=== PATIENT | female | born 1990 | race Caucasian/White ===

== ENCOUNTER 2024-10-11 16:34 | Emergency (ER) | payer SELFPAY ==
[2024-10-11] VITALS (22 sets, daily range): BP systolic 119–165; BP diastolic 77–105; PULSE 91–131; TEMP 37.1; O2SAT 92–97; BMI 25.5
--- NOTE | 2024-10-11 18:17 | ECG_ITS ---
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
--- NOTE | 2024-10-11 18:18 | ED.GENADUL1 ---
HPI HPI - General Adult General Chief complaint: Back Pain/Injury Stated complaint: BACK PAIN Time Seen by Provider: 10/11/24 17:44 Source: patient Related Data Home Medications ?Medication ?Instructions ?Recorded ?Confirmed clonazepam 0.5 mg tablet 1 mg PO DAILY 10/11/24 10/11/24 dextroamphetamine-amphetamine ER 30 mg PO DAILY 10/11/24 10/11/24 30 mg 24hr capsule,extend release (Adderall XR) fluoxetine 40 mg capsule (Prozac) 60 mg PO DAILY 10/11/24 10/11/24 lamotrigine 100 mg tablet 100 mg PO DAILY 10/11/24 10/11/24 (Lamictal) mirtazapine 45 mg tablet 45 mg PO BEDTIME 10/11/24 10/11/24 Previous Rx's ?Medication ?Instructions ?Recorded ketorolac 10 mg tablet 10 mg PO TID PRN pain #10 tabs 10/11/24 methocarbamol 750 mg tablet 750 mg PO TID PRN pain #20 tabs 10/11/24 methylprednisolone 4 mg tablets in See Rx Instructions .Route 10/11/24 a dose pack (Medrol (Jhon)) .COMPLEX #21 ea Allergies Allergy/AdvReac Type Severity Reaction Status Date / Time No Known Drug Allergies Allergy Verified 10/11/24 16:41 Opioid HPI Opioid Management Most Recent Opioid Data: Last Pain Scale 8 10/11/24 18:51 10/11/24 Last ED Pain Assessment 10/11/24 18:32 Last MAR Pain Assessment 10/11/24 18:51 PFS PFS Medical History (Updated 10/11/24 @ 21:05 by CASEY Hennessy) Sciatic pain ?M54.30 - Sciatica, unspecified side (ICD-10) Surgical History (Updated 10/11/24 @ 16:50 by Fanny Goss RN) History of bunionectomy ?Z98.890 - Other specified postprocedural states (ICD-10) Hx of breast reduction, elective ?Z98.890 - Other specified postprocedural states (ICD-10) Social History Little interest or pleasure in doing things: not at all Feeling down, depressed, or hopeless: not at all Exam Constitutional Vital Signs, click to edit/add: Last Vital Signs Temp 98.8 F 10/11/24 16:41 Pulse 95 H 10/11/24 21:00 Resp 18 10/11/24 21:00 BP 119/77 10/11/24 20:30 Pulse Ox 95 10/11/24 21:00 O2 Del Method Room Air 10/11/24 19:44 Course Vital Signs Vital signs: Vital Signs Temperature 98.8 F 10/11/24 16:41 Pulse Rate 131 H 10/11/24 16:41 Respiratory Rate 16 10/11/24 16:41 Blood Pressure 165/105 H 10/11/24 16:41 Pulse Oximetry 95 10/11/24 16:41 Oxygen Delivery Method Room Air 10/11/24 16:41 Temperature 98.8 F 10/11/24 16:41 Pulse Rate 95 H 10/11/24 21:00 Respiratory Rate 18 10/11/24 21:00 Blood Pressure 119/77 10/11/24 20:30 Pulse Oximetry 95 10/11/24 21:00 Oxygen Delivery Method Room Air 10/11/24 19:44 Medical Decision Making MDM Narrative Medical decision making narrative: IV placed with labs drawn, EKG and D-dimer are unremarkable, patient with sinus tachycardia in the emergency room. Vital signs have normalized and after pain medication administration she is hemodynamically stable with tachycardia resolved and pain controlled. CTs of the C-spine and T-spine with no evidence of acute process, patient with no focal neurodeficits in the emergency department. She is discharged home with short course of NSAIDs, steroid taper and muscle relaxants. Follow-up with PCP and return to the ER if symptoms change or worsen SHARED APC VISIT, PHYSICIAN ATTESTATION: [id number] I performed a substantive part of the MDM during the patient?s E/M visit. I personally evaluated and examined the patient. I personally made or approved the documented management plan and acknowledge its risk of complications. Medical Records Medical records reviewed: Yes I reviewed the patient's medical records Lab Data Lab results reviewed: Yes I reviewed the patient's lab results Labs: Lab Results 10/11/24 Range/Units 18:20 WBC 14.9 H (4.0-11.0) 10^3/uL RBC 3.66 L (4.20-5.40) 10^6/uL Hgb 13.2 (12.0-16.0) g/dL Hct 38.9 (36.0-48.0) % MCV 106.3 H (81.0-99.0) fL MCH 36.1 H (26.7-34.0) pg MCHC 33.9 (29.9-35.2) g/dL RDW 12.0 (11.0-15.0) % Plt Count 292 (150-450) 10^3/uL MPV 9.4 L (9.5-13.5) fL Neut % (Auto) 75.5 H (43.0-75.0) % Lymph % (Auto) 12.9 L (20.5-60.0) % Kerr % (Auto) 8.5 (1.7-12.0) % Eos % (Auto) 2.4 (0.9-7.0) % Baso % (Auto) 0.3 (0.2-2.0) % Neut # (Auto) 11.2 H (1.4-6.5) 10^3/uL Lymph # (Auto) 1.9 (1.2-3.8) 10^3/uL [place] # (Auto) 1.3 H (0.3-0.8) 10^3/uL Eos # (Auto) 0.4 (0.0-0.7) 10^3/uL Baso # (Auto) 0.1 (0.0-0.1) 10^3/uL Abs Immat Gran (auto) 0.06 H (0.00-0.03) 10^3/uL Imm/Tot Granulo (auto) 0.4 (0.0-0.5) % ESR 42 H (<=20) mm/hr D-Dimer 0.34 (<=0.59) mg/L FEU Sodium 141 (136-145) mmol/L Potassium 4.2 (3.5-5.1) mmol/L Chloride 103 (98-107) mmol/L Carbon Dioxide 30.4 (21.0-32.0) mmol/L Anion Gap 11.8 BUN 11.0 (7.0-18.0) mg/dL Creatinine 0.81 (0.55-1.02) mg/dL Est GFR ( Amer) >60 (>=60 mL/min/1.73m^2) Est GFR (Non-Af Amer) >60 (>=60 mL/min/1.73m^2) BUN/Creatinine Ratio 13.6 Glucose 91 (74-106) mg/dL Calcium 9.5 (8.5-10.1) mg/dL Total Bilirubin 0.6 (0.2-1.0) mg/dL AST 31 (15-37) U/L ALT 58 (14-59) U/L Alkaline Phosphatase 156 H (46-116) U/L Troponin I High Sens <4.0 L (4.0-51.3) pg/mL C-Reactive Protein 3.87 H (<=0.50) mg/dL Total Protein 7.7 (6.4-8.2) g/dL Albumin 3.6 (3.4-5.0) g/dL Globulin 4.1 g/dL Albumin/Globulin Ratio 0.[address] cervical spine: Attestation: I have reviewed the pertinent imaging results. Radiologist's impression: ITS Impressions Cervical Spine CT 10/11/24 19:06 IMPRESSION: No acute cervical or thoracic spine abnormalities. Electronically authenticated by: JUSTINE MEMBRENO Date: 10/11/2024 20:[address] 10/11/24 19:06 IMPRESSION: No acute cervical or thoracic spine abnormalities. Electronically authenticated by: JUSTINE MEMBRENO Date: 10/11/2024 20:55 Discharge Plan Discharge Chief Complaint: Back Pain/Injury Clinical Impression: Thoracic back pain Patient Disposition: Home, Self-Care Time of Disposition Decision: 21:05 Condition: Good Prescriptions / Home Meds: New ketorolac 10 mg tablet 10 mg PO TID PRN (Reason: pain) Qty: 10 0RF methocarbamol 750 mg tablet 750 mg PO TID PRN (Reason: pain) Qty: 20 0RF methylprednisolone [Medrol (Jhon)] 4 mg tablets,dose pack See Rx Instructions .ROUTE .COMPLEX Qty: 21 0RF Rx Instructions: Taper as directed No Action fluoxetine [Prozac] 40 mg capsule 60 mg PO DAILY lamotrigine [Lamictal] 100 mg tablet 100 mg PO DAILY dextroamphetamine-amphetamine [Adderall XR] 30 mg capsule,extended release 24hr 30 mg PO DAILY clonazepam 0.5 mg tablet 1 mg PO DAILY mirtazapine 45 mg tablet 45 mg PO BEDTIME Print Language: Mongolian Instructions: Thoracic Pain (ED) Referrals: Physician,Non-Staff, MD [Primary Care Provider] - 1 week
[2024-10-11 18:40] LABS: Basophils Absolute Auto 0.1 10^3/uL (0.0-0.1); Basophils Percent Auto 0.3 % (0.2-2.0); Eosinophils Absolute Auto 0.4 10^3/uL (0.0-0.7); Eosinophils Percent Auto 2.4 % (0.9-7.0); Hematocrit 38.9 % (36.0-48.0); Hemoglobin 13.2 g/dL (12.0-16.0); Immature Granulocytes Abs Auto 0.06 10^3/uL (0.00-0.03); Immature Granulocytes Pct Auto 0.4 % (0.0-0.5); Lymphocytes Absolute Auto 1.9 10^3/uL (1.2-3.8); Lymphocytes Percent Auto 12.9 % (20.5-60.0); Mean Corpuscular HGB Conc 33.9 g/dL (29.9-35.2); Mean Corpuscular Hemoglobin 36.1 pg (26.7-34.0); Mean Corpuscular Volume 106.3 fL (81.0-99.0); Mean Platelet Volume 9.4 fL (9.5-13.5); Monocytes Absolute Auto 1.3 10^3/uL (0.3-0.8); Monocytes Percent Auto 8.5 % (1.7-12.0); Neutrophils Absolute Auto 11.2 10^3/uL (1.4-6.5); Neutrophils Percent Auto 75.5 % (43.0-75.0); Platelet Count 292 10^3/uL (150-450); Red Blood Count 3.66 10^6/uL (4.20-5.40); White Blood Count 14.9 10^3/uL (4.0-11.0)
[2024-10-11] MEDS: ONDANSETRON PF 4 MG/2 ML VIAL IV (18:43)
[2024-10-11] MEDS: HYDROMORPHONE HCL 0.5 MG/0.5 ML SYRINGE IV (18:43)
[2024-10-11] MEDS: ORPHENADRINE 60 MG/ 2 ML VIAL IV (18:43)
[2024-10-11] MEDS: 0.9 % SODIUM CHLORIDE 1,000 ML 999 ML IV (18:43)
[2024-10-11 18:46] LABS: Erythrocyte Sedimentation Rate 42 mm/hr (<=20)
[2024-10-11] MEDS: KETOROLAC TROMETHAMINE 30 MG/ML VIAL IVP (18:51)
[2024-10-11 18:54] LABS: D Dimer 0.34 mg/L FEU (<=0.59)
[2024-10-11 18:59] LABS: Alanine Aminotransferase 58 U/L (14-59); Albumin Globulin Ratio 0.9; Albumin Level 3.6 g/dL (3.4-5.0); Alkaline Phosphatase 156 U/L (46-116); Anion Gap 11.8; Aspartate Amino Transferase 31 U/L (15-37); BUN Creatinine Ratio 13.6; Bilirubin Total 0.6 mg/dL (0.2-1.0); C Reactive Protein 3.87 mg/dL (<=0.50); Calcium 9.5 mg/dL (8.5-10.1); Carbon Dioxide 30.4 mmol/L (21.0-32.0); Chloride 103 mmol/L (98-107); Estimated GFR (African America >60 (>=60 mL/min/1.73m^2); Estimated GFR (Non-African Ame >60 (>=60 mL/min/1.73m^2); Globulin 4.1 g/dL; Glucose 91 mg/dL (74-106); Potassium 4.2 mmol/L (3.5-5.1); Sodium 141 mmol/L (136-145); Total Protein 7.7 g/dL (6.4-8.2); Troponin I High Sensitivity <4.0 pg/mL (4.0-51.3)
--- NOTE | 2024-10-11 19:06 | CT_ITS ---
[address] [address] Patient Name: FREDDIE NAGY MRN: [id number] date: 1990 Sex: F Assigned Patient Location: ER Current Patient Location: ER Accession/Order Number: [id number] Exam Date: 10/11/2024 19:30 Report Date: 10/11/2024 20:55 At the request of: JARVIS PATTON Procedure: CT thoracic spine wo con EXAM: CT scan of the thoracic and lumbar spine without IV contrast. Dose reduction technique used: Automated exposure control and/or adjustment of the mA and/or kV according to patient size and/or use of iterative reconstruction technique. REASON FOR EXAM: Thoracic back pain COMPARISON: None FINDINGS: C-SPINE: No fractures, dislocations or acute malalignment of the cervical spine. No substantial spinal canal or neuroforaminal stenoses. Preserved intervertebral disc heights. THORACIC SPINE: No fractures, dislocations or acute malalignment of the thoracic spine. No substantial spinal canal or neuroforaminal stenoses. Preserved intervertebral disc heights. Remainder unremarkable. CT/CT thoracic spine wo con IMPRESSION: No acute cervical or thoracic spine abnormalities. Electronically authenticated by: JUSTINE MEMBRENO Date: 10/11/2024 20:55
--- NOTE | 2024-10-11 19:06 | CT_ITS ---
[address] [address] Patient Name: FREDDIE NAGY MRN: [id number] date: 1990 Sex: F Assigned Patient Location: ER Current Patient Location: ER Accession/Order Number: [id number] Exam Date: 10/11/2024 19:30 Report Date: 10/11/2024 20:55 At the request of: JARVIS PATTON Procedure: CT cervical spine wo con EXAM: CT scan of the thoracic and lumbar spine without IV contrast. Dose reduction technique used: Automated exposure control and/or adjustment of the mA and/or kV according to patient size and/or use of iterative reconstruction technique. REASON FOR EXAM: Thoracic back pain COMPARISON: None FINDINGS: C-SPINE: No fractures, dislocations or acute malalignment of the cervical spine. No substantial spinal canal or neuroforaminal stenoses. Preserved intervertebral disc heights. THORACIC SPINE: No fractures, dislocations or acute malalignment of the thoracic spine. No substantial spinal canal or neuroforaminal stenoses. Preserved intervertebral disc heights. Remainder unremarkable. CT/CT cervical spine wo con IMPRESSION: No acute cervical or thoracic spine abnormalities. Electronically authenticated by: JUSTINE MEMBRENO Date: 10/11/2024 20:55
== END 2024-10-11 21:15 | disposition home or self-care (01) ==
PROVIDERS: Physician Assistant; Emergency Provider Emergency Medicine
DX: M54.6 Pain in thoracic spine (principal)
CPT/HCPCS: 36415; 72125; 72128; 80053; 84484; 85025; 85378; 85652; 86140; 93005; 96374; 96375; 99285; J1171; J1885; J2360; J2405

== ENCOUNTER 2024-10-14 20:44 | Inpatient (IN) | payer MEDICAID, SELFPAY ==
[2024-10-14 20:48] VITALS: BP 176/106; PULSE 135; TEMP 37.3; O2SAT 97; BMI 26.1
--- NOTE | 2024-10-14 20:55 | CT_ITS ---
The [address] [address] Patient Name: FREDDIE NAGY MRN: [id number] date: 1990 Sex: F Assigned Patient Location: ER Current Patient Location: ER Accession/Order Number: [id number] Exam Date: 10/14/2024 21:18 Report Date: 10/14/2024 21:53 At the request of: KARO ESTRADA Procedure: CT pelvis w con EXAM: CT scan of the abdomen using 100 mL of IV iodinated contrast. Dose reduction technique used: Automated exposure control and/or adjustment of the mA and/or kV according to patient size and/or use of iterative reconstruction technique. REASON FOR EXAM: Rule out abscess, left ischial tuberosity area COMPARISON: None FINDINGS: Peripherally enhancing fluid collection containing gas along the left side of the perineum abutting the pelvic floor musculature this region measures 1.5 x 1.1 x 2.4 cm. Additional extension of a collection of gas and fluid more inferiorly to this although in close proximity, this measures 2.3 x 2.2 x 2.1 cm and is less well-defined and has surrounding fat stranding. No definite communication of the collections with the anus. Overlying left gluteal skin thickening. Mildly enlarged left inguinal lymph nodes are likely reactive. No free fluid in the pelvis. No intrapelvic fluid collection or abscess. No pelvic hematoma. No dilated or thickened loops of small bowel or colon where visible. No fractures, subluxations or dislocations. Remainder unremarkable. CT/CT pelvis w con IMPRESSION: Abscess along the left perineum/medial gluteal subcutaneous fat abutting the left pelvic floor musculature. Electronically authenticated by: JUSTINE MEMBRENO Date: 10/14/2024 21:53
--- NOTE | 2024-10-14 20:57 | ED.GENADUL1 ---
HPI HPI - General Adult General Chief complaint: Extremity Injury, Lower Stated complaint: LEFT SIT BONE PAIN Time Seen by Provider: 10/14/24 20:46 Source: patient Mode of arrival: walk-in History of Present Illness HPI narrative: 33-year-old female presents for pain to her left buttock area. She had fallen about a week ago and the next day it started hurting. Since its become swollen but there is been no drainage and she has not had a fever. Related Data Home Medications ?Medication ?Instructions ?Recorded ?Confirmed clonazepam 0.5 mg tablet 1 mg PO DAILY 10/11/24 10/11/24 dextroamphetamine-amphetamine ER 30 mg PO DAILY 10/11/24 10/11/24 30 mg 24hr capsule,extend release (Adderall XR) fluoxetine 40 mg capsule (Prozac) 60 mg PO DAILY 10/11/24 10/11/24 lamotrigine 100 mg tablet 100 mg PO DAILY 10/11/24 10/11/24 (Lamictal) mirtazapine 45 mg tablet 45 mg PO BEDTIME 10/11/24 10/11/24 Previous Rx's ?Medication ?Instructions ?Recorded ketorolac 10 mg tablet 10 mg PO TID PRN pain #10 tabs 10/11/24 methocarbamol 750 mg tablet 750 mg PO TID PRN pain #20 tabs 10/11/24 methylprednisolone 4 mg tablets in See Rx Instructions .Route 10/11/24 a dose pack (Medrol (Jhon)) .COMPLEX #21 ea Allergies Allergy/AdvReac Type Severity Reaction Status Date / Time No Known Drug Allergies Allergy Verified 10/11/24 16:41 Opioid HPI Opioid Management Most Recent Opioid Data: Last Pain Scale 8 10/14/24 23:07 10/14/24 Last ED Pain Assessment 10/14/24 23:07 Review of Systems ROS Narrative A ten point review of systems is negative except as noted above. PFSH PFSH Medical History (Updated 10/15/24 @ 00:03 by Sanchez Mir MD) Sciatic pain ?M54.30 - Sciatica, unspecified side (ICD-10) Surgical History (Updated 10/11/24 @ 16:50 by Fanny Goss RN) History of bunionectomy ?Z98.890 - Other specified postprocedural states (ICD-10) Hx of breast reduction, elective ?Z98.890 - Other specified postprocedural states (ICD-10) Social History Little interest or pleasure in doing things: not at all Feeling down, depressed, or hopeless: not at all Exam Narrative Exam Narrative: Nurses note and vital signs reviewed and patient is not hypoxic. General: The patient appears well and in no apparent distress. Patient is resting comfortably on cart. Skin: Warm, dry, no pallor noted. There is no rash noted. Head: Normocephalic, atraumatic Eye: Normal conjunctiva, no drainage Ears, Nose, Mouth, and Throat: oral mucosa is moist. Nares patent. Cardiovascular: Regular Rate and Rhythm Respiratory: Patient is in no distress, no accessory muscle use, lungs are clear to auscultation, no wheezing, rales or rhonchi Back: non-tender GI: Soft and nontender Musculoskeletal: In the left ischial tuberosity area there is erythema and swelling and tenderness. No fluctuance or open area. Neurological: A&O, normal speech Psychiatric: Cooperative Constitutional Vital Signs, click to edit/add: Last Vital Signs Temp 98.9 F 10/14/24 23:10 Pulse 105 H 10/14/24 23:10 Resp 16 10/14/24 23:10 BP 144/92 H 10/14/24 23:10 Pulse Ox 98 10/14/24 23:10 O2 Del Method Room Air 10/14/24 23:10 Course Vital Signs Vital signs: Vital Signs Temperature 99.1 F 10/14/24 20:48 Pulse Rate 135 H 10/14/24 20:48 Respiratory Rate 20 10/14/24 20:48 Blood Pressure 176/106 H 10/14/24 20:48 Pulse Oximetry 97 10/14/24 20:48 Oxygen Delivery Method Room Air 10/14/24 20:48 Temperature 98.9 F 10/14/24 23:10 Pulse Rate 105 H 10/14/24 23:10 Respiratory Rate 16 10/14/24 23:10 Blood Pressure 144/92 H 10/14/24 23:10 Pulse Oximetry 98 10/14/24 23:10 Oxygen Delivery Method Room Air 10/14/24 23:10 Medical Decision Making MDM Narrative Medical decision making narrative: 2 adjacent abscesses are identified, 1 of which is abutting the pelvic floor. The other has gas and fluid in it. White count 17,000. Blood sugar is elevated and it was not a few days ago. She has no personal history of diabetes but has a family history of diabetes. Cultures were obtained and she was given IV vancomycin. I have spoken to general surgeon at [facility] and he feels that she would benefit from interventional radiology. Patient is requesting transfer to [facility] [place] and I have spoken to admitting service there and she is excepted. She is agreeable and stable for transfer. Differential Diagnosis Differential Diagnosis: Abscess, cellulitis Lab Data Lab results reviewed: Yes I reviewed the patient's lab results Labs: Lab Results 10/14/24 Range/Units 21:00 WBC 17.3 H (4.0-11.0) 10^3/uL RBC 3.25 L (4.20-5.40) 10^6/uL Hgb 11.7 L (12.0-16.0) g/dL Hct 34.2 L (36.0-48.0) % MCV 105.2 H (81.0-99.0) fL MCH 36.0 H (26.7-34.0) pg MCHC 34.2 (29.9-35.2) g/dL RDW 11.5 (11.0-15.0) % Plt Count 281 (150-450) 10^3/uL MPV 9.3 L (9.5-13.5) fL Neut % (Auto) 83.7 H (43.0-75.0) % Lymph % (Auto) 7.3 L (20.5-60.0) % [place] % (Auto) 5.8 (1.7-12.0) % Eos % (Auto) 1.9 (0.9-7.0) % Baso % (Auto) 0.3 (0.2-2.0) % Neut # (Auto) 14.5 H (1.4-6.5) 10^3/uL Lymph # (Auto) 1.3 (1.2-3.8) 10^3/uL [place] # (Auto) 1.0 H (0.3-0.8) 10^3/uL Eos # (Auto) 0.3 (0.0-0.7) 10^3/uL Baso # (Auto) 0.1 (0.0-0.1) 10^3/uL Abs Immat Gran (auto) 0.18 H (0.00-0.03) 10^3/uL Imm/Tot Granulo (auto) 1.0 H (0.0-0.5) % Sodium 137 (136-145) mmol/L Potassium 3.7 (3.5-5.1) mmol/L Chloride 101 (98-107) mmol/L Carbon Dioxide 25.4 (21.0-32.0) mmol/L Anion Gap 14.3 BUN 11.0 (7.0-18.0) mg/dL Creatinine 0.97 (0.55-1.02) mg/dL Est GFR ( Amer) >60 (>=60 mL/min/1.73m^2) Est GFR (Non-Af Amer) >60 (>=60 mL/min/1.73m^2) BUN/Creatinine Ratio 11.3 Glucose 241 H (74-106) mg/dL Lactate 2.6 H* (0.4-2.0) mmol/L Calcium 8.6 (8.5-10.1) mg/dL Imaging Data CT pelvis: Radiologist's impression: ITS Impressions Pelvis CT 10/14/24 20:55 IMPRESSION: Abscess along the left perineum/medial gluteal subcutaneous fat abutting the left pelvic floor musculature. Electronically authenticated by: JUSTINE MEMBRENO Date: 10/14/2024 21:53 Discharge Plan Discharge Chief Complaint: Extremity Injury, Lower Clinical Impression: Abscess Patient Disposition: General Acute Hospital Time of Disposition Decision: 00:03 Discharge Location: [facility] Condition: Fair Mode of Transportation: EMS
[2024-10-14 21:16] LABS: Basophils Absolute Auto 0.1 10^3/uL (0.0-0.1); Basophils Percent Auto 0.3 % (0.2-2.0); Eosinophils Absolute Auto 0.3 10^3/uL (0.0-0.7); Eosinophils Percent Auto 1.9 % (0.9-7.0); Hematocrit 34.2 % (36.0-48.0); Hemoglobin 11.7 g/dL (12.0-16.0); Immature Granulocytes Abs Auto 0.18 10^3/uL (0.00-0.03); Lymphocytes Absolute Auto 1.3 10^3/uL (1.2-3.8); Lymphocytes Percent Auto 7.3 % (20.5-60.0); Mean Corpuscular HGB Conc 34.2 g/dL (29.9-35.2); Mean Corpuscular Volume 105.2 fL (81.0-99.0); Mean Platelet Volume 9.3 fL (9.5-13.5); Monocytes Percent Auto 5.8 % (1.7-12.0); Neutrophils Absolute Auto 14.5 10^3/uL (1.4-6.5); Neutrophils Percent Auto 83.7 % (43.0-75.0); Platelet Count 281 10^3/uL (150-450); Red Blood Count 3.25 10^6/uL (4.20-5.40); Red Cell Distribution Width 11.5 % (11.0-15.0); White Blood Count 17.3 10^3/uL (4.0-11.0)
[2024-10-14 21:30] VITALS: BP 155/105
[2024-10-14 21:31] LABS: Anion Gap 14.3; BUN Creatinine Ratio 11.3; Calcium 8.6 mg/dL (8.5-10.1); Carbon Dioxide 25.4 mmol/L (21.0-32.0); Chloride 101 mmol/L (98-107); Estimated GFR (African America >60 (>=60 mL/min/1.73m^2); Estimated GFR (Non-African Ame >60 (>=60 mL/min/1.73m^2); Glucose 241 mg/dL (74-106); Potassium 3.7 mmol/L (3.5-5.1); Sodium 137 mmol/L (136-145)
[2024-10-14 21:37] VITALS: PULSE 110
[2024-10-14 22:38] LABS: Lactate/Lactic Acid 2.6 mmol/L (0.4-2.0)
[2024-10-14] MEDS: KETOROLAC TROMETHAMINE 30 MG/ML VIAL IVP (22:41)
[2024-10-14] MEDS: VANCOMYCIN HCL 1,500 MG in 0.9 % SODIUM CHLORIDE 500 ML 250 MG IV (22:42)
[2024-10-14 23:10] VITALS: BP 144/92; PULSE 105; TEMP 37.2; O2SAT 98
[2024-10-14] MEDS: MORPHINE SULFATE 4 MG/ML VIAL IV (23:43)
[2024-10-15] VITALS (75 sets, daily range): BP systolic 102–158; BP diastolic 59–99; PULSE 92; O2SAT 91–100
[2024-10-15] MEDS: MORPHINE SULFATE 4 MG/ML VIAL IV (01:45)
[2024-10-15] MEDS: HYDROMORPHONE HCL 1 MG/ML CARTRIDGE IV ×6 (02:29→22:10)
[2024-10-15] MEDS: HYDROMORPHONE HCL 0.5 MG/0.5 ML SYRINGE 1 MG IV ×3 (03:41→08:26)
[2024-10-15] MEDS: KETOROLAC TROMETHAMINE 30 MG/ML VIAL 15 MG IVP (07:41)
[2024-10-15] MEDS: CLINDAMYCIN PHOSPHATE/D5W 900 MG/50 ML PREMIX 100 MG IV ×3 (07:41→23:33)
[2024-10-15] MEDS: VANCOMYCIN HCL 1,000 MG in 0.9 % SODIUM CHLORIDE 250 ML 250 MG IV ×2 (10:52→22:11)
--- NOTE | 2024-10-15 16:00 | PC.NURSE ---
pt called for this RN, pt is having serosang drainage from left buttock, pt to restroom to cleans uli area, new gown and mesh underwear given for comfort, Dr Pena notified
[2024-10-16] VITALS (45 sets, daily range): BP systolic 99–128; BP diastolic 59–84; PULSE 75–96; TEMP 36.4–36.7; O2SAT 87–100; BMI 28.7
[2024-10-16] MEDS: KETOROLAC TROMETHAMINE 30 MG/ML VIAL IVP (00:32)
[2024-10-16] MEDS: ONDANSETRON PF 4 MG/2 ML VIAL IV (00:32)
[2024-10-16] MEDS: LORAZEPAM 2 MG/ML VIAL 0.5 MG IV (02:27)
[2024-10-16] MEDS: LORAZEPAM 2 MG/ML VIAL 1 MG IV (04:21)
[2024-10-16] MEDS: ZOLPIDEM TARTRATE 10 MG TABLET PO (06:09)
[2024-10-16] MEDS: HYDROMORPHONE HCL 1 MG/ML CARTRIDGE IV ×2 (08:22→10:20)
[2024-10-16] MEDS: CLINDAMYCIN PHOSPHATE/D5W 900 MG/50 ML PREMIX 100 MG IV (09:06)
[2024-10-16 09:18] LABS: Basophils Percent Auto 0.3 % (0.2-2.0); Eosinophils Absolute Auto 0.6 10^3/uL (0.0-0.7); Eosinophils Percent Auto 4.7 % (0.9-7.0); Immature Granulocytes Abs Auto 0.06 10^3/uL (0.00-0.03); Immature Granulocytes Pct Auto 0.5 % (0.0-0.5); Lymphocytes Absolute Auto 1.9 10^3/uL (1.2-3.8); Lymphocytes Percent Auto 15.6 % (20.5-60.0); Mean Corpuscular HGB Conc 34.4 g/dL (29.9-35.2); Mean Corpuscular Hemoglobin 35.7 pg (26.7-34.0); Mean Corpuscular Volume 103.9 fL (81.0-99.0); Mean Platelet Volume 8.7 fL (9.5-13.5); Monocytes Absolute Auto 0.8 10^3/uL (0.3-0.8); Monocytes Percent Auto 6.5 % (1.7-12.0); Neutrophils Percent Auto 72.4 % (43.0-75.0); Platelet Count 283 10^3/uL (150-450); Red Blood Count 3.08 10^6/uL (4.20-5.40); Red Cell Distribution Width 11.3 % (11.0-15.0); White Blood Count 12.4 10^3/uL (4.0-11.0)
[2024-10-16 09:26] LABS: Anion Gap 10.1; BUN Creatinine Ratio 15.1; Calcium 8.3 mg/dL (8.5-10.1); Carbon Dioxide 30.5 mmol/L (21.0-32.0); Chloride 102 mmol/L (98-107); Estimated GFR (African America >60 (>=60 mL/min/1.73m^2); Estimated GFR (Non-African Ame >60 (>=60 mL/min/1.73m^2); Glucose 99 mg/dL (74-106); Potassium 3.6 mmol/L (3.5-5.1); Sodium 139 mmol/L (136-145)
[2024-10-16 09:35] LABS: Lactate/Lactic Acid 0.7 mmol/L (0.4-2.0)
[2024-10-16] MEDS: VANCOMYCIN HCL 1,000 MG in 0.9 % SODIUM CHLORIDE 250 ML 250 MG IV ×2 (09:54→21:45)
--- NOTE | 2024-10-16 12:41 | PM.HP ---
HPI H&P: HPI History of Present Illness Chief complaint: LEFT SIT BONE PAIN ABSCESS Narrative: 33-year-old female presented to ER with left buttocks pain/swelling. She fell about a week ago and since then she had noticed increasing pain/swelling. She also reports feeling generalized weakness and subjective fevers and chills. Upon evaluation in ER, patient met criteria for sepsis secondary to gluteal abscess. Upon arrival, her HR was consistently in 100s and she had a leukocyte count of 17K. CT pelvis revealed Peripherally enhancing fluid collection containing gas along the left side of the perineum abutting the pelvic floor musculature measuring 1.5 x 1.1 x 2.4 cm. She had additional extension of a collection of gas and fluid more inferiorly measuring 2.3 x 2.2 x 2.1 cm. She was started on IV fluids and IV antibiotics in ED. Her CT scan findings were discussed with on-call general surgery who recommended transfer to a tertiary care center. Patient was accepted for transfer to [facility] but has been waiting for a bed for over 24 hours. This team was consulted to admit patient for medical management of her gluteal abscess/sepsis until bed becomes available so that she can be transferred for surgical incision and drainage at [facility]. At the time of my evaluation, she felt that her pain was slightly better and she she felt better overall but she still had considerable pain/swelling over her gluteal region. Opioid HPI Opioid Management Most Recent Pain and Opioid Data: Last Pain Scale 7 10/16/24 12:21 10/16/24 Last Pain Assessment 10/16/24 12:21 Last ED Pain Assessment 10/15/24 02:43 Last ORT Total Score 14 10/16/24 12:21 10/16/24 Last ORT Risk Category High Risk 10/16/24 12:21 10/16/24 Review of Systems ROS Status of ROS 10 or more systems reviewed and unremarkable except as noted in history and below [facility] Medical History (Updated 10/16/24 @ 12:47 by Shaikh Ramesh MD) Sciatic pain ?M54.30 - Sciatica, unspecified side (ICD-10) Surgical History (Updated 10/11/24 @ 16:50 by Fanny Goss RN) History of bunionectomy ?Z98.890 - Other specified postprocedural states (ICD-10) Hx of breast reduction, elective ?Z98.890 - Other specified postprocedural states (ICD-10) Social History (Updated 10/16/24 @ 12:46 by Shaikh Ramesh MD) Within the past year, how often did you have a drink containing alcohol: monthly or less Within the past year, how many standard drinks containing alcohol did you have on a typical day: 1 or 2 Within the past year, how often did you have six or more drinks on one occasion: never Total score: 0 Score interpretation: A score less than 3 is consistent with normal alcohol consumption. Smoking status: Former smoker Non-prescribed substance use: denies use Highest level of school completed/degree received: 10th grade Little interest or pleasure in doing things: not at all Feeling down, depressed, or hopeless: not at all Do you think of yourself as: lesbian/cintron/homosexual Gender Identity: female Meds Home Medications and Allergies Home Medications ?Medication ?Instructions ?Recorded ?Confirmed ?Type clonazepam 0.5 mg tablet 1 mg PO DAILY 10/11/24 10/11/24 History dextroamphetamine-amphetamine ER 30 mg PO DAILY 10/11/24 10/11/24 History 30 mg 24hr capsule,extend release (Adderall XR) fluoxetine 40 mg capsule (Prozac) 60 mg PO DAILY 10/11/24 10/11/24 History ketorolac 10 mg tablet 10 mg PO TID PRN pain #10 tabs 10/11/24 Rx lamotrigine 100 mg tablet 100 mg PO DAILY 10/11/24 10/11/24 History (Lamictal) methocarbamol 750 mg tablet 750 mg PO TID PRN pain #20 tabs 10/11/24 Rx methylprednisolone 4 mg tablets in See Rx Instructions .Route 10/11/24 Rx a dose pack (Medrol (Jhon)) .COMPLEX #21 ea mirtazapine 45 mg tablet 45 mg PO BEDTIME 10/11/24 10/11/24 History Allergies Allergy/AdvReac Type Severity Reaction Status Date / Time No Known Drug Allergies Allergy Verified 10/11/24 16:41 Exam Constitutional Vital Signs, click to edit/add: Last Vital Signs Temp 97.6 F 10/16/24 02:26 Pulse 88 10/16/24 10:20 Resp 18 10/16/24 10:20 BP 120/84 10/16/24 10:20 Pulse Ox 97 10/16/24 10:20 O2 Del Method Room Air 10/14/24 23:10 Documenting provider has reviewed patient's vital signs: yes Common normals: no apparent distress and oriented x3 General appearance: cooperative HENMT Common normals: normocephalic and head/scalp atraumatic Head and scalp: normocephalic and atraumatic Eye Common normals: conjunctivae normal and no scleral icterus Conjunctiva: conjunctiva(e) normal Respiratory Common normals: normal respiratory effort and clear to auscultation bilaterally Effort & inspection: able to speak in complete sentences Auscultation: clear to auscultation bilaterally Cardio Common normals: regular rate, S1 normal heart sound and S2 normal heart sound Rate: regular rate Heart sounds: S1 normal and S2 normal GI Common normals: Normal to inspection, nondistended, normoactive bowel sounds present, soft to palpation, non-tender and no hepatosplenomegaly Palpation: soft and no hepatosplenomegaly Back & Pelvis Pelvis: buttock abnormal Buttock abnormal laterality: left (Discrete area of fluctuance concerning for abscess. Almost all of her left buttocks is involved) Left buttock abnormal details: tenderness, erythema and swelling Extremity Common normals: no clubbing, cyanosis or edema Neuro Common normals: oriented x3, moves all extremities and no focal motor deficits Psych Common normals: mental status grossly normal, denies hallucinations, denies homicidal ideation and denies suicidal ideation Results Labs Labs: Short CBC 10/16/24 Range/Units 09:13 WBC 12.4 H (4.0-11.0) 10^3/uL Hgb 11.0 L (12.0-16.0) g/dL Hct 32.0 L (36.0-48.0) % Plt Count 283 (150-450) 10^3/uL BMP 10/16/24 09:13 Sodium 139 Potassium 3.6 Chloride 102 Carbon Dioxide 30.5 BUN 11.0 Creatinine 0.73 Glucose 99 Calcium 8.3 L Assessment and Plan Assessment and Plan (1) Sepsis: Qualifiers: Sepsis type: sepsis due to unspecified organism Sepsis acute organ dysfunction status: without acute organ dysfunction Qualified Code(s): A41.9 - Sepsis, unspecified organism (2) Abscess, gluteal, left: (3) Lactic acidosis: Plan Patient meets sepsis criteria (WBC 17K, HR> 100) Sepsis secondary to gluteal abscess. Lactic acidosis secondary to dehydration and sepsis. Currently on IV vancomycin and Zosyn. Continue with IV hydration. Follow-up blood cultures. She is hemodynamically stable currently. Will need surgical incision and drainage. Awaiting bed availability at [facility]. Continue with pain control.
[2024-10-16 13:06] LABS: Estimated Average Glucose 103 mg/dL; Glycohemoglobin A1C 5.2 % (4.5-6.2)
[2024-10-16] MEDS: OXYCODONE HCL 5 MG TABLET PO ×2 (14:14→22:44)
[2024-10-16] MEDS: ENOXAPARIN SODIUM 40 MG/0.4 ML SYRINGE SUBQ (14:14)
[2024-10-16] MEDS: PIPERACILLIN SODIUM/TAZOBACTAM 3.375 GM in 0.9 % SODIUM CHLORIDE 50 ML IV ×2 (14:15→22:47)
[2024-10-16] MEDS: ACETAMINOPHEN 325 MG TABLET 650 MG PO (14:15)
[2024-10-16] MEDS: LACTATED RINGER'S SOLUTION 1,000 ML 125 ML IV (14:15)
[2024-10-17] MEDS: LACTATED RINGER'S SOLUTION 1,000 ML 125 ML IV (01:34)
--- NOTE | 2024-10-17 13:30 | P.DS_ITS ---
DS: Providers Provider Date of admission: 10/16/24 11:16 Primary care physician: Non-Staff PhysicianMD Admitting clinician: Shaikh Ramesh Attending physician on admission: Shaikh Ramesh Attending physician on discharge: Shaikh Ramesh Discharging clinician: Shaikh Ramesh DS: Diagnosis Discharge Diagnosis (1) Sepsis: Qualifiers: Sepsis type: sepsis due to unspecified organism Sepsis acute organ dys function status: without acute organ dysfunction Qualified Code(s): A41.9 - Sepsis, unspecified organism (2) Abscess, gluteal, left: (3) Lactic acidosis: DS: Summary Hospital Course Hospital Course: 33-year-old female presented to ER with left buttocks pain/swelling. She fell about a week ago and since then she had noticed increasing pain/swelling. Upon evaluation in ER, patient met criteria for sepsis secondary to gluteal abscess. Upon arrival, her HR was consistently in 100s and she had a leukocyte count of 17K. CT pelvis revealed Peripherally enhancing fluid collection containing gas along the left side of the perineum abutting the pelvic floor musculature measuring 1.5 x 1.1 x 2.4 cm. She had additional extension of a collection of gas and fluid more inferiorly measuring 2.3 x 2.2 x 2.1 cm. She was started on IV fluids and IV antibiotics in ED. Her CT scan findings were discussed with on-call general surgery who recommended transfer to a tertiary care center. Patient was accepted for transfer to [facility] but had been waiting for a bed for over 24 hours. Patient was admitted to [facility] surg floor to continue her treatment of gluteal abscess. She was treated with IV vancomycin and zosyn. Later in the evening, she was transferred to [facility] for surgical I&D once bed became available for her. Time Spent with Patient Time attestation: Total time spent providing and/or coordinating discharge services: Exam Constitutional Vital Signs, click to edit/add: Last Vital Signs Temp 97.7 F 10/16/24 19:33 Pulse 78 10/16/24 19:33 Resp 18 10/16/24 19:33 BP 117/77 10/16/24 19:33 Pulse Ox 95 10/16/24 19:33 O2 Del Method Room Air 10/16/24 19:33 O2 Flow Rate 2 10/16/24 12:21 DS: Data Data Completed and Pending Labs on day of discharge: Labs from last 24 hours 10/16/24 09:13 Estimat Average Glucose 103 Hemoglobin A1c 5.2 Preliminary micro results at discharge 10/14/24 22:20 Blood Culture Result 2 - Preliminary Blood NO GROWTH AT 36-48 HOURS. FINAL TO FOLLOW. 10/14/24 22:19 Blood Culture Result 1 - Preliminary Blood NO GROWTH AT 36-48 HOURS. FINAL TO FOLLOW. Discharge Plan Discharge Disposition: [facility] Condition: Fair Assessment: report called to Kirill CASTILLO at . , pt transport with belongings Discharge Date/Time: 10/17/24 02:12 Discharge Location: [facility] Discharge location: [facility]
== END 2024-10-17 02:12 | disposition short-term general hospital (02) | DRG 720 ==
LOC: ER 10-15 00:03 → MS 10-16 11:19
PROVIDERS: Student in an Organized Health Care Education/Training Program; Admitting Provider Internal Medicine; Emergency Provider Emergency Medicine; Visit Provider Internal Medicine
DX: A41.9 Sepsis, unspecified organism (principal); L02.31 Cutaneous abscess of buttock; E87.20 Acidosis, unspecified; R73.9 Hyperglycemia, unspecified; R29.6 Repeated falls; W19.XXXA Unspecified fall, initial encounter; Z79.899 Other long term (current) drug therapy; Z83.3 Family history of diabetes mellitus
CPT/HCPCS: 36415; 72193; 80048; 80053; 80202; 83036; 83605; 85025; 87040; 94761; 96365; 96366; 96367; 96372; 96375; 96376; 99285; 99406; J0736; J1171; J1650; J1885; J2060; J2270; J2405; J2543; J3370; Q9967

== ENCOUNTER 2024-11-09 23:35 | Emergency (ER) | payer SELFPAY ==
[2024-11-09 23:43] VITALS: BP 168/105; PULSE 97; TEMP 36.9; O2SAT 99; BMI 26.5
--- NOTE | 2024-11-09 23:46 | PC.NURSE ---
complains of left buttock abscess onset 10/14/2024, this patient transferred to [facility] for 3 or 4 days per this patient. for this abscess and this patient has no PCP and was never told to follow up after her discharge from [facility]
--- OUTSIDE RECORDS SUMMARY | 2024-11-09 23:50 | XMS_ITS | CCD ---
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 11.9 - 15.1 g/dL [facility] Immature granulocytes (Bld) [#/Vol] 0.08 10*3/uL [facility] Immature granulocytes/100 WBC (Bld) 1 % High 0 [facility] Interpretation and review of laboratory results Abnormal [facility] Lymphocytes/100 WBC (Bld) 28 % 24 - 43 % [facility] Lymphocytes/100 WBC (Bld) 2.19 % [facility] MCH (RBC) [Entitic mass] 35.0 pg High 25.2 - 33.5 pg [facility] MCHC (RBC) [Mass/Vol] 32.8 g/dL 28.4 - 34.8 g/dL [facility] MCV (RBC) [Entitic vol] 106.5 fL High 82.6 - 102.9 fL [facility] Monocytes/100 WBC (Bld) 8 % 3 - 12 % [facility] Monocytes/100 WBC (Bld) 0.67 % [facility] Neutrophils/100 WBC (Bld) 56 % 36 - 65 % [facility] Nucleated RBC/100 WBC (Bld) [Ratio] 0.0 % 0.0 per 100 WBC [facility] Platelet mean volume (Bld) [Entitic vol] 9.9 fL 8.1 - 13.5 fL [facility] Platelets (Bld) [#/Vol] 366 10*3/uL [facility] RBC (Bld) [#/Vol] 3.23 10*6/uL Low 3.95 - 5.1 1 m/uL [facility] [employer] RBC (Bld) [#/Vol] MACROCYTOSIS PRESENT [facility] Segmented neutrophils/100 WBC (Bld) 4.48 % [facility] WBC other (Bld) [#/Vol] 8.0 [facility] CBC with Diffon 10-19-2024 Abs. Basophil 0.06 k/uL Normal 0.00-0.[address] [facility] Comment on above: Performed By: #### NAOMI LOWERYX #### [employer] [address] [place], [place] [id number] [employer] Operator: Larry Ashton MD Abs.Imm.Granulocyte 0.08 k/uL Normal 0.00-0.[address] [facility] Comment on above: Performed By: #### NAOMI LOWERYX #### [employer] [facility] [place] [address] [employer] Operator: Larry Ashton MD Abs.Neutrophil (Seg) 4.48 k/uL Normal 1.50-8.[address] [facility] Comment on above: Performed By: #### U MICAO, UAX #### [employer] [address] [place] [address] [employer] Operator: Larry Ashton MD Basophils/100 WBC (Bld) 1 % Normal 0-[address] [facility] Comment on above: Performed By: #### U MICAO, UAX #### [facility] [employer] [address] [place] [address] [employer] Operator: Larry Ashton MD Eosinophils (Bld) [#/Vol] 0.47 10*3/uL High 0.00-0.[address] [facility] Comment on above: Performed By: #### U MICAO, UAX #### [facility] [employer] [address] [place] [address] [employer] Operator: Larry Ashton MD Eosinophils/100 WBC (Bld) 6 % High 1-[address] [facility] Comment on above: Performed By: #### U MICAO, UAX #### [address] [address] [employer] Operator: Larry Ashton MD Erythrocyte distribution width (RBC) [Ratio] 11.4 % Low 11.8-14.[address] [facility] Comment on above: Performed By: #### U MICAO, UAX #### [facility] [employer] [address] [place] [address] [employer] Operator: Larry Ashton MD Hematocrit (Bld) [Volume fraction] 34.4 % Low 36.3-47.[address] [facility] Comment on above: Performed By: #### U MICAO, UAX #### [facility] [employer] [address] [place] [address] [employer] Operator: Larry Ashton MD Hemoglobin (Bld) [Mass/Vol] 11.3 g/dL Low 11.9-15.[address] [facility] Comment on above: Performed By: #### U MICAO, UAX #### [facility] [employer] [address] [place] [address] [employer] Operator: Larry Ashton MD Immature granulocytes/100 WBC (Bld) 1 % High [address] [facility] Comment on above: Performed By: #### U INDIA, UAX #### [address] [address] [employer] Operator: Larry Ashton MD Lymphocytes (Bld) [#/Vol] 2.19 10*3/uL Normal 1.10-3.[address] [facility] Comment on above: Performed By: #### U INDIA, UAX #### [address] [address] [employer] Operator: Larry Ashton MD Lymphocytes/100 WBC (Bld) 28 % Normal 24-[address] [facility] Comment on above: Performed By: #### U INDIA UAX #### [address] [address] [employer] Operator: Larry Ashton MD MCH (RBC) [Entitic mass] 35.0 pg High 25.2-33.[address] [facility] Comment on above: Performed By: #### U INDIA, UAX #### [address] [address] [employer] Operator: Larry Ashton MD MCHC (RBC) [Mass/Vol] 32.8 g/dL Normal 28.4-34.[address] [facility] Comment on above: Performed By: #### U INDIA, UAX #### [facility] [employer] [address] [place] [address] [employer] Operator: Larry Ashton MD MCV (RBC) [Entitic vol] 106.5 fL High 82.6-102.[address] [facility] Comment on above: Performed By: #### U INDIA, UAX #### [address] [address] [employer] Operator: Larry Ashton MD Monocytes (Bld) [#/Vol] 0.67 10*3/uL Normal 0.10-1.[address] [facility] Comment on above: Performed By: #### U INDIA UAX #### [address] [address] [employer] Operator: Larry Ashton MD Monocytes/100 WBC (Bld) 8 % Normal 3-[address] [facility] Comment on above: Performed By: #### U INDIA UAX #### [address] [address] [employer] Operator: Larry Ashton MD Neutrophil (Seg) 56 % Normal 36-65 [facility] Comment on above: Performed By: #### Srini OSBORNE UAX #### [address] [address] [employer] Operator: Larry Ashton MD NRBC Automated 0.0 per 100 WBC Normal 0.[address] [facility] Comment on above: Performed By: #### U INDIA UAX #### [address] [address] [employer] Operator: Larry Ashton MD Platelet mean volume (Bld) [Entitic vol] 9.9 fL Normal 8.1-13.[address] [facility] Comment on above: Performed By: #### U INDIA UAX #### [address] [address] [employer] Operator: Larry Ashton MD Platelets (Bld) [#/Vol] 366 10*3/uL Normal 138-[address] [facility] Comment on above: Performed By: #### U INDIA, UAX #### [address] [address] [employer] Operator: Larry Ashton MD RBC (Bld) [#/Vol] 3.23 10*6/uL Low 3.95-5.[address] [facility] Comment on above: Performed By: #### U INDIA UAX #### [address] [address] [employer] Operator: Larry Ashton MD RBC morphology finding Nom (Bld) MACROCYTOSIS PRESENT Normal [facility] Comment on above: Performed By: #### Srini OSBORNE UAX #### [address] [address] [employer] Operator: Larry Ashton MD WBC (Bld) [#/Vol] 8.0 10*3/uL Normal 3.5-11.[address] [facility] Comment on above: Performed By: #### Srini OSBORNE UAX #### [address] [address] [employer] Operator: Larry Ashton MD Cult,Urineon 10-19-2024 Cult,Urine Specimen Description .URINE Culture NO GROWTH Report Status FINAL 10/19/[address] [facility] Comment on above: Performed By: #### Radha JIANG BMPX #### [address] [address] [employer] Operator: Larry Ashton MD Culture, Urineon 10-19-2024 Microorganism identified Cx Nom (Unsp spec) NO GROWTH [facility] Specimen Description .URINE [facility] Basic Metab w/rfx MGon 10-18 Anion gap [Moles/Vol] 12 mmol/L Normal 9-[address] [facility] Comment on above: Performed By: #### C DEIDRE BMPX #### [address] [address] [employer] Operator: Larry Ashton MD Calcium [Mass/Vol] 8.8 mg/dL Normal 8.6-10.[address] [facility] Comment on above: Performed By: #### C DEIDRE, BMPX #### [address] [place] [address] [employer] Operator: Larry Ashton MD Chloride [Moles/Vol] 104 mmol/L Normal 98-[address] [facility] Comment on above: Performed By: #### C BC, BMPX #### [address] [address] [employer] Operator: Larry Ashton MD CO2 [Moles/Vol] 22 mmol/L Normal 20-[address] [facility] Comment on above: Performed By: #### C BC, BMPX #### [address] [address] [employer] Operator: Larry Ashton MD Creatinine [Mass/Vol] 0.6 mg/dL Normal 0.6-0.[address] [facility] Comment on above: Performed By: #### C BC, BMPX #### [address] [address] [employer] Operator: Larry Ashton MD GFR/1.73 sq M.predicted among non-blacks MDRD (S/P/Bld) [Vol rate/Area] mL/min/{1.73_m2} Normal >[address] [facility] Comment on above: Result Comment: These results are not intended for use in patients <18 years of age. eGFR results are calculated without a race factor using the 2020 CKD-EPI equation. Careful clinical correlation is recommended, particularly when comparing to results calculated using previous equations. The CKD-EPI equation is less accurate in patients with extremes of muscle mass, extra-renal metabolism of creatine, excessive creatine ingestion, or following therapy that affects renal tubular secretion. Performed By: #### C BC, BMPX #### [address] [address] [employer] Operator: Larry Ashton MD Glucose [Mass/Vol] 98 mg/dL Normal 74-[address] [facility] Comment on above: Performed By: #### C BC, BMPX #### [facility] [employer] [address] [place] [phone] [employer] Operator: Larry Ashton MD Potassium [Moles/Vol] 4.3 mmol/L Normal 3.7-5.[address] [facility] Comment on above: Result Comment: Spec imen hemolysis has exceeded the interference as defined by Michael. Value may be falsely increased. Suggest recollection if clinically indicated. Performed By: #### C BC, BMPX #### [facility] [address] [place], [place] [id number] [employer] Operator: Larry Ashton MD Sodium [Moles/Vol] 138 mmol/L Normal 136-[address] [facility] Comment on above: Performed By: #### C BC, BMPX #### [facility] [address] [place] [address] [employer] Operator: Larry Ashton MD Urea nitrogen [Mass/Vol] 7 mg/dL Normal 6-[address] [facility] Comment on above: Performed By: #### C BC, BMPX #### [facility] [address] [place] [address] [employer] Operator: Larry Ashton MD Basic Metabolic Panel w/ Ref michael to MGon 10-18-2024 Anion gap [Moles/Vol] 12 mmol/L 9 - 16 mmol/L [facility] Calcium [Mass/Vol] 8.8 mg/dL 8.6 - 10. 4 mg/dL [facility] Chloride [Moles/Vol] 104 mmol/L 98 - 107 mmol/L [facility] CO2 [Moles/Vol] 22 mmol/L 20 - 31 mmol/L [facility] Creatinine [Mass/Vol] 0.6 mg/dL 0.6 - 0.9 mg/dL [facility] Est, Gloteresa Ruiz Rate - PINF [facility] Comment on above: These results are not intended for use in patients <18 years of age. eGFR results are calculated without a race factor using the 2020 CKD-EPI equation. Careful clinical correlation is recommended, particularly when comparing to results calculated using previous equations. The CKD-EPI equation is less accurate in patients with extremes of muscle mass, extra-renal metabolism of creatine, excessive creatine ingestion, or following therapy that affects renal tubular secretion. Glucose [Mass/Vol] 98 mg/dL 74 - 99 mg/dL [facility] Potassium [Moles/Vol] 4.3 mmol/L 3.7 - 5.3 mmol/L [facility] Comment on above: Specimen hemolysis h as exceeded the interference as defined by Michael. Value may be falsely increased. Suggest recollection if clinically indicated. Sodium [Moles/Vol] 138 mmol/L 136 - 145 mmol/L [facility] Urea nitrogen [Mass/Vol] 7 mg/dL 6 - 20 mg/dL [facility] CBC with Auto Differentialon 10-18-2024 Basophils (Bld) [#/Vol] 0.05 10*3/uL [facility] Basophils/100 WBC (Bld) 1 % 0 - 2 % [facility] Eosinophils (Bld) [#/Vol] 0.39 10*3/uL [facility] Eosinophils/100 WBC (Bld) 5 % High 1 - 4 % [facility] Erythrocyte distribution width (RBC) [Ratio] 11.4 % Low 11.8 - 14.4 % [facility] Hematocrit (Bld) [Volume fraction] 33.6 % Low 36.3 - 47.1 % [facility] Hemoglobin (Bld) [Mass/Vol] 11.7 g/dL Low 11.9 - 15.1 g/dL [facility] Immature granulocytes (Bld) [#/Vol] 0.08 10*3/uL [facility] Immature granulocytes/100 WBC (Bld) 1 % High 0 [facility] Interpretation and review of laboratory results Abnormal [facility] Lymphocytes/100 WBC (Bld) 20 % Low 24 - 43 % [facility] Lymphocytes/100 WBC (Bld) 1.64 % [facility] MCH (RBC) [Entitic mass] 34.9 pg High 25.2 - 33.5 pg [facility] MCHC (RBC) [Mass/Vol] 34.8 g/dL 28.4 - 34.8 g/dL [facility] MCV (RBC) [Entitic vol] 100.3 fL 82.6 - 102.9 fL [facility] Monocytes/100 WBC (Bld) 6 % 3 - 12 % [facility] Monocytes/100 WBC (Bld) 0.48 % [facility] Neutrophils/100 WBC (Bld) 68 % High 36 - 65 % [facility] Nucleated RBC/100 WBC (Bld) [Ratio] 0.0 % 0.0 per 100 WBC [facility] [employer] Platelet, Fluorescence Platelet clumps present, count appears adequate. [facility] Platelets (Bld) [#/Vol] See Reflexed IPF Result [facility] RBC (Bld) [#/Vol] 3.35 10*6/uL Low 3.95 - 5.1 1 m/uL [facility] Segmented neutrophils/100 WBC (Bld) 5.46 % [facility] WBC other (Bld) [#/Vol] 8.1 [facility] CBC with Diffon 10-18-2024 Platelet, Fluoresc. Platelet clumps present, count appears adequate. Normal 138-[address] [facility] Comment on above: Performed By: #### C DEIDRE BMPX #### [facility] [employer] [address] [place] [address] [employer] Operator: Larry Ashton MD Abs. Basophil 0.05 k/uL Normal 0.00-0.[address] [facility] Comment on above: Performed By: #### C DEIDRE BMPX #### [facility] [address] [place] [address] [employer] Operator: Larry Ashton MD Abs.Imm.Granulocyte 0.08 k/uL Normal 0.00-0.[address] [facility] Comment on above: Performed By: #### C DEIDRE BMPX #### [facility] [employer] [facility] [place] [address] [employer] Operator: Larry Ashton MD Abs.Neutrophil (Seg) 5.46 k/uL Normal 1.50-8.[address] [facility] Comment on above: Performed By: #### C BC, BMPX #### [address] [address] [employer] Operator: Larry Ashton MD Basophils/100 WBC (Bld) 1 % Normal 0-[address] [facility] Comment on above: Performed By: #### C BC, BMPX #### [facility] [employer] [address] [place] [address] [employer] Operator: Larry Ashton MD Eosinophils (Bld) [#/Vol] 0.39 10*3/uL Normal 0.00-0.[address] [facility] Comment on above: Performed By: #### C BC, BMPX #### [facility] [employer] [address] [place] [address] [employer] Operator: Larry Ashton MD Eosinophils/100 WBC (Bld) 5 % High 1-[address] [facility] Comment on above: Performed By: #### C BC, BMPX #### [facility] [employer] [address] [place] [address] [employer] Operator: Larry Ashton MD Erythrocyte distribution width (RBC) [Ratio] 11.4 % Low 11.8-14.[address] [facility] Comment on above: Performed By: #### C BC, BMPX #### [facility] [employer] [address] [place] [address] [employer] Operator: Larry Ashton MD Hematocrit (Bld) [Volume fraction] 33.6 % Low 36.3-47.[address] [facility] Comment on above: Performed By: #### C BC, BMPX #### [facility] [employer] [address] [place] [address] [employer] Operator: Larry Ashton MD Hemoglobin (Bld) [Mass/Vol] 11.7 g/dL Low 11.9-15.[address] [facility] Comment on above: Performed By: #### C BC, BMPX #### [place] [id number] [place] [address] [employer] Operator: Larry Ashton MD Immature granulocytes/100 WBC (Bld) 1 % High [address] [facility] Comment on above: Performed By: #### C BC, BMPX #### [address] [address] [employer] Operator: Larry Ashton MD Lymphocytes (Bld) [#/Vol] 1.64 10*3/uL Normal 1.10-3.[address] [facility] Comment on above: Performed By: #### C BC, BMPX #### [address] [address] [employer] Operator: Larry Ashton MD Lymphocytes/100 WBC (Bld) 20 % Low 24-[address] [facility] Comment on above: Performed By: #### C BC, BMPX #### [address] [address] [employer] Operator: Larry Ashton MD MCH (RBC) [Entitic mass] 34.9 pg High 25.2-33.[address] [facility] Comment on above: Performed By: #### C BC, BMPX #### [address] [address] [employer] Operator: Larry Ashton MD MCHC (RBC) [Mass/Vol] 34.8 g/dL Normal 28.4-34.[address] [facility] Comment on above: Performed By: #### C BC, BMPX #### [address] [address] [employer] Operator: Larry Ashton MD MCV (RBC) [Entitic vol] 100.3 fL Normal 82.6-102.[address] [facility] Comment on above: Performed By: #### C BC, BMPX #### [facility] [employer] [address] [place] [address] [employer] Operator: Larry Ashton MD Monocytes (Bld) [#/Vol] 0.48 10*3/uL Normal 0.10-1.[address] [facility] Comment on above: Performed By: #### C BC, BMPX #### [address] [address] [employer] Operator: Larry Ashton MD Monocytes/100 WBC (Bld) 6 % Normal 3-[address] [facility] Comment on above: Performed By: #### C BC, BMPX #### [address] [address] [employer] Operator: Larry Ashton MD Neutrophil (Seg) 68 % High 36-65 [facility] Comment on above: Performed By: #### C BC, BMPX #### [address] [address] [employer] Operator: Larry Ashton MD NRBC Automated 0.0 per 100 WBC Normal 0.[address] [facility] Comment on above: Performed By: #### C BC, BMPX #### [address] [address] [employer] Operator: Larry Ashton MD Platelet Count See Reflexed IPF Result Normal 138-[address] [facility] Comment on above: Performed By: #### C BC, BMPX #### [address] [address] [employer] Operator: Larry Ashton MD RBC (Bld) [#/Vol] 3.35 10*6/uL Low 3.95-5.[address] [facility] Comment on above: Performed By: #### C BC, BMPX #### [address] [address] [employer] Operator: Larry Ashton MD WBC (Bld) [#/Vol] 8.1 10*3/uL Normal 3.5-11.[address] [facility] Comment on above: Performed By: #### C , BMPX #### [facility] [employer] [facility] [place] [address] [employer] Operator: Larry Ashton MD CT ABDOMEN PELVIS WO CONTRAS Ton 10-18-2024 CT ABDOMEN PELVIS WO CONTRAST EXAMINATION: CT OF THE ABDOMEN AND PELVIS WITHOUT CONTRAST 2024 11:45 am TECHNIQUE: CT of the abdomen and pelvis was performed without the administration of intravenous contrast. Multiplanar reformatted images are provided for review. Automated exposure control, iterative reconstruction, and/or weight based adjustment of the mA/kV was utilized to reduce the radiation dose to as low as reasonably achievable. COMPARISON: None HISTORY: ORDERING SYSTEM PROVIDED HISTORY: Pelvic abscess TECHNOLOGIST PROVIDED HISTORY: Pelvic abscess FINDINGS: Lower Chest: Lung bases are clear. Organs: The unenhanced liver, spleen, pancreas, gallbladder and adrenal glands are without acute focal abnormality. Punctate nonobstructing left renal calculus. No hydronephrosis or perinephric stranding. GI/Bowel: No dilated loops of bowel or bowel wall thickening. No extraluminal contrast or free air. Moderate amount of stool in the colon. The appendix is normal. Pelvis: No bladder wall thickening. The unenhanced uterus and ovaries are unremarkable. Trace free fluid in the pelvis likely physiologic. Mildly enlarged left inguinal lymph nodes, the largest measuring up to 1.3 cm in short axis. Peritoneum/Retroperit oneum: The aorta is normal in caliber. No pathologically enlarged adenopathy. No ascites or drainable fluid collection. Bones/Soft Tissues: There is subcutaneous edema with mild skin thickening noted in the left gluteal region and extending inferiorly along the perineum and left gluteal cleft. No drainable fluid collection or soft tissue gas. No acute osseous abnormality. IMPRESSION: 1. Subcutaneous edema with mild skin thickening in the left gluteal region and extending inferiorly along the perineum and left gluteal cleft. No drainable fluid collection or soft tissue gas. Findings are suggestive of cellulitis in the appropriate clinical setting. 2. Mildly enlarged left inguinal lymph nodes likely reactive. 3. Punctate nonobstructing left renal calculus. Interpreted by: Riya Aguero MD Signed by: Riya Aguero MD 10/18/24 Final result Normal [facility] CT Abdomen and Pelvis WO karin trayloron 10-18-2024 1. Subcutaneous fer a with mild skin thickening in the left gluteal region and extending inferiorly along the perineum and left gluteal cleft. No drainable fluid collection or soft tissue gas. Findings are suggestive of cellulitis in the appropriate clinical setting. 2. Mildly enlarged left inguinal lymph nodes likely reactive. 3. Punctate nonobstructing left renal calculus. [facility] EXAMINATION: CT OF THE ABDOMEN AND PELVIS WITHOUT CONTRAST 2024 11:45 am TECHNIQUE: CT of the abdomen and pelvis was performed without the administration of intravenous contrast. Multiplanar reformatted images are provided for review. Automated exposure control, iterative reconstruction, and/or weight based adjustment of the mA/kV was utilized to reduce the radiation dose to as low as reasonably achievable. COMPARISON: None HISTORY: ORDERING SYSTEM PROVIDED HISTORY: Pelvic abscess TECHNOLOGIST PROVIDED HISTORY: Pelvic abscess FINDINGS: Lower Chest: Lung bases are clear. Organs: The unenhanced liver, spleen, pancreas, gallbladder and adrenal glands are without acute focal abnormality. Punctate nonobstructing left renal calculus. No hydronephrosis or perinephric stranding. GI/Bowel: No dilated loops of bowel or bowel wall thickening. No extraluminal contrast or free air. Moderate amount of stool in the colon. The appendix is normal. Pelvis: No bladder wall thickening. The unenhanced uterus and ovaries are unremarkable. Trace free fluid in the pelvis likely physiologic. Mildly enlarged left inguinal lymph nodes, the largest measuring up to 1.3 cm in short axis. Peritoneum/Retroperit oneum: The aorta is normal in caliber. No pathologically enlarged adenopathy. No ascites or drainable fluid collection. Bones/Soft Tissues: There is subcutaneous edema with mild skin thickening noted in the left gluteal region and extending inferiorly along the perineum and left gluteal cleft. No drainable fluid collection or soft tissue gas. No acute osseous abnormality. [facility] Riya Aguero MD - 10/18/2024 EXAMINATION: CT OF THE ABDOMEN AND PELVIS WITHOUT CONTRAST 2024 11:45 am TECHNIQUE: CT of the abdomen and pelvis was performed without the administration of intravenous contrast. Multiplanar reformatted images are provided for review. Automated exposure control, iterative reconstruction, and/or weight based adjustment of the mA/kV was utilized to reduce the radiation dose to as low as reasonably achievable. COMPARISON: None HISTORY: ORDERING SYSTEM PROVIDED HISTORY: Pelvic abscess TECHNOLOGIST PROVIDED HISTORY: Pelvic abscess FINDINGS: Lower Chest: Lung bases are clear. Organs: The unenhanced liver, spleen, pancreas, gallbladder and adrenal glands are without acute focal abnormality. Punctate nonobstructing left renal calculus. No hydronephrosis or perinephric stranding. GI/Bowel: No dilated loops of bowel or bowel wall thickening. No extraluminal contrast or free air. Moderate amount of stool in the colon. The appendix is normal. Pelvis: No bladder wall thickening. The unenhanced uterus and ovaries are unremarkable. Trace free fluid in the pelvis likely physiologic. Mildly enlarged left inguinal lymph nodes, the largest measuring up to 1.3 cm in short axis. Peritoneum/Retroperit oneum: The aorta is normal in caliber. No pathologically enlarged adenopathy. No ascites or drainable fluid collection. Bones/Soft Tissues: There is subcutaneous edema with mild skin thickening noted in the left gluteal region and extending inferiorly along the perineum and left gluteal cleft. No drainable fluid collection or soft tissue gas. No acute osseous abnormality. IMPRESSION: 1. Subcutaneous edema with mild skin thickening in the left gluteal region and extending inferiorly along the perineum and left gluteal cleft. No drainable fluid collection or soft tissue gas. Findings are suggestive of cellulitis in the appropriate clinical setting. 2. Mildly enlarged left inguinal lymph nodes likely reactive. 3. Punctate nonobstructing left renal calculus. [facility] CT Abdomen and Pelvis WO con trastOrdered By: Riya Aguero on 10-18-2024 [facility] Work Phone: MRSA DNA Probe, Nasalon 10-08 MRSA, DNA, Nasal Negative NEGATIVE [facility] Comment on above: NEGATIVE: MRSA DNA n ot detected by nucleic acid amplification. Results should be used as an adjunct to nosocomial control efforts to identify patients needing enhanced precautions. The test is not intended to identify patients with staphylococcal infections. Results should not be used to guide or monitor treatment for MRSA infections. Specimen Description .NASAL SWAB [facility] MRSA, DNA, Nasalon MRSA, DNA, Nasal Negative Normal NEG [facility] Comment on above: Result Comment: NEGA TIVE: MRSA DNA not detected by nucleic acid amplification. Results should be used as an adjunct to nosocomial control efforts to identify patients needing enhanced precautions. The test is not intended to identify patients with staphylococcal infections. Results should not be used to guide or monitor treatment for MRSA infections. Performed By: #### Radha JIANG BMPX #### [employer] [address] [place] [address] [phone] [employer] Operator: Larry Ashton MD Magnesiumon 10-18-2024 Magnesium [Mass/Vol] 2.3 mg/dL 1.6 - 2.6 mg/dL [facility] Magnesium [Mass/Vol] 2.3 mg/dL Normal 1.6-2.[address] [facility] Comment on above: Performed By: #### Radha JIANG BMPX #### [facility] [address] [place] [address] [phone] [employer] Operator: Larry Ashton MD Microscopic Urinalysison Bacteria LM Ql (Urine sed) FEW Abnormal None [facility] Epithelial cells LM.HPF (Urine sed) [#/Area] 10 TO 20 [facility] Interpretation and review of laboratory results Abnormal [facility] RBC LM.HPF (Urine sed) [#/Area] 5 TO 10 [facility] WBC LM.HPF (Urine sed) [#/Area] 10 TO 20 [facility] [employer] No Panel Informationon 10-18 [facility] [employer] UA w/Reflex Cultureon 2024 Bilirubin, SemiQt,Ur Negative Normal NEG [facility] Comment on above: Performed By: #### Srini OSBORNE UAX #### [employer] [address] [place] [address] [phone] [employer] Operator: Larry Ashton MD Blood, Urine Negative Normal NEG [facility] Comment on above: Performed By: #### Srini OSBORNE UAX #### [employer] [address] [place] [phone] [employer] Operator: Larry Ashton MD Clarity (U) 2+ Abnormal CLEAR [facility] Comment on above: Performed By: #### U MICAO, UAX #### [facility] [address] [place] [phone] [employer] Operator: Larry Ashton MD Color (U) Yellow Normal YEL [facility] Comment on above: Performed By: #### U MICAO, UAX #### [facility] [address] [place] [phone] [employer] Operator: Larry Ashton MD Glucose Ql (U) Negative Normal NEG [facility] Comment on above: Performed By: #### U MICAO, UAX #### [address] [address] [employer] Operator: Larry Ashton MD Ketones Ql (U) Negative Normal NEG [facility] Comment on above: Performed By: #### U MICAO, UAX #### [address] [address] [employer] Operator: Larry Ashton MD Leukocyte esterase Test strip Ql (U) TRACE Abnormal NEG [facility] Comment on above: Performed By: #### U MICAO, UAX #### [address] [phone] [employer] Operator: Larry Ashton MD Nitrite,Ur Negative Normal NEG [facility] Comment on above: Performed By: #### U MICAO, UAX #### [facility] [employer] [address] [place] [phone] [employer] Operator: Larry Ashton MD PH,Ur 7.5 Normal 5.0-8.[address] [facility] Comment on above: Performed By: #### U MICAO, UAX #### [facility] [employer] [address] [place] [address] [phone] [employer] Operator: Larry Ashton MD Protein Ql (U) Negative Normal NEG [facility] Comment on above: Performed By: #### U MICAO, UAX #### [facility] [address] [place] [address] [employer] Operator: Larry Ashton MD Spec. [place],Ur 1.015 Normal 1.005-1.030 [facility] Comment on above: Performed By: #### U MICAO, UAX #### [facility] [address] [place] [address] [employer] Operator: Larry Ashton MD Urobilinogen,Ur Normal Normal 0.0-1.[address] [facility] Comment on above: Performed By: #### U MICAO, UAX #### [facility] [address] [place], [place] [phone] [employer] Operator: Larry Ashton MD Urinalysis with Reflex to Cu ltureon 10-18-2024 Bilirubin Ql (U) Negative NEGATIVE [facility] Clarity (U) 2+ Abnormal Clear [facility] [employer] Color (U) Yellow Yellow [facility] Glucose Test strip (U) [Mass/Vol] Negative NEGATIVE mg/dL [facility] Hemoglobin Auto test strip Ql (U) Negative NEGATIVE [facility] Interpretation and review of laboratory results Abnormal [facility] Ketones (U) [Mass/Vol] Negative NEGATIVE mg/dL [facility] Leukocyte esterase Test strip Ql (U) TRACE Abnormal NEGATIVE [facility] Nitrite Ql (U) Negative NEGATIVE [facility] pH (U) 7.5 [pH] 5.0 - 8.0 [facility] Protein (U) [Mass/Vol] Negative NEGATIVE mg/dL [facility] Specific gravity (U) [Rel density] 1.015 1.005 - 1.030 [facility] Urobilinogen Qn (U) Normal 0.0 - 1. 0 EU/dL [facility] Urinalysis,Microon 5 Bacteria FEW Abnormal NONE [facility] Comment on above: Performed By: #### U MICAO, UAX #### [facility] [employer] [address] [place] [phone] [employer] Operator: Larry Ashton MD Epithelial cells LM Ql (Urine sed) 10 TO 20 Normal 0-[address] [facility] Comment on above: Performed By: #### U MICAO, UAX #### [facility] [address] [place] [phone] [employer] Operator: Larry Ashton MD Urine RBC's 5 TO 10 Normal 0-[address] [facility] Comment on above: Performed By: #### U MICAO, UAX #### [facility] [employer] [address] [place] [phone] [employer] Operator: Larry Ashton MD Urine WBC's 10 TO 20 Normal 0-[address] [facility] Comment on above: Performed By: #### U [place], UAX #### [facility] [employer] [address] [place] [phone] [employer] Operator: Larry Ashton MD Basic Metab w/rfx MGon 10-171 Anion gap [Moles/Vol] 8 mmol/L Low 9-[address] [facility] Comment on above: Performed By: #### P T, CK, CDP, TSHX, TROPI, LIVP, BNP, LACTIC, GEORGINA, BMPX #### [facility] [employer] [address] [place] [phone] [employer] Operator: Larry Ashton MD Calcium [Mass/Vol] 8.4 mg/dL Low 8.6-10.[address] [facility] Comment on above: Performed By: #### P T, CK, CDP, TSHX, TROPI, LIVP, BNP, LACTIC, GEORGINA, BMPX #### [facility] [employer] [address] [place] [phone] [employer] Operator: Larry Ashton MD Chloride [Moles/Vol] 108 mmol/L High 98-[address] [facility] Comment on above: Performed By: #### P T, CK, CDP, TSHX, TROPI, LIVP, BNP, LACTIC, GEORGINA, BMPX #### [address] [phone] [employer] Operator: Larry Ashton MD CO2 [Moles/Vol] 26 mmol/L Normal 20-[address] [facility] Comment on above: Performed By: #### P T, CK, CDP, TSHX, TROPI, LIVP, BNP, LACTIC, GEORGINA, BMPX #### [address] [phone] [employer] Operator: Larry Ashton MD Creatinine [Mass/Vol] 0.6 mg/dL Normal 0.6-0.[address] [facility] Comment on above: Performed By: #### P T, CK, CDP, TSHX, TROPI, LIVP, BNP, LACTIC, GEORGINA, BMPX #### [address] [phone] [employer] Operator: Larry Ashton MD GFR/1.73 sq M.predicted among non-blacks MDRD (S/P/Bld) [Vol rate/Area] mL/min/{1.73_m2} Normal >[address] [facility] Comment on above: Result Comment: These results are not intended for use in patients <18 years of age. eGFR results are calculated without a race factor using the 2020 CKD-EPI equation. Careful clinical correlation is recommended, particularly when comparing to results calculated using previous equations. The CKD-EPI equation is less accurate in patients with extremes of muscle mass, extra-renal metabolism of creatine, excessive creatine ingestion, or following therapy that affects renal tubular secretion. Performed By: #### P T, CK, CDP, TSHX, TROPI, LIVP, BNP, LACTIC, GEORGINA, BMPX #### [address] [phone] [employer] Operator: Larry Ashton MD Glucose [Mass/Vol] 95 mg/dL Normal 74-[address] [facility] Comment on above: Performed By: #### P T, CK, CDP, TSHX, TROPI, LIVP, BNP, LACTIC, GEORGINA, BMPX #### [address] [phone] [employer] Operator: Larry Ashton MD Potassium [Moles/Vol] 3.9 mmol/L Normal 3.7-5.[address] [facility] Comment on above: Performed By: #### P T, CK, CDP, TSHX, TROPI, LIVP, BNP, LACTIC, GEORGINA, BMPX #### [address] [address] [employer] Operator: Larry Ashton MD Sodium [Moles/Vol] 142 mmol/L Normal 136-[address] [facility] Comment on above: Performed By: #### P T, CK, CDP, TSHX, TROPI, LIVP, BNP, LACTIC, GEORGINA, BMPX #### [address] [address] [employer] Operator: Larry Ashton MD Urea nitrogen [Mass/Vol] 8 mg/dL Normal 6-[address] [facility] Comment on above: Performed By: #### P T, CK, CDP, TSHX, TROPI, LIVP, BNP, LACTIC, GEORGINA, BMPX #### [address] [address] [employer] Operator: Larry Ashton MD Anion gap [Moles/Vol] 7 mmol/L Low 9-[address] [facility] Comment on above: Performed By: #### C BC, BMPX #### [address] [address] [employer] Operator: Larry Ashton MD Calcium [Mass/Vol] 8.6 mg/dL Normal 8.6-10.[address] [facility] Comment on above: Performed By: #### C BC, BMPX #### [facility] [address] [place] [address] [employer] Operator: Larry Ashton MD Chloride [Moles/Vol] 106 mmol/L Normal 98-[address] [facility] Comment on above: Performed By: #### C BC, BMPX #### [facility] [address] [place] [phone] [employer] Operator: Larry Ashton MD CO2 [Moles/Vol] 27 mmol/L Normal 20-[address] [facility] Comment on above: Performed By: #### C BC, BMPX #### [facility] [address] [place] [phone] [employer] Operator: Larry Ashton MD Creatinine [Mass/Vol] 0.6 mg/dL Normal 0.6-0.[address] [facility] Comment on above: Performed By: #### C BC, BMPX #### [facility] [address] [place] [phone] [employer] Operator: Larry Ashton MD GFR/1.73 sq M.predicted among non-blacks MDRD (S/P/Bld) [Vol rate/Area] mL/min/{1.73_m2} Normal >[address] [facility] Comment on above: Result Comment: These results are not intended for use in patients <18 years of age. eGFR results are calculated without a race factor using the 2020 CKD-EPI equation. Careful clinical correlation is recommended, particularly when comparing to results calculated using previous equations. The CKD-EPI equation is less accurate in patients with extremes of muscle mass, extra-renal metabolism of creatine, excessive creatine ingestion, or following therapy that affects renal tubular secretion. Performed By: #### C BC, BMPX #### [facility] [address] [place] [address] [employer] Operator: Larry Ashton MD Glucose [Mass/Vol] 103 mg/dL High 74-[address] [facility] Comment on above: Performed By: #### C BC, BMPX #### [facility] [address] [place] [address] [employer] Operator: Lrary Ashton MD Potassium [Moles/Vol] 3.9 mmol/L Normal 3.7-5.[address] [facility] Comment on above: Performed By: #### C BC, BMPX #### [facility] [address] [place], [place] [phone] [employer] Operator: Larry Ashton MD Sodium [Moles/Vol] 140 mmol/L Normal 136-[address] [facility] Comment on above: Performed By: #### C BC, BMPX #### [facility] [address] [place] [address] [employer] Operator: Larry Ashton MD Urea nitrogen [Mass/Vol] 8 mg/dL Normal 6-[address] [facility] Comment on above: Performed By: #### C BC, BMPX #### [facility] [address] [place] [address] [employer] Operator: Larry Ashton MD Basic Metabolic Panel w/ Ref michael to MGon 2024 Anion gap [Moles/Vol] 8 mmol/L Low 9 - 16 mmol/L [facility] Calcium [Mass/Vol] 8.4 mg/dL Low 8.6 - 10. 4 mg/dL [facility] Chloride [Moles/Vol] 108 mmol/L High 98 - 107 mmol/L [facility] CO2 [Moles/Vol] 26 mmol/L 20 - 31 mmol/L [facility] Creatinine [Mass/Vol] 0.6 mg/dL 0.6 - 0.9 mg/dL [facility] Est, Glom Filt Rate - PINF [facility] Comment on above: These results are not intended for use in patients <18 years of age. eGFR results are calculated without a race factor using the 2020 CKD-EPI equation. Careful clinical correlation is recommended, particularly when comparing to results calculated using previous equations. The CKD-EPI equation is less accurate in patients with extremes of muscle mass, extra-renal metabolism of creatine, excessive creatine ingestion, or following therapy that affects renal tubular secretion. Glucose [Mass/Vol] 95 mg/dL 74 - 99 mg/dL [facility] Potassium [Moles/Vol] 3.9 mmol/L 3.7 - 5.3 mmol/L [facility] Sodium [Moles/Vol] 142 mmol/L 136 - 145 mmol/L [facility] Urea nitrogen [Mass/Vol] 8 mg/dL 6 - 20 mg/dL [facility] Anion gap [Moles/Vol] 7 mmol/L Low 9 - 16 mmol/L [facility] Calcium [Mass/Vol] 8.6 mg/dL 8.6 - 10. 4 mg/dL [facility] Chloride [Moles/Vol] 106 mmol/L 98 - 107 mmol/L [facility] CO2 [Moles/Vol] 27 mmol/L 20 - 31 mmol/L [facility] Creatinine [Mass/Vol] 0.6 mg/dL 0.6 - 0.9 mg/dL [facility] Est, Glom Filt Rate - PINF [facility] Comment on above: These results are not intended for use in patients <18 years of age. eGFR results are calculated without a race factor using the 2020 CKD-EPI equation. Careful clinical correlation is recommended, particularly when comparing to results calculated using previous equations. The CKD-EPI equation is less accurate in patients with extremes of muscle mass, extra-renal metabolism of creatine, excessive creatine ingestion, or following therapy that affects renal tubular secretion. Glucose [Mass/Vol] 103 mg/dL High 74 - 99 mg/dL [facility] Interpretation and review of laboratory results Abnormal [facility] Potassium [Moles/Vol] 3.9 mmol/L 3.7 - 5.3 mmol/L [facility] Sodium [Moles/Vol] 140 mmol/L 136 - 145 mmol/L [facility] Urea nitrogen [Mass/Vol] 8 mg/dL 6 - 20 mg/dL [facility] Brain Natri. Peptideon 10-17 Natriuretic peptide B (Bld) [Mass/Vol] 471 pg/mL High 0-[address] [facility] Comment on above: Performed By: #### P T, CK, CDP, TSHX, TROPI, LIVP, BNP, LACTIC, GEORGINA, BMPX #### [facility] [address] [place] [address] [employer] Operator: Larry Ashton MD Brain Natriuretic Peptideon 2024 Natriuretic peptide B (Bld) [Mass/Vol] 471 pg/mL High 0 - 125 pg/mL [facility] CBCon 2024 Erythrocyte distribution width (RBC) [Ratio] 11.3 % Low 11.8 - 14.4 % [facility] Hematocrit (Bld) [Volume fraction] 31.9 % Low 36.3 - 47.1 % [facility] Hemoglobin (Bld) [Mass/Vol] 10.8 g/dL Low 11.9 - 15.1 g/dL [facility] Interpretation and review of laboratory results Abnormal [facility] MCH (RBC) [Entitic mass] 34.6 pg High 25.2 - 33.5 pg [facility] MCHC (RBC) [Mass/Vol] 33.9 g/dL 28.4 - 34.8 g/dL [facility] MCV (RBC) [Entitic vol] 102.2 fL 82.6 - 102.9 fL [facility] Nucleated RBC/100 WBC (Bld) [Ratio] 0.0 % 0.0 per 100 WBC [facility] Platelet mean volume (Bld) [Entitic vol] 8.9 fL 8.1 - 13.5 fL [facility] Platelets (Bld) [#/Vol] 365 10*3/uL [facility] RBC (Bld) [#/Vol] 3.12 10*6/uL Low 3.95 - 5.1 1 m/uL [facility] WBC other (Bld) [#/Vol] 8.3 [facility] Erythrocyte distribution width (RBC) [Ratio] 11.3 % Low 11.8-14.[address] [facility] Comment on above: Performed By: #### C BC, BMPX #### [facility] [address] [place] [phone] [employer] Operator: Larry Ashton MD Hematocrit (Bld) [Volume fraction] 31.9 % Low 36.3-47.[address] [facility] Comment on above: Performed By: #### C BC, BMPX #### [facility] [employer] [address] [place] [address] [employer] Operator: Larry Ashton MD Hemoglobin (Bld) [Mass/Vol] 10.8 g/dL Low 11.9-15.[address] [facility] Comment on above: Performed By: #### C BC, BMPX #### [facility] [employer] [address] [place] [phone] [employer] Operator: Larry Ashton MD MCH (RBC) [Entitic mass] 34.6 pg High 25.2-33.[address] [facility] Comment on above: Performed By: #### C BC, BMPX #### [facility] [employer] [address] [place] [phone] [employer] Operator: Larry Ashton MD MCHC (RBC) [Mass/Vol] 33.9 g/dL Normal 28.4-34.[address] [facility] Comment on above: Performed By: #### C BC, BMPX #### [facility] [employer] [address] [place] [address] [employer] Operator: Larry Ashton MD MCV (RBC) [Entitic vol] 102.2 fL Normal 82.6-102.[address] [facility] Comment on above: Performed By: #### C BC, BMPX #### [address] [address] [employer] Operator: Larry Ashton MD NRBC Automated 0.0 per 100 WBC Normal 0.[address] [facility] Comment on above: Performed By: #### C BC, BMPX #### [facility] [employer] [address] [place] [address] [employer] Operator: Larry Ashton MD Platelet mean volume (Bld) [Entitic vol] 8.9 fL Normal 8.1-13.[address] [facility] Comment on above: Performed By: #### C BC, BMPX #### [facility] [address] [place] [address] [employer] Operator: Larry Ashton MD Platelets (Bld) [#/Vol] 365 10*3/uL Normal 138-[address] [facility] Comment on above: Performed By: #### C BC, BMPX #### [facility] [employer] [facility] [place] [address] [employer] Operator: Larry Ashton MD RBC (Bld) [#/Vol] 3.12 10*6/uL Low 3.95-5.[address] [facility] Comment on above: Performed By: #### C DEIDRE, BMPX #### [facility] [employer] [address] [place] [address] [employer] Operator: Larry Ashton MD WBC (Bld) [#/Vol] 8.3 10*3/uL Normal 3.5-11.[address] [facility] Comment on above: Performed By: #### C BC, BMPX #### [facility] [place] [address] [employer] Operator: Larry Ashton MD CBC with Auto Differentialon 2024 Basophils (Bld) [#/Vol] 0.05 10*3/uL [facility] Basophils/100 WBC (Bld) 1 % 0 - 2 % [facility] Eosinophils (Bld) [#/Vol] 0.43 10*3/uL [facility] Eosinophils/100 WBC (Bld) 5 % High 1 - 4 % [facility] Erythrocyte distribution width (RBC) [Ratio] 11.3 % Low 11.8 - 14.4 % [facility] Hematocrit (Bld) [Volume fraction] 31.6 % Low 36.3 - 47.1 % [facility] Hemoglobin (Bld) [Mass/Vol] 10.7 g/dL Low 11.9 - 15.1 g/dL [facility] Immature granulocytes (Bld) [#/Vol] 0.06 10*3/uL [facility] Immature granulocytes/100 WBC (Bld) 1 % High 0 [facility] Interpretation and review of laboratory results Abnormal [facility] Lymphocytes/100 WBC (Bld) 25 % 24 - 43 % [facility] Lymphocytes/100 WBC (Bld) 2.04 % [facility] MCH (RBC) [Entitic mass] 34.7 pg High 25.2 - 33.5 pg [facility] MCHC (RBC) [Mass/Vol] 33.9 g/dL 28.4 - 34.8 g/dL [facility] MCV (RBC) [Entitic vol] 102.6 fL 82.6 - 102.9 fL [facility] Monocytes/100 WBC (Bld) 8 % 3 - 12 % [facility] Monocytes/100 WBC (Bld) 0.69 % [facility] Neutrophils/100 WBC (Bld) 60 % 36 - 65 % [facility] Nucleated RBC/100 WBC (Bld) [Ratio] 0.0 % 0.0 per 100 WBC [facility] Platelet mean volume (Bld) [Entitic vol] 9.0 fL 8.1 - 13.5 fL [facility] Platelets (Bld) [#/Vol] 378 10*3/uL [facility] RBC (Bld) [#/Vol] 3.08 10*6/uL Low 3.95 - 5.1 1 m/uL [facility] Segmented neutrophils/100 WBC (Bld) 5.04 % [facility] WBC other (Bld) [#/Vol] 8.3 [facility] CBC with Diffon 2024 Abs. Basophil 0.05 k/uL Normal 0.00-0.[address] [facility] Comment on above: Performed By: #### P T, CK, CDP, TSHX, TROPI, LIVP, BNP, LACTIC, GEORGINA, BMPX #### [address] [address] [employer] Operator: Larry Ashton MD Abs.Imm.Granulocyte 0.06 k/uL Normal 0.00-0.[address] [facility] Comment on above: Performed By: #### P T, CK, CDP, TSHX, TROPI, LIVP, BNP, LACTIC, GEORGINA, BMPX #### [place] [address] [employer] Operator: Larry Ashton MD Abs.Neutrophil (Seg) 5.04 k/uL Normal 1.50-8.[address] [facility] Comment on above: Performed By: #### P T, CK, CDP, TSHX, TROPI, LIVP, BNP, LACTIC, GEORGINA, BMPX #### [place] [address] [employer] Operator: Larry Ashton MD Basophils/100 WBC (Bld) 1 % Normal 0-[address] [facility] Comment on above: Performed By: #### P T, CK, CDP, TSHX, TROPI, LIVP, BNP, LACTIC, GEORGINA, BMPX #### [place] [address] [employer] Operator: Larry Ashton MD Eosinophils (Bld) [#/Vol] 0.43 10*3/uL Normal 0.00-0.[address] [facility] Comment on above: Performed By: #### P T, CK, CDP, TSHX, TROPI, LIVP, BNP, LACTIC, GEORGINA, BMPX #### [place] [address] [employer] Operator: Larry Ashton MD Eosinophils/100 WBC (Bld) 5 % High 1-[address] [facility] Comment on above: Performed By: #### P T, CK, CDP, TSHX, TROPI, LIVP, BNP, LACTIC, GEORGINA, BMPX #### [place] [id number] [employer] Operator: Larry Ashton MD Erythrocyte distribution width (RBC) [Ratio] 11.3 % Low 11.8-14.[address] [facility] Comment on above: Performed By: #### P T, CK, CDP, TSHX, TROPI, LIVP, BNP, LACTIC, GEORGINA, BMPX #### [place] [id number] [employer] Operator: Larry Ashton MD Hematocrit (Bld) [Volume fraction] 31.6 % Low 36.3-47.[address] [facility] Comment on above: Performed By: #### P T, CK, CDP, TSHX, TROPI, LIVP, BNP, LACTIC, GEORGINA, BMPX #### [place] [id number] [employer] Operator: Larry Ashton MD Hemoglobin (Bld) [Mass/Vol] 10.7 g/dL Low 11.9-15.[address] [facility] Comment on above: Performed By: #### P T, CK, CDP, TSHX, TROPI, LIVP, BNP, LACTIC, GEORGINA, BMPX #### [place] [id number] [employer] Operator: Larry Ashton MD Immature granulocytes/100 WBC (Bld) 1 % High [address] [facility] Comment on above: Performed By: #### P T, CK, CDP, TSHX, TROPI, LIVP, BNP, LACTIC, GEORGINA, BMPX #### [place] [id number] [employer] Operator: Larry Ashton MD Lymphocytes (Bld) [#/Vol] 2.04 10*3/uL Normal 1.10-3.[address] [facility] Comment on above: Performed By: #### P T, CK, CDP, TSHX, TROPI, LIVP, BNP, LACTIC, GEORGINA, BMPX #### [address] [id number] [employer] Operator: Larry Ashton MD Lymphocytes/100 WBC (Bld) 25 % Normal 24-[address] [facility] Comment on above: Performed By: #### P T, CK, CDP, TSHX, TROPI, LIVP, BNP, LACTIC, GEORGINA, BMPX #### [place] [address] [employer] Operator: Larry Ashton MD MCH (RBC) [Entitic mass] 34.7 pg High 25.2-33.[address] [facility] Comment on above: Performed By: #### P T, CK, CDP, TSHX, TROPI, LIVP, BNP, LACTIC, GEORGINA, BMPX #### [place] [address] [employer] Operator: Larry Ashton MD MCHC (RBC) [Mass/Vol] 33.9 g/dL Normal 28.4-34.[address] [facility] Comment on above: Performed By: #### P T, CK, CDP, TSHX, TROPI, LIVP, BNP, LACTIC, GEORGINA, BMPX #### [place] [address] [employer] Operator: Larry Ashton MD MCV (RBC) [Entitic vol] 102.6 fL Normal 82.6-102.[address] [facility] Comment on above: Performed By: #### P T, CK, CDP, TSHX, TROPI, LIVP, BNP, LACTIC, GEORGINA, BMPX #### [address] [phone] [employer] Operator: Larry Ashton MD Monocytes (Bld) [#/Vol] 0.69 10*3/uL Normal 0.10-1.[address] [facility] Comment on above: Performed By: #### P T, CK, CDP, TSHX, TROPI, LIVP, BNP, LACTIC, GEORGINA, BMPX #### [address] [address] [employer] Operator: Larry Ashton MD Monocytes/100 WBC (Bld) 8 % Normal 3-[address] [facility] Comment on above: Performed By: #### P T, CK, CDP, TSHX, TROPI, LIVP, BNP, LACTIC, GEORGINA, BMPX #### [address] [address] [employer] Operator: Larry Ashton MD Neutrophil (Seg) 60 % Normal 36-65 [facility] Comment on above: Performed By: #### P T, CK, CDP, TSHX, TROPI, LIVP, BNP, LACTIC, GEORGINA, BMPX #### [address] [address] [employer] Operator: Larry Ashton MD NRBC Automated 0.0 per 100 WBC Normal 0.[address] [facility] Comment on above: Performed By: #### P T, CK, CDP, TSHX, TROPI, LIVP, BNP, LACTIC, GEORGINA, BMPX #### [address] [address] [employer] Operator: Larry Ashton MD Platelet mean volume (Bld) [Entitic vol] 9.0 fL Normal 8.1-13.[address] [facility] Comment on above: Performed By: #### P T, CK, CDP, TSHX, TROPI, LIVP, BNP, LACTIC, GEORGINA, BMPX #### [address] [address] [employer] Operator: Larry Ashton MD Platelets (Bld) [#/Vol] 378 10*3/uL Normal 138-[address] [facility] Comment on above: Performed By: #### P T, CK, CDP, TSHX, TROPI, LIVP, BNP, LACTIC, GEORGINA, BMPX #### [address] [address] [employer] Operator: Larry Ashton MD RBC (Bld) [#/Vol] 3.08 10*6/uL Low 3.95-5.[address] [facility] Comment on above: Performed By: #### P T, CK, CDP, TSHX, TROPI, LIVP, BNP, LACTIC, GEORGINA, BMPX #### [facility] [address] [place] [address] [phone] [employer] Operator: Larry Ashton MD WBC (Bld) [#/Vol] 8.3 10*3/uL Normal 3.5-11.[address] [facility] Comment on above: Performed By: #### P T, CK, CDP, TSHX, TROPI, LIVP, BNP, LACTIC, GEORGINA, BMPX #### [facility] [place], [place] [phone] [employer] Operator: Larry Ashton MD CKon 2024 CK [Catalytic activity/Vol] 134 U/L 26 - 192 U/L [facility] Abdomen and Pelvis WO con traston 2024 Radiology Study observation (narrative) [facility] [employer] Creatine Kinaseon 2024 CK [Catalytic activity/Vol] 134 U/L Normal 26-[address] [facility] Comment on above: Performed By: #### P T, CK, CDP, TSHX, TROPI, LIVP, BNP, LACTIC, GEORGINA, BMPX #### [employer] [facility] [place] [address] [employer] Operator: Larry Ashton MD EKG 12 LeadOrdered By: Provi jessica Unknown on 2024 Atrial Rate 79 BPM [employer] Phone: P [place] 19 degrees Member Desk Phone: P-R Interval 132 ms [employer] Desk Phone: Q-T Interval 392 ms [employer] Desk Phone: QRS Duration 66 ms [employer] Desk Phone: QTc Calculation (Bazett) 449 ms [facility] [employer] Work Phone: R [place] 26 degrees Da [facility] [employer] Work Phone: T [place] 18 degrees [facility] [employer] Work Phone: Ventricular Rate 79 BPM Da [facility] [employer] Work Phone: [facility] Work Phone: EKG 12 Leadon 2024 Normal sinus rhythm Septal infarct , age undetermined Abnormal ECG No previous ECGs available PN STV MUSE Unknown, Provider, ANP - 2024 Normal sinus rhythm Septal infarct , age undetermined Abnormal ECG No previous ECGs available [facility] Hepatic Function Panelon Albumin [Mass/Vol] 3.5 g/dL 3.5 - 5.2 g/dL [facility] Albumin/Globulin [Mass ratio] 1.3 {ratio} 1.0 - 2.5 [facility] ALP [Catalytic activity/Vol] 108 U/L High 35 - 104 U/L [facility] ALT [Catalytic activity/Vol] 29 U/L 10 - 35 U/L [facility] AST [Catalytic activity/Vol] 28 U/L 10 - 35 U/L [facility] Bilirubin [Mass/Vol] 0.2 mg/dL 0.0 - 1.2 mg/dL [facility] [employer] Bilirubin[employer]direct [Mass/Vol] mg/dL 0.0 - 0.2 mg/dL [facility] Bilirubin.indirect [Mass/Vol] Can not be calculated 0.0 - 1.0 mg/dL [facility] Globulin (S) [Mass/Vol] 2.8 g/dL [facility] Protein [Mass/Vol] 6.3 g/dL Low 6.6 - 8.7 g/dL [facility] Lactic Acidon 2024 Lactic Acid, Whole Blood 1.0 mmol/L 0.7 - 2.1 mmol/L [facility] Lactic Acid,Whole Bl 1.0 mmol/L Normal 0.7-2.[address] [facility] Comment on above: Performed By: #### P T, CK, CDP, TSHX, TROPI, LIVP, BNP, LACTIC, GEORGINA, BMPX #### [facility] [address] [place] [address] [employer] Operator: Larry Ashton MD Liver Profileon 2024 Albumin [Mass/Vol] 3.5 g/dL Normal 3.5-5.[address] [facility] Comment on above: Performed By: #### C BC, BMPX #### [facility] [employer] [address] [place] [address] [employer] Operator: Larry Ashton MD Albumin/Glob Ratio 1.3 Normal 1.0-2.[address] [facility] Comment on above: Performed By: #### C BC, BMPX #### [facility] [employer] [address] [place] [address] [employer] Operator: Larry Ashton MD Alkaline Phos 108 U/L High 35-[address] [facility] Comment on above: Performed By: #### C BC, BMPX #### [facility] [address] [place] [address] [employer] Operator: Larry Ashton MD ALT [Catalytic activity/Vol] 29 U/L Normal 10-[address] [facility] Comment on above: Performed By: #### C BC, BMPX #### [facility] [address]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 CALCIPOTRIENE 0.005 % SCALP S* Apply 1 application to affect* Problem List As Of Date 12/05/2019 Noted Resolved Macromastia [N62] 08/25/2019 Prescriptions ordered this encounter Disp Refills Start End SERTRALINE 50 MG TABLET 30 t* 3 12/08/2019 Route: ORAL Sig: Take 1 tablet by mouth once daily. Medications Discontinued During This Encounter sertraline (ZOLOFT) 50 mg tablet 30 t* 3 10/28/2019 12/08/2019 Route: ORAL Sig: Take 1 tablet by mouth once daily. Disc: Reason for discontinue is not on file. Encounter Status:Closed by ARMINDA MANN PA-C on 12/08/19 [facility] CNOVon 12-04-2019 CNOV Office Visit (PLASMN ) AMIRA NAGY ([id number]) 1990 F Date Time Provider Department 12/04/19 9:45 AM CANDELARIO RIVERA During your visit today, we recorded the following information about you: Pulse Blood pressure 66/minute 116/73 Candelario Rivera MD 12/04/2019 11:23 AM Signed Plastic Surgery S: Post op No diagnosis found. HPI: Amira Chi here for follow up of:Bilateral Breast Reduction On 11/27/2019 ROS: Denies fever, chills, SOB Denies pain O: There were no vitals taken for this visit. PE: Bilateral breast soft, non-tender, with no evidence of drainage Incisions well approximated, c/d/i No seroma, no hematoma No s/s of infection NAC viable Steri strips in tact Mild post operative swelling Mild post operative ecchymosis No symptoms or signs of infection Assessment/Plan: Patient returns to clinic 7 days after breast reduction procedure. This is her. First postoperative visit. She denies any major issues regarding the operation. Infectious very happy with the outcome. The breasts are relatively symmetric no evidence of infection. Ponce her with wound care instructions how to remove the Steri-Strips and we also discussed use of topical scar gel to help reduce the amount of scarring. Patient also was given instructions regarding workout as well as avoiding a bra with underwire for 3 months. Note the breast pathology came benign which was communicated to the patient. FINAL DIAGNOSIS 1. Right breast tissue, breast reduction (A) - Breast tissue with fibrous stroma and focal usual ductal hyperplasia. - Unremarkable skin. 2. Left breast tissue, breast reduction (B) - Breast tissue with stromal fibrosis. - Unremarkable skin. Candelario Rivera MD December 04, 2019 11:22 AM Referring Provider: SELF [200] Allergies As of Date: 12/04/2019 Noted Allergy Reaction BEE STING 08/27/2019 7 - Swelling 10 - Anaphylaxis Date Reviewed: 12/04/2019 Reviewed by: Anjel Faith MA - Fully Assessed Reason for Visit: Post Op [174] Primary Visit Diagnosis:Postoperati ve state [Z98.890] Prescriptions as of 12/04/2019 Sig: ACETAMINOPHEN 500 MG TABLET Take 2 tablets by mouth every* OXYCODONE 5 MG TABLET Take 1 tablet by mouth every * DOCUSATE SODIUM 100 MG CAPSULE Take 1 capsule by mouth twice* ONDANSETRON 8 MG DISINTEGRATI* Take 1 tablet by mouth every * SERTRALINE 50 MG TABLET Take 1 tablet by mouth once d* ALBUTEROL SULFATE HFA 90 MCG/* Take as directed: 2 puffs bef* EPINEPHRINE 0.3 MG/0.3 ML INJ* Inject 0.3 mL intramuscularly* CALCIPOTRIENE 0.005 % SCALP S* Apply 1 application to affect* NICOTINE 14 MG/24 HR DAILY TR* Apply 1 Patch as directed delfina* NICOTINE 7 MG/24 HR DAILY TRA* Apply 1 Patch as directed delfina* Problem List As Of Date 12/04/2019 Noted Resolved Macromastia [N62] 08/25/2019 Encounter Status:Closed by CANDELARIO RIVERA MD on 12/04/19 Normal [facility] PROGRESSon 12-04-2019 PROGRESS HNO ID: [id number] Author: Candelario Rivera Service: ? Author Type: Physician Type: Progress Notes Filed: 12/04/2019 11:23 AM Note Text: Plastic Surgery S: Post op No diagnosis found. HPI: Amira Chi here for follow up of:Bilateral Breast Reduction On 11/27/2019 ROS: Denies fever, chills, SOB Denies pain O: There were no vitals taken for this visit. PE: Bilateral breast soft, non-tender, with no evidence of drainage Incisions well approximated, c/d/i No seroma, no hematoma No s/s of infection NAC viable Steri strips in tact Mild post operative swelling Mild post operative ecchymosis No symptoms or signs of infection Assessment/Plan: Patient returns to clinic 7 days after breast reduction procedure. This is her. First postoperative visit. She denies any major issues regarding the operation. Infectious very happy with the outcome. The breasts are relatively symmetric no evidence of infection. Ponce her with wound care instructions how to remove the Steri-Strips and we also discussed use of topical scar gel to help reduce the amount of scarring. Patient also was given instructions regarding workout as well as avoiding a bra with underwire for 3 months. Note the breast pathology came benign which was communicated to the patient. FINAL DIAGNOSIS 1. Right breast tissue, breast reduction (A) - Breast tissue with fibrous stroma and focal usual ductal hyperplasia. - Unremarkable skin. 2. Left breast tissue, breast reduction (B) - Breast tissue with stromal fibrosis. - Unremarkable skin. Candelario Rivera MD December 04, 2019 11:22 AM Normal [facility] ANES Camelia 11-27-2019 ANES POST HNO ID: [id number] Author: Sreedhar Paniagua Service: Critical Care Author Type: Anesthesiologist Type: Anesthesia PostOp Filed: 11/28/2019 11:55 AM Note Text: POST ANESTHESIA EVALUATION NOTE SERVICE DATE: 11/28/2019 SERVICE TIME: 11:55 AM : 1990 Vitals: 11/27/19 1135 11/27/19 1225 11/27/19 1245 11/27/19 1330 Temp: 37.3 ?C (99.1 ?F) 36.8 ?C (98.2 ?F) 36.8 ?C (98.2 ?F) 37.2 ?C (99 ?F) 11/27/19 1230 11/27/19 1245 11/27/19 1300 11/27/19 1330 BP: 125/78 124/62 111/59 112/68 11/27/19 1230 11/27/19 1245 11/27/19 1300 11/27/19 1330 Pulse: 93 95 85 104 11/27/19 1230 11/27/19 1245 11/27/19 1300 11/27/19 1330 Resp: 13 20 15 16 11/27/19 1230 11/27/19 1245 11/27/19 1300 11/27/19 1330 SpO2: 99% 95% 98% 95% Validated Vital Signs: Yes POST ANES STATUS: No apparent anesthetic complications. The patient is appropriately hydrated with stable respiratory and cardiovascular status. Patient has safe and adequate airway control. The patient has appropriate pain relief and no significant post operative nausea or vomiting. The patient has achieved baseline mental status. Intra-Operative Events: No Significant Anesthesia Events Further assessment by Anesthesia Service: None Other Remarks: SIGNATURE: Sreedhar Paniagua MD PATIENT NAME: Amira Nagy DATE: November 28, 2019 TIME: 11:55 AM PAGER/CONTACT #: [phone] [facility] BRIEF OP NOTon 11-27-2019 BRIEF OP NOT HNO ID: [id number] Author: Manpreet Rodriguez Service: Plastic Surgery Author Type: Resident Type: Brief Op Note Filed: 11/27/2019 11:07 AM Note Text: PLASTIC SURGERY BRIEF OP NOTE Log ID: [id number] Surgery/Procedure Date: 11/27/2019 Incision/Procedure Start Time: 8:23 AM Incision Close/Procedure End Time: 11:07 AM Surgeon(s) and Cash Management Associate(s): Surgeon(s) and Role: * Candelario Rivera - Primary * Manpreet Rodriguez - Resident - Assisting * Hugo Painting - Resident - Assisting Nurse Practitioner: Pebbles Moseley (Fabiana) Donnie Procedures and Anesthesia: Procedure(s) and Anesthesia Type: * REDUCTION BREAST BILATERAL - General Findings: Bilateral Superiomedial breast reduction Left 307g Right 269g Estimated Blood Loss: 50 ml IV Fluids: 1000 cc crystaloid Urine Output: not applicable Drains: None Specimens: breast tissue Complications: None Pre Op Diagnosis Code(s): Pre-Op Diagnosis Codes: * Macromastia [N62] Post Op Diagnosis: Same Participation in Procedure: I/primary surgeon/proceduralist performed the procedure with assistance. Plans: Discharge home SIGNATURE: Manpreet Rodriguez MD PATIENT NAME: Amira Nagy DATE: November 27, 2019 TIME: 10:44 AM PAGER/CONTACT #: [phone] [facility] NURSING PROGon 11-27-2019 NURSING PROG HNO ID: [id number] Author: Faviola TurnerRn) ANNA Escobar Service: Nursing Author Type: Registered Nurse Type: Nursing Progress Note Filed: 11/27/2019 1:53 PM Note Text: PATIENT EDUCATION TOPIC: PROCEDURE / SURGERY: Post-op Teaching: Med Administration, Symptom Management and Wound Care PATIENT NAME: Amira Nagy PATIENT LOCATION: [place] [address]21 READINESS TO LEARN COGNITIVE ABILITY: Alert and oriented MOTIVATION TO LEARN: Eager Interested FAMILY SUPPORT: High - Very involved in pt care INSTRUCTION PROVIDED TO: Patient and Family member PATIENT LEARNS BEST BY: Individual Instruction Written Instruction - Hand-outs Verbal Instruction FACTORS AFFECTING LEARNING: None PHYSICAL LIMITATIONS AFFECTING LEARNING: None LEARNING RESPONSE DIAGNOSIS: ADULT: Well Adult PATIENT/FAMILY RESPONSE: Verbalizes understanding of: POST-OPERATIVE INSTRUCTIONS-Correct actions to take to reduce postoperative complications METHOD OF INSTRUCTION: Written instruction - handouts Verbal instruction FOLLOW-UP PLAN: Patient instructed to call with any further issues INSTRUCTIONAL AIDS USED: NA SUPPLEMENTAL MATERIAL PROVIDED TO PATIENT: Post op discharge instructions REFERRAL (RECOMMENDATION): None Electronically Signed By: Faviola Escobar RN [facility] NURSING PROG HNO ID: [id number] Author: Ute TurnerRn) ANNA Spence Service: Nursing Author Type: Registered Nurse Type: Nursing Progress Note Filed: 11/27/2019 1:38 PM Note Text: 1340: Reported off to ANNA Salmeron [facility] NURSING PROG HNO ID: [id number] Author: Natalie Valdovinos (Telecom Billing Analyst) Service: Nursing Author Type: ? Type: Nursing Progress Note Filed: 11/27/2019 11:49 AM Note Text: CONSULTING INTERN BEDSIDE DELIVERY SURVEY 1. Patient to use [facility] Bedside Delivery - YES 2. If fax, patient would like us to fax prescriptions to Pharmacy of choice a. Pharmacy: b. Location: c. Phone: 3. Insurance card on file - NO 4. Credit card for payment - NO [facility] NURSING PROG HNO ID: [id number] Author: Tash TurnerRn) ANNA Schmitt Service: Nursing Author Type: Registered Nurse Type: Nursing Progress Note Filed: 11/27/2019 7:06 AM Note Text: PRE OP LEARNING ASSESSMENT PROCEDURE/SURGERY: SURGERY: pre op safety READINESS TO LEARN COGNITIVE ABILITY: Alert and oriented MOTIVATION TO LEARN: Eager FAMILY SUPPORT: High - Very involved in pt care PATIENT LEARNS BEST BY: Multiple Methods FACTORS AFFECTING LEARNING: None PHYSICAL LIMITATIONS AFFECTING LEARNING: None Electronically Signed By: Tash Schmitt RN In Department: HOSP MAIN M021 Normal [facility] OPERATIVE NOon 11-27-2019 OPERATIVE NO HNO ID: [id number] Author: Candelario Rivera Service: Plastic Surgery Author Type: Physician Type: Operative Report Filed: 11/27/2019 12:43 PM Note Text: [facility] - Operative Report [address] [address] [place] NAGY AMIRA : 1990 AGE: 29. SEX: F PATIENT TYPE: A HOSP SVC: [facility] LOCATION: [place] [address] ATTENDING PHYSICIAN: Candelario Rivera M.D., Ph.D. CSN NUMBER: [id number] DATE OF SURGERY/PROCEDURE: 11/27/2019 INCISION/PROCEDURE START TIME: 08:23 a.m. Amount of reduction on the left 307, on the right 269 g. INCISION CLOSE/PROCEDURE END TIME: 11.12 am PREOPERATIVE DIAGNOSIS: Bilateral macromastia. POSTOPERATIVE DIAGNOSIS: Bilateral macromastia. SURGEON: Candelario Rivera M.D., Ph.D. BLURB WRITER: 1. Dr. Manpreet Rodriguez. 2. Hugo Painting M.D. 3. Pebbles Fields, FABIANA. SURGERY/PROCEDURE: Bilateral breast reduction. ANESTHESIA: General OPERATIVE FINDINGS: Dense breast bilaterally. OPERATIVE INDICATIONS: This is a 29-year-old female patient, who was seen in the [facility] for symptomatic macromastia subsequently scheduled for breast reduction surgery. Body mass index is 25.11 kg/m?. Body surface area is 1.61 meters squared. ? ? Breast Exam: Asymmetry: R>L, left larger than the right breast Scars: no Striae:yes Nipple inversion:no ? Note: measurements are in centimeters SN to NIPPLE: R: 25 L: 26 IMF to NIPPLE: R: 11 L: 11 ? PTOSIS: R: Grade II L: Grade II ? ESTIMATED GRAMS OF TISSUE TO BE REMOVED: Left: 310 gms Right: 310 gms DESCRIPTION OF PROCEDURE: The patient was marked in an upright position in the preoperative area and then was brought to the operating room #19 at [facility]. Time- out was performed with respect to the patient's identification, procedure site, and procedure types with all parties in attendance and agreement. Next, the patient received general anesthesia and subsequently, her arms were abducted and placed on arm boards and secured. Both breasts were prepped and draped in the usual sterile manner. First on the right and then on the left side, nipple-areolar complexes were marked using a 38 mm cookie cutter. Subsequently, the medial pedicles were de- epithelialized except for the nipple-areolar complexes. Submammary skin incision was performed on the right as well as on the left side through which dissection was continued medially, superiorly, and laterally. After adequate dissections were performed on both sides, excess dermoglandular tissues were removed by performing medial, superior, and lateral incisions. Subsequently, full-thickness parenchymal tissues were removed from the superolateral aspect of the pedicles as well. After meticulous hemostasis and irrigation, medial and lateral flaps were approximated to the submammary fold approximately 11 cm from the midline using 3-0 Vicryl. Vertical and horizontal incisions then were closed in layers using 3-0 and 4-0 Monocryl. Nipple-areolar complexes were transposed to their new positions approximately 5.5 cm from the submammary fold. The areola to skin was stitched in layers using 4-0 Monocryl and 5-0 chromic in a running manner. Steri-Strips were applied along with Mandeep bandage at the end of the procedure. COMPLICATIONS: None. ESTIMATED BLOOD LOSS: About 25 mL. DRAINS: None. SPECIMENS: Right and left breast reduction. SPECIMENS: Specimens to Pathology. DISPOSITION: At the end of the procedure after awakening from general anesthesia, the patient was transferred to recovery in a stable and good condition. I was present during the entire procedure and performed the procedure with assistance. Candelario Rivera M.D., Ph.D. RG:[id number] /[id number] cc: Normal [facility] PLAN OF CAREon 11-27-2019 PLAN OF CARE HNO ID: [id number] Author: Natalie Valdovinos (Telecom Billing Analyst) Service: Pharmacy Author Type: ? Type: Plan of Care Filed: 11/27/2019 3:00 PM Note Text: PHARMACY BEDSIDE DELIVERY SERVICE Patient Name: Amira Nagy The marked outpatient medications were Filled at: [facility] and delivered to the patient's bedside to friend Medication List START taking these medications acetaminophen 500 mg tablet Commonly known as: TYLENOL Take 2 tablets by mouth every 6 hours for 5 days, THEN 1-2 tablets every 6 hours as needed for Pain. Start taking on: November 27, 2019 celecoxib 200 mg capsule Commonly known as: CeleBREX x Take 1 capsule by mouth twice daily for 5 days. After 7 days, can take on an as needed basis for pain. docusate sodium 100 mg capsule Commonly known as: COLACE x Take 1 capsule by mouth twice daily as needed for Constipation. ondansetron orally disintegrating 8 mg disintegrating tablet Commonly known as: ZOFRAN ODT x Take 1 tablet by mouth every 8 hours as needed for Nausea/Vomiting. oxyCODONE IR 5 mg immediate release tablet Commonly known as: ROXICODONE x Take 1 tablet by mouth every 6 hours as needed for Pain for up to 7 days. CONTINUE taking these medications albuterol HFA 90 mcg/actuation inhaler Commonly known as: PROAIR HFA Take as directed: 2 puffs before exercise Calcipotriene 0.005 % Soln EPINEPHrine 0.3 mg/0.3 mL auto-injector Commonly known as: EPIPEN Inject 0.3 mL intramuscularly as needed. * nicotine 14 mg/24 hr Commonly known as: NICODERM Apply 1 Patch as directed every 24 hours. * nicotine 7 mg/24 hr Commonly known as: NICODERM Apply 1 Patch as directed every 24 hours for 14 days. sertraline 50 mg tablet Commonly known as: ZOLOFT Take 1 tablet by mouth once daily. * This list has 2 medication(s) that are the same as other medications prescribed for you. Read the directions carefully, and ask your doctor or other care provider to review them with you. You might also be taking other medications not listed above. If you have questions about any of your other medications, talk to the person who prescribed them or your Primary Care Provider. Natalie Valdovinos (Mevio) PAGER: [phone] November 27, 2019 2:59 PM [facility] PLAN OF CARE HNO ID: [id number] Author: Natalie Valdovinos (Mevio) Service: Pharmacy Author Type: ? Type: Plan of Care Filed: 11/27/2019 11:50 AM Note Text: Pharmacy Discharge Medication Service: This patient has elected to receive their discharge prescriptions through the [facility] Bedside Prescription Delivery program. The prescriptions are currently being processed. A follow-up note will be entered once the prescriptions have been filled and delivered to the patient. Please contact me with any questions or updates to the patient's discharge medications. Natalie Valdoivnos (Mevio) DCT Contact Info: [phone] Normal [facility] SURGICAL PATHOLOGYon 020 SURGICAL PATHOLOGY Specimen originated from [facility] Specimen #: [id number] Submitting Physician: CANDELARIO RIVERA MD FINAL DIAGNOSIS 1. Right breast tissue, breast reduction (A) - Breast tissue with fibrous stroma and focal usual ductal hyperplasia. - Unremarkable skin. 2. Left breast tissue, breast reduction (B) - Breast tissue with stromal fibrosis. - Unremarkable skin. GZ/MN/rw 12/01/2019 Angela Elizabeth M.D. (Electronic Signature) ____ SPECIMEN SUBMITTED A: RIGHT BREAST TISSUE B: LEFT BREAST TISSUE CLINICAL DATA MACROMASTIA GROSS DESCRIPTION A. Received fresh labeled right breast tissue are multiple irregular fragments of skin and fibrofatty breast tissue weighing 264.3 grams and ranging in size from 3 to 13.5 cm. The skin surface appears grossly unremarkable. Upon sectioning, the breast tissue appears fibrofatty with no nodules or masses identified. Shaping Machine Operator section of skin and breast tissue are submitted in cassettes A1-A2. Time removed from patient is not noted and time placed in formalin is 12:27 p.m. on 11/27/2019. B. Received fresh labeled left breast tissue are multiple irregular fragments of skin and breast tissue weighing 302 grams and ranging in size from 3 to 14 cm. The skin surface appears grossly unremarkable. Sectioning reveals fibrofatty breast tissue with no masses or nodules identified. Shaping Machine Operator section of skin and breast tissue are submitted in cassettes B1-B2. Time removed from patient is not noted and time placed in formalin is 12:30 p.m. on 11/27/2019. OLS/dss 11/27/2019 [place] [address] Date of Report: 12/03/2019 Date of Procedure: 11/27/2019 Date of Receipt: 11/27/2019 Submitted by: CANDELARIO RIVERA MD Location: 2 Diagnostic interpretation performed at [facility], [address] [place] [address]. CLIA Number: [id number] Normal [facility] Basic Metabolic Panlon 11-14 Anion gap [Moles/Vol] 11 mmol/L Normal 9-18 [facility] Comment on above: Performed By: #### C BCDIF, BMP ####[address] [place], [place] [phone] Calcium [Mass/Vol] 9.8 mg/dL Normal 8.5-10.2 [facility] Comment on above: Performed By: #### C BCDIF, BMP ####[address] [place], [place] [phone] Chloride [Moles/Vol] 103 mmol/L Normal 97-105 [facility] Comment on above: Performed By: #### C BCDIF, BMP ####[address] [phone] CO2 [Moles/Vol] 26 mmol/L Normal 22-30 [facility] Comment on above: Performed By: #### C HALLE SMALL ####[address] [place], [place] [phone] Creatinine [Mass/Vol] 0.69 mg/dL Normal 0.58-0.96 [facility] Comment on above: Performed By: #### C GEOVANNY, BMP ####[address] [address] [place], [place] [phone] eGFR- Amer. >60 Normal [facility] Comment on above: Performed By: #### C GEOVANNY, HALLE ####[address] [phone] GFR/1.73 sq M predicted among non-blacks MDRD (S/P/Bld) [Vol rate/Area] mL/min/{1.73_m2} Normal [facility] Comment on above: Result Comment: eGFR (Estimated GFR) Units of measure: mL/min/1.73 meters squared eGFR is derived from the reexpressed MDRD Study equation using the following parameters: serum creatinine, age, gender and race. The creatinine assay has been calibrated to be traceable to IDMS. An eGFR <60 mL/min/1.73m2 for >3 months is consistent with chronic kidney disease. Refer to KDOQI guidelines for clinical interpretation. In patients with unstable renal function, e.g. those with acute kidney injury, the eGFR may not accurately reflect actual GFR. Performed By: #### C GEOVANNY, BMP ####[facility] [place], [place] [phone] Glucose [Mass/Vol] 70 mg/dL Low 74-99 [facility] Comment on above: Result Comment: The [place] Diabetes Association (ADA) provides guidance for cutoff values for fasting glucose and random glucose. The ADA defines fasting as no caloric intake for at least 8 hours. Fasting plasma glucose results between 100 to 125 mg/dL indicate increased risk for diabetes (prediabetes). Fasting plasma glucose results greater than or equal to 126 mg/dL meet the criteria for diagnosis of diabetes. In the absence of unequivocal hyperglycemia, results should be confirmed by repeat testing. In a patient with classic symptoms of hyperglycemia or hyperglycemic crisis, random plasma glucose results greater than or equal to 200 mg/dL meet the criteria for diagnosis of diabetes. Reference: Standards of Medical Care in Diabetes 2016, [place] [employer] Association. Diabetes Care. 2016.39(Suppl 1). Performed By: #### HALLE VILLAFUERTE ####[address] [place], [place] [phone] Potassium [Moles/Vol] 4.4 mmol/L Normal 3.7-5.1 [facility] Comment on above: Performed By: #### Radha SMALL BMP ####[address], [place] [phone] Sodium [Moles/Vol] 140 mmol/L Normal 136-144 [facility] Comment on above: Performed By: #### Radha SMALL BMP ####[address] [address] [place], [place] [phone] Urea nitrogen [Mass/Vol] 14 mg/dL Normal 7-21 [facility] Comment on above: Performed By: #### Radha SMALL BMP ####[address] [address] [place], [place] [phone] CBC and Differentialon 11-14 Abs Baso 0.04 k/uL Normal <0.11 [facility] Comment on above: Performed By: #### C GEOVANNY BMP ####[address], [place] [phone] Abs Finney 0.53 k/uL Normal <0.87 [facility] Comment on above: Performed By: #### Radha SMALL, BMP ####[address] [address], [place] [phone] Abs Neut 3.66 k/uL Normal 1.45-7.50 [facility] Comment on above: Performed By: #### C BCDIF, BMP ####[facility] [phone] Absolute nRBC <0.01 Normal <0.01 [facility] Comment on above: Performed By: #### C BCDIF, BMP ####[facility] [phone] Basophils/100 WBC (Bld) 0.6 % Normal [facility] Comment on above: Performed By: #### C BCDIF, BMP ####[address] [phone] DTYPE Auto Diff Normal [facility] Comment on above: Performed By: #### C BCDIF, BMP ####[address] [phone] Eosinophils (Bld) [#/Vol] 0.33 10*3/uL Normal <0.46 [facility] Comment on above: Performed By: #### C BCDIF, BMP ####[address] [phone] Eosinophils/100 WBC (Bld) 5.1 % Normal [facility] Comment on above: Performed By: #### C BCDIF, BMP ####[address] [phone] Erythrocyte distribution width (RBC) [Ratio] 11.4 % Low 11.5-15.0 [facility] Comment on above: Performed By: #### C BCDIF, BMP ####[address] [address] [phone] Hematocrit (Bld) [Volume fraction] 42.9 % Normal 36.0-46.0 [facility] Comment on above: Performed By: #### C BCDIF, BMP ####[address] [place] [address] [phone] Hemoglobin (Bld) [Mass/Vol] 14.2 g/dL Normal 11.5-15.5 [facility] Comment on above: Performed By: #### C BCDIF, BMP ####[address], [place] [phone] Lymphocytes (Bld) [#/Vol] 1.87 10*3/uL Normal 1.00-4.00 [facility] Comment on above: Performed By: #### C BCDIF, BMP ####[address], [place] [phone] Lymphocytes/100 WBC (Bld) 29.0 % Normal [facility] Comment on above: Performed By: #### C BCDIF, BMP ####[address], [place] [phone] MCH (RBC) [Entitic mass] 35.5 pG High 26.0-34.0 [facility] Comment on above: Performed By: #### C BCDIF, BMP ####[address], [place] [phone] MCHC (RBC) [Mass/Vol] 33.1 g/dL Normal 30.5-36.0 [facility] Comment on above: Performed By: #### C BCDIF, BMP ####[address], [place] [phone] MCV (RBC) [Entitic vol] 107.3 fL High 80.0-100.0 [facility] Comment on above: Performed By: #### C BCDIF, BMP ####[address], [place] [phone] Monocytes/100 WBC (Bld) 8.2 % Normal [facility] Comment on above: Performed By: #### C BCDIF, BMP ####[address], [place] [phone] Neutrophils/100 WBC (Bld) 57.1 % Normal [facility] Comment on above: Performed By: #### Radha SMALL BMP ####[address], [place] [phone] NRBCs 0.0 /100 WBC Normal 0 [facility] Comment on above: Performed By: #### Radha SMALL, BMP ####[address], [place] [phone] Platelet mean volume (Bld) [Entitic vol] 9.8 fL Normal 9.0-12.7 [facility] Comment on above: Performed By: #### Radha SMALL, BMP ####[address], [place] [phone] Platelets (Bld) [#/Vol] 271 10*3/uL Normal 150-400 [facility] Comment on above: Performed By: #### Radha SMALL, BMP ####[address], [place] [phone] RBC (Bld) [#/Vol] 4.00 10*6/uL Normal 3.90-5.20 [facility] Comment on above: Performed By: #### Radha SMALL, BMP ####[address], [place] [phone] WBC (Bld) [#/Vol] 6.44 10*3/uL Normal 3.70-11.00 [facility] Comment on above: Performed By: #### Radha SMALL, BMP ####[address], [place] [phone] Jennifer 11-14-2019 CNOV Office Visit (IMPAMN ) AMIRA NAGY ([id number]) 1990 F Date Time Provider Department 11/14/19 3:15 PM LEE DOSS) ANA During your visit today, we recorded the following information about you: Temperature Pulse Blood pressure Weight 98.5 degrees 65/minute 111/68 57.3 kg Height Last Period 1.549 m 10/21/19 Reza Parks LPN 11/14/2019 3:16 PM Signed Amira Nagy is a 29 year old female here today for visit in [facility] Referring Surgeon: Dr. RIVERA Date of Surgery: 11/27/2019 Planned Surgery/Procedure: REDUCTION BREAST BILATERAL Allergies have been reviewed and verified. They include the following: Bee Sting Social History Tobacco Use - Smoking status: Current Every Day Smoker Packs/day: 0.25 Years: 11.00 Pack years: 2.75 - Smokeless tobacco: Never Used Substance Use Topics - Alcohol use: Yes Frequency: 2-4 times a month Drinks per session: 1 or 2 Binge frequency: Never Comment: Socially - Drug use: Never Medications reviewed and updated: Yes Reza Doss MD 11/17/2019 11:55 AM Addendum HISTORY AND PHYSICAL EXAMINATION (IMPACT) SERVICE DATE: 11/14/2019 SERVICE TIME: 3:07 PM PRIMARY CARE PHYSICIAN: Cookie Burton MD CHIEF COMPLAINT/HISTORY OF PRESENT ILLNESS: Ms. Nagy is a 29 year old female referred to me for preoperative evaluation. My final recommendations will be communicated back to the requesting physician/surgeon by the way of the shared medical record. Referring Surgeon: Dr. RIVERA Date of Surgery: 11/27/2019 Planned Surgery/Procedure: REDUCTION BREAST BILATERAL ? Indication for Planned Surgery / Procedure: Refer to Assessment section for details of any comorbidities. Patient is Able to Perform the Following Physical Activity: Climb a flight of stairs or walk up a hill (5.50 METs) Significant Anesthesia Considerations: None. PAST MEDICAL/SURGICAL/FAMI LY/SOCIAL HISTORY PAST MEDICAL HISTORY Diagnosis Date - Anxiety - Depression - PTSD (post-traumatic stress disorder) PAST SURGICAL HISTORY Procedure Laterality Date - NONE FAMILY HISTORY Problem Relation Age of Onset - Diabetes Maternal Grandmother - Diabetes Maternal Uncle - other (melanoma) Maternal Uncle SOCIAL HISTORY Social History Tobacco Use - Smoking status: Former Smoker Packs/day: 0.25 Years: 11.00 Pack years: 2.75 Last attempt to quit: 10/12/2019 Years since quittin.0 - Smokeless tobacco: Never Used Substance Use Topics - Alcohol use: Yes Frequency: 2-4 times a month Drinks per session: 1 or 2 Binge frequency: Never Comment: Socially - Drug use: Never MEDICATIONS/ALLERGIES Current Outpatient Medications Medication Sig Dispense Refill - nicotine (NICODERM) 7 mg/24 hr Apply 1 Patch as directed every 24 hours for 14 days. 14 Patch 0 - sertraline (ZOLOFT) 50 mg tablet Take 1 tablet by mouth once daily. 30 tablet 3 - albuterol HFA (PROAIR HFA) 90 mcg/actuation inhaler Take as directed: 2 puffs before exercise 1 Inhaler 2 - EPINEPHrine (EPIPEN) 0.3 mg/0.3 mL auto-injector Inject 0.3 mL intramuscularly as needed. 2 Each 1 - Calcipotriene 0.005 % soln Apply 1 application to affected area once daily. 3 - nicotine (NICODERM) 14 mg/24 hr Apply 1 Patch as directed every 24 hours. 42 Patch 0 No current facility-administered medications for this visit. ALLERGIES Allergen Reactions - Bee Sting Swelling, Anaphylaxis REVIEW OF SYSTEMS General: No weight loss, malaise or fevers. 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 No neurological symptoms or problems. Respiratory: No history of current cough or dyspnea, or pneumonia in the past 6 weeks. No history of respiratory/pulmonary symptoms or problems. Cardiovascular: No history of HTN requiring medication, no history of angina, CHF, RI, cardiac surgery or stents. Denies rest pain, gangrene or revascularization/amp utation for PVD. No history of cardiovascular symptoms or problems. GI: No history of GI symptoms or problems. No history of esophageal varices, recent ascites, or ETOH greater than 2 drinks per day. : No history of UTI in past 6 weeks. No history of renal failure. Not currently on or requiring dialysis. No history of symptoms or problems. WEB WORKER: Negative for abnormal vaginal bleeding, abnormal vaginal discharge. Endocrine: No history of diabetes. Has not taken steroids within the past 30 days. No history of endocrinological symptoms or problems. Hematology: No history of bleeding or clotting disorder. No history of hematological symptoms or problems. Oncology: No history of CA metastasis, chemo within 30 days, or radiotherapy within 90 days. No history of oncological symptoms or problems. Psych: Anxiety, Depression Skin: Negative for lesions, rash, and itching. PHYSICAL EXAM VITALS: BP 111/68 Pulse 65 Temp (Src) 98.5 (Oral) Ht 5' 1 (1.55m) Wt 126 lb 4.8 oz (57.3kg) SpO2 96% LMP 10/21/2019 BMI 23.88 kg/(m2). General: Alert and oriented Skin: Normal color, no rash, no lesions. HEENT: EOM, pupils equal, round and reactive. Cardiovascular: Normal S1 AND S2, no rubs, murmurs or gallops. No JVD. Pulse regular. Lungs: Normal breath sounds, no wheezes or crackles. Abdomen: Soft, non-tender, no rigidity. Extremities: No deformity, no edema or tenderness, no joint swelling or clubbing. Neurological: Normal cognition and motor skills. Pulses: Carotid and radial pulses normal +2. ASSESSMENT Ms. Nagy is a 29 year old female referred to me for preoperative evaluation. Patient has the following medical comorbidities which might affect the perioperative course: Anxiety Depression PTSD Exercise induced asthma No h/o CAD/CHF/DM/CKD/TIA/St roke/PE/DVT Patient's RCRI (Revised Cardiac Risk Index: CAD/CHF/Stroke or TIA/SCr>2/DM on Insulin/High Risk Surgery) score is 0 and is at low risk for major adverse cardiac events in the perioperative period. Diagnostic tests reviewed for today's visit: PENDING PLAN/RECOMMENDATIONS CARDIAC: Patient is at optimal cardiac condition for scheduled surgery / procedure. PULMONARY: Patient is at optimal Pulmonary status for scheduled surgery / procedure. Patient is optimally prepared for surgery. Has macrocytosis( was also present in 2019) and this should be worked up after surgery Patient Instructions: As per patient instructions section. I have discussed the above recommendations with the patient in detail, in tameka and lay terms, and provided a written summary of instructions as needed. We have discussed that no surgery is without risk, but that the goal of preoperative assessment is to optimize that risk, and that was clearly understood by the patient. I have given ample opportunity for the patient to ask questions, and answered all questions to their stated satisfaction. SIGNATURE: Lee Doss MD PATIENT NAME: Amira Nagy DATE: November 14, 2019 TIME: 3:07 PM Lee Doss MD 11/14/2019 3:15 PM Addendum [facility] Patient Instructions for Surgery FOOD INSTRUCTIONS: NO solid food or non-clear liquids for 8 hours prior to the arrival time for your surgery. Unless you are instructed otherwise, you are allowed to drink up to 12 ounces of clear liquids (e.g. water, black tea/coffee, fruit juice without pulp, Cherry Elisa, etc.) up until 2 hours prior to the arrival time for surgery. MEDICATION INSTRUCTIONS: Prior to Surgery: Do not take the following medications for 7 days prior to surgery: - any NSAID's (e.g. Motrin, Aleve, Arthrotec, Naproxen,etc) - any herbal preparations - Aspirin or aspirin containing products - Plavix Do not take any Vitamin E / multivitamins for 7 days before surgery You are allowed to take Tylenol if needed until the day of surgery. MEDICATION INSTRUCTIONS: Day/Morning of Surgery: The following medications should be taken with sips of water: None If you have any questions or concerns regarding today's visit please do not hesitate to contact the [facility] at [phone] or [phone], ext [phone]. Signature: Lee Doss MD Date: November 14, 2019 Referring Provider: CANDELARIO RIVERA [[id number]] Allergies As of Date: 11/14/2019 Noted Allergy Reaction BEE STING 08/27/2019 7 - Swelling 10 - Anaphylaxis Date Reviewed: 11/14/2019 Reviewed by: Reza Parks LPN - Fully Assessed Primary Visit Diagnosis:Anxiety [F41.9] Other Visit Diagnosis:Pre-operati ve examination [Z01.818] Order(s):CBC + DIFF [SQCBCDIF] Order #: [id number] FUTURE BASIC METABOLIC PNL [SQBMP] Order #: [id number] FUTURE Prescriptions as of 11/14/2019 Sig: NICOTINE 7 MG/24 HR DAILY TRA* Apply 1 Patch as directed delfina* SERTRALINE 50 MG TABLET Take 1 tablet by mouth once d* ALBUTEROL SULFATE HFA 90 MCG/* Take as directed: 2 puffs bef* EPINEPHRINE 0.3 MG/0.3 ML INJ* Inject 0.3 mL intramuscularly* CALCIPOTRIENE 0.005 % SCALP S* Apply 1 application to affect* NICOTINE 14 MG/24 HR DAILY TR* Apply 1 Patch as directed delfina* Problem List As Of Date 11/14/2019 Noted Resolved Macromastia [N62] 08/25/2019 Other instructions from your clinician: [facility] Patient Instructions for Surgery FOOD INSTRUCTIONS: NO solid food or non-clear liquids for 8 hours prior to the arrival time for your surgery. Unless you are instructed otherwise, you are allowed to drink up to 12 ounces of clear liquids (e.g. water, black tea/coffee, fruit juice without pulp, Cherry Elisa, etc.) up until 2 hours prior to the arrival time for surgery. MEDICATION INSTRUCTIONS: Prior to Surgery: Do not take the following medications for 7 days prior to surgery: - any NSAID's (e.g. Motrin, Aleve, Arthrotec, Naproxen,etc) - any herbal preparations - Aspirin or aspirin containing products - Plavix Do not take any Vitamin E / multivitamins for 7 days before surgery You are allowed to take Tylenol if needed until the day of surgery. MEDICATION INSTRUCTIONS: Day/Morning of Surgery: The following medications should be taken with sips of water: None If you have any questions or concerns regarding today's visit please do not hesitate to contact the [facility] at [phone] or [phone], ext [phone]. Signature: Lee Doss MD Date: November 14, 2019 Medications Discontinued During This Encounter ketoconazole (NIZORAL) 2 % shampoo 3 04/23/2019 11/14/2019 Class: Historical Med Route: TOPICAL Sig: Apply 1 application to affected area as directed. Disc: Discontinued by Patient triamcinolone acetonide (KENALOG) 0.* 2 03/12/2019 11/14/2019 Class: Historical Med Route: TOPICAL Sig: Apply 1 application to affected area once daily. Disc: Discontinued by Patient prednisoLONE acetate (PRED FORTE, EC* 0 04/23/2019 11/14/2019 Class: Historical Med Route: BOTH EYES Sig: Use 1 Drop in both eyes as needed. Disc: Discontinued by Patient Encounter Status:Closed by LEE DOSS MD on 11/14/19 [facility] 0 HISTORY PHYSICAL HNO ID: [id number] Author: Lee Castañeda) Michael Service: ? Author Type: Physician Type: HANDP Filed: 11/17/2019 11:55 AM Note Text: HISTORY AND PHYSICAL EXAMINATION (IMPACT) SERVICE DATE: 11/14/2019 SERVICE TIME: 3:07 PM PRIMARY CARE PHYSICIAN: Cookie Burton MD CHIEF COMPLAINT/HISTORY OF PRESENT ILLNESS: Ms. Nagy is a 29 year old female referred to me for preoperative evaluation. My final recommendations will be communicated back to the requesting physician/surgeon by the way of the shared medical record. Referring Surgeon: Dr. RIVERA Date of Surgery: 11/27/2019 Planned Surgery/Procedure: REDUCTION BREAST BILATERAL ? Indication for Planned Surgery / Procedure: Refer to Assessment section for details of any comorbidities. Patient is Able to Perform the Following Physical Activity: Climb a flight of stairs or walk up a hill (5.50 METs) Significant Anesthesia Considerations: None. PAST MEDICAL/SURGICAL/FAMI LY/SOCIAL HISTORY PAST MEDICAL HISTORY Diagnosis Date - Anxiety - Depression - PTSD (post-traumatic stress disorder) PAST SURGICAL HISTORY Procedure Laterality Date - NONE FAMILY HISTORY Problem Relation Age of Onset - Diabetes Maternal Grandmother - Diabetes Maternal Uncle - other (melanoma) Maternal Uncle SOCIAL HISTORY Social History Tobacco Use - Smoking status: Former Smoker Packs/day: 0.25 Years: 11.00 Pack years: 2.75 Last attempt to quit: 10/12/2019 Years since quittin.0 - Smokeless tobacco: Never Used Substance Use Topics - Alcohol use: Yes Frequency: 2-4 times a month Drinks per session: 1 or 2 Binge frequency: Never Comment: Socially - Drug use: Never MEDICATIONS/ALLERGIES Current Outpatient Medications Medication Sig Dispense Refill - nicotine (NICODERM) 7 mg/24 hr Apply 1 Patch as directed every 24 hours for 14 days. 14 Patch 0 - sertraline (ZOLOFT) 50 mg tablet Take 1 tablet by mouth once daily. 30 tablet 3 - albuterol HFA (PROAIR HFA) 90 mcg/actuation inhaler Take as directed: 2 puffs before exercise 1 Inhaler 2 - EPINEPHrine (EPIPEN) 0.3 mg/0.3 mL auto-injector Inject 0.3 mL intramuscularly as needed. 2 Each 1 - Calcipotriene 0.005 % soln Apply 1 application to affected area once daily. 3 - nicotine (NICODERM) 14 mg/24 hr Apply 1 Patch as directed every 24 hours. 42 Patch 0 No current facility-administered medications for this visit. ALLERGIES Allergen Reactions - Bee Sting Swelling, Anaphylaxis REVIEW OF SYSTEMS General: No weight loss, malaise or fevers. 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 No neurological symptoms or problems. Respiratory: No history of current cough or dyspnea, or pneumonia in the past 6 weeks. No history of respiratory/pulmonary symptoms or problems. Cardiovascular: No history of HTN requiring medication, no history of angina, CHF, RI, cardiac surgery or stents. Denies rest pain, gangrene or revascularization/amp utation for PVD. No history of cardiovascular symptoms or problems. GI: No history of GI symptoms or problems. No history of esophageal varices, recent ascites, or ETOH greater than 2 drinks per day. : No history of UTI in past 6 weeks. No history of renal failure. Not currently on or requiring dialysis. No history of symptoms or problems. WEB WORKER: Negative for abnormal vaginal bleeding, abnormal vaginal discharge. Endocrine: No history of diabetes. Has not taken steroids within the past 30 days. No history of endocrinological symptoms or problems. Hematology: No history of bleeding or clotting disorder. No history of hematological symptoms or problems. Oncology: No history of CA metastasis, chemo within 30 days, or radiotherapy within 90 days. No history of oncological symptoms or problems. Psych: Anxiety, Depression Skin: Negative for lesions, rash, and itching. PHYSICAL EXAM VITALS: BP 111/68 Pulse 65 Temp (Src) 98.5 (Oral) Ht 5' 1 (1.55m) Wt 126 lb 4.8 oz (57.3kg) SpO2 96% LMP 10/21/2019 BMI 23.88 kg/(m2). General: Alert and oriented Skin: Normal color, no rash, no lesions. HEENT: EOM, pupils equal, round and reactive. Cardiovascular: Normal S1 AND S2, no rubs, murmurs or gallops. No JVD. Pulse regular. Lungs: Normal breath sounds, no wheezes or crackles. Abdomen: Soft, non-tender, no rigidity. Extremities: No deformity, no edema or tenderness, no joint swelling or clubbing. Neurological: Normal cognition and motor skills. Pulses: Carotid and radial pulses normal +2. ASSESSMENT Ms. Nagy is a 29 year old female referred to me for preoperative evaluation. Patient has the following medical comorbidities which might affect the perioperative course: Anxiety Depression PTSD Exercise induced asthma No h/o CAD/CHF/DM/CKD/TIA/St roke/PE/DVT Patient's RCRI (Revised Cardiac Risk Index: CAD/CHF/Stroke or TIA/SCr>2/DM on Insulin/High Risk Surgery) score is 0 and is at low risk for major adverse cardiac events in the perioperative period. Diagnostic tests reviewed for today's visit: PENDING PLAN/RECOMMENDATIONS CARDIAC: Patient is at optimal cardiac condition for scheduled surgery / procedure. PULMONARY: Patient is at optimal Pulmonary status for scheduled surgery / procedure. Patient is optimally prepared for surgery. Has macrocytosis( was also present in 2019) and this should be worked up after surgery Patient Instructions: As per patient instructions section. I have discussed the above recommendations with the patient in detail, in tameka and lay terms, and provided a written summary of instructions as needed. We have discussed that no surgery is without risk, but that the goal of preoperative assessment is to optimize that risk, and that was clearly understood by the patient. I have given ample opportunity for the patient to ask questions, and answered all questions to their stated satisfaction. SIGNATURE: Lee Doss MD PATIENT NAME: Amira Nagy DATE: November 14, 2019 TIME: 3:07 PM [facility] PRO[facility]ESSon 11-14-2019 PROGRESS HNO ID: [id number] Author: Reza Parks LPN Service: ? Author Type: ? Type: Progress Notes Filed: 11/14/2019 3:16 PM Note Text: Amira Nagy is a 29 year old female here today for visit in [facility] Referring Surgeon: Dr. RIVERA Date of Surgery: 11/27/2019 Planned Surgery/Procedure: REDUCTION BREAST BILATERAL Allergies have been reviewed and verified. They include the following: Bee Sting Social History Tobacco Use - Smoking status: Current Every Day Smoker Packs/day: 0.25 Years: 11.00 Pack years: 2.75 - Smokeless tobacco: Never Used Substance Use Topics - Alcohol use: Yes Frequency: 2-4 times a month Drinks per session: 1 or 2 Binge frequency: Never Comment: Socially - Drug use: Never Medications reviewed and updated: Yes Reza Parks LPN [facility] 11-07-2019 [facility] Patient:Diego Nagy MRN: Height:5' 1 (1.549 m) Weight:126 lb 4.8 oz (57.289 kg) Outpatient Medications as of 11/27/19: nicotine (NICODERM) 14 mg/24 hr nicotine (NICODERM) 7 mg/24 hr sertraline (ZOLOFT) 50 mg tablet albuterol HFA (PROAIR HFA) 90 mcg/actuation inhaler EPINEPHrine (EPIPEN) 0.3 mg/0.3 mL auto-injector Calcipotriene 0.005 % soln Admission/Clinic Administered Medications as of 11/27/19: lactated ringers infusion ceFAZolin iv piggyback 2 g in D5W (iso-osmotic) 100 mL (ANCEF) Problem List: Macromastia [N62] Allergies: Bee Sting Date Verified: 11/27/19 Lab Values Lab Value Units Date High Low POTA* 4.4 mmol/L 11/14/2019 5.1 3.7 KARLI* 42.9 % 11/14/2019 46.0 36.0 Progress Notes ([facility]): Reza Parks LPN 11/14/2019 3:16 PM Signed Amira Nagy is a 29 year old female here today for visit in [facility] Referring Surgeon: Dr. RIVERA Date of Surgery: 11/27/2019 Planned Surgery/Procedure: REDUCTION BREAST BILATERAL Allergies have been reviewed and verified. They include the following: Bee Sting Social History Tobacco Use - Smoking status: Current Every Day Smoker Packs/day: 0.25 Years: 11.00 Pack years: 2.75 - Smokeless tobacco: Never Used Substance Use Topics - Alcohol use: Yes Frequency: 2-4 times a month Drinks per session: 1 or 2 Binge frequency: Never Comment: Socially - Drug use: Never Medications reviewed and updated: Yes Reza Doss MD 11/17/2019 11:55 AM Addendum HISTORY AND PHYSICAL EXAMINATION (IMPACT) SERVICE DATE: 11/14/2019 SERVICE TIME: 3:07 PM PRIMARY CARE PHYSICIAN: Cookie Burton MD CHIEF COMPLAINT/HISTORY OF PRESENT ILLNESS: Ms. Nagy is a 29 year old female referred to me for preoperative evaluation. My final recommendations will be communicated back to the requesting physician/surgeon by the way of the shared medical record. Referring Surgeon: Dr. RIVERA Date of Surgery: 11/27/2019 Planned Surgery/Procedure: REDUCTION BREAST BILATERAL ? Indication for Planned Surgery / Procedure: Refer to Assessment section for details of any comorbidities. Patient is Able to Perform the Following Physical Activity: Climb a flight of stairs or walk up a hill (5.50 METs) Significant Anesthesia Considerations: None. PAST MEDICAL/SURGICAL/FAMI LY/SOCIAL HISTORY PAST MEDICAL HISTORY Diagnosis Date - Anxiety - Depression - PTSD (post-traumatic stress disorder) PAST SURGICAL HISTORY Procedure Laterality Date - NONE FAMILY HISTORY Problem Relation Age of Onset - Diabetes Maternal Grandmother - Diabetes Maternal Uncle - other (melanoma) Maternal Uncle SOCIAL HISTORY Social History Tobacco Use - Smoking status: Former Smoker Packs/day: 0.25 Years: 11.00 Pack years: 2.75 Last attempt to quit: 10/12/2019 Years since quittin.0 - Smokeless tobacco: Never Used Substance Use Topics - Alcohol use: Yes Frequency: 2-4 times a month Drinks per session: 1 or 2 Binge frequency: Never Comment: Socially - Drug use: Never MEDICATIONS/ALLERGIES Current Outpatient Medications Medication Sig Dispense Refill - nicotine (NICODERM) 7 mg/24 hr Apply 1 Patch as directed every 24 hours for 14 days. 14 Patch 0 - sertraline (ZOLOFT) 50 mg tablet Take 1 tablet by mouth once daily. 30 tablet 3 - albuterol HFA (PROAIR HFA) 90 mcg/actuation inhaler Take as directed: 2 puffs before exercise 1 Inhaler 2 - EPINEPHrine (EPIPEN) 0.3 mg/0.3 mL auto-injector Inject 0.3 mL intramuscularly as needed. 2 Each 1 - Calcipotriene 0.005 % soln Apply 1 application to affected area once daily. 3 - nicotine (NICODERM) 14 mg/24 hr Apply 1 Patch as directed every 24 hours. 42 Patch 0 No current facility-administered medications for this visit. ALLERGIES Allergen Reactions - Bee Sting Swelling, Anaphylaxis REVIEW OF SYSTEMS General: No weight loss, malaise or fevers. 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 No neurological symptoms or problems. Respiratory: No history of current cough or dyspnea, or pneumonia in the past 6 weeks. No history of respiratory/pulmonary symptoms or problems. Cardiovascular: No history of HTN requiring medication, no history of angina, CHF, RI, cardiac surgery or stents. Denies rest pain, gangrene or revascularization/amp utation for PVD. No history of cardiovascular symptoms or problems. GI: No history of GI symptoms or problems. No history of esophageal varices, recent ascites, or ETOH greater than 2 drinks per day. : No history of UTI in past 6 weeks. No history of renal failure. Not currently on or requiring dialysis. No history of symptoms or problems. WEB WORKER: Negative for abnormal vaginal bleeding, abnormal vaginal discharge. Endocrine: No history of diabetes. Has not taken steroids within the past 30 days. No history of endocrinological symptoms or problems. Hematology: No history of bleeding or clotting disorder. No history of hematological symptoms or problems. Oncology: No history of CA metastasis, chemo within 30 days, or radiotherapy within 90 days. No history of oncological symptoms or problems. Psych: Anxiety, Depression Skin: Negative for lesions, rash, and itching. PHYSICAL EXAM VITALS: BP 111/68 Pulse 65 Temp (Src) 98.5 (Oral) Ht 5' 1 (1.55m) Wt 126 lb 4.8 oz (57.3kg) SpO2 96% LMP 10/21/2019 BMI 23.88 kg/(m2). General: Alert and oriented Skin: Normal color, no rash, no lesions. HEENT: EOM, pupils equal, round and reactive. Cardiovascular: Normal S1 AND S2, no rubs, murmurs or gallops. No JVD. Pulse regular. Lungs: Normal breath sounds, no wheezes or crackles. Abdomen: Soft, non-tender, no rigidity. Extremities: No deformity, no edema or tenderness, no joint swelling or clubbing. Neurological: Normal cognition and motor skills. Pulses: Carotid and radial pulses normal +2. ASSESSMENT Ms. Nagy is a 29 year old female referred to me for preoperative evaluation. Patient has the following medical comorbidities which might affect the perioperative course: Anxiety Depression PTSD Exercise induced asthma No h/o CAD/CHF/DM/CKD/TIA/St roke/PE/DVT Patient's RCRI (Revised Cardiac Risk Index: CAD/CHF/Stroke or TIA/SCr>2/DM on Insulin/High Risk Surgery) score is 0 and is at low risk for major adverse cardiac events in the perioperative period. Diagnostic tests reviewed for today's visit: PENDING PLAN/RECOMMENDATIONS CARDIAC: Patient is at optimal cardiac condition for scheduled surgery / procedure. PULMONARY: Patient is at optimal Pulmonary status for scheduled surgery / procedure. Patient is optimally prepared for surgery. Has macrocytosis( was also present in 2019) and this should be worked up after surgery Patient Instructions: As per patient instructions section. I have discussed the above recommendations with the patient in detail, in tameka and lay terms, and provided a written summary of instructions as needed. We have discussed that no surgery is without risk, but that the goal of preoperative assessment is to optimize that risk, and that was clearly understood by the patient. I have given ample opportunity for the patient to ask questions, and answered all questions to their stated satisfaction. SIGNATURE: Lee Doss MD PATIENT NAME: Amira Nagy DATE: November 14, 2019 TIME: 3:07 PM Previous Version Lee Doss MD 11/14/2019 3:15 PM Addendum [facility] Patient Instructions for Surgery FOOD INSTRUCTIONS: NO solid food or non-clear liquids for 8 hours prior to the arrival time for your surgery. Unless you are instructed otherwise, you are allowed to drink up to 12 ounces of clear liquids (e.g. water, black tea/coffee, fruit juice without pulp, Cherry Elisa, etc.) up until 2 hours prior to the arrival time for surgery. MEDICATION INSTRUCTIONS: Prior to Surgery: Do not take the following medications for 7 days prior to surgery: - any NSAID's (e.g. Motrin, Aleve, Arthrotec, Naproxen,etc) - any herbal preparations - Aspirin or aspirin containing products - Plavix Do not take any Vitamin E / multivitamins for 7 days before surgery You are allowed to take Tylenol if needed until the day of surgery. MEDICATION INSTRUCTIONS: Day/Morning of Surgery: The following medications should be taken with sips of water: None If you have any questions or concerns regarding today's visit please do not hesitate to contact the [facility] at [phone] or [phone], [phone]. Signature: Lee Doss MD Date: November 14, 2019 Previous Version Progress Notes ([facility]): Cookie Burton MD 11/05/2019 9:15 AM Signed Patient's request for medication is as follows: Signed Prescriptions Disp Refills nicotine (NICODERM) 14 mg/24 hr 42 Patch 0 Sig: Apply 1 Patch as directed every 24 hours. nicotine (NICODERM) 7 mg/24 hr 14 Patch 0 Sig: Apply 1 Patch as directed every 24 hours for 14 days. Prescription(s) as above. Please process accordingly. Cookie Burton MD [facility] OBSOLETEon 09-14-2019 OBSOLETE Refill ([facility]) AMIRA NAGY ([id number]) 1990 F Date Time Provider Department 09/14/19 COOKIE BURTON [facility] During your visit today, we recorded the following information about you: Hui Marin Alarm Investigator I 09/15/2019 9:04 AM Signed Patient sent a message via [employer] requesting the following refill: Pending Prescriptions Disp Refills SERTRALINE 25 MG TABLET 30 tablet 3 Sig: Take 1 tablet by mouth once daily. HELDER: No Script(s) will be E-script to pharmacy Future visits: Visit date not found Date of last office visit was: 08/27/2019 The patients preferred pharmacy has been captured for this encounter? yes Hui Marin Alarm Investigator I Allergies As of Date: 09/14/2019 Noted Allergy Reaction BEE STING 08/27/2019 7 - Swelling 10 - Anaphylaxis Date Reviewed: 08/27/2019 Reviewed by: Elías Santos) KRISTINA Bauer - Fully Assessed Reason for Visit: Refill Request [94] Visit Diagnosis:Depression, unspecified depression type [F32.9] Order(s):sertraline (ZOLOFT) 25 mg tabletTake 1 tablet by mouth once daily.Disp: 30 tabletRfl: 3 Prescriptions as of 09/14/2019 Sig: SERTRALINE 25 MG TABLET Take 1 tablet by mouth once d* ALBUTEROL SULFATE HFA 90 MCG/* Take as directed: 2 puffs bef* EPINEPHRINE 0.3 MG/0.3 ML INJ* Inject 0.3 mL intramuscularly* PREDNISOLONE ACETATE 1 % EYE * Use 1 Drop in both eyes as ne* TRIAMCINOLONE ACETONIDE 0.1 %* Apply 1 application to affect* KETOCONAZOLE 2 % SHAMPOO Apply 1 application to affect* CALCIPOTRIENE 0.005 % SCALP S* Apply 1 application to affect* Problem List As Of Date 09/14/2019 Noted Resolved Macromastia [N62] 08/25/2019 Prescriptions ordered this encounter Disp Refills Start End SERTRALINE 25 MG TABLET 30 t* 3 09/15/2019 Route: ORAL Sig: Take 1 tablet by mouth once daily. Medications Discontinued During This Encounter sertraline (ZOLOFT) 25 mg tablet 30 t* 3 07/29/2019 09/15/2019 Route: ORAL Sig: Take 1 tablet by mouth once daily. Disc: Reason for discontinue is not on file. Encounter Status:Closed by ARMINDA MANN PA-C on 09/15/19 [facility] PROGRESSon 08-28-2019 PROGRESS HNO ID: [id number] Author: Cookie Burton Service: ? Author Type: Physician Type: Progress Notes Filed: 08/28/2019 9:30 AM Note Text: SUBJECTIVE Amira Nagy is a 28 year old female Patient presents with: Medication Follow-up Medication Request Amira Nagy is here for follow-up on medications. Patient was started on Zoloft at the last visit and she thinks she feels much better. She feels more calm, she reports good sleep but she went back to the gym. She is asking for EpiPen refill for bee allergy. Patient said that when she was younger her mother remembered that she was started on Vyvanse for attention deficit and she is asking for refill on it as she will go back to school and she has trouble concentrating. I advised the patient that she would have to see psychiatrist for this. Also mom remembered that she has exercise-induced asthma and she is asking for albuterol inhaler. CURRENT MEDICATIONS: Current Outpatient Medications Medication Sig - sertraline (ZOLOFT) 25 mg tablet Take 1 tablet by mouth once daily. - prednisoLONE acetate (PRED FORTE, ECONOPRED PLUS) 1 % ophthalmic suspension Use 1 Drop in both eyes as needed. - triamcinolone acetonide (KENALOG) 0.1 % cream Apply 1 application to affected area once daily. - ketoconazole (NIZORAL) 2 % shampoo Apply 1 application to affected area as directed. - Calcipotriene 0.005 % soln Apply 1 application to affected area once daily. - albuterol HFA (PROAIR HFA) 90 mcg/actuation inhaler Take as directed: 2 puffs before exercise - EPINEPHrine (EPIPEN) 0.3 mg/0.3 mL auto-injector Inject 0.3 mL intramuscularly as needed. No current facility-administered medications for this visit. Past medical history was reviewed and updated. Past surgical history was reviewed and updated. Family History: was reviewed and updated. Past social history was reviewed and updated. Patient's Family History and Social History have been reviewed with the patient, and updated as appropriate. Please see relevant section in the [employer] EHR for details. Health Maintenance was reviewed with the patient and updated as appropriate. Please see relevant section in the [employer] EHR for details. REVIEW OF SYSTEMS: GENERAL: No weight loss, malaise or fevers HEENT: Negative for frequent or significant headaches, No changes in hearing or vision, no nose bleeds or other nasal problems RESPIRATORY: Negative for cough, hemoptysis, wheezing, COPD, dyspnea or shortness of breath CARDIOVASCULAR: Negative for chest pain, leg swelling, hypertension, CHF or palpitations GI: No nausea, vomiting, or diarrhea : No history of dysuria, frequency or incontinence PSYCH: negative for symptoms of depression and anxiety. HEMATOLOGY/LYMPHOLOGY Negative for prolonged bleeding, bruising easily or swollen nodes ENDOCRINE: Negative for cold or heat intolerance, polyuria, polydipsia and goiter PHYSICAL EXAMINATION: BP 118/78 (BP Site: Right Arm, BP Position: Sitting, BP Cuff Size: Regular Adult) Pulse 74 Temp 37 ?C (98.6 ?F) (Tympanic) Ht 154.9 cm (5' 1 ) Wt 62 kg (136 lb 9.6 oz) LMP 08/27/2019 (Exact Date) SpO2 99% BMI 25.81 kg/m? General Appearance: well appearing, in no acute distress, alert, no palor, no jaundice, no lymphedenopathy Lungs: lungs clear to auscultation. No wheezing, rhonchi, rales Heart: RRR without murmur, gallop, or rubs. No ectopy Abdomen: Normal abdominal exam, Abdomen soft, non-tender. Bowel sounds normal. No masses, organomegaly Extremities: Normal exam of the extremities. No clubbing, cyanosis, or edema. Peripheral Pulses: Normal ASSESSMENT/PLAN: 1. Depression, unspecified depression type - ICD9: 311, ICD10: F32.9 (primary diagnosis) - CONSULT TO PSYCHIATRY 2. Attention deficit hyperactivity disorder (ADHD), unspecified ADHD type - ICD9: 314.01, ICD10: F90.9 - CONSULT TO PSYCHIATRY 3. Anxiety - ICD9: 300.00, ICD10: F41.9 - CONSULT TO PSYCHIATRY 4. Exercise-induced asthma - ICD9: 493.81, ICD10: J45.990 Mild intermittent Asthma stable - Continue current meds - Avoidance of triggers recommended - ALBUTEROL SULFATE HFA 90 MCG/ACTUATION AEROSOL INHALER 5. Allergy to bee sting - ICD9: V15.06, ICD10: Z91.030 - EPINEPHRINE 0.3 MG/0.3 ML INJECTION, AUTO-INJECTOR Cookie Burton MD [facility] CNOVon 08-27-2019 CNOV Office Visit ([facility] ) AMIRA NAGY ([id number]) 1990 F Date Time Provider Department 08/27/19 3:20 PM COOKIE BURTON [facility] During your visit today, we recorded the following information about you: Temperature Pulse Blood pressure Weight 98.6 degrees 74/minute 118/78 62 kg Height Last Period 1.549 m 08/27/19 Cookie Burton MD 08/28/2019 9:30 AM Signed SUBJECTIVE Amira Nagy is a 28 year old female Patient presents with: Medication Follow-up Medication Request Amira Nagy is here for follow-up on medications. Patient was started on Zoloft at the last visit and she thinks she feels much better. She feels more calm, she reports good sleep but she went back to the gym. She is asking for EpiPen refill for bee allergy. Patient said that when she was younger her mother remembered that she was started on Vyvanse for attention deficit and she is asking for refill on it as she will go back to school and she has trouble concentrating. I advised the patient that she would have to see psychiatrist for this. Also mom remembered that she has exercise-induced asthma and she is asking for albuterol inhaler. CURRENT MEDICATIONS: Current Outpatient Medications Medication Sig - sertraline (ZOLOFT) 25 mg tablet Take 1 tablet by mouth once daily. - prednisoLONE acetate (PRED FORTE, ECONOPRED PLUS) 1 % ophthalmic suspension Use 1 Drop in both eyes as needed. - triamcinolone acetonide (KENALOG) 0.1 % cream Apply 1 application to affected area once daily. - ketoconazole (NIZORAL) 2 % shampoo Apply 1 application to affected area as directed. - Calcipotriene 0.005 % soln Apply 1 application to affected area once daily. - albuterol HFA (PROAIR HFA) 90 mcg/actuation inhaler Take as directed: 2 puffs before exercise - EPINEPHrine (EPIPEN) 0.3 mg/0.3 mL auto-injector Inject 0.3 mL intramuscularly as needed. No current facility-administered medications for this visit. Past medical history was reviewed and updated. Past surgical history was reviewed and updated. Family History: was reviewed and updated. Past social history was reviewed and updated. Patient's Family History and Social History have been reviewed with the patient, and updated as appropriate. Please see relevant section in the [employer] EHR for details. Health Maintenance was reviewed with the patient and updated as appropriate. Please see relevant section in the [employer] EHR for details. REVIEW OF SYSTEMS: GENERAL: No weight loss, malaise or fevers HEENT: Negative for frequent or significant headaches, No changes in hearing or vision, no nose bleeds or other nasal problems RESPIRATORY: Negative for cough, hemoptysis, wheezing, COPD, dyspnea or shortness of breath CARDIOVASCULAR: Negative for chest pain, leg swelling, hypertension, CHF or palpitations GI: No nausea, vomiting, or diarrhea : No history of dysuria, frequency or incontinence PSYCH: negative for symptoms of depression and anxiety. HEMATOLOGY/LYMPHOLOGY Negative for prolonged bleeding, bruising easily or swollen nodes ENDOCRINE: Negative for cold or heat intolerance, polyuria, polydipsia and goiter PHYSICAL EXAMINATION: BP 118/78 (BP Site: Right Arm, BP Position: Sitting, BP Cuff Size: Regular Adult) Pulse 74 Temp 37 ?C (98.6 ?F) (Tympanic) Ht 154.9 cm (5' 1 ) Wt 62 kg (136 lb 9.6 oz) LMP 08/27/2019 (Exact Date) SpO2 99% BMI 25.81 kg/m? General Appearance: well appearing, in no acute distress, alert, no palor, no jaundice, no lymphedenopathy Lungs: lungs clear to auscultation. No wheezing, rhonchi, rales Heart: RRR without murmur, gallop, or rubs. No ectopy Abdomen: Normal abdominal exam, Abdomen soft, non-tender. Bowel sounds normal. No masses, organomegaly Extremities: Normal exam of the extremities. No clubbing, cyanosis, or edema. Peripheral Pulses: Normal ASSESSMENT/PLAN: 1. Depression, unspecified depression type - ICD9: 311, ICD10: F32.9 (primary diagnosis) - CONSULT TO PSYCHIATRY 2. Attention deficit hyperactivity disorder (ADHD), unspecified ADHD type - ICD9: 314.01, ICD10: F90.9 - CONSULT TO PSYCHIATRY 3. Anxiety - ICD9: 300.00, ICD10: F41.9 - CONSULT TO PSYCHIATRY 4. Exercise-induced asthma - ICD9: 493.81, ICD10: J45.990 Mild intermittent Asthma stable - Continue current meds - Avoidance of triggers recommended - ALBUTEROL SULFATE HFA 90 MCG/ACTUATION AEROSOL INHALER 5. Allergy to bee sting - ICD9: V15.06, ICD10: Z91.030 - EPINEPHRINE 0.3 MG/0.3 ML INJECTION, AUTO-INJECTOR Cookie Burton MD Referring Provider: SELF [[id number]] Allergies As of Date: 08/27/2019 Noted Allergy Reaction BEE STING 08/27/2019 7 - Swelling 10 - Anaphylaxis Date Reviewed: 08/27/2019 Reviewed by: Elías Miller (Kristina) KRISTINA Bauer - Fully Assessed Reason for Visit: Medication Follow-up [270] Medication Request [138] Reason For Visit History Recorded Primary Visit Diagnosis:Depression, unspecified depression type [F32.9] Other Visit Diagnoses:Attention deficit hyperactivity disorder (ADHD), unspecified ADHD type [F90.9] Anxiety [F41.9] Exercise-induced asthma [J45.990] Allergy to bee sting [Z91.030] Order(s):CONSULT TO PSYCHIATRY [9035] Order #: [id number]: 1 FUTURE albuterol HFA (PROAIR HFA) 90 mcg/actuation inhalerTake as directed: 2 puffs before exerciseDisp: 1 InhalerRfl: 2 EPINEPHrine (EPIPEN) 0.3 mg/0.3 mL auto-injectorInject 0.3 mL intramuscularly as needed.Disp: 2 EachRfl: 1 Prescriptions as of 08/27/2019 Sig: SERTRALINE 25 MG TABLET Take 1 tablet by mouth once d* PREDNISOLONE ACETATE 1 % EYE * Use 1 Drop in both eyes as ne* TRIAMCINOLONE ACETONIDE 0.1 %* Apply 1 application to affect* KETOCONAZOLE 2 % SHAMPOO Apply 1 application to affect* CALCIPOTRIENE 0.005 % SCALP S* Apply 1 application to affect* ALBUTEROL SULFATE HFA 90 MCG/* Take as directed: 2 puffs bef* EPINEPHRINE 0.3 MG/0.3 ML INJ* Inject 0.3 mL intramuscularly* Problem List As Of Date 08/27/2019 Noted Resolved Macromastia [N62] 08/25/2019 Prescriptions ordered this encounter Disp Refills Start End ALBUTEROL SULFATE HFA 90 MCG/ACTUATI* 1 In* 2 08/27/2019 Cmt: Generic or brand: dispense inhaler preferred by patient/insurance unless HELDER flag is selected. Sig: Take as directed: 2 puffs before exercise EPINEPHRINE 0.3 MG/0.3 ML INJECTION,* 2 Ea* 1 08/27/2019 Route: INTRAMUSCULA Sig: Inject 0.3 mL intramuscularly as needed. Encounter Status:Closed by COOKIE BURTON MD on 08/28/19 [facility] CNOVon 08-25-2019 CNOV Office Visit ([facility] ) AMIRA NAGY ([id number]) 1990 F Date Time Provider Department 08/25/19 1:30 PM CANDELARIO RIVERA During your visit today, we recorded the following information about you: Temperature Pulse Respiration Blood pressure 97.9 degrees 83/minute 16/minute 130/81 Weight 60.3 kg Candelario Rivera MD 08/25/2019 1:50 PM Signed BREAST REDUCTION EVALUATION CC: Amira Nagy is a 28 year old that presents today for breast reduction evaluation. HPI: Pt c/o Macromastia Shoulder Pain Neck Pain Upper back pain Lower back pain - Physical therapy for back pain: number of months: Yes 10 years ago - Chiropractic treatment: months or visits: Yes - Home exercise: months tried: Yes jogging/yoga - NSAID use: Type: Yes; Months tried: 10 years - Skin ulceration: No - Topical or oral antifungal agents: Type: NO ; Months tried: No - Participation in medically supervised weight loss program: No Prior breast surgeries: No PAIN: No: 0 on a scale of 0 to 10 BRA SIZE: DD DESIRED SIZE: B PRIOR TREATMENT/OTHER PROVIDER: No WEIGHT REDUCTION ATTEMPTED: Yes, 10 lbs lost with no change in breast symptoms EXERCISE: Yes, patient does jogger/yoga, reports no changes in breast symptoms RECENT CHANGES REPORTED: Patient reports no recent changes in breast symptoms OB HISTORY: PARA:0 : Patient did not breastfeed PLAN FOR FUTURE PREGNANCIES: No HISTORY OF BREAST DISEASE: No patient history of previous breast disease PRIOR MAMMOGRAM: No FAMILY HISTORY OF BREAST CANCER: No family history of breast cancer REVIEW OF SYSTEMS GENERAL: No weight loss, malaise or fevers RESPIRATORY: Negative for cough, hemoptysis, wheezing, COPD, dyspnea or shortness of breath CARDIOVASCULAR: Negative for chest pain, leg swelling, hypertension, CHF or palpitations GI: No nausea, vomiting, or diarrhea SKIN: Negative for lesions, rash, and itching NEURO: No history of headaches, syncope, paralysis, seizures or tremors PMH: PAST MEDICAL HISTORY Diagnosis Date - Anxiety - Depression - PTSD (post-traumatic stress disorder) PSH: PAST SURGICAL HISTORY Procedure Laterality Date - NONE Meds: Current Outpatient Medications on File Prior to Visit Medication Sig - sertraline (ZOLOFT) 25 mg tablet Take 1 tablet by mouth once daily. - prednisoLONE acetate (PRED FORTE, ECONOPRED PLUS) 1 % ophthalmic suspension Use 1 Drop in both eyes as needed. - triamcinolone acetonide (KENALOG) 0.1 % cream Apply 1 application to affected area once daily. - ketoconazole (NIZORAL) 2 % shampoo Apply 1 application to affected area as directed. - Calcipotriene 0.005 % soln Apply 1 application to affected area once daily. No current facility-administered medications on file prior to visit. SMOKING HISTORY: Smoker. Less than 1 pk per day ETOH USE: Occasional DIABETES:No IMMUNOSUPPRESSANTS: No USE OF VITAMIN E, HERBS, ASA, NSAIDS: Yes MARITAL STATUS: Single EMPLOYMENT: No EXAM: Height: 5'1 Wt: 132lbs BP 130/81 Pulse 83 Temp 36.6 ?C (97.9 ?F) (Oral) Resp 16 Wt 60.3 kg (132 lb 14.4 oz) SpO2 99% BMI 25.11 kg/m? Body mass index is 25.11 kg/m?. Body surface area is 1.61 meters squared. Breast Exam: Asymmetry: R>L Masses: no Axillary Lymphadenopathy: no Scars: no Striae:yes Nipple inversion:no Nipple discharge: Note: measurements are in centimeters SN to NIPPLE: R: 25 L: 26 IMF to NIPPLE: R: 11 L: 11 PTOSIS: R: Grade II L: Grade II MEDIALLY DISPLACED NIPPLE: Mild ESTIMATED GRAMS OF TISSUE TO BE REMOVED: Left: 310 gms Right: 310 gms Assessment/Plan: Macromastia and back pain Discussed surgical procedure, risks, and benefits in detail Will submit to insurance Photos obtained IC obtained Maintain good nutrition and exercise Obtain goal weight Good protein intake Follow up with any questions Follow up at the time of surgery Follow up at the time of surgery The patient is a good candidate for breast reduction. Planned procedure: bilateral breast reduction; I have discussed the procedure in detail with the patient and she agrees to the procedure understanding the roles and tasks of the personnel to be involved; the alternatives to the procedure to include liposuction or observation. She understands the risks to include but not be limited to infection, bleeding, pain, scar, need for re-operation, recurrence, asymmetry, loss of flap, loss of nipple, loss of nipple height, nipple sensation change, inability to breast feed, poor aesthetic results, skin depigmentation, skin necrosis and anesthetic/perioperat catherine complications (DVT, PE, RI, and ). The patient agrees and signed consent to the procedure attesting to her understanding. The patient was seen with Pebbles Fields APRN, CNP The History and Physical as taken by me are documented above and/or dictated below. ?I have personally performed a face to face diagnostic evaluation on this patient. My findings are as follows: ?Patient presents with symptomatic macromastia. Interference with daily activites: + Heavy dense ptotic breasts bilaterally: + axillary LAP: none Given the size of her breasts and associated symptoms, breast reduction is medically necessary. I explained the procedure, risks, and benefits. Patient consented for the procedure. ? I spent 30 minutes total visit spent face to face with patient. Greater than 50% of the time was spent counseling and coordination of care, discussing treatment options and recommendations.? Candelario Rivera MD August 25, 2019 1:48 PM Referring Provider: NADIA RAUSCH [[id number]] Allergies As of Date: 08/25/2019 (No Known Allergies) Date Reviewed: 08/25/2019 Reviewed by: Lizeth (Pcna) KIRK Ritchie - Fully Assessed Primary Visit Diagnosis:Macromastia [N62] Order(s):SURGICAL REQUEST - ELECTIVE [[id number]] Order #: [id number]: 1 Prescriptions as of 08/25/2019 Sig: SERTRALINE 25 MG TABLET Take 1 tablet by mouth once d* PREDNISOLONE ACETATE 1 % EYE * Use 1 Drop in both eyes as ne* TRIAMCINOLONE ACETONIDE 0.1 %* Apply 1 application to affect* KETOCONAZOLE 2 % SHAMPOO Apply 1 application to affect* CALCIPOTRIENE 0.005 % SCALP S* Apply 1 application to affect* Problem List As Of Date 08/25/2019 Noted Resolved Macromastia [N62] 08/25/2019 Encounter Status:Closed by CANDELARIO RIVERA MD on 08/25/19 [facility] PROGRESSon 08-25-2019 PROGRESS HNO ID: [id number] Author: Candelario Rivera Service: ? Author Type: Physician Type: Progress Notes Filed: 08/25/2019 1:50 PM Note Text: BREAST REDUCTION EVALUATION CC: Amira Nagy is a 28 year old that presents today for breast reduction evaluation. HPI: Pt c/o Macromastia Shoulder Pain Neck Pain Upper back pain Lower back pain - Physical therapy for back pain: number of months: Yes 10 years ago - Chiropractic treatment: months or visits: Yes - Home exercise: months tried: Yes jogging/yoga - NSAID use: Type: Yes; Months tried: 10 years - Skin ulceration: No - Topical or oral antifungal agents: Type: NO ; Months tried: No - Participation in medically supervised weight loss program: No Prior breast surgeries: No PAIN: No: 0 on a scale of 0 to 10 BRA SIZE: DD DESIRED SIZE: B PRIOR TREATMENT/OTHER PROVIDER: No WEIGHT REDUCTION ATTEMPTED: Yes, 10 lbs lost with no change in breast symptoms EXERCISE: Yes, patient does jogger/yoga, reports no changes in breast symptoms RECENT CHANGES REPORTED: Patient reports no recent changes in breast symptoms OB HISTORY: PARA:0 : Patient did not breastfeed PLAN FOR FUTURE PREGNANCIES: No HISTORY OF BREAST DISEASE: No patient history of previous breast disease PRIOR MAMMOGRAM: No FAMILY HISTORY OF BREAST CANCER: No family history of breast cancer REVIEW OF SYSTEMS GENERAL: No weight loss, malaise or fevers RESPIRATORY: Negative for cough, hemoptysis, wheezing, COPD, dyspnea or shortness of breath CARDIOVASCULAR: Negative for chest pain, leg swelling, hypertension, CHF or palpitations GI: No nausea, vomiting, or diarrhea SKIN: Negative for lesions, rash, and itching NEURO: No history of headaches, syncope, paralysis, seizures or tremors PMH: PAST MEDICAL HISTORY Diagnosis Date - Anxiety - Depression - PTSD (post-traumatic stress disorder) PSH: PAST SURGICAL HISTORY Procedure Laterality Date - NONE Meds: Current Outpatient Medications on File Prior to Visit Medication Sig - sertraline (ZOLOFT) 25 mg tablet Take 1 tablet by mouth once daily. - prednisoLONE acetate (PRED FORTE, ECONOPRED PLUS) 1 % ophthalmic suspension Use 1 Drop in both eyes as needed. - triamcinolone acetonide (KENALOG) 0.1 % cream Apply 1 application to affected area once daily. - ketoconazole (NIZORAL) 2 % shampoo Apply 1 application to affected area as directed. - Calcipotriene 0.005 % soln Apply 1 application to affected area once daily. No current facility-administered medications on file prior to visit. SMOKING HISTORY: Smoker. Less than 1 pk per day ETOH USE: Occasional DIABETES:No IMMUNOSUPPRESSANTS: No USE OF VITAMIN E, HERBS, ASA, NSAIDS: Yes MARITAL STATUS: Single EMPLOYMENT: No EXAM: Height: 5'1 Wt: 132lbs BP 130/81 Pulse 83 Temp 36.6 ?C (97.9 ?F) (Oral) Resp 16 Wt 60.3 kg (132 lb 14.4 oz) SpO2 99% BMI 25.11 kg/m? Body mass index is 25.11 kg/m?. Body surface area is 1.61 meters squared. Breast Exam: Asymmetry: R>L Masses: no Axillary Lymphadenopathy: no Scars: no Striae:yes Nipple inversion:no Nipple discharge: Note: measurements are in centimeters SN to NIPPLE: R: 25 L: 26 IMF to NIPPLE: R: 11 L: 11 PTOSIS: R: Grade II L: Grade II MEDIALLY DISPLACED NIPPLE: Mild ESTIMATED GRAMS OF TISSUE TO BE REMOVED: Left: 310 gms Right: 310 gms Assessment/Plan: Macromastia and back pain Discussed surgical procedure, risks, and benefits in detail Will submit to insurance Photos obtained IC obtained Maintain good nutrition and exercise Obtain goal weight Good protein intake Follow up with any questions Follow up at the time of surgery Follow up at the time of surgery The patient is a good candidate for breast reduction. Planned procedure: bilateral breast reduction; I have discussed the procedure in detail with the patient and she agrees to the procedure understanding the roles and tasks of the personnel to be involved; the alternatives to the procedure to include liposuction or observation. She understands the risks to include but not be limited to infection, bleeding, pain, scar, need for re-operation, recurrence, asymmetry, loss of flap, loss of nipple, loss of nipple height, nipple sensation change, inability to breast feed, poor aesthetic results, skin depigmentation, skin necrosis and anesthetic/perioperat catherine complications (DVT, PE, RI, and ). The patient agrees and signed consent to the procedure attesting to her understanding. The patient was seen with Pebbles Fields APRN, CNP The History and Physical as taken by me are documented above and/or dictated below. ?I have personally performed a face to face diagnostic evaluation on this patient. My findings are as follows: ?Patient presents with symptomatic macromastia. Interference with daily activites: + Heavy dense ptotic breasts bilaterally: + axillary LAP: none Given the size of her breasts and associated symptoms, breast reduction is medically necessary. I explained the procedure, risks, and benefits. Patient consented for the procedure. ? I spent 30 minutes total visit spent face to face with patient. Greater than 50% of the time was spent counseling and coordination of care, discussing treatment options and recommendations.? Candelario Rivera MD August 25, 2019 1:48 PM [facility] OBSOLETEon 07-29-2019 OBSOLETE Refill ([facility]) AMIRA NAGY ([id number]) 1990 F Date Time Provider Department 07/29/19 COOKIE BURTON [facility] During your visit today, we recorded the following information about you: Hui Marin Alarm Investigator I 07/29/2019 1:24 PM Signed Patient sent a message via [employer] requesting the following refill: Pending Prescriptions Disp Refills SERTRALINE 25 MG TABLET 30 tablet 3 Sig: Take 1 tablet by mouth once daily. HELDER: No Script(s) will be E-script to pharmacy Future visits: 08/27/2019 Date of last office visit was: 06/19/2019 The patients preferred pharmacy has been captured for this encounter? yes Hui Marin Alarm Investigator I Cookie Burton MD 07/29/2019 3:36 PM Signed Patient's request for medication is as follows: Pending Prescriptions Disp Refills SERTRALINE 25 MG TABLET 30 tablet 3 Sig: Take 1 tablet by mouth once daily. HELDER: No Prescription(s) as above. Please process accordingly. Cookie Burton MD Allergies As of Date: 07/29/2019 (No Known Allergies) Date Reviewed: 07/02/2019 Reviewed by: Maribel Zuniga Ma - Fully Assessed Reason for Visit: Refill Request [94] Visit Diagnosis:Depression, unspecified depression type [F32.9] Order(s):sertraline (ZOLOFT) 25 mg tabletTake 1 tablet by mouth once daily.Disp: 30 tabletRfl: 3 Prescriptions as of 07/29/2019 Sig: SERTRALINE 25 MG TABLET Take 1 tablet by mouth once d* PREDNISOLONE ACETATE 1 % EYE * Use 1 Drop in both eyes as ne* TRIAMCINOLONE ACETONIDE 0.1 %* Apply 1 application to affect* KETOCONAZOLE 2 % SHAMPOO Apply 1 application to affect* CALCIPOTRIENE 0.005 % SCALP S* Apply 1 application to affect* Problem List As Of Date: 07/29/2019 (None) Prescriptions ordered this encounter Disp Refills Start End SERTRALINE 25 MG TABLET 30 t* 3 07/29/2019 Route: ORAL Sig: Take 1 tablet by mouth once daily. Medications Discontinued During This Encounter sertraline (ZOLOFT) 25 mg tablet 30 t* 3 06/19/2019 07/29/2019 Route: ORAL Sig: Take 1 tablet by mouth once daily. Disc: Reason for discontinue is not on file. Encounter Status:Closed by DEMARCUS PRATT on 07/29/19 [facility] CNCOon 07-22-2019 CNCO Letter Text Normal [facility] CNOVon 07-02-2019 CNOV Office Visit ([facility] ) AMIRA NAGY ([id number]) 1990 F Date Time Provider Department 07/02/19 9:30 AM NADIA RAUSCH [facility] During your visit today, we recorded the following information about you: Weight Height Last Period 59.9 kg 1.549 m 06/26/19 Nadia Rausch APRN.RYANM MSN 07/09/2019 3:14 PM Signed Amira Nagy is a 28 year old No obstetric history on file. who presents for her annual gynecologic exam . c/o of severe back and neck pain over many years, gradually worsening. Interested in breast reduction. Menses: LMP 06/26/19, 2 MPs in May, one normal MP in April. notes irregular heavy bleeding. Also notes PMS (sergio and hungry) Contraception: na HPV vaccine: Yes Last Pap: normal HPV: N/A History of abnormal pap: No Last mammogram: never Sexually active: Yes No hx endometriosis or fibroids or ovarian cyst Exercise: walks daily Diet: pointed towards real food OB History No data available PAST MEDICAL HISTORY Diagnosis Date - Anxiety - Depression - PTSD (post-traumatic stress disorder) PAST SURGICAL HISTORY Procedure Laterality Date - NONE wisdom teeth FAMILY HISTORY Problem Relation Age of Onset - Diabetes Maternal Grandmother - Diabetes Maternal Uncle - other (melanoma) Maternal Uncle SOCIAL HISTORY Social History Tobacco Use - Smoking status: Current Every Day Smoker Packs/day: 0.25 Years: 11.00 Pack years: 2.75 - Smokeless tobacco: Never Used Substance Use Topics - Alcohol use: Yes Comment: Socially - Drug use: Never REVIEW OF SYSTEMS Abdomen: No abdominal pain, nausea, vomiting, diarrhea, or constipation. No bloating, early satiety, indigestion, or increased flatulence. Bladder: No dysuria, gross hematuria, urinary frequency, urinary urgency, or incontinence. Breast: No breast lumps, nipple d/c, overlying skin changes, redness or skin retraction. Allergies and current medication updated:Yes EXAM: Ht 5' 1 (1.55m) Wt 132 lb (59.9kg) LMP 06/26/2019 BMI 24.95 kg/(m2). GENERAL: pleasant, female in no apparent distress HEENT: Normocephalic, atraumatic, mucus membranes moist and no lesions NECK: Supple, full range of motion, no adenopathy and thyroid normal DERMATOLOGY: Normal, without lesions, non-icteric and non-hirsute BREAST: soft, non-tender, symmetric, no dominant mass, normal nipple-areolar complex, no lymphadenopathy and no nipple discharge CHEST: Clear to auscultation Normal inspiratory effort Regular rate and rhythm ABDOMEN: soft, non-tender and no masses PELVIC: external genitalia normal, normal Bartholin's glands, urethra, [place]'s glands, no vulvar lesions, no cervical lesions, good vaginal support, physiologic discharge present, normal appearing perineal body and perianal region BIMANUAL: uterus normal size, shape and consistency, no adnexal masses and non-tender RECTOVAGINAL: deferred. NEURO: alert and oriented x3,exam grossly non-focal EXTREMITIES: normal ASSESSMENT/PLAN: Well Woman Irregular Periods Pap and HPV No need for contraception PCOS panel Reviewed flu shot, will consider. reviewed SBE, Kegels, nutrition, calcium, Vit D3. RV one year or PRN. 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 Primary Visit Diagnosis:Irregular periods [N92.6] Other Visit Diagnosis:Well woman exam with routine gynecological exam [Z01.419] Order(s):TSH BLD [SQTSH] Order #: [id number] PROLACTIN BLD [SQPROL] Order #: [id number] TESTOSTERONE, FREE AND TOTAL [SQFTESTO] Order #: [id number] DHEA-S BLD [SQDHEAS] Order #: [id number] HYDROXYPROGESTERO-17 [SQHPROG] Order #: [id number] FSH BLD [SQFSH] Order #: [id number] LUTEINIZING HORMONE [SQLH] Order #: [id number] HGB A1C [VUFJN3T] Order #: [id number] GLUCOSE FASTING BLD [SQGLF] Order #: [id number] PAP FLUID CERVICAL SCREENING [[id number]] Order #: [id number]. #:[id number] Prescriptions as of 07/02/2019 Sig: PREDNISOLONE ACETATE 1 % EYE * Use 1 Drop in both eyes as ne* TRIAMCINOLONE ACETONIDE 0.1 %* Apply 1 application to affect* KETOCONAZOLE 2 % SHAMPOO Apply 1 application to affect* CALCIPOTRIENE 0.005 % SCALP S* Apply 1 application to affect* SERTRALINE 25 MG TABLET Take 1 tablet by mouth once d* Problem List As Of Date: 07/02/2019 (None) Encounter Status:Closed by NADIA RAUSCH CNM on 07/09/19 Normal [facility] CYTOLOGYon 07-02-2019 CYTOLOGY Specimen originated from [facility] Specimen #: [id number] Submitting Physician: NADIA RAUSCH CNM SPECIMEN SUBMITTED A: CERVICAL, SCREENING, FLUID ____ FINAL DIAGNOSIS A. CERVICAL, SCREENING, FLUID Satisfactory for interpretation. Limited cellularity. Negative for intraepithelial lesion or malignancy. This specimen has been analyzed by the ThinPrep Imaging System, an automated imaging and review system, which assists the laboratory in evaluating cells on ThinPrep Pap tests. Following automated imaging, selected whiteside from every slide are reviewed by a glass mould cleaner. NANY Nichols(ASCP) (Electronic Signature) ____ CLINICAL DATA ROUTINE EXAM, HPV Testing: Yes, Reflex HPV for ASCUS Date of Last Menstrual Period: 06/26/2019 Additional Testing: Reflex HPV testing for ASCUS STAINS A: CERVICAL, SCREENING, FLUID THIN PREP WEB WORKER Patricio Coates M.D., Wire Twisting Machine Operator Date of Report: 07/06/2019 Date of Procedure: 07/02/2019 Date of Receipt: 07/03/2019 Submitted by: NADIA RAUSCH CNM Location: [facility] Diagnostic interpretation performed at [facility], [address], [facility] [address]. CLIA Number: [id number] The Pap Smear is a screening test for cervical cancer. False negative results occur with all screening tests, emphasizing the need for rescreening at recommended intervals, and clinical correlation. Normal [facility] PROGRESSon 07-02-2019 PROGRESS HNO ID: [id number] Author: Nadia Rausch Service: ? Author Type: Superintendent Power Type: Progress Notes Filed: 07/09/2019 3:14 PM Note Text: Amira Nagy is a 28 year old No obstetric history on file. who presents for her annual gynecologic exam . c/o of severe back and neck pain over many years, gradually worsening. Interested in breast reduction. Menses: LMP 06/26/19, 2 MPs in May, one normal MP in April. notes irregular heavy bleeding. Also notes PMS (sergio and hungry) Contraception: na HPV vaccine: Yes Last Pap: normal HPV: N/A History of abnormal pap: No Last mammogram: never Sexually active: Yes No hx endometriosis or fibroids or ovarian cyst Exercise: walks daily Diet: pointed towards real food OB History No data available PAST MEDICAL HISTORY Diagnosis Date - Anxiety - Depression - PTSD (post-traumatic stress disorder) PAST SURGICAL HISTORY Procedure Laterality Date - NONE wisdom teeth FAMILY HISTORY Problem Relation Age of Onset - Diabetes Maternal Grandmother - Diabetes Maternal Uncle - other (melanoma) Maternal Uncle SOCIAL HISTORY Social History Tobacco Use - Smoking status: Current Every Day Smoker Packs/day: 0.25 Years: 11.00 Pack years: 2.75 - Smokeless tobacco: Never Used Substance Use Topics - Alcohol use: Yes Comment: Socially - Drug use: Never REVIEW OF SYSTEMS Abdomen: No abdominal pain, nausea, vomiting, diarrhea, or constipation. No bloating, early satiety, indigestion, or increased flatulence. Bladder: No dysuria, gross hematuria, urinary frequency, urinary urgency, or incontinence. Breast: No breast lumps, nipple d/c, overlying skin changes, redness or skin retraction. Allergies and current medication updated:Yes EXAM: Ht 5' 1 (1.55m) Wt 132 lb (59.9kg) LMP 06/26/2019 BMI 24.95 kg/(m2). GENERAL: pleasant, female in no apparent distress HEENT: Normocephalic, atraumatic, mucus membranes moist and no lesions NECK: Supple, full range of motion, no adenopathy and thyroid normal DERMATOLOGY: Normal, without lesions, non-icteric and non-hirsute BREAST: soft, non-tender, symmetric, no dominant mass, normal nipple-areolar complex, no lymphadenopathy and no nipple discharge CHEST: Clear to auscultation Normal inspiratory effort Regular rate and rhythm ABDOMEN: soft, non-tender and no masses PELVIC: external genitalia normal, normal [place]'s glands, urethra, [place]'s glands, no vulvar lesions, no cervical lesions, good vaginal support, physiologic discharge present, normal appearing perineal body and perianal region BIMANUAL: uterus normal size, shape and consistency, no adnexal masses and non-tender RECTOVAGINAL: deferred. NEURO: alert and oriented x3,exam grossly non-focal EXTREMITIES: normal ASSESSMENT/PLAN: Well Woman Irregular Periods Pap and HPV No need for contraception PCOS panel Reviewed flu shot, will consider. reviewed SBE, Kegels, nutrition, calcium, Vit D3. RV one year or PRN. Nadia Rausch, DISC JOCKEY.CNM MSN Normal [facility] CBC and Differentialon 06-19 Abs Baso 0.04 k/uL Normal <0.11 [facility] Comment on above: Performed By: #### C BCDIF, CMP, FT4, TSH #### [facility] [employer] [address], [place] [address] Abs Finney 0.56 k/uL Normal <0.87 [facility] Comment on above: Performed By: #### C BCDIF, CMP, FT4, TSH #### [facility] [employer] [address], [place] [id number] Abs Neut 3.13 k/uL Normal 1.45-7.50 [facility] Comment on above: Performed By: #### C BCDIF, CMP, FT4, TSH #### [facility] [employer] [address], [place] [address] Absolute nRBC <0.01 Normal <0.01 [facility] Comment on above: Performed By: #### C BCDIF, CMP, FT4, TSH #### [facility] [address] [place] [phone] Basophils/100 WBC (Bld) 0.6 % Normal [facility] Comment on above: Performed By: #### C BCDIF, CMP, FT4, TSH #### [place] [address] [place] [phone] DTYPE Auto Diff Normal [facility] Comment on above: Performed By: #### C BCDIF, CMP, FT4, TSH #### [place] [address] [place] [phone] Eosinophils (Bld) [#/Vol] 0.46 10*3/uL High <0.46 [facility] Comment on above: Performed By: #### C BCDIF, CMP, FT4, TSH #### [place] [address] [place] [phone] Eosinophils/100 WBC (Bld) 7.1 % Normal [facility] Comment on above: Performed By: #### C BCDIF, CMP, FT4, TSH #### [place] [address] [place] [phone] Erythrocyte distribution width (RBC) [Ratio] 11.7 % Normal 11.5-15.0 [facility] Comment on above: Performed By: #### C BCDIF, CMP, FT4, TSH #### [facility] [address] [phone] Hematocrit (Bld) [Volume fraction] 43.7 % Normal 36.0-46.0 [facility] Comment on above: Performed By: #### C BCDIF, CMP, FT4, TSH #### [facility] [address] [place] [address] Hemoglobin (Bld) [Mass/Vol] 14.3 g/dL Normal 11.5-15.5 [facility] Comment on above: Performed By: #### C BCDIF, CMP, FT4, TSH #### [place] [address] [place] [address] Lymphocytes (Bld) [#/Vol] 2.28 10*3/uL Normal 1.00-4.00 [facility] Comment on above: Performed By: #### C BCDIF, CMP, FT4, TSH #### [place] [address] Lymphocytes/100 WBC (Bld) 35.2 % Normal [facility] Comment on above: Performed By: #### C BCDIF, CMP, FT4, TSH #### [place] [address] MCH (RBC) [Entitic mass] 35.5 pG High 26.0-34.0 [facility] Comment on above: Performed By: #### C BCDIF, CMP, FT4, TSH #### [place] [address] MCHC (RBC) [Mass/Vol] 32.7 g/dL Normal 30.5-36.0 [facility] Comment on above: Performed By: #### C BCDIF, CMP, FT4, TSH #### [place] [address] MCV (RBC) [Entitic vol] 108.4 fL High 80.0-100.0 [facility] Comment on above: Performed By: #### C BCDIF, CMP, FT4, TSH #### [place] [address] [place] [address] Monocytes/100 WBC (Bld) 8.6 % Normal [facility] Comment on above: Performed By: #### C BCDIF, CMP, FT4, TSH #### [place] [address] [place] [address] Neutrophils/100 WBC (Bld) 48.5 % Normal [facility] Comment on above: Performed By: #### C BCDIF, CMP, FT4, TSH #### [place] [address] [place] [address] NRBCs 0.0 /100 WBC Normal 0 [facility] Comment on above: Performed By: #### C BCDIF, CMP, FT4, TSH #### [place] [address] Platelet mean volume (Bld) [Entitic vol] 9.8 fL Normal 9.0-12.7 [facility] Comment on above: Performed By: #### C BCDIF, CMP, FT4, TSH #### [place] [address] Platelets (Bld) [#/Vol] 296 10*3/uL Normal 150-400 [facility] Comment on above: Performed By: #### C BCDIF, CMP, FT4, TSH #### [place] [address] [place] [address] RBC (Bld) [#/Vol] 4.03 10*6/uL Normal 3.90-5.20 [facility] Comment on above: Performed By: #### C BCDIF, CMP, FT4, TSH #### [place] [address] WBC (Bld) [#/Vol] 6.48 10*3/uL Normal 3.70-11.00 [facility] Comment on above: Performed By: #### C BCDIF, CMP, FT4, TSH #### [place] [id number] CNOVon 06-19-2019 CNOV Office Visit ([facility] ) AMIRA NAGY ([id number]) 1990 F Date Time Provider Department 06/19/19 10:40 AM COOKIE BURTON [facility] During your visit today, we recorded the following information about you: Pulse Blood pressure Weight Height 93/minute 128/80 60.2 kg 1.549 m Last Period 05/31/19 Cookie Burton MD 06/19/2019 1:32 PM Signed SUBJECTIVE: Amira Nagy is a 28 year old female Patient presents with: Establish Care New patient to establish care: she moved from [place]. She did not have a PCP In [place]. She will see manager strategic development soon for irregular periods, enlarged breasts that caused back pain. CURRENT MEDICATIONS: Current Outpatient Medications: sertraline (ZOLOFT) 25 mg tablet Take 1 tablet by mouth once daily. No current facility-administered medications for this visit. PROBLEM LIST: There is no problem list on file for this patient. ALLERGIES: Patient has no known allergies. 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 Social Needs Financial resource strain: Not on file Food insecurity: Worry: Not on file Inability: Not on file Transportation needs: Medical: Not on file Non-medical: Not on file Tobacco Use Smoking status: Current Every Day Smoker Packs/day: 0.25 Years: 11.00 Pack years: 2.75 Smokeless tobacco: Never Used Substance and Sexual Activity Alcohol use: Not Currently Comment: Socially Drug use: Never Sexual activity: Not on file Lifestyle Physical activity: Days per week: Not on file Minutes per session: Not on file Stress: Not on file Relationships Social connections: Talks on phone: Not on file Gets together: Not on file Attends quaker service: Not on file Active member of club or organization: Not on file Attends meetings of clubs or organizations: Not on file Relationship status: Not on file Intimate partner violence: Fear of current or ex partner: Not on file Emotionally abused: Not on file Physically abused: Not on file Forced sexual activity: Not on file Other Topics Concerns: Not on file Social History Narrative Not on file PAST MEDICAL HISTORY Diagnosis Date - Anxiety - Depression - PTSD (post-traumatic stress disorder) PAST SURGICAL HISTORY Procedure Laterality Date - NONE FAMILY HISTORY Problem Relation Age of Onset - Diabetes Maternal Grandmother - Diabetes Maternal Uncle - other (melanoma) Maternal Uncle REVIEW OF SYSTEMS:PAIN ASSESSMENT: Negative for pain, history of chronic pain, or current treatment for a chronic pain condition. GENERAL: No weight loss, malaise or fevers HEENT: Negative for frequent or significant headaches, No changes in hearing or vision, no nose bleeds or other nasal problems NECK: Negative for lumps, goiter, pain and significant neck swelling RESPIRATORY: Negative for cough, hemoptysis, wheezing, COPD, dyspnea or shortness of breath CARDIOVASCULAR: Negative for chest pain, leg swelling, hypertension, CHF or palpitations GI: No nausea, vomiting, or diarrhea : No history of dysuria, frequency or incontinence WEB WORKER: Negative for abnormal vaginal bleeding, abnormal vaginal discharge MUSCULOSKELETAL: Negative for joint pain or swelling, back pain or muscle pain SKIN: Negative for lesions, rash, and itching PSYCH: Negative for sleep disturbance, mood disorder and recent psychosocial stressors HEMATOLOGY/LYMPHOLOGY : Negative for prolonged bleeding, bruising easily or swollen nodes ENDOCRINE: Negative for cold or heat intolerance, polyuria, polydipsia and goiter NEURO: No history of headaches, syncope, paralysis, seizures or tremors PHYSICAL EXAMINATION: BP 128/80 (BP Site: Left Arm, BP Position: Sitting, BP Cuff Size: Regular Adult) Pulse 93 Ht 154.9 cm (5' 1 ) Wt 60.2 kg (132 lb 12.8 oz) LMP 05/31/2019 SpO2 100% BMI 25.09 kg/m? General Appearance: Well appearing, alert, in no acute distress, well-hydrated, well nourished.. Ears: External ears normal, canals clear. Nose/Sinuses: Nares normal, septum midline, mucosa normal, no drainage or sinus tenderness. Oropharynx: Lips, mucosa, and tongue normal, teeth and gums normal, oropharynx normal. Neck: Supple, no adenopathy; thyroid symmetric, normal size, no bruits. Back:no pain to palpation of vertebrae, good flexion and extension, good range of motion, no muscle tenderness, reflexes are 2+ and symmetric, motor and sensory appear to be normal, negative SLR test, no evidence of scoliosis Lungs: lungs clear to auscultation. No wheezing, rhonchi, rales. Heart: RRR without murmur, gallop, or rubs. No ectopy. Abdomen: Normal abdominal exam, Abdomen soft, non-tender. Bowel sounds normal. No masses, organomegaly. Extremities: No deformities, edema, skin discoloration, clubbing or cyanosis. Good capillary refill. . Musculoskeletal: No joint swelling, deformity, or tenderness. Peripheral Pulses: Normal. Neurologic: Gait normal. Reflexes normal and symmetric. Sensation grossly intact.. ASSESSMENT/PLAN: 1. Encounter to establish care with new doctor - ICD9: V65.8, ICD10: Z76.89 (primary diagnosis) - CBC + DIFF - COMP METABOLIC PANEL - LIPID PANEL BASIC - TSH BLD - T4 FREE/FREE THYROX 2. Screening, lipid - ICD9: V77.91, ICD10: Z13.220 - CBC + DIFF - COMP METABOLIC PANEL - LIPID PANEL BASIC - TSH BLD - T4 FREE/FREE THYROX 3. Depression, unspecified depression type - ICD9: 311, ICD10: F32.9 - CBC + DIFF - COMP METABOLIC PANEL - LIPID PANEL BASIC - TSH BLD - T4 FREE/FREE THYROX - CONSULT TO PSYCHIATRY - CONSULT TO PSYCHOLOGY - SERTRALINE 25 MG TABLET Cookie Burton MD Referring Provider: SELF [200] Allergies As of Date: 06/19/2019 (No Known Allergies) Date Reviewed: 06/19/2019 Reviewed by: Elías Miller (Kristina) KRISTINA Bauer - Fully Assessed Reason for Visit: Establish Care [42] Primary Visit Diagnosis:Encounter to establish care with new doctor [Z76.89] Other Visit Diagnoses:Screening, lipid [Z13.220] Depression, unspecified depression type [F32.9] Order(s):CBC + DIFF [SQCBCDIF] Order #: [id number] FUTURE COMP METABOLIC PANEL [SQCMP] Order #: [id number] FUTURE LIPID PANEL BASIC [SQLIPB] Order #: [id number]. #:[id number] TSH BLD [SQTSH] Order #: [id number] FUTURE T4 FREE/FREE THYROX [SQFT4] Order #: [id number] FUTURE CONSULT TO PSYCHIATRY [9035] Order #: [id number]: 1 CONSULT TO PSYCHOLOGY [9036] Order #: [id number]: 1 sertraline (ZOLOFT) 25 mg tabletTake 1 tablet by mouth once daily.Disp: 30 tabletRfl: 3 Prescriptions as of 06/19/2019 Sig: SERTRALINE 25 MG TABLET Take 1 tablet by mouth once d* Problem List As Of Date: 06/19/2019 (None) Prescriptions ordered this encounter Disp Refills Start End SERTRALINE 25 MG TABLET 30 t* 3 06/19/2019 Route: ORAL Sig: Take 1 tablet by mouth once daily. Medications Discontinued During This Encounter benzocaine-menthol (CEPACOL) 15-3.6 * 18 L* 0 06/03/2019 06/19/2019 Class: Print RX Route: MUCOUS MEMBRANE (TOPICAL MOUTH AND THROAT) Sig: Use 1 Lozenge as instructed every 2 hours as needed. Disc: Course of therapy completed hydrocodone/acetamino phen (NORCO ORA* 06/19/2019 Class: Historical Med Route: ORAL Sig: Take by mouth. Disc: Course of therapy completed Disposition: Return in about 1 month (around 07/19/2019) for depression. LOS history recorded Follow-up and Disposition History Recorded Encounter Status:Closed by COOKIE BURTON MD on 06/19/19 Normal [facility] Comp Metabolic Panelon 06-19 Albumin [Mass/Vol] 4.5 g/dL Normal 3.9-4.9 [facility] Comment on above: Performed By: #### C BCDIF, CMP, FT4, TSH #### [facility] [employer] [address], [place] [address] ALP [Catalytic activity/Vol] 83 U/L Normal 34-123 [facility] Comment on above: Performed By: #### C BCDIF, CMP, FT4, TSH #### [facility] [employer] [address], [place] [address] ALT [Catalytic activity/Vol] 14 U/L Normal 7-38 [facility] Comment on above: Performed By: #### C BCDIF, CMP, FT4, TSH #### [facility] [address] [place] [address] Anion gap [Moles/Vol] 14 mmol/L Normal 9-18 [facility] Comment on above: Performed By: #### C BCDIF, CMP, FT4, TSH #### [place] [address] [place] [address] AST [Catalytic activity/Vol] 17 U/L Normal 13-35 [facility] Comment on above: Performed By: #### C BCDIF, CMP, FT4, TSH #### [place] [address] [place] [address] Bilirubin [Mass/Vol] 0.2 mg/dL Normal 0.2-1.3 [facility] Comment on above: Performed By: #### C BCDIF, CMP, FT4, TSH #### [place] [address] Calcium [Mass/Vol] 9.5 mg/dL Normal 8.5-10.2 [facility] Comment on above: Performed By: #### C BCDIF, CMP, FT4, TSH #### [place] [address] [place] [address] Chloride [Moles/Vol] 100 mmol/L Normal 97-105 [facility] Comment on above: Performed By: #### C BCDIF, CMP, FT4, TSH #### [place] [address] [place] [address] CO2 [Moles/Vol] 27 mmol/L Normal 22-30 [facility] Comment on above: Performed By: #### C BCDIF, CMP, FT4, TSH #### [place] [address] [place] [phone] Creatinine [Mass/Vol] 0.76 mg/dL Normal 0.58-0.96 [facility] Comment on above: Performed By: #### C BCDIF, CMP, FT4, TSH #### [facility] [employer] [address] [place] [phone] eGFR- Amer. >60 Normal [facility] Comment on above: Performed By: #### C BCDIF, CMP, FT4, TSH #### [facility] [employer] [address] [place] [phone] GFR/1.73 sq M predicted among non-blacks MDRD (S/P/Bld) [Vol rate/Area] mL/min/{1.73_m2} Normal [facility] Comment on above: Result Comment: eGFR (Estimated GFR) Units of measure: mL/min/1.73 meters squared eGFR is derived from the reexpressed MDRD Study equation using the following parameters: serum creatinine, age, gender and race. The creatinine assay has been calibrated to be traceable to IDMS. An eGFR <60 mL/min/1.73m2 for >3 months is consistent with chronic kidney disease. Refer to KDOQI guidelines for clinical interpretation. In patients with unstable renal function, e.g. those with acute kidney injury, the eGFR may not accurately reflect actual GFR. Performed By: #### C BCDIF, CMP, FT4, TSH #### [facility] [address] [place] [phone] Glucose [Mass/Vol] 100 mg/dL High 74-99 [facility] Comment on above: Result Comment: The [place] Diabetes [employer] (ADA) provides guidance for cutoff values for fasting glucose and random glucose. The ADA defines fasting as no caloric intake for at least 8 hours. Fasting plasma glucose results between 100 to 125 mg/dL indicate increased risk for diabetes (prediabetes). Fasting plasma glucose results greater than or equal to 126 mg/dL meet the criteria for diagnosis of diabetes. In the absence of unequivocal hyperglycemia, results should be confirmed by repeat testing. In a patient with classic symptoms of hyperglycemia or hyperglycemic crisis, random plasma glucose results greater than or equal to 200 mg/dL meet the criteria for diagnosis of diabetes. Reference: Standards of Medical Care in Diabetes 2016, [place] [employer]. Diabetes Care. 2016.39(Suppl 1). Performed By: #### C BCDIF, CMP, FT4, TSH #### [place] [address] [place] [address] Potassium [Moles/Vol] 4.3 mmol/L Normal 3.7-5.1 [facility] Comment on above: Performed By: #### C BCDIF, CMP, FT4, TSH #### [place] [address] Protein [Mass/Vol] 7.5 g/dL Normal 6.3-8.0 [facility] Comment on above: Performed By: #### C BCDIF, CMP, FT4, TSH #### [place] [address] Sodium [Moles/Vol] 141 mmol/L Normal 136-144 [facility] Comment on above: Performed By: #### C BCDIF, CMP, FT4, TSH #### [place] [address] Urea nitrogen [Mass/Vol] 10 mg/dL Normal 7-21 [facility] Comment on above: Performed By: #### C BCDIF, CMP, FT4, TSH #### [place] [id number] Free T4on 06-19-2019 Free T4 [Mass/Vol] 1.6 ng/dL Normal 0.9-1.7 [facility] Comment on above: Performed By: #### C BCDIF, CMP, FT4, TSH #### [place] [id number] [place], [place] [address] Lipid Panel, [place] 019 Cholesterol [Mass/Vol] 162 mg/dL Normal <200 [facility] Comment on above: Result Comment: <200 mg/dL, Desirable 200-239 mg/dL, Borderline high >239 mg/dL, High Performed By: #### L IPB #### [place] [id number] Cholesterol in HDL [Mass/Vol] 34 mg/dL Low >39 [facility] Comment on above: Result Comment: 40-5 9 mg/dL, Acceptable >59 mg/dL, High: Negative risk factor for coronary heart disease <40 mg/dL, Low: Positive risk factor for coronary heart disease Performed By: #### L IPB #### [facility] [employer] [address] [place] [address] Cholesterol in LDL [Mass/Vol] 111 mg/dL High <100 [facility] Comment on above: Result Comment: <100 mg/dL, Optimal 100-129 mg/dL, Near optimal/above optimal 130-159 mg/dL, Borderline high 160-189 mg/dL, High >189 mg/dL, Very high Secondary prevention optimal LDL Cholesterol levels are recommended to be < 70 mg/dL Performed By: #### L IPB #### [facility] [employer] [address] [place] [address] Fasting Time 12 hrs Normal [facility] Comment on above: Performed By: #### L IPB #### [facility] [employer] [address] [place] [address] LDL:HDL Ratio 3.26 High <2.54 [facility] Comment on above: Result Comment: Refe rence: 1. National Cholesterol Education Program ATP III Guideline At-A-Glance Quick Desk Reference: National Heart, Lung, and Blood [place]. National Institutes of Health. 2001: NIH Publication No. 01-3305. 2. An International Atherosclerosis Society position paper: global recommendations for the management of dyslipidemia: executive summary, Atherosclerosis. 2014: 232(2):410-413. Performed By: #### L IPB #### [facility] [employer] [address] [place] [address] Non HDL Cholesterol 128 mg/dL Normal <130 [facility] Comment on above: Result Comment: <130 mg/dL, Optimal 130-159 mg/dL, Near optimal/above optimal 160-189 mg/dL, Borderline high 190-219 mg/dL, High >219 mg/dL, Very high Secondary prevention optimal non HDL Cholesterol levels are recommended to be < 100 mg/dL Performed By: #### L IPB #### [facility] [employer] [address] [place] [address] TC:HDL Ratio 4.76 Normal <5.10 [facility] Comment on above: Performed By: #### L IPB #### [facility] [address] [place] [address] Triglyceride [Mass/Vol] 86 mg/dL Normal <150 [facility] Comment on above: Result Comment: <150 mg/dL, Normal 150-199 mg/dL, Borderline high 200-499 mg/dL, High >499 mg/dL, Very high Performed By: #### L IPB #### [facility] [address], [place] [address] VLDL Cholesterol 17 mg/dL Normal <30 [facility] Comment on above: Performed By: #### L IPB #### [facility] [address] [place] [address] PROGRESSon 06-19-2019 PROGRESS HNO ID: [id number] Author: Cookie Burton Service: ? Author Type: Physician Type: Progress Notes Filed: 06/19/2019 1:32 PM Note Text: SUBJECTIVE: Amira Nagy is a 28 year old female Patient presents with: Establish Care New patient to establish care: she moved from [place]. She did not have a PCP In [place]. She will see manager strategic development soon for irregular periods, enlarged breasts that caused back pain. CURRENT MEDICATIONS: Current Outpatient Medications: sertraline (ZOLOFT) 25 mg tablet Take 1 tablet by mouth once daily. No current facility-administered medications for this visit. PROBLEM LIST: There is no problem list on file for this patient. ALLERGIES: Patient has no known allergies. 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 Social Needs Financial resource strain: Not on file Food insecurity: Worry: Not on file Inability: Not on file Transportation needs: Medical: Not on file Non-medical: Not on file Tobacco Use Smoking status: Current Every Day Smoker Packs/day: 0.25 Years: 11.00 Pack years: 2.75 Smokeless tobacco: Never Used Substance and Sexual Activity Alcohol use: Not Currently Comment: Socially Drug use: Never Sexual activity: Not on file Lifestyle Physical activity: Days per week: Not on file Minutes per session: Not on file Stress: Not on file Relationships Social connections: Talks on phone: Not on file Gets together: Not on file Attends quaker service: Not on file Active member of club or organization: Not on file Attends meetings of clubs or organizations: Not on file Relationship status: Not on file Intimate partner violence: Fear of current or ex partner: Not on file Emotionally abused: Not on file Physically abused: Not on file Forced sexual activity: Not on file Other Topics Concerns: Not on file Social History Narrative Not on file PAST MEDICAL HISTORY Diagnosis Date - Anxiety - Depression - PTSD (post-traumatic stress disorder) PAST SURGICAL HISTORY Procedure Laterality Date - NONE FAMILY HISTORY Problem Relation Age of Onset - Diabetes Maternal Grandmother - Diabetes Maternal Uncle - other (melanoma) Maternal Uncle REVIEW OF SYSTEMS:PAIN ASSESSMENT: Negative for pain, history of chronic pain, or current treatment for a chronic pain condition. GENERAL: No weight loss, malaise or fevers HEENT: Negative for frequent or significant headaches, No changes in hearing or vision, no nose bleeds or other nasal problems NECK: Negative for lumps, goiter, pain and significant neck swelling RESPIRATORY: Negative for cough, hemoptysis, wheezing, COPD, dyspnea or shortness of breath CARDIOVASCULAR: Negative for chest pain, leg swelling, hypertension, CHF or palpitations GI: No nausea, vomiting, or diarrhea : No history of dysuria, frequency or incontinence WEB WORKER: Negative for abnormal vaginal bleeding, abnormal vaginal discharge MUSCULOSKELETAL: Negative for joint pain or swelling, back pain or muscle pain SKIN: Negative for lesions, rash, and itching PSYCH: Negative for sleep disturbance, mood disorder and recent psychosocial stressors HEMATOLOGY/LYMPHOLOGY : Negative for prolonged bleeding, bruising easily or swollen nodes ENDOCRINE: Negative for cold or heat intolerance, polyuria, polydipsia and goiter NEURO: No history of headaches, syncope, paralysis, seizures or tremors PHYSICAL EXAMINATION: BP 128/80 (BP Site: Left Arm, BP Position: Sitting, BP Cuff Size: Regular Adult) Pulse 93 Ht 154.9 cm (5' 1 ) Wt 60.2 kg (132 lb 12.8 oz) LMP 05/31/2019 SpO2 100% BMI 25.09 kg/m? General Appearance: Well appearing, alert, in no acute distress, well-hydrated, well nourished.. Ears: External ears normal, canals clear. Nose/Sinuses: Nares normal, septum midline, mucosa normal, no drainage or sinus tenderness. Oropharynx: Lips, mucosa, and tongue normal, teeth and gums normal, oropharynx normal. Neck: Supple, no adenopathy; thyroid symmetric, normal size, no bruits. Back:no pain to palpation of vertebrae, good flexion and extension, good range of motion, no muscle tenderness, reflexes are 2+ and symmetric, motor and sensory appear to be normal, negative SLR test, no evidence of scoliosis Lungs: lungs clear to auscultation. No wheezing, rhonchi, rales. Heart: RRR without murmur, gallop, or rubs. No ectopy. Abdomen: Normal abdominal exam, Abdomen soft, non-tender. Bowel sounds normal. No masses, organomegaly. Extremities: No deformities, edema, skin discoloration, clubbing or cyanosis. Good capillary refill. . Musculoskeletal: No joint swelling, deformity, or tenderness. Peripheral Pulses: Normal. Neurologic: Gait normal. Reflexes normal and symmetric. Sensation grossly intact.. ASSESSMENT/PLAN: 1. Encounter to establish care with new doctor - ICD9: V65.8, ICD10: Z76.89 (primary diagnosis) - CBC + DIFF - COMP METABOLIC PANEL - LIPID PANEL BASIC - TSH BLD - T4 FREE/FREE THYROX 2. Screening, lipid - ICD9: V77.91, ICD10: Z13.220 - CBC + DIFF - COMP METABOLIC PANEL - LIPID PANEL BASIC - TSH BLD - T4 FREE/FREE THYROX 3. Depression, unspecified depression type - ICD9: 311, ICD10: F32.9 - CBC + DIFF - COMP METABOLIC PANEL - LIPID PANEL BASIC - TSH BLD - T4 FREE/FREE THYROX - CONSULT TO PSYCHIATRY - CONSULT TO PSYCHOLOGY - SERTRALINE 25 MG TABLET Cookie Burton MD Normal [facility] TSHon 06-19-2019 TSH Qn 2.140 uU/mL Normal 0.400-5.500 [facility] Comment on above: Result Comment: If t he patient is , TSH reference range varies by gestational period: First Trimester 0.100-2.500 uU/mL Second Trimester 0.200-3.000 uU/mL Third Trimester 0.300-3.000 uU/mL References: 1. Motta L, Gualberto M, Sukumar EK, et al. Management of Thyroid Dysfunction during and : An Endocrine Society Clinical Practice Guideline. J Clin Endocrinol Metab, 2012:97:7546-9862. 2. Dandy JUDD. Overview of thyroid disease in . UpToDate. 2016. Accessed on March 24, 2016. Performed By: #### C BCDIF, CMP, FT4, TSH #### [facility] [address] [place], [place] [address] ED NOTEon 06-03-2019 ED NOTE HNO ID: [id number] Author: Tess (Rn) Candelaria Freeman RN Service: Nursing Author Type: Registered Nurse Type: ED Notes Filed: 06/03/2019 9:53 PM Note Text: Discharge instructions given with prescription. Instructed to follow up with PCP. Discharge ambulatory in stable condition. [facility] ED PROV NOTEon 06-03-2019 ED PROV NOTE HNO ID: [id number] Author: Kevon Bhatia) CASEY Centeno Service: Emergency Medicine Author Type: Physician Cash Management Associate Type: ED Provider Notes Filed: 06/03/2019 9:42 PM Note Text: ED Provider Note Patient Name: Amira Nagy SERVICE DATE: 06/03/19 History Patient presents with: Sore Throat: sore throat x1 day, fever/chills Pt is a 28 yo female who presents to the ED for sore throat and chills since yesterday. Patient reports increased pain with swallowing over the past couple of days denies any difficulty swallowing. She reports have the chills but has not taken her temperature at home. She did take a dose of Motrin this morning at 8 AM. Pt reports history of frequent strep infections. No sick contacts. No nausea or vomiting. No headache, dizziness, vision changes, congestion, chest pain, shortness breath, ear pain/discharge. No voice changes. No past medical history on file. No past surgical history on file. No family history on file. Social History Tobacco Use - Smoking status: Current Every Day Smoker Substance and Sexual Activity - Alcohol use: Yes Comment: Socially - Drug use: Never - Sexual activity: Not on file ALLERGIES No Known Allergies Review of Systems Constitutional: Positive for chills and fever. Negative for appetite change, diaphoresis, fatigue and unexpected weight change. HENT: Positive for sore throat. Negative for congestion, ear discharge, ear pain, facial swelling, postnasal drip, rhinorrhea, sinus pressure, sinus pain, sneezing, tinnitus, trouble swallowing and voice change. Eyes: Negative for visual disturbance. Respiratory: Negative for cough, shortness of breath and wheezing. Cardiovascular: Negative for chest pain. Gastrointestinal: Negative for abdominal pain, nausea and vomiting. Musculoskeletal: Negative for myalgias. Skin: Negative for rash. Allergic/Immunologic: Negative for immunocompromised state. Neurological: Negative for dizziness, syncope, weakness, light-headedness, numbness and headaches. Hematological: Does not bruise/bleed easily. Psychiatric/Behaviora l: Negative for confusion. Physical Exam BP 123/83 Pulse 106 Temp (Src) 98.8 (Oral) Resp 18 Ht 5' 1 (1.55m) Wt 127 lb (57.6kg) SpO2 100% BMI 24.01 kg/(m2). O2 Therapy: Room Air Physical Exam Vital signs reviewed. General Survey:? Alert and oriented x 3.? Sitting in bed in no acute distress. Skin: Warm and dry.? Cap refill less than 2 seconds. Nail beds pink.? Head: Normocephalic, atraumatic.? Eyes: PERRLA, EOMI, Conjunctivae normal. Sclera white.? Mouth: + Bilateral tonsillar erythema, swelling, exudate. Gums pink.? Buccal mucosa pink and moist.? No uvular deviation, stridor, drooling, trismus. No voice changes. Patient swallowing secretions without difficulty. Neck: Patient has bilateral anterior cervical lymphadenopathy. Supple with no meningismus. Trachea midline.?? No carotid bruits bilaterally.? No JVD. Respiratory: Lung sounds clear and equal to auscultation bilaterally.? No wheezes, rhonci or rales.? Chest expansion symmetrical.? No accessory muscle usage. Cardiovascular: Normal S1 and S2. Heart RRR, no gallops or rubs, no aorta enlargement or bruit noted. Peripheral Vascular: Extremities warm and without edema.? Carotid, radial pulses, and DP/PT pulses 2+ and equal bilaterally. No calf swelling/tenderness. Neurological: Alert, relaxed and cooperative.?Memory intact. CN II-XII are grossly intact. Thought processes are coherent. Speech is clear and fluent. Diagnostic Testing ED Labs Ordered and Reviewed - No data to display Procedures ED Course / Clinical Impression Clinical Impressions as of Jun 03 2140 Strep pharyngitis MDM / Disposition / Plan Triage notes,nursing notes, medical history, vitals signs, medication list reviewed. ? Pt is a 28 yo female who presents to the ED for sore throat and chills since yesterday. HPI as noted above. Exam as noted. Patient is in NAD, hemodynamically stable and non-toxic in appearance in the ED. Patient's tonsils are swollen, erythematous, with exudate bilaterally. Patient is managing secretions. No signs concerning for IMMIGRATION COORDINATOR, retropharyngeal abscess, ros's angina, or epiglottitis. Rapid strep was positive. Pt was given motrin, first dose of amoxicillin, and cepacol drop in the ED. Pt d/c home with amoxicillin and cepacol drops. Recommended motrin and tylenol for fever. Discussed supportive home care. Discussed alarm signs/symptoms indicating subsequent/emergent care. Patient stable at discharge. Agreeable with plan. Recommend close follow-up with PCP. The patient was DISCHARGED: Counseled patient regarding lab results AND suspected diagnosis AND need for follow-up. Discharged home with verbal and written instructions. They were instructed to return as needed for persistent or worsening symptoms or any new concerns. Condition at time of disposition: improved and stable SIGNATURE: JENNIFER Soto Pa-C, PA 06/03/192141 [facility] HEALTH 02-21-2019 ALLIED HEALTH HNO ID: [id number] Author: Vicenta Forte (Tech) Service: Radiology Author Type: Private Branch Exchange Service Advisor Type: Allied Health Filed: 02/21/2019 7:10 PM Note Text: Radiology Service Progress Note PATIENT NAME: Amira Nagy DATE OF SERVICE: February 21, 2019 TIME: 6:51 PM PATIENT IDENTITY VERIFICATION COMPLETED USING TWO (2) METHODS: Patient confirmed name verbally, ID Band and Date of . PATIENT GENDER DATA: Female. status: : No status: N/A PATIENT RELEVANT IMPLANT DATA REVIEWED: Not Applicable RADIOLOGY DEPARTMENT: MR; Exam(s) Completed: Lower MSK: Knee, right PERIPHERAL IV DATA: Not applicable SIGNED BY: iVcenta Forte J. Graber February 21, 2019 6:51 PM [facility] MRI KNEE WO IVCON RTon 02-21 MRI KNEE WO IVC RT * * *Final Report* * * DATE OF EXAM: Feb 21 2019 7:10PM [facility] 0213 - MRI KNEE WO IVCON RT / PROCEDURE REASON: multiple diagnoses * * * * Physician Interpretation * * * * EXAMINATION: MRI RIGHT KNEE WITHOUT CONTRAST CLINICAL HISTORY: Internal derangement TECHNIQUE: Routine non-contrast MRI of the knee MQ: [id number]_[id number] COMPARISON: Radiograph 01/30/2019 RESULT: MENISCI: Medial Meniscus: Intact. Lateral Meniscus: Intact. LIGAMENTS: ACL: Intact PCL: Intact MCL: Intact LCL Complex: Intact CARTILAGE: Medial Femoral Condyle: Normal Medial Tibial Plateau: Normal Lateral Femoral Condyle: Normal Lateral Tibial Plateau: Normal Patella: Large area of full-thickness cartilage delamination. Trochlea: Normal TENDONS: The distal quadriceps and patellar tendons are intact. The popliteus tendon is intact. BONES AND MARROW: No evidence of fracture or bone marrow replacing process. MUSCLES: Muscle bulk and signal intensity are normal. JOINT FLUID AND SYNOVIUM: Small joint effusion. No synovitis. No Araya's cyst. OTHER: No other significant abnormality identified. IMPRESSION: LARGE AREA OF FULL-THICKNESS CARTILAGE DELAMINATION IN THE PATELLA. Intervention Teacher: ALVERTO Transcribe Date/Time: Feb 21 2019 7:12P Dictated by : SHAKIRA FOUNTAIN MD This examination was interpreted and the report reviewed and electronically signed by: ROGERS GALVAN MD on Feb 21 2019 8:32PM EST [id number] [facility] ED NOTEon 01-31-2019 ED NOTE HNO ID: [id number] Author: Lino TurnerRn) ANNA Alansi Service: ? Author Type: Registered Nurse Type: ED Notes Filed: 01/30/2019 10:49 PM Note Text: Reviewed all discharge instructions with pt including medications and the need for follow up. Pt verbalized understanding. Gait steady, no distress noted. [facility] ED NOTE HNO ID: [id number] Author: Kaylee (Rn) ANNA Puente Service: ? Author Type: Registered Nurse Type: ED Notes Filed: 01/30/2019 10:04 PM Note Text: Pt resting in results waiting with no complaints at this time. Comfort measures offered. No acute distress noted, safety maintained. Normal [facility] ED PROV NOTEon 01-31-2019 Protein mass conc HNO ID: [id number] Author: Daniel Lackey MD Service: Emergency Medicine Author Type: Physician Type: ED Provider Notes Filed: 01/31/2019 12:19 AM Note Text: ED Provider Note Patient Name: Amira Nagy SERVICE DATE: 01/30/19 History Patient presents with: Knee Pain 28-year-old female comes ED with complaint of right knee pain and swelling for the past 3 days. Patient describes the pain as sharp/stabbing and 5 out of 10. Patient states she took nothing for the pain and tried to elevate and ice. Patient had she's not sure what led to this patient swelling and finally got fed up after several days and came to the ED. Patient states she is able amulet with a limp but the pain is aggravated by standing too long/sitting too long/squatting. Patient states she is a problem for the past with injuries to her knee and development of swelling but not for some time. Patient ED is alert, cooperative, and appears in no distress. Patient currently denies neck pain, chest pain, back pain, abdominal pain, fall/trauma, recent travel, numbness/tingling, ataxia, and weakness. History reviewed. No pertinent past medical history. History reviewed. No pertinent surgical history. No family history on file. Social History Tobacco Use - Smoking status: Current Every Day Smoker Substance and Sexual Activity - Alcohol use: Yes Comment: Socially - Drug use: Never - Sexual activity: Not on file ALLERGIES No Known Allergies Review of Systems Constitutional: Negative. HENT: Negative. Eyes: Negative. Respiratory: Negative. Cardiovascular: Negative. Gastrointestinal: Negative. Genitourinary: Negative. Musculoskeletal: Negative. Knee pain Skin: Negative. Neurological: Negative. Psychiatric/Behaviora l: Negative. All other systems reviewed and are negative. Physical Exam BP 128/80 Pulse 70 Temp (Src) 98 (Oral) Resp 16 Ht 5' 1 (1.55m) Wt 127 lb (57.6kg) SpO2 100% LMP 01/29/2019 BMI 24.01 kg/(m2). O2 Therapy: Room Air Physical Exam Constitutional: She is oriented to person, place, and time. She appears well-developed and well-nourished. HENT: Head: Normocephalic and atraumatic. Nose: Nose normal. Mouth/Throat: Oropharynx is clear and moist. Eyes: Pupils are equal, round, and reactive to light. EOM are normal. Neck: Normal range of motion. Neck supple. Cardiovascular: Normal rate, regular rhythm, normal heart sounds and intact distal pulses. Pulmonary/Chest: Effort normal and breath sounds normal. Abdominal: Soft.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 and syncopal episodes x 1 month, cough Illness/Other Acuity: Acute Cancer History: UNK Surgery, Radiation History: NO Type of Encounter: Initial Additional signs and symptoms: none given FINDINGS: The lungs are adequately inflated. There is no focal consolidation, pleural effusion or pneumothorax. The cardiac silhouette and mediastinal contours are within normal limits. No acute bony findings. IMPRESSION: No acute process. Workstation ID: [id number] Invalid Interpretation Code [employer] [facility] XR Chest AP/PA and LAT EXAMINATION: TWO VIEWS OF THE CHEST 02/12/2018 12:16 am COMPARISON: 12/21/2016 HISTORY: ORDERING SYSTEM PROVIDED HISTORY: cough, syncope; TECHNOLOGIST PROVIDED HISTORY: Reason for Exam: lightheaded and syncopal episodes x 1 month, cough Illness/Other Acuity: Acute Cancer History: UNK Surgery, Radiation History: NO Type of Encounter: Initial Additional signs and symptoms: none given FINDINGS: The lungs are adequately inflated. There is no focal consolidation, pleural effusion or pneumothorax. The cardiac silhouette and mediastinal contours are within normal limits. No acute bony findings. Invalid Interpretation Code [employer] [facility] XR Chest AP/PA and LAT No acute process. Workstation ID: [id number] Invalid Interpretation Code [employer] [facility] Vital Signs Date Time Vital Sign Value Performing Clinician Lisandra colmenares 10-20-2024 08:34-0500 Body temperature 98.1 [degF] Hayden Macdonald DO Work Phone: [facility] [employer] 10-20-2024 08:34-0500 Diastolic blood pressure 77 mm[Hg] Hayden Macdonald DO Work Phone: [facility] [employer] 10-20-2024 08:34-0500 Heart rate 79 /min Hayden Macdonald DO Work Phone: [facility] [employer] 10-20-2024 08:34-0500 Respiratory rate 16 /min Hayden Macdonald DO Work Phone: [facility] [employer] 10-20-2024 08:34-0500 SaO2% (BldA) [Mass fraction] 97 % Hayden Macdonald DO Work Phone: [facility] [employer] 10-20-2024 08:34-0500 Systolic blood pressure 108 mm[Hg] Hayden Macdonald DO Work Phone: [facility] [employer] 10-19-2024 06:00-0500 Body mass index (BMI) [Ratio] 27.37 kg/m2 Hayden Macdonald DO Work Phone: [facility] [employer] 10-19-2024 06:00-0500 Body weight 65.7 kg Hayden Macdonald DO Work Phone: [facility] [employer] 2024 03:45-0500 Body height 154.9 cm Hayden Macdonald DO Work Phone: [facility] [employer] [facility] 02-12-2018 03:03-0400 BP Diastolic 89 mm[Hg] Vishal Alva [facility] 02-12-2018 03:03-0400 BP Systolic 120 mm[Hg] Vishal Alva [facility] 02-12-2018 03:03-0400 Pulse (Heart Rate) 81 /min Vishal Alva [facility] 02-12-2018 03:03-0400 Pulse Oximetry 98 % Vishal Alva [facility] 02-12-2018 00:12-0400 Body Temperature 98.01 [degF] Vishal Alva [facility] 02-12-2018 00:12-0400 Respiratory Rate 16 /min Vishal Alva [facility] 02-12-2018 00:04-0400 BMI (Body Mass Index) 23.45 kg/m2 Vishal Alva [facility] 02-12-2018 00:04-0400 Weight 56.29 kg Vishal Alva [facility] 08-25-2017 16:09-0500 BMI (Body Mass Index) 24.56 kg/m2 [facility] Work Phone: 08-25-2017 16:09-0500 Body Temperature 98.1 [degF] [facility] Work Phone: 08-25-2017 16:09-0500 BP Diastolic 94 mm[Hg] [facility] Work Phone: 08-25-2017 16:09-0500 BP Systolic 146 mm[facility]Hg[facility] Work Phone: 08-25-2017 16:09-0500 Height 154.9 cm [facility] Work Phone: 08-25-2017 16:09-0500 Pulse (Heart Rate) 80 /min [facility] Work Phone: 08-25-2017 16:09-0500 Pulse Oximetry 97 % [facility] Work Phone: 08-25-2017 16:09-0500 Respiratory Rate 16 /min [facility] Work Phone: 08-25-2017 16:09-0500 Weight 58.97 kg [facility] Work Phone: Encounters Encounter Date Encounter Type Care Provider Facility Start: 2024 End: 2024 Subsequent hospital visit by physician Hayden Macdonald DO Work Phone: [facility] Start: 2024 End: 10-20-2024 Evaluation and management of inpatient Hayden Macdonald DO Work Phone: [facility]Med Surg Comment on above: Abscess, gluteal, le ft (Primary Dx) Start: 03-28-2019 End: 03-28-2019 [facility] Start: 01-30-2019 End: 01-31-2019 Emergency department patient visit [facility] Start: 12-12-2018 Emergency department visit moderate severity MARISOL RUST [facility] Start: 12-12-2018 End: 12-12-2018 Patient encounter procedure MARISOL RUST Facility:[id number] Start: 02-12-2018 End: 02-12-2018 Emergency department patient visit PHYSICIAN NO [facility] Start: 02-12-2018 End: 02-12-2018 Emergency department patient visit Vishal Alva Work Phone: [facility] Emergency Department Start: 08-25-2017 End: 08-25-2017 Emergency department patient visit PHYSICIAN NO [facility] Start: 08-25-2017 End: 08-25-2017 Emergency department patient visit Gustavo Camargo Work Phone: [facility] Emergency Department Start: 12-27-2016 End: 03-27-2017 Ambulatory ANDREY TURCIOS [facility] Procedures Date Procedure Procedure Detail Performing Clinician Start: 10-20-2024 BASIC METABOLIC PANE L W/ REFLEX TO MG FOR LOW K Tommy Mazariegos MD Work Phone: Start: 10-20-2024 Blood count complete auto&auto difrntl wbc Tommy Mazraiegos MD Work Phone: Start: 10-19-2024 BASIC METABOLIC PANE L W/ REFLEX TO MG FOR LOW K Tommy Mazariegos MD Work Phone: Start: 10-19-2024 Blood count complete auto&auto difrntl wbc Tommy Mazariegos MD Work Phone: Start: 10-18-2024 Assay of magnesium Hilaria Mazariegos MD Work Phone: Start: 10-18-2024 BASIC METABOLIC PANE L W/ REFLEX TO MG FOR LOW K Tommy Mazariegos MD Work Phone: Start: 2024 End: 2024 BASIC METABOLIC PANEL W/ REFLEX TO MG FOR LOW K Chloé Somers DISC JOCKEY - CORE STICKER Work Phone: Start: 2024 End: 2024 Creatine kinase total Tommy Kulkarni MD Work Phone: Start: 2024 Hepatic function panel Tommy Mazariegos MD Work Phone: Start: 2024 Urnls dip stick/tabl et rgnt auto w/o microscopy Tommy Mazariegos MD Work Phone: Start: 2024 Radiologic exam ches t 2 views Tommy Mazariegos MD Work Phone: Start: 2024 Ct abdomen & pelvis w/o contrast material Tommy Mazariegos MD Work Phone: Start: 2024 Ecg routine ecg w/le ast 12 lds trcg only w/o i&r Tommy Mazariegos MD Work Phone: Start: 2024 End: 2024 Culture bacterial quanttative colony count urine Tommy Mazariegos MD Work Phone: Plan of Treatment Date Care Activity Detail Author Start: 05-27-2025 Tetanus vaccination TETANUS EVERY 10 YR [facility] Work Phone: Start: 06-08-2024 COVID-19 Vaccine ( season) COVID-19 Vaccine ( season) [facility] Start: 05-08-2024 Influenza vaccination Flu vaccine (# 1) [facility] Start: 2022 Screening for malign ant neoplasm of cervix [facility] Start: 06-08-2019 Influenza vaccination INFLUENZ A VACCINE (Season Ended) [facility] Start: 06-08-2018 Influenza vaccination SEQUENTI AL INFLUENZA VACCINE (Season Ended) [facility] Start: 02-08-2018 GONORRHEA SCREEN GONORRHEA SCREEN [facility] Start: 02-08-2018 Screening for Chlamy anay trachomatis CHLAMYDIA SCREEN [facility] Start: 06-08-2017 Influenza vaccination SEQUENTI AL INFLUENZA VACCINE (#1) [facility] Work Phone: Start: 03-08-2017 Vaccination for edis n papillomavirus HPV VACCINE ADOL (2 - Female 3-dose series) [facility] Start: 2013 Screening for malign ant neoplasm of cervix [facility] Start: 2011 DTaP/Tdap/Td vaccine (1 - Tdap) DTaP/Tdap/Td vaccine (1 - Tdap) [facility] Start: 2011 Hepatitis B vaccine (1 of 3 - 19+ 3-dose series) Hepatitis B vaccine (1 of 3 - 19+ 3-dose series) [facility] Start: 2010 Hepatitis C screening Hepatitis C sc reen [facility] Start: 2010 Tetanus vaccination TETANUS [facility] Start: 2007 HIV screening HIV screen [facility] Start: 2005 Varicella vaccine (1 of 2 - 13+ 2-dose series) Varicella vaccine (1 of 2 - 13+ 2-dose series) [facility] Start: 2004 Depression Screen Depression Screen [facility] Start: 2003 Vaccination for edis n papillomavirus HPV VACCINES (1 of 3 - Female 3 Dose Series) [facility] Work Phone: Start: 1998 Pneumococcal 0-64 ye ars Vaccine (1 of 2 - PCV) Pneumococcal 0-64 years Vaccine (1 of 2 - PCV) [facility] Start: 1992 Screening for malign ant neoplasm of cervix PAP SMEAR [facility] Work Phone: End: 02-12-2018 Bacteria aerobode culture Urine Aerobic Culture Routine Once for 1 Occurrences starting 02/12/2018 until 02/12/2018 [facility] Bacteria aerobode culture Urine Aerobic Culture Routine 02/12/2018 3:03 AM EDT [facility] Culture, Blood 2 Culture, Blood 2 Microbiology STAT 2024 4:06 PM EST mobileo Intermittent pulse oximetry Pulse Oximetry Spot Check Respiratory Care Routine As Needed until discontinued starting 2024 mobile[employer] Comment on above: As Needed until disc ontinued starting 2024 End: 2024 MRSA DNA Probe, Nasal MRSA DNA Probe, Nasal Microbiology Routine One Time for 1 Occurrences starting 2024 until 2024 Member Desk Phone: Comment on above: One Time for 1 Occur rences starting 2024 until 2024 Oxygen therapy [[facility] Data Set] Initiate Oxygen Therapy Protocol Respiratory Care Routine As Needed until discontinued starting 2024 Member Desk Phone: Comment on above: As Needed until disc ontinued starting 2024 End: 2024 Urinalysis with Reflex to Culture Urinalysis with Reflex to Culture Lab Routine One Time for 1 Occurrences starting 2024 until 2024 mobileo Comment on above: One Time for 1 Occur rences starting 2024 until 2024 Immunizations Immunization Date Immunization Notes Care Provider Omaira bates 02-08-2017 HPV, unspecified formulation [facility] 05-27-2015 tetanus toxoid, reduced diphtheria toxoid, and acellular pertussis vaccine, adsorbed; Translations: [TDAP] Gustavo Camargo [facility] Work Phone: NEGATED: Highlighted row has not occurred!03-11-2017 tetanus toxoid, reduced diphtheria toxoid, and acellular pertussis vaccine, adsorbed [facility] Comment on above: Deferred: Patient Re fused Payers Date Payer Category Payer Medicaid [id number] 1990 Unknown [id number] Social History Date Type Detail Facility Start: 02-12-2018 End: 2024 Tobacco smoking status NHIS Current every day smoker [facility] Work Phone: History of tobacco use Cigarette Smoker [facility] [employer] Work Phone: Start: 02-12-2018 End: 2024 Cigarettes smoked current (pack per day) - Reported [facility] Start: 1990 Sex Assigned At Not on file [facility] [employer] Work Phone: Start: 02-08-2017 Tobacco Comment 3 cigarettes / day [facility] Start: 02-08-2017 Alcohol Comment 2-3 x per week [facility] Start: 2024 [facility] [employer] [facility] Has the [employer], or [employer] threatened to shut off services in your home in past 12Mo Patient declined [employer] [facility] History of Present illness Narrative 10-20-2024 Archana Cobb - 10/20/2024 12:28 PM Allyssa Headley, - 10/20/2024 9:42 AM oTmmy Ferrell MD - 10/19/2024 1:37 PM Marisol Walters, PT - 10/18/2024 2:30 PM EST Note Date & Type Note Facility 10-20-2024 History of Present illness Narrative CLINICAL PHARMACY NOTE: MEDS TO BEDS Total # of Prescriptions Filled: 3 The following medications were delivered to the patient: Termo 5.325mg Augmentin 875-125mg Fluconazole 150mg Additional Documentation: delivered to patient in room 329 10/20 at 11:36am. Co-pay $14.98 clover. Images from the original note were not included. [facility] Office: [phone] Reno Bee DO, Fernando Clay DO, Allyssa Gregory DO, Roland Ferrer DO, Candace Cisneros MD, Shannon Chandra MD, Aura Newton MD, Margaux Orellana MD, Earnest Hudson MD, Lea Pressley MD, Tuan Zayas MD, Stevo Wright DO, Ortiz Johnston MD, Mynor Cohen MD, Elías Bee DO, Leonor Feldman MD, Hayden Macdonald DO, Kavitha Rosa MD, Loli Lopez MD, Tamara Dent MD, Thalia Joyce MD, Tommy Mazariegos MD, Liliana Antunez MD, Reno Edwards MD, Marlene Kaba MD, Ciro Jeffries MD, Sonia Breaux MD, Alvino Gamez DO, Christiano Jaquez MD, Stevo Dao MD, Ezequiel Dao MD, Rhonda Valadez, FABIANA, Norma Moraes CNP, Alvino Chan, CORE STICKER, Arlene Jerome, CONTRERAS, Pili Casarez, CORE STICKER, Chapis Cameron, CORE STICKER, Chloé Somers CNP, Madina Rodriguez CORE STICKER, Lizeth Horan, PA-C, Earline Carlos PA-C, Faviola Granados, CORE STICKER, Himanshu Moreno, CORE STICKER, Ita Gerber, CORE STICKER, Monica Lackey, CORE STICKER, Karlene Lerner, CORE STICKER, Smita Cardona CNP, Dodie Wilder, CORE STICKER [facility]PATIENT SERVICE [facility] Progress Note 10/20/2024 12:49 PM Name: Amira Nagy Acct: [id number] Room: 0329/0329-02 Day: 3 Admit Date: 2024 3:28 AM PCP: No primary care provider on file. Code Status: Full Code Subjective: C/C: Left gluteal abscess Interval History Status: improved. Patient is resting in bed, anxious for discharge. Denies any complaints of chest pain, shortness of breath, nausea vomiting, fevers chills or acute complaints. Brief History: Per prior documentation Amira Nagy is a 34 y.o. Unavailable / unknown female who presents with No chief complaint on file. and is admitted to the hospital for the management of Pelvic abscess in female. Patient states she was doing well up until a few days ago when she noted a small bump on the left gluteal area near the gluteal cleft. It rapidly increased in size and became extremely tender to the touch. She went to [facility] where she was told that she has a large abscess. ED physician felt that she would benefit from incision and drainage. Case was discussed with our hospitalist and patient was transferred to our service. She states that while she was in the emergency department in [place] and during the transfer large amount of purulent material started draining spontaneously. Patient had significant pain in the surrounding area. She never had similar issues in the past before. She denies any history of recurrent infections, diabetes or drug abuse. She states she has a history of PTSD and depression. She denies smoking, alcohol or drug abuse. Patient was admitted to the hospital and underwent IV antibiotic therapy. Repeat imaging does not show a drainable abscess. ID was consulted. They are recommending general surgery to do an I&D. General surgery has been consulted. Plan is for incision and drainage and packing. Patient underwent incision and drainage and packing. General surgery has cleared the patient for discharge. Awaiting ID recommendations for antibiotics. Review of Systems: Constitutional: negative for chills, fevers, sweats Respiratory: negative for cough, dyspnea on exertion, shortness of breath, wheezing Cardiovascular: negative for chest pain, chest pressure/discomfort, lower extremity edema, palpitations Gastrointestinal: negative for abdominal pain, constipation, diarrhea, nausea, vomiting Neurological: negative for dizziness, headache Medications: Allergies: No Known Allergies Current Meds: Scheduled Meds: lidocaine PF 10 mL IntraDERmal Once sodium chloride flush 5-40 mL IntraVENous 2 times per day amphetamine-dextroamphetamine 30 mg Oral BID FLUoxetine 60 mg Oral Daily lamoTRIgine 100 mg Oral Daily Continuous Infusions: sodium chloride PRN Meds: sodium chloride flush, sodium chloride, potassium chloride OR potassium alternative oral replacement OR potassium chloride, magnesium sulfate, ondansetron OR ondansetron, polyethylene glycol, acetaminophen OR acetaminophen, HYDROcodone 5 mg - acetaminophen, clonazePAM Data: Past Medical History: has a past medical history of Major depression and PTSD (post-traumatic stress disorder). Social History: reports that she has been smoking cigarettes. She does not have any smokeless tobacco history on file. Family History: No family history on file. Vitals: BP 108/77 Pulse 79 Temp 98.1 F (36.7 C) (Oral) Resp 16 Ht 1.549 m (5' 1 ) Wt 65.7 kg (144 lb 13.5 oz) SpO2 97% BMI 27.37 kg/m Temp (24hrs), Av.8 F (36.6 C), Min:97.5 F (36.4 C), Max:98.1 F (36.7 C) No results for input(s): POCGLU in the last 72 hours. I/O (24Hr): Intake/Output Summary (Last 24 hours) at 10/20/2024 1249 Last data filed at 10/20/2024 0855 Gross per 24 hour Intake 600 ml Output -- Net 600 ml Labs: Hematology: Recent Labs 10/17/24 1606 10/17/24 1608 10/18/24 0515 10/19/24 0510/20/24 0821 WBC 8.3 8.3 8.1 8.0 8.8 RBC 3.08* 3.12* 3.35* 3.23* 3.49* HGB 10.7* 10.8* 11.7* 11.3* 12.2 HCT 31.6* 31.9* 33.6* 34.4* 36.2* MCV 102.6 102.2 100.3 106.5* 103.7* MCH 34.7* 34.6* 34.9* 35.0* 35.0* MCHC 33.9 33.9 34.8 32.8 33.7 RDW 11.3* 11.3* 11.4* 11.4* 11.5* PLT 378 365 See Reflexed IPF Result 366 433 MPV 9.0 8.9 -- 9.9 9.1 INR 1.1 -- -- -- -- Chemistry: Recent Labs 10/17/24 1606 10/17/24 1608 10/18/24 0515 10/19/24 0526 10/20/24 0821 NA 142 < > 138 139 139 K 3.9 < > 4.3 4.0 3.8 CL 108* < > 104 106 107 CO2 26 < > 22 21 23 GLUCOSE 95 < > 98 87 103* BUN 8 < > 7 8 8 CREATININE 0.6 < > 0.6 0.7 0.8 MG -- -- 2.3 -- -- ANIONGAP 8* < > 12 12 9 LABGLOM >90 < > >90 >90 >90 CALCIUM 8.4* < > 8.8 8.7 9.1 PHOS 3.4 -- -- -- -- PROBNP 471* -- -- -- -- TROPHS <6 -- -- -- -- CKTOTAL 134 -- -- -- -- LACTACIDWB 1.0 -- -- -- -- < > = values in this interval not displayed. Recent Labs 10/17/24 1606 TSH 3.89 AST 28 ALT 29 ALKPHOS 108* BILITOT 0.2 BILIDIR <0.1 ABG:No results found for: POCPH , PHART , PH , POCPCO2 , RIH3EUQ , PCO2 , POCPO2 , PO2ART , PO2 , POCHCO3 , AMS9VXH , HCO3 , NBEA , PBEA , BEART , BE , THGBART , THB , NYK7RLX , LKSY3IRI , [id number] , O2SAT , FIO2 Lab Results Component Value Date/Time SPECIAL L AC 5ML 2024 04:06 PM Lab Results Component Value Date/Time CULTURE NO GROWTH 2 DAYS 2024 04:06 PM Radiology: CT ABDOMEN PELVIS WO CONTRAST Additional Contrast? Radiologist Recommendation Result Date: 10/18/2024 1. Subcutaneous edema with mild skin thickening in the left gluteal region and extending inferiorly along the perineum and left gluteal cleft. No drainable fluid collection or soft tissue gas. Findings are suggestive of cellulitis in the appropriate clinical setting. 2. Mildly enlarged left inguinal lymph nodes likely reactive. 3. Punctate nonobstructing left renal calculus. XR CHEST (2 VW) Result Date: 2024 No acute process. Physical Examination: General appearance: alert, cooperative and no distress Mental Status: oriented to person, place and time and normal affect Lungs: clear to auscultation bilaterally, normal effort Heart: regular rate and rhythm, no murmur Abdomen: soft, nontender, nondistended, normal bowel sounds, no masses, hepatomegaly, splenomegaly Extremities: no edema, redness, tenderness in the calves Skin: no gross lesions, rashes, induration Assessment: Hospital Problems Last Modified POA * (Principal) Abscess, gluteal, left 10/20/2024 Yes Pelvic abscess in female 10/20/2024 Yes Hyperchloremia 2024 Yes Anemia 2024 Yes Elevated brain natriuretic peptide (BNP) level 2024 Yes Cellulitis of skin 10/18/2024 Yes Plan: Zosyn and vancomycin as ordered Continue home maintenance medications GI and DVT prophylaxis Messaged ID for ongoing antibiotics, Augmentin x 1 week. Home today with outpatient follow-up with surgery and ID as needed Allyssa Gregory DO 10/20/2024 12:49 PM Images from the original note were not included. [facility] Office: [phone] Reno Bee DO, Fernando Clay DO, Allyssa Gregory DO, Roland Ferrer DO, Candace Cisneros MD, Shannon Chandra MD, Aura Newton MD, Margaux Orellana MD, Earnest Hudson MD, Lea Pressley MD, Fer Hayes DO, Tuan Zayas MD, Stevo Wright DO, Ortiz Johnston MD, Mynor Cohen MD, Elías Bee DO, Leonor Feldman MD, Christiano Jaquez MD, Hayden Macdonald DO, Kavitha Rosa MD, Loli Lopez MD, Tamara Dent MD, Thalia Joyce MD, Gustavo Mckeon DO, Augustus Portillo MD, Rhonda Valadez CNP, Norma Moraes CNP, Karlene Lerner CNP, Alvino Chan CNP, Arlene Jerome DNP, Pili Casarez CNP, Chapis Cameron CNP, Mali Garcia, CORE STICKER, Chloé Somers, CORE STICKER, Madina Rodriguez, CORE STICKER, Edson Driver PA-C, Maribel Coker, KAYLA, Jeanine Muñoz, FABIANA, Smita Cardona, FABIANA [facility] IN-PATIENT SERVICE [facility] Progress Note 10/19/2024 1:37 PM Name: Amira Nagy Acct: [id number] Room: [address] [place], [place] [id number] Day: 2 Admit Date: 2024 3:28 AM PCP: No primary care provider on file. Code Status: Full Code Subjective: C/C: No chief complaint on file. Interval History Status: improved. Patient states that she is doing well. No new complaints. Brief History: Amira Nagy is a 34 y.o. Unavailable / unknown female who presents with No chief complaint on file. and is admitted to the hospital for the management of Pelvic abscess in female. Patient states she was doing well up until a few days ago when she noted a small bump on the left gluteal area near the gluteal cleft. It rapidly increased in size and became extremely tender to the touch. She went to [facility] where she was told that she has a large abscess. ED physician felt that she would benefit from incision and drainage. Case was discussed with our hospitalist and patient was transferred to our service. She states that while she was in the emergency department in [place] and during the transfer large amount of purulent material started draining spontaneously. Patient had significant pain in the surrounding area. She never had similar issues in the past before. She denies any history of recurrent infections, diabetes or drug abuse. She states she has a history of PTSD and depression. She denies smoking, alcohol or drug abuse. Patient was admitted to the hospital and underwent IV antibiotic therapy. Repeat imaging does not show a drainable abscess. ID was consulted. They are recommending general surgery to do an I&D. General surgery has been consulted. Plan is for incision and drainage and packing. Patient underwent incision and drainage and packing. General surgery has cleared the patient for discharge. Awaiting ID recommendations for antibiotics. Review of Systems: Review of Systems Constitutional: Negative. HENT: Negative. Eyes: Negative. Respiratory: Negative. Cardiovascular: Negative. Gastrointestinal: Negative. Endocrine: Negative. Genitourinary: Negative. Musculoskeletal: Negative. Skin: Positive for wound. Allergic/Immunologic: Negative. Neurological: Negative. Hematological: Negative. Psychiatric/Behavioral: Negative. All other systems reviewed and are negative. Medications: Allergies: No Known Allergies Current Meds: Scheduled Meds: lidocaine PF 10 mL IntraDERmal Once sodium chloride flush 5-40 mL IntraVENous 2 times per day vancomycin 1,000 mg IntraVENous Q12H amphetamine-dextroamphetamine 30 mg Oral BID FLUoxetine 60 mg Oral Daily lamoTRIgine 100 mg Oral Daily piperacillin-tazobactam 3,375 mg IntraVENous Q8H Continuous Infusions: sodium chloride PRN Meds: sodium chloride flush, sodium chloride, potassium chloride OR potassium alternative oral replacement OR potassium chloride, magnesium sulfate, ondansetron OR ondansetron, polyethylene glycol, acetaminophen OR acetaminophen, HYDROcodone 5 mg - acetaminophen, clonazePAM Data: Past Medical History: has a past medical history of Major depression and PTSD (post-traumatic stress disorder). Social History: reports that she has been smoking cigarettes. She does not have any smokeless tobacco history on file. Family History: No family history on file. Vitals: BP 123/77 Pulse 80 Temp 98.4 F (36.9 C) Resp 16 Ht 1.549 m (5' 1 ) Wt 65.7 kg (144 lb 13.5 oz) SpO2 97% BMI 27.37 kg/m Temp (24hrs), Av.9 F (36.6 C), Min:97.5 F (36.4 C), Max:98.4 F (36.9 C) No results for input(s): POCGLU in the last 72 hours. I/O (24Hr): No intake or output data in the 24 hours ending 10/19/24 1337 Labs: Hematology: Recent Labs 10/17/24 1606 10/17/24 1608 10/18/24 0515 10/19/24 0526 WBC 8.3 8.3 8.1 8.0 RBC 3.08* 3.12* 3.35* 3.23* HGB 10.7* 10.8* 11.7* 11.3* HCT 31.6* 31.9* 33.6* 34.4* MCV 102.6 102.2 100.3 106.5* MCH 34.7* 34.6* 34.9* 35.0* MCHC 33.9 33.9 34.8 32.8 RDW 11.3* 11.3* 11.4* 11.4* PLT 378 365 See Reflexed IPF Result 366 MPV 9.0 8.9 -- 9.9 INR 1.1 -- -- -- Chemistry: Recent Labs 10/17/24 1606 10/17/24 1608 10/18/24 0515 10/19/24 0526 NA 142 140 138 139 K 3.9 3.9 4.3 4.0 CL 108* 106 104 106 CO2 26 27 22 21 GLUCOSE 95 103* 98 87 BUN 8 8 7 8 CREATININE 0.6 0.6 0.6 0.7 MG -- -- 2.3 -- ANIONGAP 8* 7* 12 12 LABGLOM >90 >90 >90 >90 CALCIUM 8.4* 8.6 8.8 8.7 PHOS 3.4 -- -- -- PROBNP 471* -- -- -- TROPHS <6 -- -- -- CKTOTAL 134 -- -- -- LACTACIDWB 1.0 -- -- -- Recent Labs 10/17/24 1606 TSH 3.89 AST 28 ALT 29 ALKPHOS 108* BILITOT 0.2 BILIDIR <0.1 ABG:No results found for: POCPH , PHART , PH , POCPCO2 , FKN4FHU , PCO2 , POCPO2 , PO2ART , PO2 , POCHCO3 , EQN3NVI , HCO3 , NBEA , PBEA , BEART , BE , THGBART , THB , YKH5DGH , GBCD4DIW , B2HUBZIV , O2SAT , FIO2 Lab Results Component Value Date/Time SPECIAL L AC 5ML 2024 04:06 PM Lab Results Component Value Date/Time CULTURE NO GROWTH 1 DAY 2024 04:06 PM Radiology: CT ABDOMEN PELVIS WO CONTRAST Additional Contrast? Radiologist Recommendation Result Date: 10/18/2024 1. Subcutaneous edema with mild skin thickening in the left gluteal region and extending inferiorly along the perineum and left gluteal cleft. No drainable fluid collection or soft tissue gas. Findings are suggestive of cellulitis in the appropriate clinical setting. 2. Mildly enlarged left inguinal lymph nodes likely reactive. 3. Punctate nonobstructing left renal calculus. XR CHEST (2 VW) Result Date: 2024 No acute process. Physical Examination: Physical Exam Vitals reviewed. Constitutional: Appearance: Normal appearance. HENT: Head: Normocephalic and atraumatic. Mouth/Throat: Mouth: Mucous membranes are moist. Eyes: Extraocular Movements: Extraocular movements intact. Pupils: Pupils are equal, round, and reactive to light. Cardiovascular: Rate and Rhythm: Normal rate and regular rhythm. Pulses: Normal pulses. Heart sounds: Normal heart sounds. Pulmonary: Effort: Pulmonary effort is normal. Breath sounds: Normal breath sounds. Abdominal: Palpations: Abdomen is soft. Tenderness: There is no abdominal tenderness. Musculoskeletal: General: No swelling. Normal range of motion. Cervical back: Normal range of motion and neck supple. Skin: General: Skin is warm and dry. Neurological: General: No focal deficit present. Mental Status: She is alert and oriented to person, place, and time. Assessment: Hospital Problems Last Modified POA * (Principal) Pelvic abscess in female 2024 Yes Abscess, gluteal, left 2024 Yes Hyperchloremia 2024 Yes Anemia 2024 Yes Elevated brain natriuretic peptide (BNP) level 2024 Yes Cellulitis of skin 10/18/2024 Yes Plan: Large gluteal abscess - Spontaneously drained prior to transfer to our hospital - CT scan reviewed from outlying facility - Repeat CT scan shows no discernible abscess that can be drained - Started on Zosyn and Vancomycin and will continue - Await cultures - I spoke to ID and appreciate input - Pain control - Wound care - ID is recommending General surgery consult - General surgery input appreciated - Pt underwent I&D, packing - General surgery cleared patient for discharge - Awaiting final antibiotics recommendations per ID 2. Hyperchloremia - Mild - Monitor BMP daily - Resolved 3. Elevated BNP - Clinically not in CHF - Will recommend OP F/U with PCP 4. Anemia - Watch for bleeding - Monitor CBC daily 5. Depression, PTSD - All other conditions appear to be stable - Restart home meds 6. DVT and GI prophylaxis TOMMY MAZARIEGOS MD 10/19/2024 1:37 PM Images from the original note were not included. [facility] Office: [phone] [place] Bee DO, Fernando Clay DO, Allyssa Gregory DO, Roland Ferrer DO, Candace Cisneros MD, Shannon Chandra MD, Aura Newton MD, Margaux Orellana MD, Earnest Hudson MD, Lea Pressley MD, Fer Hayes DO, Tuan Zayas MD, Stevo Wright DO, Ortiz Johnston MD, Mynor Cohen MD, Elías Bee DO, Leonor Feldman MD, Christiano Jaquez MD, Hayden Macdonald DO, Kavitha Rosa MD, Loli Lopez MD, Tamara Dent MD, Thalia Joyce MD, Gustavo Mckeon DO, Augustus Portillo MD, Rhonda Valadez, FABIANA, Norma Moraes CNP, Karlene Lerner CNP, Alvino Chan, CORE STICKER, Arlene Jerome, CONTRERAS, Pili Casarez CNP, Chapis Cameron CNP, Mali Garcia CNP, Chloé Somers CORE STICKER, Madina Rodriguez, CORE STICKER, Edson Driver PA-C, Maribel Coker, KAYLA, Jeanine Muñoz CNP, Smita Cardona, CORE STICKER [facility] IN-PATIENT SERVICE [facility] Progress Note 10/18/2024 6:45 PM Name: Amira Nagy Acct: [id number] Room: [id number] Day: 1 Admit Date: 2024 3:28 AM PCP: No primary care provider on file. Code Status: Full Code Subjective: C/C: No chief complaint on file. Interval History Status: improved. Patient states that she is doing well. No new complaints. Brief History: Amira Nagy is a 34 y.o. Unavailable / unknown female who presents with No chief complaint on file. and is admitted to the hospital for the management of Pelvic abscess in female. Patient states she was doing well up until a few days ago when she noted a small bump on the left gluteal area near the gluteal cleft. It rapidly increased in size and became extremely tender to the touch. She went to [facility] where she was told that she has a large abscess. ED physician felt that she would benefit from incision and drainage. Case was discussed with our hospitalist and patient was transferred to our service. She states that while she was in the emergency department in [place] and during the transfer large amount of purulent material started draining spontaneously. Patient had significant pain in the surrounding area. She never had similar issues in the past before. She denies any history of recurrent infections, diabetes or drug abuse. She states she has a history of PTSD and depression. She denies smoking, alcohol or drug abuse. Patient was admitted to the hospital and underwent IV antibiotic therapy. Repeat imaging does not show a drainable abscess. ID was consulted. They are recommending general surgery to do an I&D. General surgery has been consulted. Plan is for incision and drainage and packing. Review of Systems: Review of Systems Constitutional: Negative. HENT: Negative. Eyes: Negative. Respiratory: Negative. Cardiovascular: Negative. Gastrointestinal: Negative. Endocrine: Negative. Genitourinary: Negative. Musculoskeletal: Negative. Skin: Positive for wound. Allergic/Immunologic: Negative. Neurological: Negative. Hematological: Negative. Psychiatric/Behavioral: Negative. All other systems reviewed and are negative. Medications: Allergies: No Known Allergies Current Meds: Scheduled Meds: lidocaine PF 10 mL IntraDERmal Once sodium chloride flush 5-40 mL IntraVENous 2 times per day vancomycin 1,000 mg IntraVENous Q12H amphetamine-dextroamphetamine 30 mg Oral BID FLUoxetine 60 mg Oral Daily lamoTRIgine 100 mg Oral Daily piperacillin-tazobactam 3,375 mg IntraVENous Q8H Continuous Infusions: sodium chloride PRN Meds: sodium chloride flush, sodium chloride, potassium chloride OR potassium alternative oral replacement OR potassium chloride, magnesium sulfate, ondansetron OR ondansetron, polyethylene glycol, acetaminophen OR acetaminophen, HYDROcodone 5 mg - acetaminophen, clonazePAM Data: Past Medical History: has a past medical history of Major depression and PTSD (post-traumatic stress disorder). Social History: reports that she has been smoking cigarettes. She does not have any smokeless tobacco history on file. Family History: No family history on file. Vitals: BP 103/64 Pulse 71 Temp 97.7 F (36.5 C) (Oral) Resp 17 Ht 1.549 m (5' 1 ) Wt 65.8 kg (145 lb) SpO2 96% BMI 27.40 kg/m Temp (24hrs), Av.6 F (36.4 C), Min:97.5 F (36.4 C), Max:97.7 F (36.5 C) No results for input(s): POCGLU in the last 72 hours. I/O (24Hr): No intake or output data in the 24 hours ending 10/18/24 9715 Labs: Hematology: Recent Labs 10/17/24 16010/17/24 16010/18/24 0515 WBC 8.3 8.3 8.1 RBC 3.08* 3.12* 3.35* HGB 10.7* 10.8* 11.7* HCT 31.6* 31.9* 33.6* MCV 102.6 102.2 100.3 MCH 34.7* 34.6* 34.9* MCHC 33.9 33.9 34.8 RDW 11.3* 11.3* 11.4* PLT 378 365 See Reflexed IPF Result MPV 9.0 8.9 -- INR 1.1 -- -- Chemistry: Recent Labs 10/17/24 1606 10/17/24 16010/18/24 0515 NA 142 140 138 K 3.9 3.9 4.3 CL 108* 106 104 CO2 26 27 22 GLUCOSE 95 103* 98 BUN 8 8 7 CREATININE 0.6 0.6 0.6 MG -- -- 2.3 ANIONGAP 8* 7* 12 LABGLOM >90 >90 >90 CALCIUM 8.4* 8.6 8.8 PHOS 3.4 -- -- PROBNP 471* -- -- TROPHS <6 -- -- CKTOTAL 134 -- -- LACTACIDWB 1.0 -- -- Recent Labs 10/17/24 160 TSH 3.89 AST 28 ALT 29 ALKPHOS 108* BILITOT 0.2 BILIDIR <0.1 ABG:No results found for: POCPH , PHART , PH , POCPCO2 , ZHD2YID , PCO2 , POCPO2 , PO2ART , PO2 , POCHCO3 , OEN3TRX , HCO3 , NBEA , PBEA , BEART , BE , THGBART , THB , XMQ8ALC , HELK9TDV , Z6HTIURU , O2SAT , FIO2 Lab Results Component Value Date/Time SPECIAL L AC 5ML 2024 04:06 PM Lab Results Component Value Date/Time CULTURE NO GROWTH 1 DAY 2024 04:06 PM Radiology: CT ABDOMEN PELVIS WO CONTRAST Additional Contrast? Radiologist Recommendation Result Date: 10/18/2024 1. Subcutaneous edema with mild skin thickening in the left gluteal region and extending inferiorly along the perineum and left gluteal cleft. No drainable fluid collection or soft tissue gas. Findings are suggestive of cellulitis in the appropriate clinical setting. 2. Mildly enlarged left inguinal lymph nodes likely reactive. 3. Punctate nonobstructing left renal calculus. XR CHEST (2 VW) Result Date: 2024 No acute process. Physical Examination: Physical Exam Vitals reviewed. Constitutional: Appearance: Normal appearance. HENT: Head: Normocephalic and atraumatic. Mouth/Throat: Mouth: Mucous membranes are moist. Eyes: Extraocular Movements: Extraocular movements intact. Pupils: Pupils are equal, round, and reactive to light. Cardiovascular: Rate and Rhythm: Normal rate and regular rhythm. Pulses: Normal pulses. Heart sounds: Normal heart sounds. Pulmonary: Effort: Pulmonary effort is normal. Breath sounds: Normal breath sounds. Abdominal: Palpations: Abdomen is soft. Tenderness: There is no abdominal tenderness. Musculoskeletal: General: No swelling. Normal range of motion. Cervical back: Normal range of motion and neck supple. Skin: General: Skin is warm and dry. Neurological: General: No focal deficit present. Mental Status: She is alert and oriented to person, place, and time. Assessment: Hospital Problems Last Modified POA * (Principal) Pelvic abscess in female 2024 Yes Abscess, gluteal, left 2024 Yes Hyperchloremia 2024 Yes Anemia 2024 Yes Elevated brain natriuretic peptide (BNP) level 2024 Yes Cellulitis of skin 10/18/2024 Yes Plan: Large gluteal abscess - Spontaneously drained prior to transfer to our hospital - CT scan reviewed from outlying facility - Repeat CT scan shows no discernible abscess that can be drained - Started on Zosyn and Vancomycin and will continue - Await cultures - I spoke to ID and appreciate input - Pain control - Wound care - ID is recommending General surgery consult - General surgery input appreciated - Plan for I&D and packing noted 2. Hyperchloremia - Mild - Monitor BMP daily - Resolved 3. Elevated BNP - Clinically not in CHF - Will recommend OP F/U with PCP 4. Anemia - Watch for bleeding - Monitor CBC daily 5. Depression, PTSD - All other conditions appear to be stable - Restart home meds 6. DVT and GI prophylaxis TOMMY MAZARIEGOS MD 10/18/2024 6:45 PM Images from the original note were not included. Physical Therapy Physical Therapy Cancel Note DATE: 10/18/2024 NAME: Amira Nagy : 1990 Patient not seen this date for Physical Therapy due to: Patient independent with functional mobility. Will defer PT evaluation at this time. Please reorder PT if future needs arise. Images from the original note were not included. [facility] Occupational Therapy Not Seen Note DATE: 10/18/2024 NAME: Amira Nagy : 1990 Patient not seen this date for Occupational Therapy due to: Patient independent with ADLs and functional tasks with no acute OT needs. Will defer OT evaluation at this time. Please reorder OT if future needs arise. Images from the original note were not included. [facility] Progress Note Amira Nagy Date: 10/18/2024 LOS: 1 Reason for F/U : Gluteal abscess Impression : Intergluteal abscess Possible community acquired MRSA infection Hypertension Family history of diabetes Depression on prozac Also on lamictal but patient does not recall why she was prescribed that ADHD on adderall PTSD takes clonazepam as needed. Recommendations: While the CT scan head does not show a drainable fluid collection the clinical picture is consistent with an abscess I do feel that the patient would benefit from an I&D procedure and therefore would recommend surgery to evaluate Continue Zosyn and vancomycin for Infection Control Recommendations: [place] precautions Discharge Planning: Estimated Length of IV antimicrobials: To be determined Patient will need Midline Catheter Insertion/ PICC line Insertion: No Patient will need: Home IV , Infusion Center, SNF, LTAC: Undetermined Patient willneed outpatient wound care: No Medical Decision making / Summary of Stay: Janes Collier is a 34 y.o.-year-old female who was initially admitted on 2024. Patient seen at the request of Dr. Mazariegos INITIAL HISTORY: 34 Year old female that presented to outside facility because of concerns of increasing pain and tenderness on left hip for the last 10 days. Patient initially thought it was from a fall that she sustained about 10 days before. Patient was evaluated and apparently had a CT abdomen and pelvis which revealed abscesses. She was then transferred to [facility] for further evaluation ID service asked to evaluate and advice on treatment. Current evaluation:10/18/2024 BP 103/64 Pulse 71 Temp 97.7 F (36.5 C) (Oral) Resp 17 Ht 1.549 m (5' 1 ) Wt 65.8 kg (145 lb) SpO2 96% BMI 27.40 kg/m Temperature Range: Temp: 97.7 F (36.5 C) Temp Av.6 F (36.4 C) Min: 97.5 F (36.4 C) Max: 97.7 F (36.5 C) The patient is seen and evaluated at bedside and is awake and alert in no acute distress. No subjective fever or chills. No cough or shortness of breath. Does have some gluteal pain/discomfort Review of Systems Constitutional: Negative. Respiratory: Negative. Cardiovascular: Negative. Gastrointestinal: Negative. Genitourinary: Negative. Musculoskeletal: Negative. Skin: Positive for wound. Neurological: Negative. Psychiatric/Behavioral: Negative. Physical Examination : Physical Exam Constitutional: Appearance: She is well-developed. HENT: Head: Normocephalic and atraumatic. Cardiovascular: Rate and Rhythm: Regular rhythm. Heart sounds: Normal heart sounds. Pulmonary: Effort: Pulmonary effort is normal. Breath sounds: Normal breath sounds. Abdominal: General: Bowel sounds are normal. Palpations: Abdomen is soft. Musculoskeletal: Cervical back: Normal range of motion and neck supple. Skin: General: Skin is warm and dry. Comments: The left gluteal cheek does have an area with some fungating soft tissue and drainage and there is some induration noted Neurological: Mental Status: She is alert and oriented to person, place, and time. Laboratory data: I have independently reviewed the followinglabs: CBC with Differential: Recent Labs 10/17/24 1606 10/17/24 1608 10/18/24 0515 WBC 8.3 8.3 8.1 HGB 10.7* 10.8* 11.7* HCT 31.6* 31.9* 33.6* PLT 378 365 See Reflexed IPF Result LYMPHOPCT 25 -- 20* MONOPCT 8 -- 6 EOSPCT 5* -- 5* BMP: Recent Labs 10/17/24 1608 10/18/24 0515 NA 140 138 K 3.9 4.3 CL 106 104 CO2 27 22 BUN 8 7 CREATININE 0.6 0.6 MG -- 2.3 Hepatic Function Panel: Recent Labs 10/17/24 1606 BILIDIR <0.1 IBILI Can not be calculated BILITOT 0.2 ALKPHOS 108* ALT 29 AST 28 No results found for: PROCAL No results found for: CRP No results found for: SEDRATE No results found for: DDIMER No results found for: FERRITIN No results found for: LDH No results found for: FIBRINOGEN No results found for requested labs within last 30 days. No results found for: COVID19 No results for input(s): [facility] in the last 72 hours. Imaging Studies: CT OF THE ABDOMEN AND PELVIS WITHOUT CONTRAST 2024 11:45 am IMPRESSION: 1. Subcutaneous edema with mild skin thickening in the left gluteal region and extending inferiorly along the perineum and left gluteal cleft. No drainable fluid collection or soft tissue gas. Findings are suggestive of cellulitis in the appropriate clinical setting. 2. Mildly enlarged left inguinal lymph nodes likely reactive. 3. Punctate nonobstructing left renal calculus. Exam Ended: 10/17/24 11:50 EST Last Resulted: 10/18/24 09:35 EST TWO XRAY VIEWS OF THE CHEST 2024 11:56 am IMPRESSION: No acute process. Exam Ended: 10/17/24 12:04 EST Last Resulted: 10/17/24 12:28 EST Cultures: Culture and Sensitivities: Recent Labs 10/17/241605 SPECDESC .BLOOD SPECIAL L AC 5ML CULTURE NO GROWTH 12 HOURS Procedure Component Value Units Date/Time Culture, Blood 2 [[id number]] Collected: 10/17/24 1606 Order Status: Completed Specimen: Blood Updated: 10/18/24 05 Specimen Description .BLOOD Special Requests L AC 5ML Culture NO GROWTH 12 HOURS Culture, Blood 1 [[id number]] Collected: 10/17/24 1515 Order Status: Canceled Specimen: Blood MRSA DNA Probe, Nasal [[id number]] Order Status: Sent Specimen: Left Nare from Nares MRSA DNA Probe, Nasal [[id number]] Collected: 10/17/24 1141 Order Status: Completed Specimen: Nasal Updated: 10/17/241514 Specimen Description .NASAL SWAB MRSA, DNA, Nasal PENDING Medications: sodium chloride flush 5-40 mL IntraVENous 2 times per day vancomycin 1,000 mg IntraVENous Q12H amphetamine-dextroamphetamine 30 mg Oral BID FLUoxetine 60 mg Oral Daily lamoTRIgine 100 mg Oral Daily piperacillin-tazobactam 3,375 mg IntraVENous Q8H [facility] Nohemi Rios MD [employer] messaging OFFICE: Thank you for allowing us to participate in the care of this patient. Please call with questions. This note is created with the assistance of a speech recognition program. While intending to generate a document that actually reflects the content of the visit, the document can still have some errors including those of syntax and sound a like substitutions which may escape proof reading. In such instances, actual meaning can be extrapolated by contextual diversion. Images from the original note were not included. Occupational Therapy [facility] Occupational Therapy Not Seen Note DATE: 2024 NAME: Amira Nagy : 1990 Patient not seen this date for Occupational Therapy due to: Patient is not appropriate for active participation in OT evaluation/treatment at this time d/t patient admit early this a.m management of Pelvic abscess, limited notes, will f/u next day when further plan has been established. documented in this encounter [facility] course Narrative 10-20-2024 Allyssa Gregory DO - 10/20/2024 10:06 AM EST Note Date & Type Note Facility 10-20-2024 Hospital course Narrative Images from the original note were not included. [facility] Office: [phone] [place] eBe DO, Fernando Clay DO, Allyssa Gregory DO, Roland Ferrer DO, Candace Cisneros MD, Shannon Chandra MD, Aura Newton MD, Margaux Orellana MD, Earnest Hudson MD, Lea Pressley MD, Tuan Zayas MD, Stevo Wright DO, Ortiz Johnston MD, Mynor Cohen MD, Elías Bee DO, Leonor Feldman MD, Hayden Macdonald DO, Kavitha Rosa MD, Loli Lopez MD, Tamara Dent MD, Thalia Joyce MD, Tommy Mazariegos MD, Liliana Antunez MD, Reno Edwards MD, Marlene Kaba MD, Ciro Jeffries MD, Sonia Breaux MD, Alvino Gamez DO, Christiano Jaquez MD, Stevo Dao MD, Ezequiel Dao MD, Rhonda Valadez, CORE STICKER, Norma Moraes CNP, Alvino Chan, CORE STICKER, Arlene Jerome, CONTRERAS, Pili Casarez, CORE STICKER, Chapis Cameron, CORE STICKER, Chloé Somers, CORE STICKER, Madina Rodriguez, CORE STICKER, Lizeth Horan PA-C, Earline Carlos PA-C, Faviola Granados, CORE STICKER, Himanshu Moreno, CORE STICKER, Ita Gerber, CORE STICKER, Monica Lackey, CORE STICKER, Karlene Lerner, CORE STICKER, Smita Cardona CNP, Dodie Wilder CNP [facility] IN-PATIENT SERVICE [facility] Discharge Summary Patient ID: Amira Nagy : 1990 ACCOUNT: [id number] Patient's PCP: No primary care provider on file. Admit Date: 2024 Discharge Date: 10/20/2024 Length of Stay: 3 Code Status: Full Code Admitting Physician: Tommy Mazariegos MD Discharge Physician: Allyssa Gregory DO Active Discharge Diagnoses: Hospital Problem Lists: Principal Problem: Abscess, gluteal, left Active Problems: Pelvic abscess in female Hyperchloremia Anemia Elevated brain natriuretic peptide (BNP) level Cellulitis of skin Resolved Problems: * No resolved hospital problems. * Admission Condition: fair Discharged Condition: stable Hospital Stay: Hospital Course: Amira Nagy is a 34 y.o. female who was admitted for the management of Abscess, gluteal, left , presented to ER with Left gluteal abscess This is a 34-year-old female who presents with a left gluteal abscess. She was presented and was placed on IV Zosyn vancomycin and underwent ID and surgery evaluations. Ultimately there is no subdural fluid collection but she underwent I&D of the left gluteal region. Packing was placed and she was followed for wound care and dressing change. Ultimately she continued to improve on the day of discharge per ID recommendations she was transitioned to oral Augmentin for 7 more days. Significant therapeutic interventions: as above Significant Diagnostic Studies: Labs / Micro: CBC: Lab Results Component Value Date/Time WBC 8.8 10/20/2024 08:21 AM RBC 3.49 10/20/2024 08:21 AM HGB 12.2 10/20/2024 08:21 AM HCT 36.2 10/20/2024 08:21 AM MCV 103.7 10/20/2024 08:21 AM MCH 35.0 10/20/2024 08:21 AM MCHC 33.7 10/20/2024 08:21 AM RDW 11.5 10/20/2024 08:21 AM PLT 433 10/20/2024 08:21 AM BMP: Lab Results Component Value Date/Time GLUCOSE 103 10/20/2024 08:21 AM NA 139 10/20/2024 08:21 AM K 3.8 10/20/2024 08:21 AM CL 107 10/20/2024 08:21 AM CO2 23 10/20/2024 08:21 AM ANIONGAP 9 10/20/2024 08:21 AM BUN 8 10/20/2024 08:21 AM CREATININE 0.8 10/20/2024 08:21 AM CALCIUM 9.1 10/20/2024 08:21 AM LABGLOM >90 10/20/2024 08:21 AM Radiology: CT ABDOMEN PELVIS WO CONTRAST Additional Contrast? Radiologist Recommendation Result Date: 10/18/2024 1. Subcutaneous edema with mild skin thickening in the left gluteal region and extending inferiorly along the perineum and left gluteal cleft. No drainable fluid collection or soft tissue gas. Findings are suggestive of cellulitis in the appropriate clinical setting. 2. Mildly enlarged left inguinal lymph nodes likely reactive. 3. Punctate nonobstructing left renal calculus. XR CHEST (2 VW) Result Date: 2024 No acute process. Consultations: Consults: Final Specialist Recommendations/Findings: IP CONSULT TO INFECTIOUS DISEASES IP CONSULT TO GENERAL SURGERY The patient was seen and examined on day of discharge and this discharge summary is in conjunction with any daily progress note from day of discharge. Discharge plan: Disposition: Home Physician Follow Up: PCP 1 week No follow-up provider specified. Requiring Further Evaluation/Follow Up POST HOSPITALIZATION/Incidental Findings: None Diet: regular diet Activity: As tolerated Instructions to Patient: Take medication as prescribed Discharge Medications: Medication List START taking these medications amoxicillin-clavulanate 875-125 MG per tablet Commonly known as: AUGMENTIN Take 1 tablet by mouth 2 times daily for 7 days fluconazole 150 MG tablet Commonly known as: DIFLUCAN Take 1 tablet by mouth once for 1 dose HYDROcodone-acetaminophen 5-325 MG per tablet Commonly known as: NORCO Take 1 tablet by mouth every 6 hours as needed for Pain for up to 3 days. Max Daily Amount: 4 tablets CONTINUE taking these medications amphetamine-dextroamphetamine 30 MG tablet Commonly known as: ADDERALL clonazePAM 0.5 MG tablet Commonly known as: KLONOPIN FLUoxetine 20 MG capsule Commonly known as: PROZAC lamoTRIgine 100 MG tablet Commonly known as: LAMICTAL Where to Get Your Medications These medications were sent to [address] - [phone] - F [phone] [place] [id number] amoxicillin-clavulanate 875-125 MG per tablet HYDROcodone-acetaminophen 5-325 MG per tablet You can get these medications from any pharmacy Bring a paper prescription for each of these medications fluconazole 150 MG tablet No discharge procedures on file. Time Spent on discharge is 26 minutes in patient examination, evaluation, counseling as well as medication reconciliation, prescriptions for required medications, discharge plan and follow up. Electronically signed by Allyssa Gregory DO 10/20/2024 12:[address] Sparks primary care provider on file. for the opportunity to be involved in this patient's care. 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 Fainting: Care Instructions Your Care Instructions When you faint, or pass out, you lose consciousness for a short time. A brief drop in blood flow tothe brain often causes it. When you fall or lie down, more blood flows to your brain and you regainconsciousness. Emotional stress, pain, or overheating-especially if you have been standing-can make you faint. In these cases, fainting is usually not serious. But fainting can be a sign of a more serious problem. Your doctor may want you to have more tests to rule out other causes. The treatment you need depends on the reason why you fainted. The doctor has checked you carefully, but problems can develop later. If you notice any problems ornew symptoms, get medical treatment right away. Follow-up care is a costa part of your treatment and safety. Be sure to make and go to all appointments, and call your doctor if you are having problems. It's also a good idea to know your test resultsand keep a list of the medicines you take. How can you care for yourself at home? Drink plenty of fluids to prevent dehydration. If you have kidney, heart, or liver disease and haveto limit fluids, talk with your doctor before you increase your fluid intake. When should you call for help? Call 911 anytime you think you may need emergency care. For example, call if: ? You have symptoms of a heart problem. These may include: Chest pain or pressure. Severe trouble breathing. A fast or irregular heartbeat. Lightheadedness or sudden weakness. Coughing up pink, foamy mucus. Passing out. After you call 911, the bullet charging machine operator may tell you to chew 1 adult-strength or 2 to 4 low-dose aspirin. Wait for an ambulance. Do not try to drive yourself. ? You have symptoms of a stroke. These may include: Sudden numbness, tingling, weakness, or loss of movement in your face, arm, or leg, especially on only one side of your body. Sudden vision changes. Sudden trouble speaking. Sudden confusion or trouble understanding simple statements. Sudden problems with walking or balance. A sudden, severe headache that is different from past headaches. ? You passed out (lost consciousness) again. ?Watch closely for changes in your health, and be sure to contact your doctor if: ? You do not get better as expected. Where can you learn more? Log into your personal health record on https://Hu[employer] labshart.CloudFloor and enter A848 in the Education box to learn more about Fainting: Care Instructions. Current as of: August 27, 2017 Content Version: 11.6 2235-3669 [employer]. Care instructions adapted under license by your healthcare professional. If you have questions about a medical condition or this instruction, always ask your healthcare professional. [employer] disclaims any warranty or liability for your use of this information. Cough: Care Instructions Your Care Instructions A cough is your body's response to something that bothers your throat or airways. Many things can cause a cough. You might cough because of a cold or the flu, bronchitis, or asthma. Smoking, postnasal drip, allergies, and stomach acid that backs up into your throat also can cause coughs. A cough is a symptom, not a disease. Most coughs stop when the cause, such as a cold, goes away. You can take a few steps at home to cough less and feel better. Follow-up care is a costa part of your treatment and safety. Be sure to make and go to all appointments, and call your doctor if you are having problems. It's also a good idea to know your test resultsand keep a list of the medicines you take. How can you care for yourself at home? Drink lots of water and other fluids. This helps thin the mucus and soothes a dry or sore throat. Honey or lemon juice in hot water or tea may ease a dry cough. Take cough medicine as directed by your doctor. Prop up your head on pillows to help you breathe and ease a dry cough. Try cough drops to soothe a dry or sore throat. Cough drops don't stop a cough. Medicine-flavored cough drops are no better than candy-flavored drops or hard candy. Do not smoke. Avoid secondhand smoke. If you need help quitting, talk to your doctor about stop-smoking programs and medicines. These can increase your chances of quitting for good. When should you call for help? Call 911 anytime you think you may need emergency care. For example, call if: ? You have severe trouble breathing. ?Call your doctor now or seek immediate medical care if: ? You cough up blood. ? You have new or worse trouble breathing. ? You have a new or higher fever. ? You have a new rash. ?Watch closely for changes in your health, and be sure to contact your doctor if: ? You cough more deeply or more often, especially if you notice more mucus or a change in the colorof your mucus. ? You have new symptoms, such as a sore throat, an earache, or sinus pain. ? You do not get better as expected. Where can you learn more? Log into your personal health record on https://[employer]t.CloudFloor and enter D279 in the Education box to learn more about Cough: Care Instructions. Current as of: September 12, 2017 Content Version: .20055184-2181 [employer]. Care instructions adapted under license by your healthcare professional. If you have questions about a medical condition or this instruction, always ask your healthcare professional. [employer] disclaims any warranty or liability for your use of this information. in this encounter* Cookie Hightower CNP - 08/25/2017 Formatting of this note may be different from the original. [facility] [address] [place], [place] [id number] Emergency, Walk-In Sliding fee scale. First come, first seen basis. Sunday, Sunday, , Sunday - 8:30 a.m. - 1:30 p.m. Sunday - 9:30 a.m. - 1:30 p.m. [facility] [address] [place] [id number] Fillings, exams, cleanings, extractions (no wisdom teeth), front root canals. Sliding fee scale based on income. Bring 2 current pay stubs, current electric, gas, or phone bill with picture ID. By appointmentonly. Call 8 a.m. Sunday, , and Sunday for emergencies. [facility] [address] [place] [phone] Fillings, exams, cleanings, extractions (no wisdom teeth), front root canals. Sliding fee scale basedon income. Bring 2 current pay stubs, current electric, gas, or phone bill with picture ID. By appointment only. Emergency appointments available. [facility] [address] [place] [address] Extractions only. $10 donation per extraction requested. First come, first seen on Sunday nights. Doors open at 5 p.m. [facility] [address] [address] [address] [place] [address] Dental exams, fillings, extractions, and cleanings. Call onFridays to make an appointment for a later date. [facility] Sliding fee scale. Call for application. Please follow-up with a dental clinic of your choice. The following attachments cannot be sent through Care Everywhere. * TOOTH AND GUM PAIN ([place]IZEN [place]) in this encounter Assessments Diagnosis Syncope, unspecified syncope type - Primary Productive cough Cough Diagnosis Pain, dental - Primary Summary Purpose Family History No Family History Records FoundNo Family History Records FoundNo Family History Records FoundNo Family History Records FoundNo Family History Records FoundNo Family History Records FoundNo Family History Records FoundNo Family History Records FoundNo Family History Records FoundNo Family History Records Found Advance Directives No Advanced Directives Records Found Date Activated Date Inactivated Comments 2024 4:07 AM Instructions * Patient Instructions* Natalie Parks - 03/28/2019 2:45 PM EDT Outreach letter mailed to patient in regards to scheduling a pap. documented in this encounter Additional Source Comments ED Attestation Note - Vishal Alva MD - 02/12/2018 2:55 AM EDTED Provider Notes - Tong Castillo PA-C - 02/12/2018 1:09 AM EDTED Notes - Jennie Davis RN - 08/25/2017 4:46 PM EST Miscellaneous Notes (unrecog nized section and content) ED Attestation: I have reviewed the chart and agree with the documentation as recorded by the DEVORAH (Advanced Practice Provider), including the assessment, treatment plan, and disposition. I have reviewed the non physician practitioner's documentation, personally taken the patient's history, performed an exam and agree with the physical findings, clinical impression and management plan. I discussed case with him/her and agree with the assessment and plan. I was involved in all medical decision making in the patient's care. I saw and evaluated the patient. She was resting comfortably. She awakens quickly. She is neurologically intact. Tox screen was positive for cocaine, marijuana, amphetamines. Patient is encouraged to rest. She is encouraged to follow-up with . She will be given a referral to the transitional care clinic. Patient is further advised to return to the emergency department any concerns. She will be discharged home in stable condition. Vishal Alva M.D. (Please note that portions of this note may have been completed with a voice recognition software. Efforts were made to correct any errors, but occasionally words are mis-transcribed or grammatical errors occur.) Associated Order(s): ECG 12-LEAD Formatting of this note may be different from the original. ED PROVIDER NOTE [facility] NAME: Amira Nagy AGE: 27 y.o. : 1990 VISIT DATE: 02/12/2018 CSN: [id number] PCP: Physician No No chief complaint on file. History provided by: Patient 27-year-old female, smoker, without significant past medical history, presents for evaluation of cough and syncope. The patient states for the past 2- 1/2 months she has had a productive cough of yellow sputum. Denies other cold-like symptoms. Denies fevers, chills, sick contacts. Has not tried anything [id number]-cae-[id number] for her symptoms. The patient is also complaining of syncopal episodes. She states is been occurring over the past year but has been more frequent over the past month. She states that her only preceding symptoms are perioral and bilateral upper extremity numbness. She states when she slumps forward and jerks herself awake. She has not sought medical evaluation for these complaints. She denies any chest pain or shortness of breath with the symptoms. She denies any history of DVT or PE. She is not on control pills. She is no recent surgery or travel. No unilateral leg swelling, erythema, or pain. She is PERC negative. No history of anxiety. Denies feeling anxious when symptoms began. Arrives in no acute distress. Slightly hypertensive on arrival with a blood pressure of 145/94. Other vital signs are normal. Is resting comfortably on the cot operators school manager for evaluation. Past Medical History: Diagnosis Date Hypertension Past Surgical History: Procedure Laterality Date NO PAST SURGERIES History reviewed. No pertinent family history. Social History Social History Marital status: Single Spouse name: N/A Number of children: N/A Years of education: N/A Occupational History Not on file. Social History Main Topics Smoking status: Current Every Day Smoker Packs/day: 0.50 Types: Cigarettes Smokeless tobacco: Never Used Comment: 3 cig per day Alcohol use Yes Comment: occasional Drug use: No Sexual activity: Not on file Other Topics Concern Not on file Social History Narrative No narrative on file Previous Medications No medications on file No Known Allergies Review of Systems Constitutional: Negative. HENT: Negative. Eyes: Negative. Respiratory: Positive for cough. Cardiovascular: Negative. Gastrointestinal: Negative. Endocrine: Negative. Genitourinary: Negative. Musculoskeletal: Negative. Skin: Negative. Allergic/Immunologic: Negative. Neurological: Positive for syncope and numbness. Hematological: Negative. Psychiatric/Behavioral: Negative. Positives and pertinent negatives as per HPI. All other systems were reviewed and are negative. Patient Vitals for the past 24 hrs: BP Temp Temp src Pulse Resp SpO2 Weight 02/12/18 0013 - - - - - 100 % - 02/12/18 0012 (!) 145/94 98 F (36.7 C ) Oral 62 16 100 % - 02/12/18 0004 - - - - - - 56.3 kg (124 lb 1.6 oz) Physical Exam Constitutional: She is oriented to person, place, and time. She appears well-developed and well-nourished. HENT: Head: Atraumatic. Eyes: Conjunctivae are normal. Pupils are equal, round, and reactive to light. Neck: Normal range of motion. Neck supple. Cardiovascular: Regular rhythm and intact distal pulses. Pulmonary/Chest: Effort normal and breath sounds normal. No respiratory distress. She has no wheezes. She has no rales. She exhibits no tenderness. Abdominal: There is no tenderness. Musculoskeletal: Normal range of motion. Neurological: She is alert and oriented to person, place, and time. GCS eye subscore is 4. GCS verbal subscore is 5. GCS motor subscore is 6. Skin: Skin is warm and dry. Psychiatric: She has a normal mood and affect. Her behavior is normal. Nursing note and vitals reviewed. Laboratory & Radiographic Imaging (if done): Results for orders placed or performed during the hospital encounter of 02/12/18 BMP Result Value Ref Range Sodium 140 135 - 145 mmol/L Potassium 4.0 3.5 - 5.1 mmol/L Chloride 101 98 - 108 mmol/L Bicarbonate 23 21 - 32 mmol/L Anion Gap 20 10 - 20 mmol/L Glucose 110 (H) 65 - 99 mg/dL BUN 12 8 - 25 mg/dL Creatinine 0.54 0.40 - 1.10 mg/dL eGFR 132 >=60 mL/min/1.73 m2 BUN/Creatinine Ratio 22.2 (H) 10.0 - 20.0 Calcium 9.1 8.4 - 10.2 mg/dL POC Urine Result Value Ref Range POC Preg Test, Ur Negative Negative Internal Control Pass Spec Grav, UA 1.005 - 1.025 CBC Auto Differential Result Value Ref Range WBC 7.98 4.50 - 11.00 K/mcL RBC 3.96 (L) 4.00 - 5.20 M/mcL Hemoglobin 13.8 12.0 - 16.0 g/dL Hematocrit 39.6 36.0 - 46.0 % MCV 100.0 80.0 - 100.0 fL MCH 34.8 (H) 26.0 - 34.0 pg MCHC 34.8 31.0 - 37.0 g/dL Platelets 279 150 - 400 K/mcL RDW - CV 12.3 11.6 - 14.8 % MPV 9.0 9.0 - 15.5 fL Neutrophils 58.2 % Lymphocytes 25.8 % Monocytes 8.0 % Eosinophils 7.1 % Basophils 0.6 % IG Percent 0.30 % Neutrophils Abs 4.64 1.70 - 7.00 K/mcL Lymphocytes Abs 2.06 0.90 - 4.00 K/mcL Monocytes Abs 0.64 0.30 - 0.90 K/mcL Eosinophils Abs 0.57 (H) 0.00 - 0.50 K/mcL Basophils Abs 0.05 0.00 - 0.30 K/mcL IG Absolute 0.02 0.00 - 0.30 K/mcL Nucleated RBC 0.0 % Nucleated RBC Abs 0.00 0.00 - 0.00 K/mcL XR Chest AP/PA and LAT Final Result No acute process. Workstation ID: [id number] EKG 12-lead Date/Time: 02/12/2018 12:19 AM Performed by: TONG CASTILLO Authorized by: CUCO BRAMBILA Interpreted by ED attending physician Rhythm: sinus rhythm BPM: 78 Conduction: conduction normal T Inversion: aVL and V1 Clinical impression: abnormal ECG and non-specific ECG MDM 27-year-old female presents with intermittent episodes of syncope 1 year with a productive cough 2 months. Her cardiac evaluation here including an EKG showing T-wave inversions in aVL and V1, no evidence for arrhythmia. Her basic metabolic panel shows minimal elevation glucose of 110. BUN to creatinine ratio elevated at 22.2. CBC low red blood cell count 3.96. Tqqec-dy-hxnu urine is negative. Urinalysis and urine drug screen are pending. Two-view chest x-ray shows no acute process. She has been asymptomatic here in the emergency department. Is unclear if the patient is having true syncope as she states that she merely nods off and jerks at this point, I feel she is safe for discharge home. She does not presently have a family physician and so I have given her referral information to follow-up with the [facility] transition of care clinic. She continues to have these symptoms, she will likely require a referral to cardiology, potential use of a Holter monitor for further evaluation. Herself awake. Preceding symptoms sound consistent with potentially anxiety or panic attack with. Will level and bilateral upper extremity numbness. At this point, my attending physician will be taking over the care of this patient. Anticipated discharge will be home if her workup is negative discussed with the patient and she agrees. . Clinical Impression: SNOMED CT(R) 1. Syncope, unspecified syncope type SYNCOPE 2. Productive cough PRODUCTIVE COUGH Follow-up Information 1. [facility] Emergency Department. Specialty: Emergency Medicine Why: As needed, If symptoms worsen [address] [address] 2. [facility]. Specialty: Transition of Care Why: for hospital follow up [address] [id number] Contact information for after-discharge care Follow-up information has not been specified. New Prescriptions No medications on file (Please note that portions of this note may have been completed with a voice recognition software. Efforts were made to correct any errors, but occasionally words are mis-transcribed.) Tong Castillo PA-C 02/12/18 0140 Lightheadedness and syncopal episodes past month along with a productive cough.in this encounter Formatting of this note may be different from the original. I personally interviewed the patient. I personally examined the patient. I discussed the patient with COSMETIC SALES ADVISOR/PA. I agree with the COSMETIC SALES ADVISOR/PA treatment plan. I agree with the COSMETIC SALES ADVISOR/PA plan of care. I agree with the COSMETIC SALES ADVISOR/PA dispo as documented. 26-year-old female presents emergency department today with dental pain. The patient says the left upper tooth, referring to her more has been bothering her for a month. She came today because the outpatient dental office was going to charge her $200, which she could not afford. She came here because it is free . Patient says that she has been taking Tylenol brand pain medicine. Patient denies any fevers. She denies any difficulty swallowing. Patient does not appear to be in any distress. On exam today, the patient appears to have a fracture to the left upper molar. There is no bleeding. I do not see any evidence of an abscess. Patient's chemistries without difficulty. Uvula is midline. No obvious lymphadenopathy. Does have a couple other dental cavities with fillings in place. No laboratory studies or imaging necessary at this time. Patient will be given prescription for antibiotic and pain medication. Typical side effect profile of the medication was discussed. Patient is not to drive, operate machinery, or drink alcohol while taking pain medication. The patient was advised of the risks and benefits of opioid medications, including the potential for addiction. Also given multiple referrals for dental evaluation going forward. Discussed with her that this is not a solution to her issue. Return precautions were given. Discussed with the patient that if they have worsening symptoms or other concerns, they are to seek medical attention. They voiced understanding and have no further questions. Patient Vitals for the past 24 hrs: BP Temp Temp src Pulse Resp SpO2 Height Weight 08/25/17 1609 (!) 146/94 98.1 F (36.7 C ) Oral 80 16 97 % 5' 1 59 kg (130 lb) Medications Administered (if any) Medications - No data to display Laboratory Results Labs Reviewed - No data to display Imaging Results No orders to display Procedures . Dr Mary Jo maier. Formatting of this note may be different from the original. ED PROVIDER NOTE [facility] EM[facility]ENCY [facility]PART[facility] NAME: Amira Nagy AGE: 26 y.o. : 1990 VISIT DATE: 08/25/2017 CSN: [id number] PCP: Physician No Chief Complaint Patient presents with Dental Pain History provided by: Patient History of present illness on a 26-year-old female who presents to the emergency department with left upper molar dental pain for the last week. Patient reports she has had problems with this tooth over the last year however, pain is increased over the last week. Patient states that she has been taking asxf-dej-ctvmtlc medicines and managing her pain but without taking analgesics her pain is usually about an 8 or 9 out of 10, she describes it as throbbing and constant without medication. Patient denies any fever or chills. Patient does report she attempted to see an emergency dentist today however did not have the money available. Past Medical History: Diagnosis Date Hypertension Past Surgical History: Procedure Laterality Date NO PAST SURGERIES History reviewed. No pertinent family history. Social History Social History Marital status: Single Spouse name: N/A Number of children: N/A Years of education: N/A Occupational History Not on file. Social History Main Topics Smoking status: Current Every Day Smoker Packs/day: 0.00 Types: Cigarettes Smokeless tobacco: Not on file Comment: 3 cig per day Alcohol use Yes Comment: occasional Drug use: No Sexual activity: Not on file Other Topics Concern Not on file Social History Narrative Previous Medications No medications on file No Known Allergies Review of Systems Constitutional: Negative for chills and fever. HENT: Positive for dental problem. Negative for ear pain, sinus pressure and sore throat. Eyes: Negative for pain and visual disturbance. Respiratory: Negative for cough, chest tightness and shortness of breath. Cardiovascular: Negative for chest pain and palpitations. Gastrointestinal: Negative for abdominal pain, constipation, diarrhea, nausea and vomiting. Genitourinary: Negative for dysuria, flank pain and hematuria. Musculoskeletal: Negative for myalgias. Skin: Negative for rash. Neurological: Negative for dizziness, syncope, weakness, light-headedness, numbness and headaches. Psychiatric/Behavioral: Negative. Negative for hallucinations. All other systems reviewed and are negative. Positives and pertinent negatives as per HPI. All other systems were reviewed and are negative. Patient Vitals for the past 24 hrs: BP Temp Temp src Pulse Resp SpO2 Height Weight 08/25/17 1609 (!) 146/94 98.1 F (36.7 C ) Oral 80 16 97 % 5' 1 59 kg (130 lb) Physical Exam Constitutional: She is oriented to person, place, and time. She appears well-developed and well-nourished. HENT: Head: Normocephalic and atraumatic. Mouth/Throat: Eyes: EOM are normal. Neck: Normal range of motion. Neck supple. Cardiovascular: Normal rate, regular rhythm, normal heart sounds and intact distal pulses. Exam reveals no gallop and no friction rub. No murmur heard. Pulmonary/Chest: Effort normal and breath sounds normal. No respiratory distress. She has no wheezes. She has no rales. She exhibits no tenderness. Abdominal: Soft. Bowel sounds are normal. She exhibits no distension. There is no tenderness. Musculoskeletal: Normal range of motion. Neurological: She is alert and oriented to person, place, and time. Skin: Skin is warm and dry. Capillary refill takes less than 3 seconds. Psychiatric: She has a normal mood and affect. Her behavior is normal. Judgment and thought content normal. Nursing note and vitals reviewed. Laboratory & Radiographic Imaging (if done): No results found for this visit on 08/25/17. No orders to display Procedures MDM Medical decision making on a 26-year-old female who presents to the emergency department with dental pain. Patient is nontoxic in appearance she is slightly hypertensive with a blood pressure 146/94 which may be attributed to her discomfort, pulse rate 80 she is afebrile 97% on room air. Assessment as above. I will place the patient on amoxicillin and provide her a short prescription for [facility] as well as free dental clinics. Patient has been instructed to return for worsening symptoms or other concerns. ED Course . Clinical Impression: SNOMED CT(R) 1. Pain, dental TOOTHACHE Follow-up Information Follow-up information has not been specified. New Prescriptions AMOXICILLIN (AMOXIL) 875 MG TABLET Take 1 (one) tablet (875 mg total) by mouth 2 (two) times a day for 10 days. HYDROCODONE-ACETAMINOPHEN (NORCO) 5-325 MG PER TABLET Take 1 (one) tablet by mouth every 8 (eight) hours as needed. (Please note that portions of this note may have been completed with a voice recognition software. Efforts were made to correct any errors, but occasionally words are mis-transcribed.) Cookie Hightower, CORE STICKER 08/25/17 1651 Cookie LONGO [facility]. Pt reports she almost passed out twice today d/t dental pain. Pt reports she has been dealing with this for almost a year. Pt states i have to have something in my system or the pain is so bad I pass out. in this encounter INFORMATION SOURCE (unrecogn ized section and content) DATE CREATED AUTHOR 03/27/2018 [facility] DATE CREATED AUTHOR AUTHOR'S ORGANIZ ATION 04/02/2018 [facility] DATE CREATED AUTHOR AUTHOR'S ORGANIZ ATION 04/03/2018 [facility] DATE CREATED AUTHOR AUTHOR'S ORGANIZ ATION 12/18/2018 [facility] DATE CREATED AUTHOR AUTHOR'S ORGANIZ ATION 02/02/2019 [facility] DATE CREATED AUTHOR AUTHOR'S ORGANIZ ATION 03/07/2019 [facility] DATE CREATED AUTHOR AUTHOR'S ORGANIZ ATION 06/04/2019 [facility] DATE CREATED AUTHOR AUTHOR'S ORGANIZ ATION 08/25/2019 [facility] DATE CREATED AUTHOR AUTHOR'S ORGANIZ ATION 05/05/2020 [facility] DATE CREATED AUTHOR AUTHOR'S ORGANIZ ATION 10/22/2024 [facility] Ordered Prescriptions (unrec ognized section and content) Prescription Sig Dispensed Refills Start Date End Da te fluconazole (DIFLUCAN) 150 MG tablet Take 1 tablet by mouth once for 1 dose 1 tablet 10/20/2024 10/20/2024 amoxicillin-clavulanate (AUGMENTIN) 875-125 MG per tablet Take 1 tablet by mouth 2 times daily for 7 days 14 tablet 10/20/2024 10/27/2024 HYDROcodone-acetaminophe n (NORCO) 5-325 MG per tabletIndications:Absces s, gluteal, left Take 1 tablet by mouth every 6 hours as needed for Pain for up to 3 days. Max Daily Amount: 4 tablets 12 tablet 10/20/2024 10/23/2024 Scheduled Active and Recently Administ ered Medications (unrecognized section and content) Medication Order 10/18/2024 10/19/2024 10/20/2024 amphetamine-dextroamphet amine (ADDERALL) tablet 30 mg 30 mg, Oral, 2 TIMES DAILY, First dose on Sun10/17/24 at 2100, Until Discontinued 0848 (Given - Provider: Anjelica Fairbanks RN)2150 (Given - Provider: Valdemar King RN) 0727 (Given - Provider: Helena Parrish, ANNA)2024 (Given - Provider: Abdi Liu RN) 0843 (Given - Provider: Gloria Desai, ANNA)2100 (Due) FLUoxetine (PROZAC) capsule 60 mg 60 mg, Oral, DAILY, First dose on Sun10/17/24 at 1615, Until Discontinued 0848 (Given - Provider: Anjelica Fairbanks RN) 0726 (Given - Provider: Helena Parrish RN) 0843 (Given - Provider: Gloria Desai, ANNA) lamoTRIgine (LAMICTAL) tablet 100 mg 100 mg, Oral, DAILY, First dose on Sun10/17/24 at 1615, Until Discontinued 0848 (Given - Provider: Anjelica Fairbanks RN) 0726 (Given - Provider: Helena Parrish, ANNA) 0844 (Given - Provider: Gloria Desai, ANNA) lidocaine PF 1 % injection 10 mL 10 mL, IntraDERmal, ONCE, 1 dose, On Sun10/18/24 at 1815, Please leave at bedside 1815 (Due) piperacillin-tazobactam (ZOSYN) 3,375 mg in sodium chloride 0.9 % 50 mL IVPB (mini-bag) (CANCELED) 3,375 mg, IntraVENous, EVERY 8 HOURS, First dose on Sun10/17/24 at 2100, Until Discontinued, Antimicrobial Indications: vessel welder Infection 0127 (Stopped - Provider: Rosibel Villar RN)0533 (New Bag - Provider: Rosibel Villar RN)0933 (Stopped - Provider: Anjelica Fairbanks RN)1527 (New Bag - Provider: Anjelica Fairbanks RN)1930 (Stopped - Provider: Valdemar King, ANNA)215 (New Bag - Provider: Valdemar King RN) 0152 (Stopped - Provider: Valdemar King RN)0503 (New Bag - Provider: Valdemar King RN)0903 (Stopped - Provider: Helena Parrish RN)1459 (New Bag - Provider: Helena Parrish RN)1922 (Stopped - Provider: Abdi Liu RN)2145 (New Bag - Provider: Abdi Liu RN) 0152 (Stopped - Provider: Abdi Liu RN)0515 (New Bag - Provider: Abdi Liu RN)0918 (Stopped - Provider: Gloria Desai, ANNA) sodium chloride flush 0.9 % injection 5-40 mL 5-40 mL, IntraVENous, EVERY 12 HOURS SCHEDULED (2 times per day), First dose on Sun10/17/24 at 0900, Until Discontinued, For Line Patency: Peripheral IV = 5 mL; Midline or Central Line = 10 mL/lumen. If following IV push medication, administer flush at same rate as the IV push. Flush volume is determined by type of infusion therapy being given. For non-viscous solutions use: Peripheral IV = 5 mL Midline or Central Line = 10 mL/lumen For viscous solutions (i.e. blood components, parenteral nutrition, contrast media, or after obtaining blood sample) use: Peripheral IV = 10 mL Midline or Central Line = 20 mL/lumen 0849 (Not Given - Provider: Anjelica Fairbanks RN - Reason: IV Fluid Infusing)2155 (Not Given - Provider: Valdemar King RN - Reason: IV Fluid Infusing) 0727 (Not Given - Provider: Helena Parrish RN - Reason: IV Fluid Infusing)2124 (Not Given - Provider: Abdi Liu RN - Reason: IV Fluid Infusing) 0848 (Given - Provider: Gloria Desai RN)2100 (Due) vancomycin (VANCOCIN) 1,000 mg in sodium chloride 0.9 % 250 mL IVPB ([id number]) (CANCELED) 1,000 mg (15.2 mg/kg), IntraVENous, at 250 mL/hr, Administer over 60 Minutes, EVERY 12 HOURS, First dose on Sun10/17/24 at 1430, For 7 days, Use 20mm (Blue) [id number] Adapter Preparation instructions: Attach medication vial to one 20mm (Blue) [id number] adapter. Bob fluid bag with adapter, mix, and administer per order. 0251 (New Bag - Provider: Rosibel Villar RN)0351 (Stopped - Provider: Rosibel Villar RN)1356 (New Bag - Provider: Anjelica Fairbanks, RN)1456 (Stopped - Provider: Anjelica Fairbanks, RN) 0236 (New Bag - Provider: Valdemar King, RN)0338 (Stopped - Provider: Valdemar King, RN)2027 (New Bag - Provider: Abdi Liu RN)213 (Stopped - Provider: Abdi Liu RN) 0214 (New Bag - Provider: Abdi Liu RN)032 (Stopped - Provider: Abdi Liu RN) PRN Medication Order 10/18/2024 10/19/2024 10/20/2024 0.9 % sodium chloride infusion IntraVENous, at 5-250 mL/hr, PRN, if patient receiving piggyback infusions and maintenance fluids are not ordered, Starting on Sun10/17/24 at 0356, For piggyback infusion, administer at same rate as piggyback for a total of 25 mL. Enter 25 mL into dose field and piggyback rate into rate field of order. If piggyback is infusing at a rate less than 100 mL/hr, enter 25 mL into dose field and 100 mL/hr into rate field of order. acetaminophen (TYLENOL) suppository 650 mg(Linked Group 1) 650 mg, Rectal, EVERY 6 HOURS PRN, Starting on Sun10/17/24 at 0356, Until Discontinued, Pain Mild (1-3), Fever, For temp greater than 100.4 F (38 C), Administer if oral route cannot be used. acetaminophen (TYLENOL) tablet 650 mg(Linked Group 1) 650 mg, Oral, EVERY 6 HOURS PRN, Starting on Sun10/17/24 at 0356, Until Discontinued, Pain Mild (1-3), Fever, For temp greater than 100.4 F (38 C), Maximum dose of acetaminophen is 4000 mg from all sources in 24 hours. clonazePAM (KLONOPIN) tablet 0.5 mg 0.5 mg, Oral, DAILY PRN, Starting on Sun10/17/24 at 1548, Until Discontinued, Anxiety HYDROcodone-acetaminophen (NORCO) 5-325 MG per tablet 1 tablet 1 tablet, Oral, EVERY 6 HOURS PRN, Starting on Sun10/17/24 at 0407, Until Discontinued, Pain Severe (7-10), Maximum dose of acetaminophen is 4000 mg from all sources in 24 hours. 0255 (Given - Provider: Rosibel Villar RN)0853 (Given - Provider: Anjelica Fairbanks, RN)1732 (Given - Provider: Anjelica Fairbanks, RN) 0003 (Given - Provider: Valdemar King, RN)0727 (Given - Provider: Helena Parrish, ANNA) 0518 (Given - Provider: Abdi Liu RN) magnesium sulfate 1000 mg in dextrose 5% 100 mL IVPB 1,000 mg, IntraVENous, at 100 mL/hr, Administer over 1 Hours, PRN, Other, Per IV Magnesium Replacement Protocol, Starting on Sun10/17/24 at 0356, Mg Lab Replacement Action 1.4-1.6 1 gram IVPB x 2 doses (2 gram Total) 1.0-1.3 1 gram IVPB x 4 doses (4 gram Total) <1.0 CALL PHYSICIAN and 1 gram IVPB x 4 doses (4 gram Total) Infuse at 1 gram/hr Repeat Mag level next AM Protocol not for use in Patients with CrCl<30ml/min ondansetron (ZOFRAN) injection 4 mg(Linked Group 2) 4 mg, IntraVENous, EVERY 6 HOURS PRN, Starting on Sun10/17/24 at 0356, Until Discontinued, Nausea, Vomiting, Administer if oral route cannot be used. ondansetron (ZOFRAN-ODT) disintegrating tablet 4 mg(Linked Group 2) 4 mg, Oral, EVERY 8 HOURS PRN, Starting on Sun10/17/24 at 0356, Until Discontinued, Nausea, Vomiting polyethylene glycol (GLYCOLAX) packet 17 g 17 g, Oral, DAILY PRN, Starting on Sun10/17/24 at 0356, Until Discontinued, Constipation, First line therapy for constipation potassium bicarb-citric acid (EFFER-K) effervescent tablet 40 mEq(Linked Group 3) 40 mEq, Oral, PRN, Starting on Sun10/17/24 at 0356, Until Discontinued, Per Potassium Replacement Protocol, Administer as alternative if patient unable to tolerate oral tablet. K Lab Replacement Action 3.1 to 3.5 40 mEq ORAL x 1 Under 3.1 Refer to IV replacement protocol Recheck K level in AM. Protocol not for use in patients with CrCl less than 30 mL/min. Do not chew or crush. Dissolve flavored tablets completely in 3 to 4 ounces of cold water; unflavored tablets may be dissolved in 3 to 4 ounces of cold juice. Patient to sip slowly over a 5 to 10 minute period. May further dilute if GI adverse effects occur. potassium chloride (KLOR-CON M) extended release tablet 40 mEq(Linked Group 3) 40 mEq, Oral, PRN, Starting on Sun10/17/24 at 0356, Until Discontinued, Potassium Replacement, May give alternative linked oral order (ordered as effervescent, packet, or liquid solution) if patient unable to tolerate tablet. K Lab Replacement Action 3.1 to 3.5 40 mEq ORAL x 1 Under 3.1 Refer to IV replacement protocol Recheck K level in AM. Protocol not for use in patients with CrCl less than 30 mL/min. Do not crush, chew, or suck on tablet. Tablet may also be broken in half and each half swallowed separately. potassium chloride 10 mEq/100 mL IVPB (Peripheral Line)(Linked Group 3) 10 mEq, IntraVENous, PRN, Starting on Sun10/17/24 at 0356, Until Discontinued, at 100 mL/hr, Potassium Replacement, K Lab Replacement Action 2.7-3.0 10 mEq IVPB x 6 doses (60 mEq Total) < 2.7 CALL PHYSICIAN and 10 mEq IVPB x 6 doses (60 mEq Total) Infuse at 10 mEq/hr Repeat Potassium lab 1 hour after final administration. Not for use in patients with CrCl less than 30 mL/min. sodium chloride flush 0.9 % injection 10 mL 10 mL, IntraVENous, PRN, Starting on Sun10/17/24 at 0356, Until Discontinued, Line Care, After every IV line use Linked Groups Order Group 1: acetaminophen (TYLENOL) tablet 650 mgJump to med 650 mg, Oral, EVERY 6 HOURS PRN, Starting on Sun10/17/24 at 0356, Until Discontinued, Pain Mild (1-3), Fever, For temp greater than 100.4 F (38 C), Maximum dose of acetaminophen is 4000 mg from all sources in 24 hours. Or acetaminophen (TYLENOL) suppository 650 mgJump to med 650 mg, Rectal, EVERY 6 HOURS PRN, Starting on Sun10/17/24 at 0356, Until Discontinued, Pain Mild (1-3), Fever, For temp greater than 100.4 F (38 C), Administer if oral route cannot be used. Group 2: ondansetron (ZOFRAN-ODT) disintegrating tablet 4 mgJump to med 4 mg, Oral, EVERY 8 HOURS PRN, Starting on Sun10/17/24 at 0356, Until Discontinued, Nausea, Vomiting Or ondansetron (ZOFRAN) injection 4 mgJump to med 4 mg, IntraVENous, EVERY 6 HOURS PRN, Starting on Sun10/17/24 at 0356, Until Discontinued, Nausea, Vomiting, Administer if oral route cannot be used. Group 3: potassium chloride (KLOR-CON M) extended release tablet 40 mEqJump to med 40 mEq, Oral, PRN, Starting on Sun10/17/24 at 0356, Until Discontinued, Potassium Replacement, May give alternative linked oral order (ordered as effervescent, packet, or liquid solution) if patient unable to tolerate tablet. K Lab Replacement Action 3.1 to 3.5 40 mEq ORAL x 1 Under 3.1 Refer to IV replacement protocol Recheck K level in AM. Protocol not for use in patients with CrCl less than 30 mL/min. Do not crush, chew, or suck on tablet. Tablet may also be broken in half and each half swallowed separately. Or potassium bicarb-citric acid (EFFER-K) effervescent tablet 40 mEqJump to med 40 mEq, Oral, PRN, Starting on Sun10/17/24 at 0356, Until Discontinued, Per Potassium Replacement Protocol, Administer as alternative if patient unable to tolerate oral tablet. K Lab Replacement Action 3.1 to 3.5 40 mEq ORAL x 1 Under 3.1 Refer to IV replacement protocol Recheck K level in AM. Protocol not for use in patients with CrCl less than 30 mL/min. Do not chew or crush. Dissolve flavored tablets completely in 3 to 4 ounces of cold water; unflavored tablets may be dissolved in 3 to 4 ounces of cold juice. Patient to sip slowly over a 5 to 10 minute period. May further dilute if GI adverse effects occur. Or potassium chloride 10 mEq/100 mL IVPB (Peripheral Line)Jump to med 10 mEq, IntraVENous, PRN, Starting on Sun10/17/24 at 0356, Until Discontinued, at 100 mL/hr, Potassium Replacement, K Lab Replacement Action 2.7-3.0 10 mEq IVPB x 6 doses (60 mEq Total) < 2.7 CALL PHYSICIAN and 10 mEq IVPB x 6 doses (60 mEq Total) Infuse at 10 mEq/hr Repeat Potassium lab 1 hour after final administration. Not for use in patients with CrCl less than 30 mL/min. FOR RECORDS PERTAINING TO PATIENTS WHO ARE OR HAVE BEEN ENROLLED IN A CHEMICAL DEPENDENCY/SUBSTANCEABUSE PROGRAM, SOME INFORMATION MAY BE OMITTED. This clinical summary was aggregated from multiple sources. Caution should be exercised in using it in the provision of clinical care. This summary normalizes information from multiple sources, and as a consequence, information in this document may materially change the coding, format and clinical context of patient data. In addition, data may be omitted in some cases. CLINICAL DECISIONS SHOULD BE BASED ON THE PRIMARY CLINICAL RECORDS. [facility]. provides no warranty or guarantee of the accuracy or completeness of information in this document.
--- NOTE | 2024-11-10 00:25 | ED.GENADUL1 ---
HPI HPI - General Adult General Chief complaint: Skin/Abscess/Foreign Body Stated complaint: SKIN ABSCESS Time Seen by Provider: 11/09/24 23:53 Source: patient Mode of arrival: walk-in Limitations: no limitations History of Present Illness HPI narrative: The patient is an otherwise healthy 34-year-old female who presents to the emergency department secondary to left gluteal abscess. The patient originally presented in early October for left gluteal abscess. She was apparently admitted to the [facility] for 2 days and then was transferred to [place]. She stated that she had an I&D there and then was packed with iodoform gauze for several days. She states that she was discharged on antibiotics but only for 7 days and she has been off antibiotics for over a week. She is not certain what type of antibiotic she was placed on. The patient states that she was not given any follow-up instructions to follow-up with the surgeon or physician following her hospital discharge and she did not leave AGAINST MEDICAL ADVICE. She states recently she started develop a low-grade fever with a temperature of 100 and chills and she states that she feels disproportionately tired for no reason. Pain is moderate in sensation. Sitting on it or touching it makes it worse. Nothing makes it better. It is still draining. Incidentally, the patient states that she has had some diarrhea that began since leaving the hospital. She attributed to antibiotic use. She is not complaining of any abdominal pain. No nausea or vomiting. The patient is from [facility] and will be returning home in about 2 weeks. Related Data Home Medications ?Medication ?Instructions ?Recorded ?Confirmed clonazepam 0.5 mg tablet 1 mg PO DAILY 10/11/24 10/11/24 dextroamphetamine-amphetamine ER 30 mg PO DAILY 10/11/24 10/11/24 30 mg 24hr capsule,extend release (Adderall XR) fluoxetine 40 mg capsule (Prozac) 60 mg PO DAILY 10/11/24 10/11/24 lamotrigine 100 mg tablet 100 mg PO DAILY 10/11/24 10/11/24 (Lamictal) mirtazapine 45 mg tablet 45 mg PO BEDTIME 10/11/24 10/11/24 Previous Rx's ?Medication ?Instructions ?Recorded ketorolac 10 mg tablet 10 mg PO TID PRN pain #10 tabs 10/11/24 methocarbamol 750 mg tablet 750 mg PO TID PRN pain #20 tabs 10/11/24 methylprednisolone 4 mg tablets in See Rx Instructions .Route 10/11/24 a dose pack (Medrol (Jhon)) .COMPLEX #21 ea cephalexin 500 mg tablet 500 mg PO Q6H 7 days #28 tabs 11/10/24 sulfamethoxazole 800 1 tab PO BID 7 days #14 tabs 11/10/24 mg-trimethoprim 160 mg tablet (Bactrim DS) Allergies Allergy/AdvReac Type Severity Reaction Status Date / Time No Known Drug Allergies Allergy Verified 11/09/24 23:43 Opioid HPI Opioid Management Most Recent Opioid Data: Last Pain Scale 3 10/17/24 02:00 10/17/24 Last ORT Total Score 14 10/16/24 12:21 10/16/24 Last ORT Risk Category High Risk 10/16/24 12:21 10/16/24 Review of Systems ROS Status of ROS 10 or more systems reviewed and unremarkable except as noted in history and below PFS PFS Medical History Sciatic pain ?M54.30 - Sciatica, unspecified side (ICD-10) Surgical History (Updated 10/11/24 @ 16:50 by Fanny Goss RN) History of bunionectomy ?Z98.890 - Other specified postprocedural states (ICD-10) Hx of breast reduction, elective ?Z98.890 - Other specified postprocedural states (ICD-10) Family History (Updated 10/16/24 @ 16:01 by Chloé Ford) Grandmother Family history of cancer Family history of diabetes mellitus Family history of stroke Grandfather Family history of cancer Family history of diabetes mellitus Mother Family history of hypertension Aunt Family history of COPD (chronic obstructive pulmonary disease) Family history of stroke Social History (Updated 10/16/24 @ 16:02 by Chloé Ford) Within the past year, how often did you have a drink containing alcohol: monthly or less Within the past year, how many standard drinks containing alcohol did you have on a typical day: 1 or 2 Within the past year, how often did you have six or more drinks on one occasion: never Total score: 0 Score interpretation: A score less than 3 is consistent with normal alcohol consumption. Smoking status: Former smoker Do you use any of these nicotine containing products: vaping products Non-prescribed substance use: denies use Previous occupational history: unemployed. Known occupational exposures/hazards: No Highest level of school completed/degree received: 10th grade Do you want help with school or training: No Are you now , , , , never or living with a partner: don't know In a typical week, how many times do you talk on the telephone with family, friends, or neighbors: 3 or more times per week How often do you get together with friends or relatives: 3 or more times per week How often do you attend yazidism or mandaeism services: never Do you belong to any clubs or organizations such as yazidism groups unions, [employer] or athletic groups, or school groups: no Total score: 1 Score interpretation: A score of less than or equal to 1 indicates the most socially isolated. Little interest or pleasure in doing things: not at all Feeling down, depressed, or hopeless: not at all Feel stressed/tense/nervous/anxious/difficulty sleeping: very much Life stressors: loss of job, financial matters, legal matters and unknown source of stress Due to disability, difficulty making decisions: No Do you think of yourself as: lesbian/cintron/homosexual Gender Identity: female Exam Narrative Exam Narrative: Prior to examining the patient, I have washed with hospital approved and provided Antiseptic Hand Client Relations Specialist and have also applied gloves.? Prior to touching the patient, I asked for consent to examine the patient.? General: Alert and oriented, well nourished, mild distress. Eye: PERRL, EOMI, normal conjunctiva. HENT: Normocephalic, normal hearing, moist oral mucosa, no scleral icterus Lungs: Clear to auscultation and percussion, non-labored respiration. Heart: Normal rate, regular rhythm, no murmur, gallop or edema. Musculoskeletal: Normal range of motion and strength, no tenderness or swelling. Skin: Skin is warm, dry and pink, no rashes or lesions. Left buttock has a small indurated area the size of a quarter. It is open about a pencil eraser size. It is actively draining. There is no fluctuance appreciated. Neurologic: Awake, alert, and oriented X3, CN II-XII intact. Psychiatric: Cooperative, appropriate mood and affect.? Following the conclusion of the examination, I have washed my hands thoroughly after removing examination gloves. Constitutional Vital Signs, click to edit/add: Last Vital Signs Temp 98.4 F 11/09/24 23:43 Pulse 97 H 11/09/24 23:43 Resp 18 11/09/24 23:43 BP 168/105 H 11/09/24 23:43 Pulse Ox 99 11/09/24 23:43 O2 Del Method Room Air 11/09/24 23:43 Course Course Hospital Course: Patient is a 34-year-old female who presents to the emergency department with concerns of worsening left buttock abscess. Patient's had recent complicated hospital admission for this. But he is becoming more painful and it was draining more so she wanted to get it assessed. The patient at this time does not have any need for an IUD. Her vital signs are stable. The patient appears nontoxic. It is really a unremarkable appearing abscess that is already draining. At this time the patient really needs to be placed back on antibiotic therapy. We will give her Bactrim DS as well as Keflex. Will give her hydrocodone for analgesic management. Patient is satisfied with his treatment plan and will follow-up with her primary care physician. Patient is however visiting from [facility]. So I did encourage her to either establish care here and be seen again before she goes or she must be seen as soon as she returns. Vital Signs Vital signs: Vital Signs Temperature 98.4 F 11/09/24 23:43 Pulse Rate 97 H 11/09/24 23:43 Respiratory Rate 18 11/09/24 23:43 Blood Pressure 168/105 H 11/09/24 23:43 Pulse Oximetry 99 11/09/24 23:43 Oxygen Delivery Method Room Air 11/09/24 23:43 Temperature 98.4 F 11/09/24 23:43 Pulse Rate 97 H 11/09/24 23:43 Respiratory Rate 18 11/09/24 23:43 Blood Pressure 168/105 H 11/09/24 23:43 Pulse Oximetry 99 11/09/24 23:43 Oxygen Delivery Method Room Air 11/09/24 23:43 Medical Decision Making MDM Narrative Medical decision making narrative: 34-year-old female presents to the emergency department for an abscess. The abscess is open and continues to drain. There is some induration but no evidence of fluctuance. Therefore, the patient does not require I&D. She is going to necessitate replacing her on antibiotic therapy with a limited amount of analgesic medication. Patient expresses verbal understanding. Differential Diagnosis Differential Diagnosis: Abscess, necrotizing fasciitis, cellulitis, foreign body Medical Records Medical records reviewed: Yes I reviewed the patient's medical records (I specifically reviewed the CT scan on this patient from the first evaluati) Lab Data Lab results reviewed: Yes I reviewed the patient's lab results Lab results narrative: White blood cell count is improving from 27,000-18,000. Discharge Plan Discharge Chief Complaint: Skin/Abscess/Foreign Body Clinical Impression: Abscess, gluteal, left Patient Disposition: Home, Self-Care Time of Disposition Decision: 00:31 Condition: Good Mode of Transportation: Private Vehicle Prescriptions / Home Meds: New sulfamethoxazole-trimethoprim [Bactrim DS] 800-160 mg tablet 1 tab PO BID 7 Days Qty: 14 0RF cephalexin 500 mg tablet 500 mg PO Q6H 7 Days Qty: 28 0RF No Action fluoxetine [Prozac] 40 mg capsule 60 mg PO DAILY lamotrigine [Lamictal] 100 mg tablet 100 mg PO DAILY dextroamphetamine-amphetamine [Adderall XR] 30 mg capsule,extended release 24hr 30 mg PO DAILY clonazepam 0.5 mg tablet 1 mg PO DAILY mirtazapine 45 mg tablet 45 mg PO BEDTIME ketorolac 10 mg tablet 10 mg PO TID PRN (Reason: pain) Qty: 10 0RF methocarbamol 750 mg tablet 750 mg PO TID PRN (Reason: pain) Qty: 20 0RF methylprednisolone [Medrol (Jhon)] 4 mg tablets,dose pack See Rx Instructions .ROUTE .COMPLEX Qty: 21 0RF Rx Instructions: Taper as directed Print Language: Czech Instructions: Abscess Follow-up (ED) Additional Instructions: Thank you for trusting me with your care. The plan will be for you to reinitiate antibiotic therapy. You are correct and assuming that the diarrhea that you are having is likely from the antibiotics. You can help reduce this by using probiotics or yogurt. Please take your antibiotics as directed until they are completed. If your abdomen becomes painful or if you are diarrhea becomes yellow or mucus-like you should return to the emergency department for further evaluation. Otherwise take your pain medication as directed. It would be helpful if he used it with ibuprofen and you will need less pain medications as a result. Continue to use heat packs on it to help dry out any further infection. As we discussed, continue to use a loofah or a washcloth to clean the outside very well to keep the abscess open and continuing to drain. Referrals: Physician,Non-Staff, [Primary Care Provider] - 1 week Discharge Date/Time: 11/10/24 00:56
[2024-11-10] MEDS: SULFAMETHOXAZOLE/TRIMETHOPRIM 800-160 MG TABLET 1 TAB PO (00:48)
[2024-11-10] MEDS: CEPHALEXIN 500 MG CAPSULE PO (00:48)
[2024-11-10] MEDS: HYDROCODONE/ACETAMINOPHEN 7.5-325 MG/15 ML CUP 7.5 MG PO (00:48)
--- NOTE | 2024-11-10 00:54 | PC.NURSE ---
i gave this patient verbal and written discharge orders along with 2 e-scripts and this patient voices yes to understanding these. at time of discharge this patient voices no concerns and shows no distress
== END 2024-11-10 00:56 | disposition home or self-care (01) ==
PROVIDERS: Emergency Provider Emergency Medicine
DX: L02.31 Cutaneous abscess of buttock (principal); Z87.891 Personal history of nicotine dependence
CPT/HCPCS: 99284

== ENCOUNTER 2025-01-15 16:24 | Emergency (ER) | payer SELFPAY ==
[2025-01-15 16:28] VITALS: BP 145/85; PULSE 100; TEMP 36.6; O2SAT 95; BMI 54.2
--- OUTSIDE RECORDS SUMMARY | 2025-01-15 16:38 | XMS_ITS | CCD ---
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 fraction] 33.6 % Low 36.3 - 47.1 % [facility] Hemoglobin (Bld) [Mass/Vol] 11.7 g/dL Low 11.9 - 15.1 g/dL [facility] Immature granulocytes (Bld) [#/Vol] 0.08 10*3/uL [facility] Immature granulocytes/100 WBC (Bld) 1 % High 0 [facility] Interpretation and review of laboratory results Abnormal [facility] Lymphocytes/100 WBC (Bld) 20 % Low 24 - 43 % [facility] Lymphocytes/100 WBC (Bld) 1.64 % [facility] MCH (RBC) [Entitic mass] 34.9 pg High 25.2 - 33.5 pg [facility] MCHC (RBC) [Mass/Vol] 34.8 g/dL 28.4 - 34.8 g/dL [facility] MCV (RBC) [Entitic vol] 100.3 fL 82.6 - 102.9 fL [facility] Monocytes/100 WBC (Bld) 6 % 3 - 12 % [facility] Monocytes/100 WBC (Bld) 0.48 % [facility] Neutrophils/100 WBC (Bld) 68 % High 36 - 65 % [facility] Nucleated RBC/100 WBC (Bld) [Ratio] 0.0 % 0.0 per 100 WBC [facility] [employer] Platelet, Fluorescence Platelet clumps present, count appears adequate. [facility] Platelets (Bld) [#/Vol] See Reflexed IPF Result [facility] RBC (Bld) [#/Vol] 3.35 10*6/uL Low 3.95 - 5.1 1 m/uL [facility] Segmented neutrophils/100 WBC (Bld) 5.46 % [facility] WBC other (Bld) [#/Vol] 8.1 [facility] CBC with Diffon 10-18-2024 Platelet, Fluoresc. Platelet clumps present, count appears adequate. Normal 138-453 [facility] Comment on above: Performed By: #### C DEIDRE BMPX #### [facility] [address] [place] [address] Management Development Specialist: Larry Ashton MD Abs. Basophil 0.05 k/uL Normal 0.00-0.20 [facility] Comment on above: Performed By: #### C DEIDRE BMPX #### [facility] [address] [place] [address] Management Development Specialist: Larry Ashton MD Abs.Imm.Granulocyte 0.08 k/uL Normal 0.00-0.30 [facility] Comment on above: Performed By: #### C DEIDRE BMPX #### [facility] [place] [phone] Management Development Specialist: Larry Ashton MD Abs.Neutrophil (Seg) 5.46 k/uL Normal 1.50-8.10 [facility] Comment on above: Performed By: #### C BC, BMPX #### [address] [address] Management Development Specialist: Larry Ashton MD Basophils/100 WBC (Bld) 1 % Normal 0-2 [facility] Comment on above: Performed By: #### C BC, BMPX #### [facility] [address] [place] [phone] Management Development Specialist: Larry Ashton MD Eosinophils (Bld) [#/Vol] 0.39 10*3/uL Normal 0.00-0.44 [facility] Comment on above: Performed By: #### C BC, BMPX #### [facility] [address] [place] [address] Management Development Specialist: Larry Ashton MD Eosinophils/100 WBC (Bld) 5 % High 1-4 [facility] Comment on above: Performed By: #### C BC, BMPX #### [facility] [address] [place] [address] Management Development Specialist: Larry Ashton MD Erythrocyte distribution width (RBC) [Ratio] 11.4 % Low 11.8-14.4 [facility] Comment on above: Performed By: #### C BC, BMPX #### [facility] [address] [place] [phone] Management Development Specialist: Larry Ashton MD Hematocrit (Bld) [Volume fraction] 33.6 % Low 36.3-47.1 [facility] Comment on above: Performed By: #### C BC, BMPX #### [facility] [address] [place] [address] Management Development Specialist: Larry Ashton MD Hemoglobin (Bld) [Mass/Vol] 11.7 g/dL Low 11.9-15.1 [facility] Comment on above: Performed By: #### C BC, BMPX #### [place] [id number] [place] [address] Management Development Specialist: Larry Ashton MD Immature granulocytes/100 WBC (Bld) 1 % High 0 [facility] Comment on above: Performed By: #### C BC, BMPX #### [address] [address] Management Development Specialist: Larry Ashton MD Lymphocytes (Bld) [#/Vol] 1.64 10*3/uL Normal 1.10-3.70 [facility] Comment on above: Performed By: #### C BC, BMPX #### [address] [address] Management Development Specialist: Larry Ashton MD Lymphocytes/100 WBC (Bld) 20 % Low 24-43 [facility] Comment on above: Performed By: #### C BC, BMPX #### [address] [address] Management Development Specialist: Larry Ashton MD MCH (RBC) [Entitic mass] 34.9 pg High 25.2-33.5 [facility] Comment on above: Performed By: #### C BC, BMPX #### [address] [address] Management Development Specialist: Larry Ashton MD MCHC (RBC) [Mass/Vol] 34.8 g/dL Normal 28.4-34.8 [facility] Comment on above: Performed By: #### C BC, BMPX #### [address] [address] Management Development Specialist: Larry Ashton MD MCV (RBC) [Entitic vol] 100.3 fL Normal 82.6-102.9 [facility] Comment on above: Performed By: #### C BC, BMPX #### [facility] [address] [place] [address] Management Development Specialist: Larry Ashton MD Monocytes (Bld) [#/Vol] 0.48 10*3/uL Normal 0.10-1.20 [facility] Comment on above: Performed By: #### C BC, BMPX #### [address] [address] Management Development Specialist: Larry Ashton MD Monocytes/100 WBC (Bld) 6 % Normal 3-12 [facility] Comment on above: Performed By: #### C BC, BMPX #### [address] [address] Management Development Specialist: Larry Ashton MD Neutrophil (Seg) 68 % High 36-65 [facility] Comment on above: Performed By: #### C BC, BMPX #### [address] [address] Management Development Specialist: Larry Ashton MD NRBC Automated 0.0 per 100 WBC Normal 0.0 [facility] Comment on above: Performed By: #### C BC, BMPX #### [address] [address] Management Development Specialist: Larry Ashton MD Platelet Count See Reflexed IPF Result Normal 138-453 [facility] Comment on above: Performed By: #### C BC, BMPX #### [address] [address] Management Development Specialist: Larry Ashton MD RBC (Bld) [#/Vol] 3.35 10*6/uL Low 3.95-5.11 [facility] Comment on above: Performed By: #### C BC, BMPX #### [address] [address] Management Development Specialist: Larry Ashton MD WBC (Bld) [#/Vol] 8.1 10*3/uL Normal 3.5-11.3 [facility] Comment on above: Performed By: #### C , BMPX #### [facility] [place] [address] Management Development Specialist: Larry Ashton MD CT ABDOMEN PELVIS WO [...] Riya Aguero MD 10/18/24 Final result Normal [facility] CT Abdomen and Pelvis WO karin trayloron [...] reactive. 3. Punctate nonobstructing left renal calculus. [facility] EXAMINATION: CT OF THE [...] soft tissue gas. No acute osseous abnormality. [facility] Riya Aguero MD - [...] reactive. 3. Punctate nonobstructing left renal calculus. [facility] CT Abdomen and Pelvis WO con trastOrdered By: Riya Aguero on 10-18-2024 [facility] Work Phone: MRSA DNA Probe, Nasalon 10-08 MRSA, DNA, Nasal Negative NEGATIVE [facility] Comment on above: NEGATIVE: MRSA DNA n ot detected by nucleic acid amplification. Results should be used as an adjunct to nosocomial control efforts to identify patients needing enhanced precautions. The test is not intended to identify patients with staphylococcal infections. Results should not be used to guide or monitor treatment for MRSA infections. Specimen Description .NASAL SWAB [facility] MRSA, DNA, Nasalon MRSA, DNA, Nasal Negative Normal NEG [facility] Comment on above: Result Comment: NEGA TIVE: MRSA DNA not detected by nucleic acid amplification. Results should be used as an adjunct to nosocomial control efforts to identify patients needing enhanced precautions. The test is not intended to identify patients with staphylococcal infections. Results should not be used to guide or monitor treatment for MRSA infections. Performed By: #### Radha JIANG BMPX #### [employer] [address] [place] [address] [phone] Management Development Specialist: Larry Ashton MD Magnesiumon 10-18-2024 Magnesium [Mass/Vol] 2.3 mg/dL 1.6 - 2.6 mg/dL [facility] Magnesium [Mass/Vol] 2.3 mg/dL Normal 1.6-2.6 [facility] Comment on above: Performed By: #### Radha JIANG BMPX #### [facility] [address] [place] [address] [phone] Management Development Specialist: Larry Ashton MD Microscopic Urinalysison Bacteria LM Ql (Urine sed) FEW Abnormal None [facility] Epithelial cells LM.HPF (Urine sed) [#/Area] 10 TO 20 [facility] Interpretation and review of laboratory results Abnormal [facility] RBC LM.HPF (Urine sed) [#/Area] 5 TO 10 [facility] WBC LM.HPF (Urine sed) [#/Area] 10 TO 20 [facility] [employer] No Panel Informationon 10-18 [facility] [employer] UA w/Reflex Cultureon 2024 Bilirubin, SemiQt,Ur Negative Normal NEG [facility] Comment on above: Performed By: #### Srini OSBORNE UAX #### [employer] [address] [place] [address] [phone] Management Development Specialist: Larry Ashton MD Blood, Urine Negative Normal NEG [facility] Comment on above: Performed By: #### Srini OSBORNE UAX #### [employer] [address] [place] [phone] Management Development Specialist: Larry Ashton MD Clarity (U) 2+ Abnormal CLEAR [facility] Comment on above: Performed By: #### U MICAO, UAX #### [facility] [address] [place] [phone] Management Development Specialist: Larry Ashton MD Color (U) Yellow Normal YEL [facility] Comment on above: Performed By: #### U MICAO, UAX #### [facility] [address] [place] [phone] Management Development Specialist: Larry Ashton MD Glucose Ql (U) Negative Normal NEG [facility] Comment on above: Performed By: #### U MICAO, UAX #### [address] [address] Management Development Specialist: Larry Ashton MD Ketones Ql (U) Negative Normal NEG [facility] Comment on above: Performed By: #### U MICAO, UAX #### [address] [address] Management Development Specialist: Larry Ashton MD Leukocyte esterase Test strip Ql (U) TRACE Abnormal NEG [facility] Comment on above: Performed By: #### U MICAO, UAX #### [address] [address] Management Development Specialist: Larry Ashton MD Nitrite,Ur Negative Normal NEG [facility] Comment on above: Performed By: #### U MICAO, UAX #### [facility] [address] [place] [phone] Management Development Specialist: Larry Ashton MD PH,Ur 7.5 Normal 5.0-8.0 [facility] Comment on above: Performed By: #### U MICAO, UAX #### [facility] [address] [place] [phone] Management Development Specialist: Larry Ashton MD Protein Ql (U) Negative Normal NEG [facility] Comment on above: Performed By: #### U MICAO, UAX #### [facility] [address] [place] [address] Management Development Specialist: Larry Ashton MD Spec. Independence,Ur 1.015 Normal 1.005-1.030 [facility] Comment on above: Performed By: #### U MICAO, UAX #### [facility] [address] [place] [address] Management Development Specialist: Larry Ashton MD Urobilinogen,Ur Normal Normal 0.0-1.0 [facility] Comment on above: Performed By: #### U MICAO, UAX #### [facility] [address] [place], [place] [phone] Management Development Specialist: Larry Ashton MD Urinalysis with Reflex to Cu ltureon 10-18-2024 Bilirubin Ql (U) Negative NEGATIVE [email or web address] Clarity (U) 2+ Abnormal Clear [facility] [employer] Color (U) Yellow Yellow [facility] Glucose Test strip (U) [Mass/Vol] Negative NEGATIVE mg/dL [email or web address] [facility] Hemoglobin Auto test strip Ql (U) Negative NEGATIVE [facility] Interpretation and review of laboratory results Abnormal [facility] Ketones (U) [Mass/Vol] Negative NEGATIVE mg/dL [email or web address] [facility] Leukocyte esterase Test strip Ql (U) TRACE Abnormal NEGATIVE [email or web address] [facility] Nitrite Ql (U) Negative NEGATIVE [facility] pH (U) 7.5 [pH] 5.0 - 8.0 [email or web address] [facility] Protein (U) [Mass/Vol] Negative NEGATIVE mg/dL [email or web address] [facility] Specific gravity (U) [Rel density] 1.015 1.005 - 1.030 [facility] Urobilinogen Qn (U) Normal 0.0 - 1. 0 EU/dL [email or web address] [facility] Urinalysis,Microon 5 Bacteria FEW Abnormal NONE [facility] Comment on above: Performed By: #### U MICAO, UAX #### [facility] [address] [place] [phone] Management Development Specialist: Larry Ashton MD Epithelial cells LM Ql (Urine sed) 10 TO 20 Normal 0-5 [facility] Comment on above: Performed By: #### U MICAO, UAX #### [facility] [address] [place] [phone] Management Development Specialist: Larry Ashton MD Urine RBC's 5 TO 10 Normal 0-2 [facility] Comment on above: Performed By: #### U MICAO, UAX #### [facility] [address] [place] [phone] Management Development Specialist: Larry Ashton MD Urine WBC's 10 TO 20 Normal 0-5 [facility] Comment on above: Performed By: #### U [place], UAX #### [facility] [address] [place] [phone] Management Development Specialist: Larry Ashton MD Basic Metab w/rfx MGon 10-173 Anion gap [Moles/Vol] 8 mmol/L Low 9-16 [facility] Comment on above: Performed By: #### P T, CK, CDP, TSHX, TROPI, LIVP, BNP, LACTIC, GEORGINA, BMPX #### [facility] [address] [place] [phone] Management Development Specialist: Larry Ashton MD Calcium [Mass/Vol] 8.4 mg/dL Low 8.6-10.4 [facility] Comment on above: Performed By: #### P T, CK, CDP, TSHX, TROPI, LIVP, BNP, LACTIC, GEORGINA, BMPX #### [facility] [address] [place] [phone] Management Development Specialist: Larry Ashton MD Chloride [Moles/Vol] 108 mmol/L High 98-107 [facility] Comment on above: Performed By: #### P T, CK, CDP, TSHX, TROPI, LIVP, BNP, LACTIC, GEORGINA, BMPX #### [address] [phone] Management Development Specialist: Larry Ashton MD CO2 [Moles/Vol] 26 mmol/L Normal 20-31 [facility] Comment on above: Performed By: #### P T, CK, CDP, TSHX, TROPI, LIVP, BNP, LACTIC, GEORGINA, BMPX #### [address] [phone] Management Development Specialist: Larry Ashton MD Creatinine [Mass/Vol] 0.6 mg/dL Normal 0.6-0.9 [facility] Comment on above: Performed By: #### P T, CK, CDP, TSHX, TROPI, LIVP, BNP, LACTIC, GEORGINA, BMPX #### [address] [phone] Management Development Specialist: Larry Ashton MD GFR/1.73 sq M.predicted among non-blacks MDRD (S/P/Bld) [Vol rate/Area] mL/min/{1.73_m2} Normal >60 [facility] Comment on above: Result Comment: These results [...] TROPI, LIVP, BNP, LACTIC, GEORGINA, BMPX #### [address] [phone] Management Development Specialist: Larry Ashton MD Glucose [Mass/Vol] 95 mg/dL Normal 74-99 [facility] Comment on above: Performed By: #### P T, CK, CDP, TSHX, TROPI, LIVP, BNP, LACTIC, GEORGINA, BMPX #### [address] [phone] Management Development Specialist: Larry Ashton MD Potassium [Moles/Vol] 3.9 mmol/L Normal 3.7-5.3 [facility] Comment on above: Performed By: #### P T, CK, CDP, TSHX, TROPI, LIVP, BNP, LACTIC, GEORGINA, BMPX #### [address] [address] Management Development Specialist: Larry Ashton MD Sodium [Moles/Vol] 142 mmol/L Normal 136-145 [facility] Comment on above: Performed By: #### P T, CK, CDP, TSHX, TROPI, LIVP, BNP, LACTIC, GEORGINA, BMPX #### [address] [address] Management Development Specialist: Larry Ashton MD Urea nitrogen [Mass/Vol] 8 mg/dL Normal 6-20 [facility] Comment on above: Performed By: #### P T, CK, CDP, TSHX, TROPI, LIVP, BNP, LACTIC, GEORGINA, BMPX #### [address] [address] Management Development Specialist: Larry Ashton MD Anion gap [Moles/Vol] 7 mmol/L Low 9-16 [facility] Comment on above: Performed By: #### C BC, BMPX #### [address] [address] Management Development Specialist: Larry Ashton MD Calcium [Mass/Vol] 8.6 mg/dL Normal 8.6-10.4 [facility] Comment on above: Performed By: #### C BC, BMPX #### [facility] [address] [place] [address] Management Development Specialist: Larry Ashton MD Chloride [Moles/Vol] 106 mmol/L Normal 98-107 [facility] Comment on above: Performed By: #### C BC, BMPX #### [facility] [address] [place] [phone] Management Development Specialist: Larry Ashton MD CO2 [Moles/Vol] 27 mmol/L Normal 20-31 [facility] Comment on above: Performed By: #### C BC, BMPX #### [facility] [address] [place] [address] Management Development Specialist: Larry Ashton MD Creatinine [Mass/Vol] 0.6 mg/dL Normal 0.6-0.9 [facility] Comment on above: Performed By: #### C BC, BMPX #### [facility] [address] [place] [phone] Management Development Specialist: Larry Ashton MD GFR/1.73 sq M.predicted among non-blacks MDRD (S/P/Bld) [Vol rate/Area] mL/min/{1.73_m2} Normal >60 [facility] Comment on above: Result Comment: These results [...] Performed By: #### C BC, BMPX #### [facility] [address] [place] [phone] Management Development Specialist: Larry Ashton MD Glucose [Mass/Vol] 103 mg/dL High 74-99 [facility] Comment on above: Performed By: #### C BC, BMPX #### [facility] [facility] [address] [place] [address] Management Development Specialist: Larry Ashton MD Potassium [Moles/Vol] 3.9 mmol/L Normal 3.7-5.3 [facility] Comment on above: Performed By: #### C BC, BMPX #### [facility] [address] [place], [place] [phone] Management Development Specialist: Larry Ashton MD Sodium [Moles/Vol] 140 mmol/L Normal 136-145 [facility] Comment on above: Performed By: #### C BC, BMPX #### [facility] [address] [place] [address] Management Development Specialist: Larry Ashton MD Urea nitrogen [Mass/Vol] 8 mg/dL Normal 6-20 [facility] Comment on above: Performed By: #### C BC, BMPX #### [employer] [address] [place] [phone] Management Development Specialist: Larry Ashton MD Basic Metabolic Panel w/ Ref michael to MGon 2024 Anion gap [Moles/Vol] 8 mmol/L Low 9 - 16 mmol/L [facility] Calcium [Mass/Vol] 8.4 mg/dL Low 8.6 - 10. 4 mg/dL [facility] Chloride [Moles/Vol] 108 mmol/L High 98 - 107 mmol/L [facility] CO2 [Moles/Vol] 26 mmol/L 20 - 31 mmol/L [facility] Creatinine [Mass/Vol] 0.6 mg/dL 0.6 - 0.9 mg/dL [facility] Est, Glom Filt Rate - PINF [facility] Comment on above: These results are not [...] [Mass/Vol] 95 mg/dL 74 - 99 mg/dL [facility] Potassium [Moles/Vol] 3.9 mmol/L 3.7 - 5.3 mmol/L [facility] Sodium [Moles/Vol] 142 mmol/L 136 - 145 mmol/L [facility] Urea nitrogen [Mass/Vol] 8 mg/dL 6 - 20 mg/dL [facility] Anion gap [Moles/Vol] 7 mmol/L Low 9 - 16 mmol/L [facility] Calcium [Mass/Vol] 8.6 mg/dL 8.6 - 10. 4 mg/dL [facility] Chloride [Moles/Vol] 106 mmol/L 98 - 107 mmol/L [facility] CO2 [Moles/Vol] 27 mmol/L 20 - 31 mmol/L [facility] Creatinine [Mass/Vol] 0.6 mg/dL 0.6 - 0.9 mg/dL [facility] Est, Glom Filt Rate - PINF [facility] Comment on above: These results are not [...] 103 mg/dL High 74 - 99 mg/dL [facility] Interpretation and review of laboratory results Abnormal [facility] Potassium [Moles/Vol] 3.9 mmol/L 3.7 - 5.3 mmol/L [facility] Sodium [Moles/Vol] 140 mmol/L 136 - 145 mmol/L [facility] Urea nitrogen [Mass/Vol] 8 mg/dL 6 - 20 mg/dL [facility] Brain Natri. Peptideon 10-17 Natriuretic peptide B (Bld) [Mass/Vol] 471 pg/mL High 0-125 [facility] Comment on above: Performed By: #### P T, CK, CDP, TSHX, TROPI, LIVP, BNP, LACTIC, GEORGINA, BMPX #### [employer] [address] [place] [address] Management Development Specialist: Larry sAhton MD Brain Natriuretic Peptideon 2024 Natriuretic peptide B (Bld) [Mass/Vol] 471 pg/mL High 0 - 125 pg/mL [facility] CBCon 2024 Erythrocyte distribution width (RBC) [Ratio] 11.3 % Low 11.8 - 14.4 % [facility] Hematocrit (Bld) [Volume fraction] 31.9 % Low 36.3 - 47.1 % [facility] Hemoglobin (Bld) [Mass/Vol] 10.8 g/dL Low 11.9 - 15.1 g/dL [facility] Interpretation and review of laboratory results Abnormal [facility] MCH (RBC) [Entitic mass] 34.6 pg High 25.2 - 33.5 pg [facility] MCHC (RBC) [Mass/Vol] 33.9 g/dL 28.4 - 34.8 g/dL [facility] MCV (RBC) [Entitic vol] 102.2 fL 82.6 - 102.9 fL [facility] Nucleated RBC/100 WBC (Bld) [Ratio] 0.0 % 0.0 per 100 WBC [facility] Platelet mean volume (Bld) [Entitic vol] 8.9 fL 8.1 - 13.5 fL [facility] Platelets (Bld) [#/Vol] 365 10*3/uL [facility] RBC (Bld) [#/Vol] 3.12 10*6/uL Low 3.95 - 5.1 1 m/uL [facility] WBC other (Bld) [#/Vol] 8.3 [facility] Erythrocyte distribution width (RBC) [Ratio] 11.3 % Low 11.8-14.4 [facility] Comment on above: Performed By: #### C BC, BMPX #### [employer] [address] [place] [address] Management Development Specialist: Larry Ashton MD Hematocrit (Bld) [Volume fraction] 31.9 % Low 36.3-47.1 [facility] Comment on above: Performed By: #### C BC, BMPX #### [facility] [employer] [address] [place] [address] Management Development Specialist: Larry Ashton MD Hemoglobin (Bld) [Mass/Vol] 10.8 g/dL Low 11.9-15.1 [facility] Comment on above: Performed By: #### C BC, BMPX #### [facility] [employer] [address] [place] [phone] Management Development Specialist: Larry Ashton MD MCH (RBC) [Entitic mass] 34.6 pg High 25.2-33.5 [facility] Comment on above: Performed By: #### C BC, BMPX #### [facility] [employer] [address] [place] [address] Management Development Specialist: Larry Ashton MD MCHC (RBC) [Mass/Vol] 33.9 g/dL Normal 28.4-34.8 [facility] Comment on above: Performed By: #### C BC, BMPX #### [facility] [employer] [address] [place] [address] Management Development Specialist: Larry Ashton MD MCV (RBC) [Entitic vol] 102.2 fL Normal 82.6-102.9 [facility] Comment on above: Performed By: #### C BC, BMPX #### [address] [address] Management Development Specialist: Larry Ashton MD NRBC Automated 0.0 per 100 WBC Normal 0.0 [facility] Comment on above: Performed By: #### C BC, BMPX #### [facility] [employer] [address] [place] [phone] Management Development Specialist: Larry Ashton MD Platelet mean volume (Bld) [Entitic vol] 8.9 fL Normal 8.1-13.5 [facility] Comment on above: Performed By: #### C BC, BMPX #### [facility] [address] [place] [address] Management Development Specialist: Larry Ashton MD Platelets (Bld) [#/Vol] 365 10*3/uL Normal 138-453 [facility] Comment on above: Performed By: #### C BC, BMPX #### [facility] [employer] [place] [address] Management Development Specialist: Larry Ashton MD RBC (Bld) [#/Vol] 3.12 10*6/uL Low 3.95-5.11 [facility] Comment on above: Performed By: #### C DEIDRE, BMPX #### [facility] [employer] [address] [place] [address] Management Development Specialist: Larry Ashton MD WBC (Bld) [#/Vol] 8.3 10*3/uL Normal 3.5-11.3 [facility] Comment on above: Performed By: #### C BC, BMPX #### [facility] [place] [address] Management Development Specialist: Larry Ashton MD CBC with Auto Differentialon [...] 10.7 g/dL Low 11.9 - 15.1 g/dL [facility] Immature granulocytes (Bld) [#/Vol] 0.06 10*3/uL [facility] Immature granulocytes/100 WBC (Bld) 1 % High 0 [facility] Interpretation and review of laboratory results Abnormal [facility] Lymphocytes/100 WBC (Bld) 25 % 24 - 43 % [facility] Lymphocytes/100 WBC (Bld) 2.04 % [facility] MCH (RBC) [Entitic mass] 34.7 pg High 25.2 - 33.5 pg [facility] MCHC (RBC) [Mass/Vol] 33.9 g/dL 28.4 - 34.8 g/dL [facility] MCV (RBC) [Entitic vol] 102.6 fL 82.6 - 102.9 fL [facility] Monocytes/100 WBC (Bld) 8 % 3 - 12 % [facility] Monocytes/100 WBC (Bld) 0.69 % [facility] Neutrophils/100 WBC (Bld) 60 % 36 - 65 % [facility] Nucleated RBC/100 WBC (Bld) [Ratio] 0.0 % 0.0 per 100 WBC [facility] Platelet mean volume (Bld) [Entitic vol] 9.0 fL 8.1 - 13.5 fL [facility] Platelets (Bld) [#/Vol] 378 10*3/uL [facility] RBC (Bld) [#/Vol] 3.08 10*6/uL Low 3.95 - 5.1 1 m/uL [facility] Segmented neutrophils/100 WBC (Bld) 5.04 % [facility] WBC other (Bld) [#/Vol] 8.3 [facility] CBC with Diffon 2024 Abs. Basophil 0.05 k/uL Normal 0.00-0.20 [facility] Comment on above: Performed By: #### P T, CK, CDP, TSHX, TROPI, LIVP, BNP, LACTIC, GEORGINA, BMPX #### [address] [address] Management Development Specialist: Larry Ashton MD Abs.Imm.Granulocyte 0.06 k/uL Normal 0.00-0.30 [facility] Comment on above: Performed By: #### P T, CK, CDP, TSHX, TROPI, LIVP, BNP, LACTIC, GEORGINA, BMPX #### [place] [address] Management Development Specialist: Larry Ashton MD Abs.Neutrophil (Seg) 5.04 k/uL Normal 1.50-8.10 [facility] Comment on above: Performed By: #### P T, CK, CDP, TSHX, TROPI, LIVP, BNP, LACTIC, GEORGINA, BMPX #### [place] [address] Management Development Specialist: Larry Ashton MD Basophils/100 WBC (Bld) 1 % Normal 0-2 [facility] Comment on above: Performed By: #### P T, CK, CDP, TSHX, TROPI, LIVP, BNP, LACTIC, GEORGINA, BMPX #### [place] [address] Management Development Specialist: Larry Ashton MD Eosinophils (Bld) [#/Vol] 0.43 10*3/uL Normal 0.00-0.44 [facility] Comment on above: Performed By: #### P T, CK, CDP, TSHX, TROPI, LIVP, BNP, LACTIC, GEORGINA, BMPX #### [place] [address] Management Development Specialist: Larry Ashton MD Eosinophils/100 WBC (Bld) 5 % High 1-4 [facility] Comment on above: Performed By: #### P T, CK, CDP, TSHX, TROPI, LIVP, BNP, LACTIC, GEORGINA, BMPX #### [place] [phone] Management Development Specialist: Larry Ashton MD Erythrocyte distribution width (RBC) [Ratio] 11.3 % Low 11.8-14.4 [facility] Comment on above: Performed By: #### P T, CK, CDP, TSHX, TROPI, LIVP, BNP, LACTIC, GEORGINA, BMPX #### [place] [phone] Management Development Specialist: Larry Ashton MD Hematocrit (Bld) [Volume fraction] 31.6 % Low 36.3-47.1 [facility] Comment on above: Performed By: #### P T, CK, CDP, TSHX, TROPI, LIVP, BNP, LACTIC, GEORGINA, BMPX #### [place] [phone] Management Development Specialist: Larry Ashton MD Hemoglobin (Bld) [Mass/Vol] 10.7 g/dL Low 11.9-15.1 [facility] Comment on above: Performed By: #### P T, CK, CDP, TSHX, TROPI,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 Lymphocytes/100 WBC (Bld) 29.0 % Normal [facility] Comment on above: Performed By: #### C BCDIF, BMP ####[place] [address] [place], [place] [phone] MCH (RBC) [Entitic mass] 35.5 pG High 26.0-34.0 [facility] Comment on above: Performed By: #### C BCDIF, BMP ####[place] [address] [place] [address], [place] [phone] MCHC (RBC) [Mass/Vol] 33.1 g/dL Normal 30.5-36.0 [facility] Comment on above: Performed By: #### C BCDIF, BMP ####[place] [address] [place], [place] [phone] MCV (RBC) [Entitic vol] 107.3 fL High 80.0-100.0 [facility] Comment on above: Performed By: #### C BCDIF, BMP ####[place] [address] [place], [place] [phone] Monocytes/100 WBC (Bld) 8.2 % Normal [facility] Comment on above: Performed By: #### C BCDIF, BMP ####[place] [address] [place], [place] [phone] Neutrophils/100 WBC (Bld) 57.1 % Normal [facility] Comment on above: Performed By: #### Radha SMALL BMP ####[place] [address] [place] [address], [place] [phone] NRBCs 0.0 /100 WBC Normal 0 [facility] Comment on above: Performed By: #### Radha SMALL, BMP ####[place] [address] [place], [place] [phone] Platelet mean volume (Bld) [Entitic vol] 9.8 fL Normal 9.0-12.7 [facility] Comment on above: Performed By: #### Radha SMALL, BMP ####[place] [address] [place], [place] [phone] Platelets (Bld) [#/Vol] 271 10*3/uL Normal 150-400 [facility] Comment on above: Performed By: #### Radha SMALL, BMP ####[place] [address] [place], [place] [phone] RBC (Bld) [#/Vol] 4.00 10*6/uL Normal 3.90-5.20 [facility] Comment on above: Performed By: #### Radha SMALL, BMP ####[place] [address] [address], [place] [phone] WBC (Bld) [#/Vol] 6.44 10*3/uL Normal 3.70-11.00 [facility] Comment on above: Performed By: #### Radha SMALL, BMP ####[place] [address] [address], [place] [phone] Jennifer 11-14-2019 CNOV Office Visit (IMPAMN ) AMIRA NAGY ([id number]) 1990 F Date Time Provider Department 11/14/19 3:15 PM LEE DOSS) ANA During your visit today, we recorded the following information about you: Temperature Pulse Blood pressure Weight 98.5 degrees 65/minute 111/68 57.3 kg Height Last Period 1.549 m 10/21/19 Reza Parks LPN 11/14/2019 3:16 PM Signed Amira Nagy is a 29 year old female here today for visit in [facility] Referring Surgeon: Dr. RIVERA Date of Surgery: [...] fevers. Neuro: No history of TIA's, stroke, CHEMIST ASSISTANT tumor, impaired sensorium, hemiplegia, paraplegia or quadriplegia. No neurological symptoms or problems. Respiratory: No history of current cough or dyspnea, or pneumonia in the past 6 weeks. No history of respiratory/pulmonary symptoms or problems. Cardiovascular: No history of HTN requiring medication, no history of angina, CHF, PA, cardiac surgery or stents. Denies rest pain, [...] dialysis. No history of symptoms or problems. COMMANDER POLICE RESERVES: Negative for abnormal vaginal bleeding, abnormal vaginal [...] Lee Doss MD 11/14/2019 3:15 PM Addendum [facility] Patient Instructions for Surgery FOOD INSTRUCTIONS: NO [...] please do not hesitate to contact the [facility] at [phone] or [phone], ext [phone]. Signature: Lee Doss MD Date: November 14, 2019 Referring Provider: CANDELARIO RIVERA [[id number]] Allergies As of Date: 11/14/2019 Noted Allergy Reaction BEE STING 08/27/2019 7 - Swelling 10 - Anaphylaxis Date Reviewed: 11/14/2019 Reviewed by: Reza Praks LPN - Fully Assessed Primary Visit Diagnosis:Anxiety [F41.9] Other Visit Diagnosis:Pre-operati ve examination [Z01.818] Order(s):CBC + DIFF [SQCBCDIF] Order #: [id number] FUTURE BASIC METABOLIC PNL [SQBMP] Order #: [id number] FUTURE Prescriptions as of 11/14/2019 Sig: NICOTINE [...] [N62] 08/25/2019 Other instructions from your clinician: [facility] Patient Instructions for Surgery FOOD INSTRUCTIONS: NO [...] please do not hesitate to contact the [facility] at [phone] or [phone], ext [phone]. Signature: Lee Doss MD Date: November 14, [...] by LEE DOSS MD on 11/14/19 [facility] HIST[facility] PHYSICALon 0 HISTORY PHYSICAL HNO ID: [id number] Author: Lee Castañeda) Michael Service: ? Author [...] fevers. Neuro: No history of TIA's, stroke, CHEMIST ASSISTANT tumor, impaired sensorium, hemiplegia, paraplegia or quadriplegia. No neurological symptoms or problems. Respiratory: No history of current cough or dyspnea, or pneumonia in the past 6 weeks. No history of respiratory/pulmonary symptoms or problems. Cardiovascular: No history of HTN requiring medication, no history of angina, CHF, PA, cardiac surgery or stents. Denies rest pain, [...] dialysis. No history of symptoms or problems. COMMANDER POLICE RESERVES: Negative for abnormal vaginal bleeding, abnormal vaginal [...] November 14, 2019 TIME: 3:07 PM Normal [facility] PROGRESSon 11-14-2019 PROGRESS HNO ID: [id number] Author: Reza Parks LPN Service: ? Author [...] reviewed and updated: Yes Reza Parks LPN [facility] 11-07-2019 [facility] Patient:Diego Nagy MRN: Height:5' 1 [...] fevers. Neuro: No history of TIA's, stroke, CHEMIST ASSISTANT tumor, impaired sensorium, hemiplegia, paraplegia or quadriplegia. No neurological symptoms or problems. Respiratory: No history of current cough or dyspnea, or pneumonia in the past 6 weeks. No history of respiratory/pulmonary symptoms or problems. Cardiovascular: No history of HTN requiring medication, no history of angina, CHF, PA, cardiac surgery or stents. Denies rest pain, [...] dialysis. No history of symptoms or problems. COMMANDER POLICE RESERVES: Negative for abnormal vaginal bleeding, abnormal vaginal [...] Lee Doss MD 11/14/2019 3:15 PM Addendum [facility] Patient Instructions for Surgery FOOD INSTRUCTIONS: NO [...] please do not hesitate to contact the [facility] at [phone] or [phone], ext [phone]. Signature: Lee Doss MD Date: November 14, 2019 Previous Version Progress Notes ([facility]): Cookie Burton MD 11/05/2019 9:15 AM [...] above. Please process accordingly. Cookie Burton MD [facility] OBSOLETEon 09-14-2019 OBSOLETE Refill ([facility]) AMIRA NAGY ([id number]) 1990 F Date Time Provider Department 09/14/19 COOKIE BURTON [facility] During your visit today, we recorded the following information about you: Hui Marin Food Production Machine Operator I 09/15/2019 9:04 AM Signed Patient sent a message via [employer] requesting the following refill: Pending Prescriptions Disp Refills SERTRALINE 25 MG TABLET 30 tablet 3 Sig: Take 1 tablet by mouth once daily. HELDER: No Script(s) will be E-script to pharmacy Future visits: Visit date not found Date of last office visit was: 08/27/2019 The patients preferred pharmacy has been captured for this encounter? yes Hui Marin Food Production Machine Operator I Allergies As of Date: 09/14/2019 Noted [...] Status:Closed by ARMINDA MANN PA-C on 09/15/19 [facility] PROGRESSon 08-28-2019 PROGRESS HNO ID: [id number] Author: Cookie Burton Service: ? Author Type: [...] appropriate. Please see relevant section in the [employer] EHR for details. Health Maintenance was reviewed with the patient and updated as appropriate. Please see relevant section in the [employer] EHR for details. REVIEW OF SYSTEMS: GENERAL: [...] MG/0.3 ML INJECTION, AUTO-INJECTOR Cookie Burton MD [facility] CNOVon 08-27-2019 CNOV Office Visit ([facility] ) AMIRA NAGY ([id number]) 1990 F Date Time Provider Department 08/27/19 3:20 PM COOKIE BURTON [facility] During your visit today, we recorded the [...] appropriate. Please see relevant section in the [employer] EHR for details. Health Maintenance was reviewed with the patient and updated as appropriate. Please see relevant section in the [employer] EHR for details. REVIEW OF SYSTEMS: GENERAL: [...] [Z91.030] Order(s):CONSULT TO PSYCHIATRY [9035] Order #: [id number]: 1 FUTURE albuterol HFA (PROAIR HFA) 90 [...] Status:Closed by COOKIE BURTON MD on 08/28/19 [facility] CNOVon 08-25-2019 CNOV Office Visit (SELENE ) AMIRA NAGY ([id number]) 1990 F Date Time Provider Department 08/25/19 [...] necrosis and anesthetic/perioperat catherine complications (DVT, PE, PA, and ). The patient agrees and signed [...] 2019 1:48 PM Referring Provider: NADIA RAUSCH [[id number]] Allergies As of Date: 08/25/2019 (No Known Allergies) Date Reviewed: 08/25/2019 Reviewed by: Lizeth (Pcna) KIRK Ritchie - Fully Assessed Primary Visit Diagnosis:Macromastia [N62] Order(s):SURGICAL REQUEST - ELECTIVE [8085043] Order #: [id number]: 1 Prescriptions as of 08/25/2019 Sig: SERTRALINE [...] Status:Closed by CANDELARIO RIVERA MD on 08/25/19 [facility] PROGRESSon 08-25-2019 PROGRESS HNO ID: [id number] Author: Candelario Rivera Service: ? Author Type: [...] necrosis and anesthetic/perioperat catherine complications (DVT, PE, PA, and ). The patient agrees and signed [...] Rivera MD August 25, 2019 1:48 PM [facility] OBSOLETEon 07-29-2019 OBSOLETE Refill ([facility]) AMIRA NAGY ([id number]) 1990 F Date Time Provider Department 07/29/19 COOKIE BURTON [facility] During your visit today, we recorded the following information about you: Hui Marin Food Production Machine Operator I 07/29/2019 1:24 PM Signed Patient sent a message via [employer] requesting the following refill: Pending Prescriptions Disp Refills SERTRALINE 25 MG TABLET 30 tablet 3 Sig: Take 1 tablet by mouth once daily. HELDER: No Script(s) will be E-script to pharmacy Future visits: 08/27/2019 Date of last office visit was: 06/19/2019 The patients preferred pharmacy has been captured for this encounter? yes Hui Marin Food Production Machine Operator I Cookie Burton MD 07/29/2019 3:36 PM [...] Encounter Status:Closed by DEMARCUS PRATT on 07/29/19 [facility] CNCOon 07-22-2019 CNCO Letter Text Normal [facility] CNOVon 07-02-2019 CNOV Office Visit (OBGYWH ) AMIRA NAGY ([id number]) 1990 F Date Time Provider Department 07/02/19 [...] external genitalia normal, normal Bartholin's glands, urethra, Lacey's glands, no vulvar lesions, no cervical lesions, [...] RV one year or PRN. 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 Primary Visit Diagnosis:Irregular periods [N92.6] Other Visit Diagnosis:Well woman exam with routine gynecological exam [Z01.419] Order(s):TSH BLD [SQTSH] Order #: [id number] PROLACTIN BLD [SQPROL] Order #: [id number] TESTOSTERONE, FREE AND TOTAL [SQFTESTO] Order #: [id number] DHEA-S BLD [SQDHEAS] Order #: [id number] HYDROXYPROGESTERO-17 [SQHPROG] Order #: [id number] FSH BLD [SQFSH] Order #: [id number] LUTEINIZING HORMONE [SQLH] Order #: [id number] HGB A1C [BLOZM2Q] Order #: [id number] GLUCOSE FASTING BLD [SQGLF] Order #: [id number] PAP FLUID CERVICAL SCREENING [6249998] Order #: [id number]. #:[id number] Prescriptions as of 07/02/2019 Sig: PREDNISOLONE ACETATE [...] by NADIA RAUSCH CNM on 07/09/19 Normal [facility] CYTOLOGYon 07-02-2019 CYTOLOGY Specimen originated from [facility] Specimen #: [id number] Submitting Physician: NADIA RAUSCH CNM SPECIMEN SUBMITTED [...] from every slide are reviewed by a pigment processor. NANY Nichols(ASCP) (Electronic Signature) ____ CLINICAL DATA ROUTINE EXAM, HPV Testing: Yes, Reflex HPV for ASCUS Date of Last Menstrual Period: 06/26/2019 Additional Testing: Reflex HPV testing for ASCUS STAINS A: CERVICAL, SCREENING, FLUID THIN PREP COMMANDER POLICE RESERVES Patricio Coates M.D., Fire Dispatcher Date of Report: 07/06/2019 Date of Procedure: 07/02/2019 Date of Receipt: 07/03/2019 Submitted by: NADIA RAUSCH CNM Location: [facility] Diagnostic interpretation performed at [facility], [address], [facility] [address]. CLIA Number: [id number] The Pap Smear is a screening test for cervical cancer. False negative results occur with all screening tests, emphasizing the need for rescreening at recommended intervals, and clinical correlation. Normal [facility] PROGRESSon 07-02-2019 PROGRESS HNO ID: [id number] Author: Nadia Rausch Service: ? Author Type: Circulation Crew Leader Type: Progress Notes Filed: 07/09/2019 3:14 PM [...] external genitalia normal, normal Bartholin's glands, urethra, Lacey's glands, no vulvar lesions, no cervical lesions, [...] RV one year or PRN. Nadia Rausch, ABLE SEAMAN.CNM MSN Normal [facility] CBC and Differentialon 06-19 Abs Baso 0.04 k/uL Normal <0.11 [facility] Comment on above: Performed By: #### C BCDIF, CMP, FT4, TSH #### [facility] [address], [place] [address] Abs [place] 0.56 k/uL Normal <0.87 [facility] Comment on above: Performed By: #### C BCDIF, CMP, FT4, TSH #### [facility] [address], [place] [id number] Abs Neut 3.13 k/uL Normal 1.45-7.50 [facility] Comment on above: Performed By: #### C BCDIF, CMP, FT4, TSH #### [facility] [address] [place], [place] [address] Absolute nRBC <0.01 Normal <0.01 [facility] Comment on above: Performed By: #### C BCDIF, CMP, FT4, TSH #### [facility] [address] [place] [phone] Basophils/100 WBC (Bld) 0.6 % Normal [facility] Comment on above: Performed By: #### C BCDIF, CMP, FT4, TSH #### [place] [address] [place] [phone] DTYPE Auto Diff Normal [facility] Comment on above: Performed By: #### C BCDIF, CMP, FT4, TSH #### [place] [address] [place] [phone] Eosinophils (Bld) [#/Vol] 0.46 10*3/uL High <0.46 [facility] Comment on above: Performed By: #### C BCDIF, CMP, FT4, TSH #### [place] [address] [place] [phone] Eosinophils/100 WBC (Bld) 7.1 % Normal [facility] Comment on above: Performed By: #### C BCDIF, CMP, FT4, TSH #### [place] [address] [place] [phone] Erythrocyte distribution width (RBC) [Ratio] 11.7 % Normal 11.5-15.0 [facility] Comment on above: Performed By: #### C BCDIF, CMP, FT4, TSH #### [facility] [address] [place] [phone] Hematocrit (Bld) [Volume fraction] 43.7 % Normal 36.0-46.0 [facility] Comment on above: Performed By: #### C BCDIF, CMP, FT4, TSH #### [facility] [address] [place] [address] Hemoglobin (Bld) [Mass/Vol] 14.3 g/dL Normal 11.5-15.5 [facility] Comment on above: Performed By: #### C BCDIF, CMP, FT4, TSH #### [place] [address] [place] [address] Lymphocytes (Bld) [#/Vol] 2.28 10*3/uL Normal 1.00-4.00 [facility] Comment on above: Performed By: #### C BCDIF, CMP, FT4, TSH #### [place] [address] Lymphocytes/100 WBC (Bld) 35.2 % Normal [facility] Comment on above: Performed By: #### C BCDIF, CMP, FT4, TSH #### [place] [address] MCH (RBC) [Entitic mass] 35.5 pG High 26.0-34.0 [facility] Comment on above: Performed By: #### C BCDIF, CMP, FT4, TSH #### [place] [address] MCHC (RBC) [Mass/Vol] 32.7 g/dL Normal 30.5-36.0 [facility] Comment on above: Performed By: #### C BCDIF, CMP, FT4, TSH #### [place] [address] MCV (RBC) [Entitic vol] 108.4 fL High 80.0-100.0 [facility] Comment on above: Performed By: #### C BCDIF, CMP, FT4, TSH #### [place] [address] [place] [address] Monocytes/100 WBC (Bld) 8.6 % Normal [facility] Comment on above: Performed By: #### C BCDIF, CMP, FT4, TSH #### [place] [address] [place] [address] Neutrophils/100 WBC (Bld) 48.5 % Normal [facility] Comment on above: Performed By: #### C BCDIF, CMP, FT4, TSH #### [place] [address] [place] [address] NRBCs 0.0 /100 WBC Normal 0 [facility] Comment on above: Performed By: #### C BCDIF, CMP, FT4, TSH #### [place] [address] Platelet mean volume (Bld) [Entitic vol] 9.8 fL Normal 9.0-12.7 [facility] Comment on above: Performed By: #### C BCDIF, CMP, FT4, TSH #### [place] [address] Platelets (Bld) [#/Vol] 296 10*3/uL Normal 150-400 [facility] Comment on above: Performed By: #### C BCDIF, CMP, FT4, TSH #### [place] [address] [place] [address] RBC (Bld) [#/Vol] 4.03 10*6/uL Normal 3.90-5.20 [facility] Comment on above: Performed By: #### C BCDIF, CMP, FT4, TSH #### [place] [address] WBC (Bld) [#/Vol] 6.48 10*3/uL Normal 3.70-11.00 [facility] Comment on above: Performed By: #### C BCDIF, CMP, FT4, TSH #### [place] [id number] CNOVon 06-19-2019 CNOV Office Visit ([facility] ) AMIRA NAGY ([id number]) 1990 F Date Time Provider Department 06/19/19 10:40 AM COOKIE BURTON [facility] During your visit today, we recorded the following information about you: Pulse Blood pressure Weight Height 93/minute 128/80 60.2 kg 1.549 m Last Period 05/31/19 Cookie Burton MD 06/19/2019 1:32 PM Signed SUBJECTIVE: Amira Nagy is a 28 year old female Patient presents with: Establish Care New patient to establish care: she moved from [place]. She did not have a PCP In [place]. She will see childcare aide soon for irregular periods, enlarged breasts that [...] file Gets together: Not on file Attends bahai service: Not on file Active member of [...] No history of dysuria, frequency or incontinence COMMANDER POLICE RESERVES: Negative for abnormal vaginal bleeding, abnormal vaginal [...] [F32.9] Order(s):CBC + DIFF [SQCBCDIF] Order #: [id number] FUTURE COMP METABOLIC PANEL [SQCMP] Order #: [id number] FUTURE LIPID PANEL BASIC [SQLIPB] Order #: [id number]. #:[id number] TSH BLD [SQTSH] Order #: [id number] FUTURE T4 FREE/FREE THYROX [SQFT4] Order #: [id number] FUTURE CONSULT TO PSYCHIATRY [9035] Order #: [id number]: 1 CONSULT TO PSYCHOLOGY [9036] Order #: [id number]: 1 sertraline (ZOLOFT) 25 mg tabletTake 1 [...] by COOKIE BURTON MD on 06/19/19 Normal [facility] Comp Metabolic Panelon 06-19 Albumin [Mass/Vol] 4.5 g/dL Normal 3.9-4.9 [facility] Comment on above: Performed By: #### C BCDIF, CMP, FT4, TSH #### [facility] [address], [place] [address] ALP [Catalytic activity/Vol] 83 U/L Normal 34-123 [facility] Comment on above: Performed By: #### C BCDIF, CMP, FT4, TSH #### [facility] [address], [place] [address] ALT [Catalytic activity/Vol] 14 U/L Normal 7-38 [facility] Comment on above: Performed By: #### C BCDIF, CMP, FT4, TSH #### [facility] [address] [place] [address] Anion gap [Moles/Vol] 14 mmol/L Normal 9-18 [facility] Comment on above: Performed By: #### C BCDIF, CMP, FT4, TSH #### [place] [address] [place] [address] AST [Catalytic activity/Vol] 17 U/L Normal 13-35 [facility] Comment on above: Performed By: #### C BCDIF, CMP, FT4, TSH #### [place] [address] [place] [address] Bilirubin [Mass/Vol] 0.2 mg/dL Normal 0.2-1.3 [facility] Comment on above: Performed By: #### C BCDIF, CMP, FT4, TSH #### [place] [address] Calcium [Mass/Vol] 9.5 mg/dL Normal 8.5-10.2 [facility] Comment on above: Performed By: #### C BCDIF, CMP, FT4, TSH #### [place] [address] [place] [address] Chloride [Moles/Vol] 100 mmol/L Normal 97-105 [facility] Comment on above: Performed By: #### C BCDIF, CMP, FT4, TSH #### [place] [address] [place] [address] CO2 [Moles/Vol] 27 mmol/L Normal 22-30 [facility] Comment on above: Performed By: #### C BCDIF, CMP, FT4, TSH #### [place] [address] [place] [phone] Creatinine [Mass/Vol] 0.76 mg/dL Normal 0.58-0.96 [facility] Comment on above: Performed By: #### C BCDIF, CMP, FT4, TSH #### [facility] [address] [place] [phone] eGFR- Amer. >60 Normal [facility] Comment on above: Performed By: #### C BCDIF, CMP, FT4, TSH #### [facility] [address] [place] [phone] GFR/1.73 sq M predicted among non-blacks MDRD (S/P/Bld) [Vol rate/Area] mL/min/{1.73_m2} Normal [facility] Comment on above: Result Comment: eGFR [...] #### C BCDIF, CMP, FT4, TSH #### [facility] [address] [place] [phone] Glucose [Mass/Vol] 100 mg/dL High 74-99 [facility] Comment on above: Result Comment: The [place] Diabetes Association (ADA) provides guidance for cutoff [...] Standards of Medical Care in Diabetes 2016, [place] Diabetes Association. Diabetes Care. 2016.39(Suppl 1). Performed By: #### C BCDIF, CMP, FT4, TSH #### [place] [address] [place] [address] Potassium [Moles/Vol] 4.3 mmol/L Normal 3.7-5.1 [facility] Comment on above: Performed By: #### C BCDIF, CMP, FT4, TSH #### [place] [address] Protein [Mass/Vol] 7.5 g/dL Normal 6.3-8.0 [facility] Comment on above: Performed By: #### C BCDIF, CMP, FT4, TSH #### [place] [address] Sodium [Moles/Vol] 141 mmol/L Normal 136-144 [facility] Comment on above: Performed By: #### C BCDIF, CMP, FT4, TSH #### [place] [address] Urea nitrogen [Mass/Vol] 10 mg/dL Normal 7-21 [facility] Comment on above: Performed By: #### C BCDIF, CMP, FT4, TSH #### [place] [id number] Free T4on 06-19-2019 Free T4 [Mass/Vol] 1.6 ng/dL Normal 0.9-1.7 [facility] Comment on above: Performed By: #### C BCDIF, CMP, FT4, TSH #### [place] [address] [place], [place] [address] Lipid Panel, Basicon 019 Cholesterol [Mass/Vol] 162 mg/dL Normal <200 [facility] Comment on above: Result Comment: <200 mg/dL, Desirable 200-239 mg/dL, Borderline high >239 mg/dL, High Performed By: #### L IPB #### [place] [id number] Cholesterol in HDL [Mass/Vol] 34 mg/dL Low >39 [facility] Comment on above: Result Comment: 40-5 9 mg/dL, Acceptable >59 mg/dL, High: Negative risk factor for coronary heart disease <40 mg/dL, Low: Positive risk factor for coronary heart disease Performed By: #### L IPB #### [facility] [address] [place] [address] Cholesterol in LDL [Mass/Vol] 111 mg/dL High <100 [facility] Comment on above: Result Comment: <100 mg/dL, Optimal 100-129 mg/dL, Near optimal/above optimal 130-159 mg/dL, Borderline high 160-189 mg/dL, High >189 mg/dL, Very high Secondary prevention optimal LDL Cholesterol levels are recommended to be < 70 mg/dL Performed By: #### L IPB #### [facility] [address] [place] [address] Fasting Time 12 hrs Normal [facility] Comment on above: Performed By: #### L IPB #### [facility] [address] [place] [address] LDL:HDL Ratio 3.26 High <2.54 [facility] Comment on above: Result Comment: Refe rence: 1. National Cholesterol Education Program ATP III Guideline At-A-Glance Quick Desk Reference: National Heart, Lung, and Blood [place]. National Institutes of Health. 2001: NIH Publication No. 01-3305. 2. An International Atherosclerosis Society position paper: global recommendations for the management of dyslipidemia: executive summary, Atherosclerosis. 2014: 232(2):410-413. Performed By: #### L IPB #### [facility] [address] [place] [address] Non HDL Cholesterol 128 mg/dL Normal <130 [facility] Comment on above: Result Comment: <130 mg/dL, Optimal 130-159 mg/dL, Near optimal/above optimal 160-189 mg/dL, Borderline high 190-219 mg/dL, High >219 mg/dL, Very high Secondary prevention optimal non HDL Cholesterol levels are recommended to be < 100 mg/dL Performed By: #### L IPB #### [facility] [address] [place] [address] TC:HDL Ratio 4.76 Normal <5.10 [facility] Comment on above: Performed By: #### L IPB #### [facility] [address] [place] [address] Triglyceride [Mass/Vol] 86 mg/dL Normal <150 [facility] Comment on above: Result Comment: <150 mg/dL, Normal 150-199 mg/dL, Borderline high 200-499 mg/dL, High >499 mg/dL, Very high Performed By: #### L IPB #### [facility] [address], [place] [address] VLDL Cholesterol 17 mg/dL Normal <30 [facility] Comment on above: Performed By: #### L IPB #### [facility] [address] [place] [address] PROGRESSon 06-19-2019 PROGRESS HNO ID: [id number] Author: Cookie Burton Service: ? Author Type: Physician Type: Progress Notes Filed: 06/19/2019 1:32 PM Note Text: SUBJECTIVE: Amira Nagy is a 28 year old female Patient presents with: Establish Care New patient to establish care: she moved from [place]. She did not have a PCP In [place]. She will see childcare aide soon for irregular periods, enlarged breasts that [...] file Gets together: Not on file Attends bahai service: Not on file Active member of [...] No history of dysuria, frequency or incontinence COMMANDER POLICE RESERVES: Negative for abnormal vaginal bleeding, abnormal vaginal [...] 25 MG TABLET Cookie Burton MD Normal [facility] TSHon 06-19-2019 TSH Qn 2.140 uU/mL Normal 0.400-5.500 [facility] Comment on above: Result Comment: If t he patient is , TSH reference range varies by gestational period: First Trimester 0.100-2.500 uU/mL Second Trimester 0.200-3.000 uU/mL Third Trimester 0.300-3.000 uU/mL References: 1. Motta L, Gualberto M, Sukumar EK, et al. Management of Thyroid Dysfunction during and : An Endocrine Society Clinical Practice Guideline. J Clin Endocrinol Metab, 2012:97:5404-9340. 2. Dandy JUDD. Overview of thyroid disease in . UpToDate. 2016. Accessed on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 Moraes CNP, Karlene Lerner CNP, Alvino Chan, QUILLER RUNNER, Arlene Jerome, CONTRERAS, Pili Casarez CNP, Chapis Cameron CNP, Mali Garcia CNP, Chloé Somers QUILLER RUNNER, Madina Rodriguez, QUILLER RUNNER, Edson Driver PA-C, Maribel Coker, KAYLA, Jeanine Muñoz CNP, Smita Cardona, QUILLER RUNNER [facility] IN-PATIENT SERVICE [facility] Progress Note 10/18/2024 6:45 PM Name: Amira Nagy Acct: [id number] Room: [facility] Day: 1 Admit Date: 2024 3:28 AM [...] tender to the touch. She went to [facility] where she was told that she has a large abscess. ED physician felt that she would benefit from incision and drainage. Case was discussed with our hospitalist and patient was transferred to our service. She states that while she was in the emergency department in [place] and during the transfer large amount of [...] data in the 24 hours ending 10/18/24 6945 Labs: Hematology: Recent Labs 10/17/24 16010/17/24 16010/18/24 [...] , PHART , PH , POCPCO2 , [id number] , PCO2 , POCPO2 , PO2ART , PO2 , POCHCO3 , [id number] , HCO3 , NBEA , PBEA , BEART , BE , THGBART , THB , [id number] , [id number] , [id number] , O2SAT , FIO2 Lab Results Component [...] from the original note were not included. [facility] Occupational Therapy Not Seen Note DATE: 10/18/2024 [...] Zosyn and vancomycin for Infection Control Recommendations: [place] precautions Discharge Planning: Estimated Length of IV [...] revealed abscesses. She was then transferred to [facility] for further evaluation ID service asked to [...] found for: COVID19 No results for input(s): [facility] in the last 72 hours. Imaging [...] Component Value Units Date/Time Culture, Blood 2 [[id number]] Collected: 10/17/24 1606 Order Status: Completed Specimen: Blood Updated: 10/18/24 05 Specimen Description .BLOOD Special Requests L AC 5ML Culture NO GROWTH 12 HOURS Culture, Blood 1 [[id number]] Collected: 10/17/24 1515 Order Status: Canceled Specimen: Blood MRSA DNA Probe, Nasal [[id number]] Order Status: Sent Specimen: Left Nare from Nares MRSA DNA Probe, Nasal [[id number]] Collected: 10/17/24 1141 Order Status: Completed Specimen: Nasal Updated: 10/17/241514 Specimen Description .NASAL SWAB MRSA, DNA, Nasal PENDING Medications: sodium chloride flush 5-40 mL IntraVENous 2 times per day vancomycin 1,000 mg IntraVENous Q12H amphetamine-dextroamphetamine 30 mg Oral BID FLUoxetine 60 mg Oral Daily lamoTRIgine 100 mg Oral Daily piperacillin-tazobactam 3,375 mg IntraVENous Q8H [facility] Nohemi Rios MD COGEON messaging OFFICE: Thank you for allowing us [...] original note were not included. Occupational Therapy [facility] Occupational Therapy Not Seen Note DATE: 2024 NAME: Amira Nagy : 1990 Patient not seen this date for Occupational Therapy due to: Patient is not appropriate for active participation in OT evaluation/treatment at this time d/t patient admit early this a.m management of Pelvic abscess, limited notes, will f/u next day when further plan has been established. documented in this encounter [facility] course Narrative 10-20-2024 Allyssa Gregory DO - 10/20/2024 10:06 AM EST Note Date & Type Note Facility 10-20-2024 Hospital course Narrative Images from the original note were not included. [facility] Office: [phone] Reno Bee DO, Fernando Clay DO, Allyssa [...] Dao MD, Ezequiel Dao MD, Rhonda Valadez, QUILLER RUNNER, Norma Moraes CNP, Alvino Chan, QUILLER RUNNER, Arlene Jerome, CONTRERAS, Pili Casarez, QUILLER RUNNER, Chapis Cameron, QUILLER RUNNER, Chloé Somers, QUILLER RUNNER, Madina Rodriguez, QUILLER RUNNER, Lizeth Horan PA-C, Earline Carlos PA-C, Faviola Granados, QUILLER RUNNER, Himanshu Moreno, QUILLER RUNNER, Ita Gerber, QUILLER RUNNER, Monica Lackey, QUILLER RUNNER, Karlene Lerner, QUILLER RUNNER, Smita Cardona CNP, Dodie Wilder CNP [facility] IN-PATIENT SERVICE [facility] Discharge Summary Patient ID: Amira Nagy : 1990 ACCOUNT: [id number] Patient's PCP: No primary care provider on [...] Your Medications These medications were sent to [address] - [phone] - F [phone] [place] [address] amoxicillin-clavulanate 875-125 MG per tablet HYDROcodone-acetaminophen 5-325 [...] this patient's care. documented in this encounter [facility] Evaluation note Note Date & Type [...] Cellulitis of skin documented in this encounter [facility] Discharge Instructions * Tong Castillo PA-C [...] Passing out. After you call 911, the bindery cutter operator may tell you to chew 1 [...] Log into your personal health record on [email or web address] and enter A848 in the Education box to learn more about Fainting: Care Instructions. Current as of: August 27, 2017 Content Version: 11.6 9686-9448 [facility]. Care instructions adapted under license by your healthcare professional. If you have questions about a medical condition or this instruction, always ask your healthcare professional. [facility] disclaims any warranty or liability for your [...] Log into your personal health record on [email or web address] and enter D279 in the Education box to learn more about Cough: Care Instructions. Current as of: September 12, 2017 Content Version: .20057329-1430 [facility]. Care instructions adapted under license by your healthcare professional. If you have questions about a medical condition or this instruction, always ask your healthcare professional. [facility] disclaims any warranty or liability for your use of this information. in this encounter* Cookie Hightower CNP - 08/25/2017 Formatting of this note may be different from the original. [facility] [address] [place], [place] [id number] Emergency, Walk-In Sliding fee scale. First come, first seen basis. Sunday, Sunday, , Sunday - 8:30 a.m. - 1:30 p.m. Sunday - 9:30 a.m. - 1:30 p.m. [facility] [address] [place] [address] Fillings, exams, cleanings, extractions (no wisdom teeth), front root canals. Sliding fee scale based on income. Bring 2 current pay stubs, current electric, gas, or phone bill with picture ID. By appointmentonly. Call 8 a.m. Sunday, , and Sunday for emergencies. [facility] [address] [place] [address] Fillings, exams, cleanings, extractions (no wisdom teeth), front root canals. Sliding fee scale basedon income. Bring 2 current pay stubs, current electric, gas, or phone bill with picture ID. By appointment only. Emergency appointments available. [facility] [address] [place] [address] Extractions only. $10 donation per extraction requested. First come, first seen on Sunday nights. Doors open at 5 p.m. [facility] [address] [address] [address] [place] [address] Dental exams, fillings, extractions, and cleanings. Call onFridays to make an appointment for a later date. [facility] Sliding fee scale. Call for application. Please follow-up with a dental clinic of your choice. The following attachments cannot be sent through Care Everywhere. * TOOTH AND GUM PAIN (ITALIAN) in this encounter Assessments Diagnosis Syncope, unspecified [...] the original. ED PROVIDER NOTE [facility] EMERGENCY DEPARTMENT NAME: Amira Nagy AGE: 27 y.o. : 1990 VISIT DATE: 02/12/2018 CSN: [id number] PCP: Physician No No chief complaint on file. History provided by: Patient 27-year-old female, smoker, without significant past medical history, presents for evaluation of cough and syncope. The patient states for the past 2- 1/2 months she has had a productive cough of yellow sputum. Denies other cold-like symptoms. Denies fevers, chills, sick contacts. Has not tried anything ylys-dqj-vupdvkr for her symptoms. The patient is also [...] normal. Is resting comfortably on the cot physical therapist center manager for evaluation. Past Medical History: Diagnosis [...] CBC low red blood cell count 3.96. Uoior-kw-eafq urine is negative. Urinalysis and urine drug [...] her referral information to follow-up with the [facility]. She continues to [...] Productive cough PRODUCTIVE COUGH Follow-up Information 1. [facility] Emergency Department. Specialty: Emergency Medicine Why: As needed, If symptoms worsen [address] [address] 2. [facility]. Specialty: Transition of Care Why: for hospital follow up [address] [address] Contact information for after-discharge care [...] the patient. I discussed the patient with INDUSTRIAL NURSE/PA. I agree with the INDUSTRIAL NURSE/PA treatment plan. I agree with the INDUSTRIAL NURSE/PA plan of care. I agree with the INDUSTRIAL NURSE/PA dispo as documented. 26-year-old female presents emergency [...] from the original. ED PROVIDER NOTE [facility] EMERGENCY DEPARTMENT NAME: Amira Nagy AGE: 26 y.o. : 1990 VISIT DATE: 08/25/2017 CSN: [id number] PCP: Physician No Chief Complaint Patient presents [...] Patient states that she has been taking dhgx-vew-jqbipdw medicines and managing her pain but without [...] and provide her a short prescription for B[place]by as well as free dental clinics. Patient [...] but occasionally words are mis-transcribed.) Cookie Hightower, QUILLER RUNNER 08/25/17 1651 Cookie [facility]. Pt reports she almost passed out twice today d/t dental pain. Pt reports she has been dealing with this for almost a year. Pt states i have to have something in my system or the pain is so bad I pass out. in this encounter INFORMATION SOURCE (unrecogn ized section and content) DATE CREATED AUTHOR 03/27/2018 [facility] DATE CREATED AUTHOR AUTHOR'S ORGANIZ ATION 04/02/2018 [facility] DATE CREATED AUTHOR AUTHOR'S ORGANIZ ATION 04/03/2018 [facility] DATE CREATED AUTHOR AUTHOR'S ORGANIZ ATION 12/18/2018 [facility] DATE CREATED AUTHOR AUTHOR'S ORGANIZ ATION 02/02/2019 [facility] DATE CREATED AUTHOR AUTHOR'S ORGANIZ ATION 03/07/2019 [facility] DATE CREATED AUTHOR AUTHOR'S ORGANIZ ATION 06/04/2019 [facility] DATE CREATED AUTHOR AUTHOR'S ORGANIZ ATION 08/25/2019 [facility] DATE CREATED AUTHOR AUTHOR'S ORGANIZ ATION 05/05/2020 [facility] DATE CREATED AUTHOR AUTHOR'S ORGANIZ ATION 10/22/2024 [facility] Ordered Prescriptions (unrec ognized section and [...] Sun10/17/24 at 2100, Until Discontinued, Antimicrobial 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 Bob fluid bag with adapter, mix, [...] BE BASED ON THE PRIMARY CLINICAL RECORDS. [employer] [facility]. provides no warranty or guarantee of the accuracy or completeness of information in this document.
--- NOTE | 2025-01-15 16:41 | ED.GENADUL1 ---
HPI HPI - General Adult General Chief complaint: Skin/Abscess/Foreign Body Stated complaint: ABCESS ON BACKSIDE Time Seen by Provider: 01/15/25 16:28 Source: patient Mode of arrival: walk-in History of Present Illness HPI narrative: 34-year-old female presents to the emergency department for possible abscess on her left buttock. This started in October and she was transferred to a hospital in [place] where she had it drained. She does not seem to have had follow-up and was worried that the abscess might be coming back. She states that occasionally she will have some drainage from that area. No fever or vomiting or complaints of abdominal pain Related Data Home Medications ?Medication ?Instructions ?Recorded ?Confirmed clonazepam 0.5 mg tablet 1 mg PO DAILY 10/11/24 01/15/25 dextroamphetamine-amphetamine ER 30 mg PO DAILY 10/11/24 01/15/25 30 mg 24hr capsule,extend release (Adderall XR) fluoxetine 40 mg capsule (Prozac) 60 mg PO DAILY 10/11/24 01/15/25 lamotrigine 100 mg tablet 100 mg PO DAILY 10/11/24 01/15/25 (Lamictal) mirtazapine 45 mg tablet 45 mg PO BEDTIME 10/11/24 01/15/25 Allergies Allergy/AdvReac Type Severity Reaction Status Date / Time No Known Drug Allergies Allergy Verified 01/15/25 16:28 Opioid HPI Opioid Management Most Recent Opioid Data: Last Pain Scale 3 10/17/24 02:00 10/17/24 Last ORT Total Score 14 10/16/24 12:21 10/16/24 Last ORT Risk Category High Risk 10/16/24 12:21 10/16/24 Review of Systems ROS Narrative A ten point review of systems is negative except as noted above. PFSH PFSH Medical History Sciatic pain ?M54.30 - Sciatica, unspecified side (ICD-10) Surgical History (Updated 10/11/24 @ 16:50 by Fanny Goss RN) History of bunionectomy ?Z98.890 - Other specified postprocedural states (ICD-10) Hx of breast reduction, elective ?Z98.890 - Other specified postprocedural states (ICD-10) Family History (Updated 10/16/24 @ 16:01 by Chloé Ford) Grandmother Family history of cancer Family history of diabetes mellitus Family history of stroke Grandfather Family history of cancer Family history of diabetes mellitus Mother Family history of hypertension Aunt Family history of COPD (chronic obstructive pulmonary disease) Family history of stroke Social History (Updated 10/16/24 @ 16:02 by Chloé Ford) Within the past year, how often did you have a drink containing alcohol: monthly or less Within the past year, how many standard drinks containing alcohol did you have on a typical day: 1 or 2 Within the past year, how often did you have six or more drinks on one occasion: never Total score: 0 Score interpretation: A score less than 3 is consistent with normal alcohol consumption. Smoking status: Former smoker Do you use any of these nicotine containing products: vaping products Non-prescribed substance use: denies use Previous occupational history: unemployed. Known occupational exposures/hazards: No Highest level of school completed/degree received: 10th grade Do you want help with school or training: No Are you now , , , , never or living with a partner: don't know In a typical week, how many times do you talk on the telephone with family, friends, or neighbors: 3 or more times per week How often do you get together with friends or relatives: 3 or more times per week How often do you attend anabaptist or congregational services: never Do you belong to any clubs or organizations such as anabaptist groups unions, fraternal or athletic groups, or school groups: no Total score: 1 Score interpretation: A score of less than or equal to 1 indicates the most socially isolated. Little interest or pleasure in doing things: not at all Feeling down, depressed, or hopeless: not at all Feel stressed/tense/nervous/anxious/difficulty sleeping: very much Life stressors: loss of job, financial matters, legal matters and unknown source of stress Due to disability, difficulty making decisions: No Do you think of yourself as: lesbian/cintron/homosexual Gender Identity: female Exam Narrative Exam Narrative: Nurses note and vital signs reviewed and patient is not hypoxic. General: The patient appears well and in no apparent distress. Patient is resting comfortably on cart. Skin: Warm, dry, no pallor noted. There is no rash noted. Head: Normocephalic, atraumatic Eye: Normal conjunctiva, no drainage Ears, Nose, Mouth, and Throat: oral mucosa is moist. Nares patent. Cardiovascular: Regular Rate and Rhythm Respiratory: Patient is in no distress, no accessory muscle use, lungs are clear to auscultation, no wheezing, rales or rhonchi Back: non-tender GI: Soft and nontender Musculoskeletal: The left buttock is examined. There is no raised area. There is minimal erythema of the skin of an area near the ischial tuberosity. There is perhaps a very small open area but there is no expressible drainage. There is no fluctuance Neurological: A&O, normal speech Psychiatric: Cooperative Constitutional Vital Signs, click to edit/add: Last Vital Signs Temp 97.9 F 01/15/25 16:28 Pulse 100 H 01/15/25 16:28 Resp 16 01/15/25 16:28 BP 145/85 H 01/15/25 16:28 Pulse Ox 95 01/15/25 16:28 O2 Del Method Room Air 01/15/25 16:28 Course Vital Signs Vital signs: Vital Signs Temperature 97.9 F 01/15/25 16:28 Pulse Rate 100 H 01/15/25 16:28 Respiratory Rate 16 01/15/25 16:28 Blood Pressure 145/85 H 01/15/25 16:28 Pulse Oximetry 95 01/15/25 16:28 Oxygen Delivery Method Room Air 01/15/25 16:28 Temperature 97.9 F 01/15/25 16:28 Pulse Rate 100 H 01/15/25 16:28 Respiratory Rate 16 01/15/25 16:28 Blood Pressure 145/85 H 01/15/25 16:28 Pulse Oximetry 95 01/15/25 16:28 Oxygen Delivery Method Room Air 01/15/25 16:28 Medical Decision Making MDM Narrative Medical decision making narrative: CAT scan does not reveal an abscess. Radiologist suggests a perianal fistula. She will follow-up with her surgeon at [facility] in [place]. There is no indication for an antibiotic. Treatment diagnosis and follow-up were discussed with the patient. Differential Diagnosis Differential Diagnosis: Abscess, cellulitis Lab Data Lab results reviewed: Yes I reviewed the patient's lab results Labs: Lab Results 01/15/25 Range/Units 16:46 WBC 6.2 (4.0-11.0) 10^3/uL RBC 3.75 L (4.20-5.40) 10^6/uL Hgb 12.8 (12.0-16.0) g/dL Hct 36.6 (36.0-48.0) % MCV 97.6 (81.0-99.0) fL MCH 34.1 H (26.7-34.0) pg MCHC 35.0 (29.9-35.2) g/dL RDW 11.3 (11.0-15.0) % Plt Count 227 (150-450) 10^3/uL MPV 8.9 L (9.5-13.5) fL Neut % (Auto) 49.5 (43.0-75.0) % Lymph % (Auto) 38.3 (20.5-60.0) % [place] % (Auto) 7.1 (1.7-12.0) % Eos % (Auto) 4.3 (0.9-7.0) % Baso % (Auto) 0.6 (0.2-2.0) % Neut # (Auto) 3.1 (1.4-6.5) 10^3/uL Lymph # (Auto) 2.4 (1.2-3.8) 10^3/uL [place] # (Auto) 0.4 (0.3-0.8) 10^3/uL Eos # (Auto) 0.3 (0.0-0.7) 10^3/uL Baso # (Auto) 0.0 (0.0-0.1) 10^3/uL Abs Immat Gran (auto) 0.01 (0.00-0.03) 10^3/uL Imm/Tot Granulo (auto) 0.2 (0.0-0.5) % Sodium 140 (136-145) mmol/L Potassium 3.6 (3.5-5.1) mmol/L Chloride 104 (98-107) mmol/L Carbon Dioxide 28.6 (21.0-32.0) mmol/L Anion Gap 11.0 BUN 12.0 (7.0-18.0) mg/dL Creatinine 0.82 (0.55-1.02) mg/dL Est GFR ( Amer) >60 (>=60 mL/min/1.73m^2) Est GFR (Non-Af Amer) >60 (>=60 mL/min/1.73m^2) BUN/Creatinine Ratio 14.6 Glucose 93 (74-106) mg/dL Calcium 8.7 (8.5-10.1) mg/dL Serum HCG, Qual Negative (NEGATIVE) Imaging Data CT pelvis: Radiologist's impression: Bowel: No wall thickening perineum; perineum: No abscess, left perianal fistula noted Discharge Plan Discharge Chief Complaint: Skin/Abscess/Foreign Body Clinical Impression: Fistula Patient Disposition: Home, Self-Care Time of Disposition Decision: 17:52 Condition: Good Mode of Transportation: Private Vehicle Prescriptions / Home Meds: No Action fluoxetine [Prozac] 40 mg capsule 60 mg PO DAILY lamotrigine [Lamictal] 100 mg tablet 100 mg PO DAILY dextroamphetamine-amphetamine [Adderall XR] 30 mg capsule,extended release 24hr 30 mg PO DAILY clonazepam 0.5 mg tablet 1 mg PO DAILY mirtazapine 45 mg tablet 45 mg PO BEDTIME Print Language: Greek Instructions: Abscess (ED) Additional Instructions: Follow-up with your surgeon in [place]. Referrals: Physician,Non-Staff, MD [Primary Care Provider] - 1 week
[2025-01-15 16:53] LABS: Basophils Percent Auto 0.6 % (0.2-2.0); Eosinophils Absolute Auto 0.3 10^3/uL (0.0-0.7); Eosinophils Percent Auto 4.3 % (0.9-7.0); Hematocrit 36.6 % (36.0-48.0); Hemoglobin 12.8 g/dL (12.0-16.0); Immature Granulocytes Abs Auto 0.01 10^3/uL (0.00-0.03); Immature Granulocytes Pct Auto 0.2 % (0.0-0.5); Lymphocytes Absolute Auto 2.4 10^3/uL (1.2-3.8); Lymphocytes Percent Auto 38.3 % (20.5-60.0); Mean Corpuscular Hemoglobin 34.1 pg (26.7-34.0); Mean Corpuscular Volume 97.6 fL (81.0-99.0); Mean Platelet Volume 8.9 fL (9.5-13.5); Monocytes Absolute Auto 0.4 10^3/uL (0.3-0.8); Monocytes Percent Auto 7.1 % (1.7-12.0); Neutrophils Absolute Auto 3.1 10^3/uL (1.4-6.5); Neutrophils Percent Auto 49.5 % (43.0-75.0); Platelet Count 227 10^3/uL (150-450); Red Blood Count 3.75 10^6/uL (4.20-5.40); Red Cell Distribution Width 11.3 % (11.0-15.0); White Blood Count 6.2 10^3/uL (4.0-11.0)
[2025-01-15 17:04] LABS: BUN Creatinine Ratio 14.6; Calcium 8.7 mg/dL (8.5-10.1); Carbon Dioxide 28.6 mmol/L (21.0-32.0); Chloride 104 mmol/L (98-107); Estimated GFR (African America >60 (>=60 mL/min/1.73m^2); Estimated GFR (Non-African Ame >60 (>=60 mL/min/1.73m^2); Glucose 93 mg/dL (74-106); Potassium 3.6 mmol/L (3.5-5.1); Sodium 140 mmol/L (136-145)
[2025-01-15 17:14] LABS: HCG Qualitative NEGATIVE (NEGATIVE); Internal Control Within Normal Limits
[2025-01-15 17:57] VITALS: BP 126/88; PULSE 86; O2SAT 98
== END 2025-01-15 17:58 | disposition home or self-care (01) ==
PROVIDERS: Emergency Provider Emergency Medicine
DX: K60.30 Anal fistula, unspecified (principal); Z59.89 Other problems related to housing and economic circumstances
CPT/HCPCS: 36415; 72193; 80048; 84703; 85025; 99285; Q9967

== ENCOUNTER 2025-06-13 18:26 | Emergency (ER) | payer OTHER, SELFPAY ==
--- OUTSIDE RECORDS SUMMARY | 2017-06-28 09:12 | XMS_ITS | Continuity of Care Document ---
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 Name Role Phone Abraham Ibrahim Unavailable Unavailable Allergies, Adverse Reactions, Alerts Substance Reaction Status Criticality No Known Allergies Active No Inform ation Procedures Procedure Date TRICH CULTURE RPR HIV-1 Test HEPATITIS C AB TEST GC BY DNA AMP CT BY DNA AMP GC Culture Oral ROUTINE VENIPUNCTURE Client Service Visit/ EXPRESS 7 TRICH CULTURE Advance Directives Directive Yes / No Effective Date File Name No Information Encounters Encounter Description Practice Location Reason(s) For Visit Diagnoses Date Provider Providers Copied on Encounter [facility] t, [address], [place], [id number] , tel:[phone] [facility] No Information 7 Johana Matthew. [address] [place], [place], [id number] , [place]. tel:[phone] Client Service Visit/ EXPRESS [facility], [address] [place], [place], [id number] , tel:[phone] [facility] STI Screening/ Treatment (chief complaint) Encounter for screening for infections with a predominantly sexual mode of transmissionEncounter for screening for human immunodeficiency virus 7 Johana Matthew. [address], [place], [place], [id number] , [place]. tel:[phone] Family History Family Member Type Diagnosis Age At Onset No Information Payers Payer name Insurance type Covered green party ID Authoriza tion(s) No Information Social History Type Description Quantity Date Captured Comments Alcohol Use Details Unknown Caffeine Use Details Unknown Tobacco Use Status Smoking Status No Information Sex Female Gender Identity Female Chief Complaint And Reason For Visit No Information Reason For Referral Reason For Referral No Information Plan Of Treatment Date Type Action Status Goal Flu (split) (3 y rs or older). Due on due Goal Flu (split) (3 y rs or older). Due on due Future Order: Lab Order GC Cultu re Confirm (GCCULTCONFIRM), Appointment on: Ordered Future Order: Lab Order Trich Cu lture (TRICH), Appointment on: Ordered Future Order: Lab Order RPR W/re flex FTA (RPRREFLEX), Appointment on: Ordered Future Order: Lab Order Rapid HI V-1 (HIV1), Appointment on: Ordered Future Order: Lab Order Gonorrhe a NAAT (Amp) (GONRHEA), Appointment on: Ordered Future Order: Lab Order Chlamydi a NAAT (CHLAMP), Appointment on: Ordered Future Order: Lab Order GC Cultu re - Oral (GCCULTORAL), Appointment on: Ordered Future Order: Lab Order Rapid He p C Ab (HEPC), Appointment on: Ordered Future Order: Lab Order Venipunc ture (MARY), Appointment on: Ordered History Of Present Illness Encounter Date Complaint History Of Prese nt Illness STI Screening/Treatment Patient' s current partners are women. Patient presents for express visit. Patient reports never using condoms. Current sexual activity includes: oral. Patient has no previous history of treated sexually transmitted infection(s). There have been no new partners since last STI tests. Patient has not had any anonymous partners. Patient reports having 3 partners in the last 12 months. Patient reports exposure to herpes simplex virus. Date of last sexual activity: 06/03/2017. Patient does not use shared needles. Patient does not have sex for money or drugs. Patient reports she has never been incarcerated. Patient has not had exposure to blood/body fluids at work. Additional information: to get tested. Functional Status Date Functional Assessmen t No Information Instructions Date Instruction Additional Infor christal HCV Non-Reactive result given Re lated to Encounter for screening for infections with a predominantly sexual mode of transmission HIV neg result & pos t test counseling given. Advised HIV retest in 3m Related to Encounter for screening for infections with a predominantly sexual mode of transmission Absolutely no form o f sexual contact until after calling for final results. Related to Encounter for screening for infections with a predominantly sexual mode of transmission Verbal PrEP education provided. Related to Encounter for screening for infections with a predominantly sexual mode of transmission Pt informed of all a vailable results. Pt states understanding. Related to Encounter for screening for infections with a predominantly sexual mode of transmission Promoted condom use. Related to Encounter for screening for infections with a predominantly sexual mode of transmission Assessments Type Assessment Date No Information Patient Care Teams Name Effective Dates (start - stop) Status Members No Information
--- OUTSIDE RECORDS SUMMARY | 2025-05-15 11:00 | XMS_ITS ---
Author Organization Family [facility] Servic es Address [address] [place] [address] Care Team Providers Care Rfid Analyst Name Role Phone Yessica So Primary Care Provider Mariana Broussard Unavailable [phone] REASON FOR VISIT EST CARE Encounters Encounter Location Date Provider Diagnosis [address] [facility] [address] [place] [address] 05/15/2025 Yessica So Plan Of Treatment No Information Progress Notes * FREDDIE NAGYDOB:[birth year] (34 yo F)Acc No.[id number]:05/15/2025 Progress Notes Patient: Trevin MONCADA FREDDIE Provider: Gabo So :1990 A ge:34 Y S ex:Female Date:05/15/2025 Address:[address] [place] [address], [address] [facility] Subjective: * Chief Complaints: * 1 . EST CARE. * Medical History: Objective: * Vitals: Assessment: Plan: * Treatment: Care Plan: * Problems: * Images: * Electronic signature of GERSON Quinteros on 06/13/2025 at 06:51 PM EDT Sign off status: Pending * Provider: Gabo So Date: 0 05/15/2025 Generated for Dai ramos/Lillian/eTransmitting on: 0 06/13/2025 06:51 PM EDT
--- OUTSIDE RECORDS SUMMARY | 2025-06-02 11:45 | XMS_ITS ---
[facility] [address] [place] [address] Care Team Providers Care Rn Charge Name Role Phone Yessica So Primary Care Provider Mariana Broussard Unavailable [phone] REASON FOR VISIT EST CARE, ADHD/ANXIETY Encounters Encounter Location Date Provider Diagnosis [address] [address] 06/02/2025 Mariana Broussard Plan Of Treatment No Information Progress Notes * FREDDIE NAGYDOB:[birth year] (34 yo F)Acc No.[id number]:06/02/2025 Behavioral Health Patient: Trevin MONCADA FREDDIE Provider: Finesse Broussard CNP :1990 A ge:34 Y S ex:Female Date:06/02/2025 Address:[address] [place] [address], [address] [facility] Pcp:Yessica So Subjective: * Chief Complaints: * 1 . EST CARE, ADHD/ANXIETY. * Medical History: Objective: * Vitals: Assessment: Plan: * Treatment: Care Plan: * Problems: * Images: * Electronic signature of LORENZO Bhatia on 06/13/2025 at 06:52 PM EDT Sign off status: Pending * Provider: Finesse Broussard CNP Date: 0 06/02/2025 Generated for Printi ng/Faxing/eTransmitting on: 0 06/13/2025 06:52 PM EDT
--- OUTSIDE RECORDS SUMMARY | 2025-06-11 11:17 | XMS_ITS | Encounter Summary ---
Author Organization [facility] Address [address] [place] [address] Phone Care Team Providers Care Etcher Enameling Name Role Phone Unavailable Primary Care Provider Unavailabl e Reason for Visit * Auth/Cert Specialty Diagnoses / Procedures Referred By Kat t Referred To Contact Diagnoses Perianal fistula Perianal fistula [K60.30] Procedures LA ANRCT XM SURG REQ ANES GENERAL SPI/EDRL DX Exam under anesthesia, possible seton insertion, possible fistulotomy Elías Samuel MD [address] [place] [address] [address], [facility] [address] [place] [address] Phone: tel: fax: [facility] [place] [address] [place] [phone] fax: Referral ID Status Reason Start Date Expiration Date Visits Re quested Visits Authorized [id number] 1 1 Encounter Details Date Type Department Care Team (Latest Contact Info) Description 06/11/2025 11:17 AM EDT - 06/11/2025 3:29 PM EDT Hospital Encounter [facility] [place] [address] [place] [phone] Elías Samuel MD [address] [place] [address] Dr [address], [place] [address] [place] [id number] Perianal fistula (Primary Dx) Discharge Disposition: Home Social History Tobacco Use Types Packs/Day Years Used Date Smoking Tobacco: Never Assessed Comments No Sex and Gender Information Value Date Recorded Sex Assigned at Not on file Legal Sex Female 10:27 AM EST Gender Identity Not on file Sexual Orientation Not on file documented as of this encounter Last Filed Vital Signs Vital Sign Reading Time Taken Comments Blood Pressure 134/74 06/11/2025 2:37 PM EDT Pulse 109 06/11/2025 2:37 PM EDT Temperature 36.1 C (97 F) 06/11/2025 2:37 PM EDT Respiratory Rate 18 06/11/2025 2:37 PM EDT Oxygen Saturation 93% 06/11/2025 2:37 PM EDT Inhaled Oxygen Concentration - - Weight 61.2 kg (135 lb) 06/11/2025 12:02 PM EDT Height 154.9 cm (5' 1 ) 06/11/2025 12:02 PM EDT Body Mass Index 25.51 06/11/2025 12:02 PM EDT documented in this encounter Functional Status * Calculated C-SSRS Risk Score (Lifetime/Recent) Answer Date of Assessment Author No Risk Indicated 06/11/2025 12:05 PM EDT Willie Lerner RN * [place] Suicide Severity Rating Scale (Screener/Recent Self-Report) Question Answer Date of Assessment Author 1. Wish to be (Past 1 Month) No 025 12:05 PM EDT Willie Lerner RN 2. Non-Specific Active Suici lela Thoughts (Past 1 Month) No 06/11/2025 12:05 PM EDT Willie Lerner RN 6. Suicidal Behavior (Lifetime) No 12:05 PM EDT Willie Lerner RN documented as of this encounter Discharge Instructions * Discharge Instructions* Elías Samuel MD - 06/11/2025 1:48 PM EDT WOUND CARE: Applying gauze between buttocks at the anus to keep wound and undergarments clean/dry; change at least daily until there is no further drainage. PAIN CONTROL: Can utilize prescribed percocet as needed. Do not combine percocet with acetaminophen (tylenol) to avoid exceeding safe daily recommended intake of acetaminophen. Can utilize ibuprofen. OK to take sitz baths two-three times daily as needed. ACTIVITY: Do not drive or operative heavy machinery for at least first 24 hours after surgery; if you do not feel able to safely operate after first 24 hours or are taking narcotics (ie percocet or vicodin) then do not operative heavy machinery or drive. DIET: Resume previous diet. FOLLOW-UP: Please call office at [phone] to schedule follow-up appointment for 3-4 weeks from date of surgery. documented in this encounter Medications at Time of Discharge amphetamine-dextr oamphetamine (Adderall) 30 mg tablet Take 1 tablet (30 mg) by mouth. FLUoxetine (PROzac) 40 mg capsule Take by mouth. 10/11/2024 lamoTRIgine (LaMICtal) 150 mg tablet Take 1 tablet (150 mg) by mouth early in the morning.. 01/15/2025 oxyCODONE-acetami nophen (Percocet) 5-325 mg tabletIndications :Perianal fistula Take 1 tablet by mouth every 6 hours if needed for severe pain (7 - 10) for up to 2 days. 8 tablet 06/11/2025 2:57 PM EDT 06/11/2025 06/13/2025 documented as of this encounter H&P Notes * Elías Samuel MD - 06/11/2025 12:39 PM EDT H&P reviewed. The patient was examined and there are no changes to the H&P. Source Note - Elías Samuel MD - 05/12/2025 2:00 PM EDT CONNOR Marrero is a 34 y.o. female who first underwent I&D of left gluteal abscess 10/18/24 at [facility] with Dr. Dani Vang. Drainage from wound area persisted, which led toa second I&D at [facility] with [facility]. She was recommended to follow up outpatient with [facility] for evaluation of possible fistula. Increase in blood drainage led to [facility] ED visit 03/25/25. She was again r ecommended to follow up with [facility] outpatient. She presents today to discuss possible anal fistula. Patient reports gluteal cyst developed 09/2024. She underwent an I&D 10/2024. Developed drainagefrom wound. She experiences purulent drainage daily. She has cycles of swelling, pain, then spontaneous drainage. Uses guaze pads daily. She recently moved from [place], delaying her care. Maternal Uncle hx of CRC. CT a/p 03/26/25 Impression: - Redemonstrated serpiginous soft tissue extending from the rectum to the medial left gluteal fold similar to prior imaging and again compatible with an anal fissure. Left inguinal lymph node possibly reactive. - And otherwise no acute abdominal or pelvic abnormality. Colonoscopy: N/A Occasionally Vapes /Occasional ETOH/No Illicit drug use PMH: PTSD, Anxiety, Depression, PSH: No family history of IBD Maternal Uncle hx of CRC Employment: Medical History[1] Surgical History[2] RX Allergies[3] Review of Systems Constitutional: Positive for fatigue. Negative for activity change, appetite change, chills, diaphoresis, fever and unexpected weight change. Respiratory: Negative for chest tightness and shortness of breath. Cardiovascular: Negative for chest pain, palpitations and leg swelling. Gastrointestinal: Positive for anal bleeding and rectal pain. Negative for abdominal distention, abdominal pain, blood in stool, constipation, diarrhea, nausea and vomiting. Endocrine: Negative for polydipsia, polyphagia and polyuria. Genitourinary: Negative for dysuria and hematuria. Neurological: Negative for dizziness, seizures and light-headedness. Hematological: Negative. Medications Ordered Prior to Encounter[4] Physical Exam Vitals reviewed. Exam conducted with a tube molder fiberglass present. Constitutional: General: She is not in acute distress. Appearance: Normal appearance. She is not ill-appearing. HENT: Head: Normocephalic. Mouth/Throat: Mouth: Mucous membranes are moist. Eyes: Extraocular Movements: Extraocular movements intact. Pupils: Pupils are equal, round, and reactive to light. Cardiovascular: Rate and Rhythm: Normal rate and regular rhythm. Pulses: Normal pulses. Heart sounds: Normal heart sounds. No murmur heard. Pulmonary: Effort: Pulmonary effort is normal. No respiratory distress. Breath sounds: Normal breath sounds. No wheezing, rhonchi or rales. Chest: Chest wall: No tenderness. Abdominal: General: There is no distension. Palpations: There is no mass. Tenderness: There is no abdominal tenderness. There is no guarding or rebound. Hernia: No hernia is present. Genitourinary: Comments: Left anterior perianal tissue scar, no open sinus, no active drainage, no significant surrounding erythema/edema/induration/fluctuance. Musculoskeletal: General: No swelling or deformity. Cervical back: Neck supple. No rigidity. Right lower leg: No edema. Left lower leg: No edema. Skin: General: Skin is warm. Coloration: Skin is not jaundiced or pale. Neurological: General: No focal deficit present. Mental Status: She is alert and oriented to person, place, and time. Mental status is at baseline. Psychiatric: Mood and Affect: Mood normal. Behavior: Behavior normal. Thought Content: Thought content normal. Judgment: Judgment normal. Assessment and Plan: #Perianal fistula, left anterior - Offered EUA with possible fistulotomy, possible insertion of seton vs MRI pelvis - Patient elects to proceed with EUA, plan for 06/11/2025 - Lithotomy position in OR Elías Samuel MD 05/12/2025 8:52 PM [1] No past medical history on file. [2] No past surgical history on file. [3] No Known Allergies [4] No current outpatient medications on file prior to visit. No current facility-administered medications on file prior to visit. documented in this encounter Miscellaneous Notes * Op Note - Elías Samuel MD - 06/11/2025 1:17 PM EDT Exam under anesthesia, possible seton insertion, possible fistulotomy Operative Note Date: 06/11/2025 OR Location: [facility] OR Name: Amira Marrero, : 1990, Age: 34 y.o., , Sex: female Diagnosis Pre-op Diagnosis * Perianal fistula [K60.30] Post-op Diagnosis * Perianal fistula [K60.30] Procedures Exam under anesthesia, anorectal Fistulotomy Surgeons * Elías Samuel - Primary Resident/Fellow/Other Construction Project Engineer: Surgeons and Role: * No surgeons found with a matching role * Staff: Delivery Professional: Admin Dir: Tony Arauzub Person: Emeli Scrub Person: Bridger Anesthesia Staff: Anesthesiologist: Ramon Barrett MD C-AA: BROOKLYN Gonzalez Procedure Summary Anesthesia: General ASA: II Estimated Blood Loss: 20mL Intra-op Medications: Administrations occurring from 1255 to 1410 on 06/11/25: Medication Name Total Dose hydrogen peroxide 3 % external solution 1 Application BUPivacaine-EPINEPHrine (Marcaine w/EPI) 0.5 %-1:200,000 injection 30 mL surgical lubricant gel 1 Application dexAMETHasone (Decadron) PF injection 10 mg/mL 10 mg fentaNYL (Sublimaze) injection 50 mcg/mL 100 mcg HYDROmorphone (Dilaudid) injection 1 mg/mL 1 mg ketorolac (Toradol) injection 30 mg 30 mg LR bolus Cannot be calculated lidocaine PF (Xylocaine-MPF) local injection 2 % 100 mg midazolam (Versed) injection 1 mg/mL 2 mg ondansetron (Zofran) 2 mg/mL injection 4 mg propofol (Diprivan) injection 10 mg/mL 200 mg ceFAZolin (Ancef) 2 g in dextrose (iso) IV 100 mL 2 g Anesthesia Record Intraprocedure I/O Totals None Specimen: No specimens collected Drains and/or Catheters: * None in log * Tourniquet Times: Implants: Findings: Left anterior [id number] Indications: Amira Marrero is an 34 y.o. female who is having surgery for Perianal fistula [K60.30]. The patient was seen in the preoperative area. The risks, benefits, complications, treatment options, non-operative alternatives, expected recovery and outcomes were discussed with the patient. The possibilities of reaction to medication, pulmonary aspiration, injury to surrounding structures, bleeding, recurrent infection, the need for additional procedures, failure to diagnose a condition, and creating a complication requiring transfusion or operation were discussed with the patient. The patient concurred with the proposed plan, giving informed consent. The site of surgery was properly noted/marked if necessary per policy. The patient has been actively warmed in preoperative area. Preoperative antibiotics have been ordered and given within 1 hours of incision. Venous thrombosis prophylaxis have been ordered including bilateral sequential compression devices Procedure Details: Safety checklist performed in preoperative area confirming correct patient and correct patient. Patient brought to the operating room. Sequential compression devices applied to bilateral lower extremities. Following induction of general anesthesia, patient was placed in lithotomyposition with the yellow-fin stirrups. Bilateral arms were abducted and gently fixed to arm boards.The perianal region was prepped with Hibiclens solution and patient draped in the usual sterile fashion. Time out was performed, once again confirming correct patient and correct procedure. Followingcompletion of perioperative antibiotics, a perianal exam was performed. There were non-thrombosed external hemorrhoids, worst in the posterior positions. In the left anterior position, there was a scar covered by thin layer of skin and mild fluctuance overlying the top. There was no active drainage from the site. A well-lubricated index finger was inserted into the anus and a full 360 degree sweep performed. There were no palpable masses, lesions or fullness of the anorectal canal. There was no blood on exam. A lighted Hill-Garcia retractor was then inserted into the anorectal canal. There were small non-bleeding internal hemorrhoids. No masses or lesions identified. A small lacrimal probe was used to puncture through the thin layer of skin at the scar site in leftanterior perianal space. Gentle probing was indicative of a linear tract extending to the distal left anterior anal canal. The internal os could not be identified initially and decision was thus madeto inject a few ml of hydrogen peroxide via the left anterior external os site. The hydrogen peroxide readily extravasated into the anal canal via distal internal os in the left anterior position. With additional probing, the lacrimal probe was brought out through the internal os site. Again, the internal os site was very distal in the anal canal, just about at the verge. Palpation of the overlying tissue did not demonstrate a large involvement of the sphincter complex. Decision was made to proceed with fistulotomy. The tract was incised with electrocautery. The tract was then debrided of granulation tissue with a curette. Hemostasis of the wound was achieved with electrocautery. Perianal analgesia was achieved with 0.5% marcaine with epinephrine injected perianally. The perineal and perianal regions were was cleansed and dried. Surgical count was performed and confirmed to be correct. Dry dressings were applied. Sign out was performed. The patient was awakened and taken to the recovery area in stable condition. Evidence of Infection: No Complications: None; patient tolerated the procedure well. Disposition: PACU - hemodynamically stable. Condition: stable Task Performed by METAL CONTROL COORDINATOR or Delivery Professional: Patient positioning, skin prep. Additional Details: N/A Attending Attestation: I was present and scrubbed for the entire procedure. Elías Samuel documented in this encounter Plan of Treatment Upcoming Encounters Date Type Department Care Team (Late st Contact Info) Description 07/22/2025 3:20 PM EDT Office Visit [facility] [address] [facility] [address] [place] [id number] Gilbert Oliveira DO [address] [facility] [address] [place], [place] [id number] documented as of this encounter Goals Goal Patient Goal Type Associated Problems Recent Progress Patient-Stated? Author Autogenerat ed Goal Care Plan Autogenerated Problem No Nando Barnhart RN documented as of this encounter Procedures Procedure Name Priority Date/Time Associated Diagnosis Comments PULSE OXIMETRY, CONTINUOUS Routine 06/11/2025 1:45 PM EDT LA ANRCT XM SURG REQ ANES GENERAL SPI/EDRL DX 06/11/2025 12:44 PM EDT Perianal fistula HCG, URINE, QUALITATIVE STAT 06/11/2025 11:49 AM EDT PULSE OXIMETRY, SPOT Routine 06/11/2025 11:41 AM EDT documented in this encounter Results * hCG, Urine, Qualitative (06/11/2025 11:49 AM EDT) HCG, Urine NEGATIVE NEGATIVE 06/11/2025 11:54 AM EDT [facility] Urine Urine specimen / Unknown 06/11/2025 11:49 AM EDT 06/11/2025 11:47 AM EDT us Elías Samuel MD LAB URINE ORDERABLES Final Resu lt [facility] [address] [place] [address] documented in this encounter Visit Diagnoses Diagnosis Perianal fistula- Primary Anal fistula Perianal fistula Anal fistula documented in this encounter Admitting Diagnoses Diagnosis Perianal fistula Anal fistula documented in this encounter Administered Medications Inactive Administered Medications - up to 3 most recent administrations Medication Order MAR Action Action Date Dose Rate Site albuterol 2.5 mg /3 mL (0.083 %) nebulizer solution 2.5 mg 2.5 mg, nebulization, Every 20 min PRN, wheezing, Starting on Itzel 06/11/25 at 1345, For 3 doses, Recovery (only) diphenhydrAMINE (BENADryl) injection 12.5 mg 12.5 mg, intravenous, Once as needed, itching, allergic reaction, Starting on Itzel 06/11/25 at 1345, For 1 dose, Recovery (only) hydrALAZINE (Apresoline) injection 5 mg 5 mg, intravenous, Administer over 2 Minutes, Every 30 min PRN, systolic blood pressure greater than 180 mmHg and heart rate less than 60 BPM, Starting on Itzel 06/11/25 at 1345, For 3 doses, Recovery (only) HYDROcodone-acetaminophe n (Milton) 5-325 mg per tablet 1 tablet 1 tablet, oral, Every 4 hours PRN, pain moderate (4-6), second line, Starting on Itzel 06/11/25 at 1345, Recovery (only), When able to take oral medications., If ordered PRN for pain, nurse is permitted to administer this medication for higher pain scores based on patient preference? Yes HYDROmorphone (Dilaudid) injection 0.5 mg 0.5 mg, intravenous, Every 5 min PRN, pain moderate (4-6), first line, Starting on Itzel 06/11/25 at 1345, Recovery (only), Max total of 4 mg regardless of dose. HYDROmorphone (Dilaudid) injection 1 mg 1 mg, intravenous, Every 5 min PRN, pain severe (7-10), first line, Starting on Itzel 06/11/25 at 1345, Recovery (only), Max total of 4 mg regardless of dose. labetaloL (Normodyne,Trandate) injection 5 mg 5 mg, intravenous, Administer over 1 Minutes, Every 20 min PRN, systolic blood pressure greater than 180 mmHg, dystolic blood pressure greater than 100 mmHg and heart rate greater than 60 BPM, Starting on Itzel 06/11/25 at 1345, For 4 doses, Recovery (only) lactated Ringer's infusion 100 mL/hr, intravenous, Continuous, Starting on Itzel 06/11/25 at 1200, For 1 day, Preprocedure New Bag 06/11/2025 12:05 PM EDT 100 mL/hr 100 mL/hr lactated Ringer's infusion 100 mL/hr, intravenous, Continuous, Starting on Itzel 06/11/25 at 1415, For 1 day, Recovery (only) Continued from OR 06/11/2025 1:48 PM EDT 100 mL/hr 100 mL/hr metoclopramide (Reglan) injection 10 mg 10 mg, intravenous, Once as needed, nausea/vomiting, first line, Starting on Itzel 06/11/25 at 1345, For 1 dose, Recovery (only) metroNIDAZOLE (Flagyl) 500 mg in sodium chloride (iso) IV 100 mL 500 mg, intravenous, at 100 mL/hr, Administer over 60 Minutes, Once, On Itzel 06/11/25 at 1200, For 1 dose, Preprocedure, Do NOT give with alcohol or drug products with significant alcohol content., Suspected Indication (Select all that apply): Surgical Prophylaxis, Indications: Surgical ProphylaxisIndications:S urgical Prophylaxis New Bag 06/11/2025 12:06 PM EDT 500 mg 100 mL/hr midazolam (Versed) injection 1 mg 1 mg, intravenous, Once as needed, anxiety, Starting on Itzel 06/11/25 at 1345, For 1 dose, Recovery (only) oxygen (O2) therapy inhalation, Continuous - O2/gases, oxygen, Starting on Itzel 06/11/25 at 1345, Recovery (only), Device: Nasal Cannula, Rate in liters per minute: 3 LPM, Keep O2 Sat Above: 92% racepinephrine (Asthmanefrin) 2.25 % nebulizer solution 0.5 mL 0.5 mL, nebulization, Every 4 hours PRN, wheezing, shortness of breath, stridor, Starting on Itzel 06/11/25 at 1345, Recovery (only), Dilute in 3 mL NS documented in this encounter Active and Recently Administered Medications Times are shown in EDT. Scheduled Medication Order 06/09/2025 06/10/2025 06/11/2025 ceFAZolin (Ancef) 2 g in dextrose (iso) IV 100 mL (COMPLETED) 2 g, intravenous, at 200 mL/hr, Administer over 30 Minutes, Once, On Itzel 06/11/25 at 1200, For 1 dose, Preprocedure, Administer within 60 minutes prior to incision. premix bag, Dosing of this medication varies based on severity of illness. Does this patient have sepsis or concern for sepsis (probable or documented infection plus systemic manifestations of infection)? No, Suspected Indication (Select all that apply): Surgical Prophylaxis, Indications: Surgical Prophylaxis 1304 (Given - Provid er: Davida Zuñiga [facility]) metroNIDAZOLE (Flagyl) 500 mg in sodium chloride (iso) IV 100 mL (COMPLETED) 500 mg, intravenous, at 100 mL/hr, Administer over 60 Minutes, Once, On Itzel 06/11/25 at 1200, For 1 dose, Preprocedure, Do NOT give with alcohol or drug products with significant alcohol content., Suspected Indication (Select all that apply): Surgical Prophylaxis, Indications: Surgical Prophylaxis 1206 (New Bag - Prov ider: Willie Lerner RN)1306 (Due: Stopped - Provider: Willie Lerner RN) Continuous Medication Order 06/09/2025 06/10/2025 06/11/2025 lactated Ringer's infusion 100 mL/hr, intravenous, Continuous, Starting on Itzel 06/11/25 at 1200, For 1 day, Preprocedure 1205 (New Bag - Prov ider: Willie Lerner RN)1729 (Due: Order Ending - Provider: Automatic Discharge Provider - Comment: [Order ends at this time. Document the following action when infusion is complete: Stopped]) lactated Ringer's infusion 100 mL/hr, intravenous, Continuous, Starting on Itzel 06/11/25 at 1415, For 1 day, Recovery (only) 1348 (Continued from OR - Provider: Marietta Bui RN)1729 (Due: Order Ending - Provider: Automatic Discharge Provider - Comment: [Order ends at this time. Document the following action when infusion is complete: Stopped]) PRN Medication Order 06/09/2025 06/10/2025 06/11/2025 albuterol 2.5 mg /3 mL (0.083 %) nebulizer solution 2.5 mg 2.5 mg, nebulization, Every 20 min PRN, wheezing, Starting on Itzel 06/11/25 at 1345, For 3 doses, Recovery (only) BUPivacaine-EPINEPHrine (Marcaine w/EPI) 0.5 %-1:200,000 injection (CANCELED) As needed, Starting on Itzel 06/11/25 at 1336, Intraprocedure 1336 (Given - Provid er: Elías Samuel MD) diphenhydrAMINE (BENADryl) injection 12.5 mg 12.5 mg, intravenous, Once as needed, itching, allergic reaction, Starting on Itzel 06/11/25 at 1345, For 1 dose, Recovery (only) hydrALAZINE (Apresoline) injection 5 mg 5 mg, intravenous, Administer over 2 Minutes, Every 30 min PRN, systolic blood pressure greater than 180 mmHg and heart rate less than 60 BPM, Starting on Itzel 06/11/25 at 1345, For 3 doses, Recovery (only) HYDROcodone-acetaminophen (Milton) 5-325 mg per tablet 1 tablet 1 tablet, oral, Every 4 hours PRN, pain moderate (4-6), second line, Starting on Itzel 06/11/25 at 1345, Recovery (only), When able to take oral medications., If ordered PRN for pain, nurse is permitted to administer this medication for higher pain scores based on patient preference? Yes hydrogen peroxide 3 % external solution (CANCELED) As needed, Starting on Itzel 06/11/25 at 1338, Intraprocedure 1338 (Given - Provid er: Elías Samuel MD) HYDROmorphone (Dilaudid) injection 0.5 mg 0.5 mg, intravenous, Every 5 min PRN, pain moderate (4-6), first line, Starting on Itzel 06/11/25 at 1345, Recovery (only), Max total of 4 mg regardless of dose. HYDROmorphone (Dilaudid) injection 1 mg 1 mg, intravenous, Every 5 min PRN, pain severe (7-10), first line, Starting on Itzel 06/11/25 at 1345, Recovery (only), Max total of 4 mg regardless of dose. labetaloL (Normodyne,Trandate) injection 5 mg 5 mg, intravenous, Administer over 1 Minutes, Every 20 min PRN, systolic blood pressure greater than 180 mmHg, dystolic blood pressure greater than 100 mmHg and heart rate greater than 60 BPM, Starting on Itzel 06/11/25 at 1345, For 4 doses, Recovery (only) metoclopramide (Reglan) injection 10 mg 10 mg, intravenous, Once as needed, nausea/vomiting, first line, Starting on Itzel 06/11/25 at 1345, For 1 dose, Recovery (only) midazolam (Versed) injection 1 mg 1 mg, intravenous, Once as needed, anxiety, Starting on Itzel 06/11/25 at 1345, For 1 dose, Recovery (only) oxygen (O2) therapy inhalation, Continuous - O2/gases, oxygen, Starting on Itzel 06/11/25 at 1345, Recovery (only), Device: Nasal Cannula, Rate in liters per minute: 3 LPM, Keep O2 Sat Above: 92% racepinephrine (Asthmanefrin) 2.25 % nebulizer solution 0.5 mL 0.5 mL, nebulization, Every 4 hours PRN, wheezing, shortness of breath, stridor, Starting on Itzel 06/11/25 at 1345, Recovery (only), Dilute in 3 mL NS surgical lubricant gel (CANCELED) As needed, Starting on Itzel 06/11/25 at 1338, Intraprocedure 1338 (Given - Provid er: Elías Samuel MD) documented in this encounter Additional Health Concerns Active Problems Noted Date Diagnosed Date Autogenerated Problem 06/12/2025 documented as of this encounter
--- OUTSIDE RECORDS SUMMARY | 2025-06-11 12:55 | XMS_ITS | Encounter Summary ---
Author Organization [facility] Address [address] 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] Procedures [place] ANRCT XM SURG REQ ANES GENERAL SPI/EDRL DX Exam under anesthesia, possible seton insertion, possible fistulotomy Elías aSmuel MD [address] [place] [address] Dr Jackson [address], [facility] [address] [place] [address] Phone: tel: fax: [facility] [place] [address] [place] [phone] fax: Referral ID Status Reason Start Date Expiration Date Visits Re quested Visits Authorized [id number] 1 1 Encounter Details Date Type Department Care Team (Late st Contact Info) Description 06/11/2025 12:55 PM EDT - 06/11/2025 2:10 PM EDT Surgery [facility] [place] [address] [place] [phone] Elías Samuel MD [address] [place] [address] Dr Jackson [address], [place] [address] [place] [id number] Exam under anesthesia, possible seton insertion, possible fistulotomy [42843 (CPT )] Social History Tobacco Use Types Packs/Day Years Used Date Smoking Tobacco: Never Assessed Comments No Sex and Gender Information Value Date Recorded Sex Assigned at Not on file Legal Sex Female 10:27 AM EST Gender Identity Not on file Sexual Orientation Not on file documented as of this encounter Last Filed Vital Signs Vital Sign Reading Time Taken Comments Blood Pressure 102/56 06/11/2025 2:00 PM EDT Pulse 102 06/11/2025 2:00 PM EDT Temperature 36.7 C (98.1 F) 06/11/2025 1:48 PM EDT Respiratory Rate 9 06/11/2025 2:00 PM EDT Oxygen Saturation 97% 06/11/2025 2:00 PM EDT Inhaled Oxygen Concentration - - Weight 61.2 kg (135 lb) 06/11/2025 12:02 PM EDT Height 154.9 cm (5' 1 ) 06/11/2025 12:02 PM EDT Body Mass Index 25.51 06/11/2025 12:02 PM EDT documented in this encounter Functional Status * Calculated C-SSRS Risk Score (Lifetime/Recent) Answer Date of Assessment Author No Risk Indicated 06/11/2025 12:05 PM EDT Willie Lerner RN * [place] Suicide Severity Rating Scale (Screener/Recent Self-Report) Question [...] previous diet. FOLLOW-UP: Please call office at [phone] to schedule follow-up appointment for 3-4 weeks [...] I&D of left gluteal abscess 10/18/24 at [facility] with Dr. Dani Vang. Drainage from wound area persisted, which led toa second I&D at [facility] with [facility]. She was recommended to follow up outpatient with [facility] for evaluation of possible fistula. Increase in blood drainage led to [facility] ED visit 03/25/25. She was again r ecommended to follow up with [facility] outpatient. She presents today to discuss possible anal fistula. Patient reports gluteal cyst developed 09/2024. She underwent an I&D 10/2024. Developed drainagefrom wound. She experiences purulent drainage daily. She has cycles of swelling, pain, then spontaneous drainage. Uses guaze pads daily. She recently moved from [place], delaying her care. Maternal Uncle hx of [...] Exam Vitals reviewed. Exam conducted with a equipment maint tech present. Constitutional: General: She is not in [...] Surgeons * Elías Samuel - Primary Resident/Fellow/Other Spark Plug Assembler: Surgeons and Role: * No surgeons found with a matching role * Staff: Power Washer: Manager: Altin Scrub Person: Emeli Scrub Person: Bridger Anesthesia Staff: Anesthesiologist: MD Radha De Jesus-AA: BROOKLYN Gonzalez Procedure Summary Anesthesia: General ASA: [...] * Tourniquet Times: Implants: Findings: Left anterior [id number] Indications: Amira Marrero is an 34 y.o. [...] hemodynamically stable. Condition: stable Task Performed by TRUCK AND TRANSPORT MECHANIC or Power Washer: Patient positioning, skin prep. Additional Details: N/A Attending Attestation: I was present and scrubbed for the entire procedure. Elías Samuel documented in this encounter Plan of Treatment Upcoming Encounters Date Type Department Care Team (Late st Contact Info) Description 07/22/2025 3:20 PM EDT Office Visit [facility] [address] [facility] [address] [place] [phone] Gilbert Oliveira, [address] [facility] [address] [place], [place] [phone] documented as of this encounter Goals Goal Patient Goal Type Associated Problems Recent Progress Patient-Stated? Author Autogenerat ed Goal Care Plan Autogenerated Problem No Nando Barnhart RN documented as of this encounter Procedures Procedure Name Priority Date/Time Associated Diagnosis Comments PULSE OXIMETRY, CONTINUOUS Routine 06/11/2025 1:45 PM EDT [place] ANRCT XM SURG REQ ANES GENERAL SPI/EDRL DX 06/11/2025 12:44 PM EDT Perianal fistula HCG, URINE, QUALITATIVE STAT 06/11/2025 11:49 AM EDT PULSE OXIMETRY, SPOT Routine 06/11/2025 11:41 AM EDT documented in this encounter Results * hCG, Urine, Qualitative (06/11/2025 11:49 AM EDT) HCG, Urine NEGATIVE NEGATIVE 06/11/2025 11:54 AM EDT [facility] Urine Urine specimen / Unknown 06/11/2025 11:49 AM EDT 06/11/2025 11:47 AM EDT us Elías Samuel MD LAB URINE ORDERABLES Final Resu lt [facility] [address] [place] [address] documented in this encounter Visit Diagnoses Diagnosis Perianal fistula- Primary Anal fistula Perianal fistula Anal fistula Perianal fistula Anal fistula documented [...] (only) BUPivacaine-EPINEPHrine (Marcaine w/EPI) 0.5 %-1:200,000 injection As needed, Starting on Itzel 06/11/25 at 1336, Intraprocedure Given 06/11/2025 1:36 PM EDT 30 mL diphenhydrAMINE (BENADryl) injection 12.5 mg 12.5 mg, [...] at 1345, For 3 doses, Recovery (only) HYDROcodone-acetaminoph en (Fleming) 5-325 mg per tablet 1 tablet 1 tablet, oral, Every 4 hours PRN, pain moderate (4-6), second line, Starting on Itzel 06/11/25 at 1345, Recovery (only), When able to take oral medications., If ordered PRN for pain, nurse is permitted to administer this medication for higher pain scores based on patient preference? Yes hydrogen peroxide 3 % external solution As needed, Starting on Itzel 06/11/25 at 1338, Intraprocedure Given 06/11/2025 1:38 PM EDT 1 Application HYDROmorphone (Dilaudid) injection 0.5 mg 0.5 mg, [...] all that apply): Surgical Prophylaxis, Indications: Surgical ProphylaxisIndications: Surgical Prophylaxis New Bag 06/11/2025 12:06 PM EDT [...] in 3 mL NS surgical lubricant gel As needed, Starting on Itzel 06/11/25 at 1338, Intraprocedure Given 06/11/2025 1:38 PM EDT 1 Application documented in this encounter Active and Recently [...] Surgical Prophylaxis 1304 (Given - Provid er: BROOKLYN Gonzalez) metroNIDAZOLE (Flagyl) 500 mg in sodium chloride [...] 1345, For 3 doses, Recovery (only) HYDROcodone-acetaminophen (Fleming) 5-325 mg per tablet 1 tablet 1 [...]
--- OUTSIDE RECORDS SUMMARY | 2025-06-11 12:59 | XMS_ITS | Encounter Summary ---
Author Organization [facility] Address [address] 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] Procedures [place] ANRCT XM SURG REQ ANES GENERAL SPI/EDRL DX Exam under anesthesia, possible seton insertion, possible fistulotomy Elías Samuel MD [address] [place] [address] Dr Jackson [address], [address] [address] Phone: tel: fax: [facility] [place] [address] [place] [phone] fax: Referral ID Status Reason Start Date Expiration Date Visits Re quested Visits Authorized [id number] 1 1 Encounter Details Date Type Department Care Team (Late st Contact Info) Description 06/11/2025 12:59 PM EDT Anesthesia Event [facility] [place] [id number] [place] [phone] Ramon Barrett MD [address] [place], [place] [phone] Davida Zuñiga, CAA [address] Department of Anesthesiology [place] [address] Anesthesia Record Procedure Summary Procedure Name Responsible Anesthesiologist Anesthesia Start Time Anesthesia Stop Time Exam under anesthesia, possible seton insertion, possible fistulotomy Ramon Barrett MD 06/11/25 1259 06/11/25 1357 Events Date Time Event Comment 06/11/2025 1213 1259 An Start 1259 An Start Data 1259 In Room 1304 An Induction The patient was reevaluated immediately before moderate or deep sedation use and before anesthesia induction. 1307 An Intubation 1308 Anesthesia Ready 1317 Proc Start 1344 Proc Fin 1344 An Extubation 1344 an stop data 1346 Handoff to Receiving I compl eted my handoff to the receiving clinician during which we: 1. Identified the patient 2. Identified the responsible provider 3. Reviewed the pertinent medical history 4. Discussed the surgical course 5. Reviewed intra-op anesthesia management and issues during anesthesia 6. Set expectations for post-procedure period 7. Allowed opportunity for questions and acknowledgement of understanding. 1346 Out of Room 1357 An Stop Meds Name Total ondansetron 4 mg/2 mL 4 mg ketorolac 30 mg/mL (1 mL) 30 mg dexAMETHasone (PF) 10 mg/mL 10 mg lidocaine PF 20 mg/mL (2 %) 100 mg propofol 10 mg/mL 200 mg fentaNYL PF 50 mcg/mL 100 mcg midazolam 1 mg/mL 2 mg ceFAZolin (Ancef) 2 g in dextrose (iso) IV 100 mL 2 g HYDROmorphone 1 mg/mL 1 mg LR bolus 700 mL * Agents Name O2 Air Sevoflurane Inspired Sevoflurane N2O Inspired N2O * Blood No blood administrations on file. Lines, Drains, and Airways Type Details Placement Removal Wound 06/11/25; 1339; N; Yes; Buttock 06/11/25 1339 by Tony Butler RN Peripheral IV Placement Date: 06/11/25; Placement Time: 1207; Catheter Size: 20 G; Orientation: Right; Location: Antecubital; Removal Date: 06/11/25; Removal Time: 1522 06/11/25 1207 by Willie Lerner RN 06/11/25 1522 by Leela Siddiqi RN Non-Surgical Airway Placement Date: 06/11/25; Placement Time: 1307 (created via procedure documentation); Removal Date: 06/11/25; Removal Time: 1344 06/11/25 1307 by BROOKLYN Gonzalez 06/11/25 1344 by BROOKLYN Gonzalez documented in this encounter Social History Tobacco Use Types Packs/Day Years Used Date Smoking Tobacco: Never Assessed Comments No Sex and Gender Information Value Date Recorded Sex Assigned at Not on file Legal Sex Female 10:27 AM EST Gender Identity Not on file Sexual Orientation Not on file documented as of this encounter Functional Status * Calculated C-SSRS Risk Score (Lifetime/Recent) Answer Date of Assessment Author No Risk Indicated 06/11/2025 12:05 PM EDT Willie Lerner RN * [place] Suicide Severity Rating Scale (Screener/Recent Self-Report) Question Answer Date of Assessment Author 1. Wish to be (Past 1 Month) No 025 12:05 PM EDT Willie Lerner RN 2. Non-Specific Active Suici lela Thoughts (Past 1 Month) No 06/11/2025 12:05 PM EDT Willie Lerner RN 6. Suicidal Behavior (Lifetime) No 12:05 PM EDT Willie Lerner RN documented as of this encounter OR Notes * Anesthesia Postprocedure Evaluation - Ramon Barrett MD - 06/11/2025 5:50 PM EDT Patient: Amira Marrero Procedure Summary Date: 06/11/25 Room / Location: [facility] OR / [facility] OR Anesthesia Start: 1259 Anesthesia Stop: 1357 Procedure: Exam under anesthesia, possible seton insertion, possible fistulotomy Diagnosis: Perianal fistula (Perianal fistula [K60.30]) Surgeons: Elías Samuel MD Responsible Provider: Ramon Barrett MD Anesthesia Type: general ASA Status: 2 Anesthesia Type: general Vitals Value Taken Time BP 117/66 06/11/25 14:30 Temp 36.7 ??C (98.1 ??F) 06/11/25 13:48 Pulse 107 06/11/25 14:32 Resp 13 06/11/25 14:32 SpO2 94 % 06/11/25 14:32 Vitals shown include unfiled device data. Anesthesia Post Evaluation Patient location during evaluation: PACU Patient participation: complete - patient participated Level of consciousness: awake and alert Pain management: satisfactory to patient Airway patency: patent Cardiovascular status: hemodynamically stable Respiratory status: nonlabored ventilation Hydration status: balanced Postoperative Nausea and Vomiting: none No notable events documented. * Anesthesia Procedure Notes - BROOKLYN Gonzalez - 06/11/2025 1:10 PM EDT Associated Order(s): Airway Airway Date/Time: 06/11/2025 1:07 PM Reason: elective Airway not difficult Staffing Performed: BROOKLYN Authorized by: Ramon Barrett MD Performed by: BROOKLYN Gonzalez Patient location during procedure: OR Patient Condition Indications for airway management: anesthesia Patient position: sniffing Sedation level: deep Final Airway Details Preoxygenated: yes Final airway type: supraglottic airway Successful airway: Size: 3 Number of attempts at approach: 1 Additional Comments IGEL * Anesthesia Preprocedure Evaluation - Ramon Barrett MD - 06/11/2025 12:12 PM EDT Patient: Amira Marrero Procedure Information Date/Time: 06/11/25 1255 Procedure: Exam under anesthesia, possible seton insertion, possible fistulotomy Location: [facility] OR 05 / [facility] Surgeons: Elías Samuel MD Relevant Problems No relevant active problems Clinical information reviewed: Allergies Meds Med Hx Surg Hx Fam Hx NPO Detail: NPO/Void Status Date of Last Liquid: 06/10/25 Time of Last Liquid: 2099 Date of Last Solid: 06/10/25 Time of Last Solid: 2100 Time of Last Void: 1145 Physical Exam Airway Mallampati: I TM distance: >3 FB Neck ROM: full Mouth openin or more finger widths Cardiovascular Rhythm: regular Rate: normal Dental - normal exam Pulmonary Breath sounds clear to auscultation Abdominal - normal exam Anesthesia Plan History of general anesthesia?: yes History of complications of general anesthesia?: no ASA 2 general The patient is a current smoker. Patient did not smoke on day of procedure. intravenous induction Anesthetic plan and risks discussed with patient. Plan discussed with CAA. documented in this encounter Plan of Treatment Upcoming Encounters Date Type Department Care Team (Late st Contact Info) Description 07/22/2025 3:20 PM EDT Office Visit [facility] [address] [facility] [address] [place] [phone] Andreas Oliveirajosephine Angela, [address] [facility] [address] [place], [place] [phone] documented as of this encounter Goals Goal Patient Goal Type Associated Problems Recent Progress Patient-Stated? Author Autogenerat ed Goal Care Plan Autogenerated Problem No Nando Barnhart, RN documented as of this encounter Procedures Procedure Name Priority Date/Time Associated Diagnosis Comments ND AN ELECTIVE SUPRAGLOTTIC AIRWAY Routine 06/11/2025 1:07 PM EDT documented in this encounter Results * ND AN ELECTIVE SUPRAGLOTTIC AIRWAY (06/11/2025 1:07 PM EDT) Narrative Davida Zuñiga CAA - 06/11/2025 1:07 PM EDT BROOKLYN Gonzalez 06/11/2025 1:11 PM Airway Date/Time: 06/11/2025 1:07 PM Reason: elective Airway not difficult Staffing Performed: CAA Authorized by: Ramon Barrett MD Performed by: BROOKLYN Gonzalez Patient location during procedure: OR Patient Condition Indications for airway management: anesthesia Patient position: sniffing Sedation level: deep Final Airway Details Preoxygenated: yes Final airway type: supraglottic airway Successful airway: Size: 3 Number of attempts at approach: 1 Additional Comments IGEL us Ramon Barrett MD ANESTHESIA ORDERABLES Final R esult documented in this encounter Visit Diagnoses Not on filedocumented in this encounter Administered Medications Inactive Administered Medications - up to 3 most recent administrations Medication Order MAR Action Action Date Dose Rate Site ceFAZolin (Ancef) 2 g in dextrose (iso) IV 100 mL 2 g, intravenous, at 200 mL/hr, Administer [...] all that apply): Surgical Prophylaxis, Indications: Surgical ProphylaxisIndications:Surgical Prophylaxis Given 06/11/2025 1:04 PM EDT 2 g dexAMETHasone (PF) (Decadron) injection intravenous, As needed, Starting on Itzle 06/11/25 at 1304, Anesthesia Intraprocedure Given 06/11/2025 1:04 PM EDT 10 mg fentaNYL PF (Sublimaze) injection intravenous, As needed, Starting on Itzel 06/11/25 at 1304, Anesthesia Intraprocedure Given 06/11/2025 1:04 PM EDT 100 mcg HYDROmorphone (Dilaudid) injection intravenous, As needed, Starting on Itzel 06/11/25 at 1331, Anesthesia Intraprocedure Given 06/11/2025 1:31 PM EDT 1 mg ketorolac (Toradol) injection intravenous, As needed, Starting on Itzel 06/11/25 at 1339, Anesthesia Intraprocedure Given 06/11/2025 1:39 PM EDT 30 mg lactated Ringer's bolus intravenous, Administer over 2 Hours, Continuous PRN, Starting on Itzel 06/11/25 at 1304, Anesthesia Intraprocedure New Bag 06/11/2025 1:04 PM EDT lidocaine PF (Xylocaine) 20 mg/mL (2 %) injection intravenous, As needed, Starting on Itzel 06/11/25 at 1304, Anesthesia Intraprocedure Given 06/11/2025 1:04 PM EDT 100 mg midazolam (Versed) injection intravenous, As needed, Starting on Itzel 06/11/25 at 1259, Anesthesia Intraprocedure Given 06/11/2025 12:59 PM EDT 2 mg ondansetron (Zofran) injection intravenous, As needed, Starting on Itzel 06/11/25 at 1339, Anesthesia Intraprocedure Given 06/11/2025 1:39 PM EDT 4 mg propofol (Diprivan) injection intravenous, As needed, Starting on Itzel 06/11/25 at 1304, Anesthesia Intraprocedure Given 06/11/2025 1:17 PM EDT 50 mg Given 06/11/2025 1:04 PM EDT 150 mg documented in this encounter Additional Health Concerns Active Problems Noted Date Diagnosed Date Autogenerated Problem 06/12/2025 documented as of this encounter
[2025-06-13 18:33] VITALS: BP 139/101; PULSE 110; TEMP 36.6; O2SAT 98; BMI 25.5
--- NOTE | 2025-06-13 18:52 | ED.GENADUL1 ---
HPI HPI - General Adult General Chief complaint: Ear Stated complaint: CAN'T HEAR OUT OF LEFT EAR/ BLEEDING Time Seen by Provider: 06/13/25 18:45 Source: patient Mode of arrival: walk-in Limitations: no limitations History of Present Illness HPI narrative: Patient is a healthy 34-year-old female, no history of diabetes, presenting to the emergency department for evaluation of left ear pain. Patient states she woke up this morning with left-sided ear pain and decreased hearing. She denies any other symptoms. She denies fevers or chills. She denies chest pain or shortness of breath. No abdominal pain, nausea, or vomiting. She denies URI symptoms. No sore throats. No pain in the right ear. She has not been swimming recently. No history of trauma. Related Data Home Medications ?Medication ?Instructions ?Recorded ?Confirmed clonazepam 0.5 mg tablet 1 mg PO DAILY 10/11/24 01/15/25 dextroamphetamine-amphetamine ER 30 mg PO DAILY 10/11/24 01/15/25 30 mg 24hr capsule,extend release (Adderall XR) fluoxetine 40 mg capsule (Prozac) 60 mg PO DAILY 10/11/24 01/15/25 lamotrigine 100 mg tablet 100 mg PO DAILY 10/11/24 01/15/25 (Lamictal) mirtazapine 45 mg tablet 45 mg PO BEDTIME 10/11/24 01/15/25 Previous Rx's ?Medication ?Instructions ?Recorded amoxicillin 875 mg-potassium 1 tab PO Q12H 7 days #14 tabs 06/13/25 clavulanate 125 mg tablet Allergies Allergy/AdvReac Type Severity Reaction Status Date / Time No Known Drug Allergies Allergy Verified 01/15/25 16:28 Opioid HPI Opioid Management Most Recent Opioid Data: Last Pain Scale 3 10/17/24, 02:00 Last ORT Total Score 14 10/16/24, 12:21 Last ORT Risk Category High Risk 10/16/24, 12:21 Review of Systems ROS Status of ROS 10 or more systems reviewed and unremarkable except as noted in history and below [facility] Medical History Sciatic pain ?M54.30 - Sciatica, unspecified side (ICD-10) Surgical History (Updated 10/11/24 @ 16:50 by Fanny Goss RN) History of bunionectomy ?Z98.890 - Other specified postprocedural states (ICD-10) Hx of breast reduction, elective ?Z98.890 - Other specified postprocedural states (ICD-10) Family History (Updated 10/16/24 @ 16:01 by Chloé Ford) Grandmother Family history of cancer Family history of diabetes mellitus Family history of stroke Grandfather Family history of cancer Family history of diabetes mellitus Mother Family history of hypertension Aunt Family history of COPD (chronic obstructive pulmonary disease) Family history of stroke Social History (Updated 10/16/24 @ 16:02 by Chloé Ford) Within the past year, how often did you have a drink containing alcohol: monthly or less Within the past year, how many standard drinks containing alcohol did you have on a typical day: 1 or 2 Within the past year, how often did you have six or more drinks on one occasion: never Total score: 0 Score interpretation: A score less than 3 is consistent with normal alcohol consumption. Smoking status: Former smoker Do you use any of these nicotine containing products: vaping products Non-prescribed substance use: denies use Previous occupational history: unemployed. Known occupational exposures/hazards: No Highest level of school completed/degree received: 10th grade Do you want help with school or training: No Are you now , , , , never or living with a partner: don't know In a typical week, how many times do you talk on the telephone with family, friends, or neighbors: 3 or more times per week How often do you get together with friends or relatives: 3 or more times per week How often do you attend mu-ism or taoist services: never Do you belong to any clubs or organizations such as mu-ism groups unions, fraternal or athletic groups, or school groups: no Total score: 1 Score interpretation: A score of less than or equal to 1 indicates the most socially isolated. Little interest or pleasure in doing things: not at all Feeling down, depressed, or hopeless: not at all Feel stressed/tense/nervous/anxious/difficulty sleeping: very much Life stressors: loss of job, financial matters, legal matters and unknown source of stress Due to disability, difficulty making decisions: No Do you think of yourself as: lesbian/cintron/homosexual Gender Identity: female Exam Narrative Exam Narrative: CONSTITUTIONAL: Well-appearing, answering questions and following commands appropriately SKIN: Was warm and dry. EYES: Sclerae white. No conjunctival exudates. EARS, NOSE, THROAT: The left external auditory canal is mildly erythematous. There is mild erythema and mild bulging of the left tympanic membrane with intact landmarks. There is no ear effusion. No mastoid tenderness bilaterally. The right TM/external auditory canal are normal without erythema or bulging. No pharyngeal edema. No tonsillar enlargement or exudates. Moist oral mucosa. RESPIRATORY: Nonlabored respirations CARDIOVASCULAR: Normal rate and regular rhythm. GASTROINTESTINAL: Abdomen is nondistended. MUSCULOSKELETAL: No peripheral edema. NEUROLOGIC: Patient is awake and alert. Ambulates with a steady gait facies were symmetrical. Constitutional Vital Signs, click to edit/add: Last Vital Signs Temp 98 F 06/13/25 18:33 Pulse 110 H 06/13/25 18:33 Resp 18 06/13/25 18:33 BP 139/101 H 06/13/25 18:33 Pulse Ox 98 06/13/25 18:33 O2 Del Method Room Air 06/13/25 18:33 Course Vital Signs Vital signs: Vital Signs Temperature 98 F 06/13/25 18:33 Pulse Rate 110 H 06/13/25 18:33 Respiratory Rate 18 06/13/25 18:33 Blood Pressure 139/101 H 06/13/25 18:33 Pulse Oximetry 98 06/13/25 18:33 Oxygen Delivery Method Room Air 06/13/25 18:33 Temperature 98 F 06/13/25 18:33 Pulse Rate 110 H 06/13/25 18:33 Respiratory Rate 18 06/13/25 18:33 Blood Pressure 139/101 H 06/13/25 18:33 Pulse Oximetry 98 06/13/25 18:33 Oxygen Delivery Method Room Air 06/13/25 18:33 Medical Decision Making MDM Narrative Medical decision making narrative: Patient is a healthy 34-year-old female presenting to the emergency department for evaluation of left ear pain and decreased hearing that began this morning. She is otherwise asymptomatic. Her vital signs are within normal limits. She is afebrile and hemodynamically stable. Patient's examination was consistent with left-sided otitis externa, possibly an early otitis media. No history of diabetes, low concern for malignant otitis externa or mastoiditis. The patient was given a prescription for Augmentin twice daily x 7 days. She was instructed follow-up with her PCP or return to the emergency department should her symptoms worsen despite being on oral antibiotics. Patient understands and agrees to the plan. FINAL IMPRESSION: #Acute left-sided otitis media DISPOSITION: Discharged home CONDITION: Good Discharge Plan Discharge Chief Complaint: Ear Clinical Impression: Otitis media Qualifiers: Otitis media type: other nonsuppurative Chronicity: acute Laterality: left Recurrence: non-recurrent Qualified Code(s): H65.192 - Other acute nonsuppurative otitis media, left ear Patient Disposition: Home, Self-Care Time of Disposition Decision: 18:45 Condition: Good Mode of Transportation: Private Vehicle Prescriptions / Home Meds: New amoxicillin-pot clavulanate 875-125 mg tablet 1 tab PO Q12H 7 Days Qty: 14 0RF No Action fluoxetine [Prozac] 40 mg capsule 60 mg PO DAILY lamotrigine [Lamictal] 100 mg tablet 100 mg PO DAILY dextroamphetamine-amphetamine [Adderall XR] 30 mg capsule,extended release 24hr 30 mg PO DAILY clonazepam 0.5 mg tablet 1 mg PO DAILY mirtazapine 45 mg tablet 45 mg PO BEDTIME Print Language: Icelandic Instructions: Ear Infection (ED) Referrals: Physician,Non-Staff, MD [Primary Care Provider] - 1 week Discharge Date/Time: 06/13/25 18:51
--- OUTSIDE RECORDS SUMMARY | 2025-06-13 18:52 | XMS_ITS | Encounter Summary ---
Author Organization [facility] Address [address] [place] [address] Care Team Providers Care Feather Sawyer Name Role Phone Cookie Mancini MD Primary Care Provider Randell Jones PA-C Unavailable Tali Devlin PA-C Unavailable Source Comments In the event this information is protected by the Federal Confidentiality of Alcohol and Drug AbusePatient Records regulations: The Federal rules restrict any use of the information to criminally investigate or prosecute any alcohol or drug abuse patient.[facility] Encounter Details Date Type Department Care Team (Late st Contact Info) Description 11/27/2019 [facility] [address] [place] [address] Luis Mckenzie MD [address] [place] [address] Social History Tobacco Use Types Packs/Day Years Used Date Smoking Tobacco: Former Cigarettes 0.3 11 0 10/12/2008 - 10/12/2019 Smokeless Tobacco: Never Alcohol Use Standard Drinks/Week Comments Yes 0 (1 standard drink = 0.6 oz pur e alcohol) Socially Social Connection and Isolation Panel Answer Date Recorded In a typical week, how many times do you talk on the phone with family, friends, or neighbors? More than three times a week 08/27/2019 How often do you get togethe r with friends or relatives? Never 08/27/2019 How often do you attend chur ch or christianity services? Never 08/27/2019 Do you belong to any clubs o r organizations such as yarsani groups, unions, fraternal or athletic groups, or school groups? No 08/27/2019 How often do you attend meet ings of the clubs or organizations you belong to? Never 08/27/2019 Are you , , di vorced, , never , or living with a partner? Never 08/27/2019 AUDIT-C Answer Date Recorded Q1: How often do you have a drink containing alc ohol? 2-4 times a month 08/27/2019 Q2: How many drinks containi ng alcohol do you have on a typical day when you are drinking? 1 or 2 08/27/2019 Q3: How often do you have si x or more drinks on one occasion? Never 08/27/2019 Overall Financial Resource Strain (CARDIA) Answe r Date Recorded How hard is it for you to pa y for the very basics like food, housing, medical care, and heating? Hard 08/27/2019 PHQ-2 Answer Date Recorded PHQ-2 score 1 08/27/2019 [facility] - Occupational Stress Questionnaire Answer Date Recorded Do you feel stress - tense, restless, nervous, or anxious, or unable to sleep at night because your mind is troubled all the time - these days? Only a little 08/27/2019 Exercise Vital Sign Answer Date Recorde d On average, how many days pe r week do you engage in moderate to strenuous exercise (like a brisk walk)? 6 days 08/27/2019 On average, how many minutes do you engage in exercise at this level? 150+ min 08/27/2019 Hunger Vital Sign Answer Date Recorded Within the past 12 months, y ou worried that your food would run out before you got the money to buy more. Sometimes true Within the past 12 months, t he food you bought just didn't last and you didn't have money to get more. Sometimes true PRAPARE - Transportation Answer Date Re corded In the past 12 months, has l ack of transportation kept you from medical appointments or from getting medications? No 08/09 In the past 12 months, has l ack of transportation kept you from meetings, work, or from getting things needed for daily living? No 08/27/2019 Education Answer Date Recorded What is the highest level of school you have completed or the highest degree you have received? 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 Not on file Not on file Not on file documented as of this encounter Plan of Treatment Not on file documented as of this encounter Visit Diagnoses Not on filedocumented in this encounter Care Teams Feather Sawyer Relationship Specialty [place] [address] [facility] [address] [place] [address] PCP - General Internal Medicine 06/19/19 Randell Jones PA-C [address] [facility] [address] [place] [address] Bobbin Washer Internal Medicine 09/15/24 03/11/25 Tali Devlin PA-C [address] [facility] [address] [place] [address] Bobbin Washer Internal Medicine 03/09/25 documented as of this encounter
--- OUTSIDE RECORDS SUMMARY | 2025-06-13 18:52 | XMS_ITS | Encounter Summary ---
Author Organization [facility] Address [address] [place] [address] Care Team Providers Care Social Services Name Role Phone Cookie Mancini MD Primary Care Provider Randell Jones PA-C Unavailable [phone] Tali Devlin PA-C Unavailable Source Comments In the event this information is protected by the Federal Confidentiality of Alcohol and Drug AbusePatient Records regulations: The Federal rules restrict any use of the information to criminally investigate or prosecute any alcohol or drug abuse patient.[facility] Encounter Details Date Type Department Care Team (Late st Contact Info) Description 01/07/2020 E-Visit Plastic Surgery [address] [address] Luis Mckenzie MD [address] [place] [address] Social History Tobacco Use Types [...] often do you attend chur ch or zoroastrian services? Never 08/27/2019 Do you belong to any clubs o r organizations such as roman catholic groups, unions, fraternal or athletic groups, or [...] Answer Date Recorded PHQ-2 score 1 08/27/2019 [facility] Occupational Stress Questionnaire Answer Date [...] file Not on file Not on file COVID-19 Exposure Response Date Recorded In the last month, have you been in contact with someone who was confirmed or suspected to have Coronavirus / COVID-19? Unable to assess 12/28/2019 5:16 PM EDT documented as of this encounter Plan of Treatment Not on file documented as of this encounter Visit Diagnoses Not on filedocumented in this encounter Care Teams Social Services Relationship Specialty [place] [address] [facility] [address] [place] [address] PCP - General Internal Medicine 06/19/19 Randell Jones PA-C [address] [facility] [address] [place] [address] Wafer Machine Operator Internal Medicine 09/15/24 03/11/25 Tali Devlin PA-C [address] [facility] [address] [place], [place] [id number] Wafer Machine Operator Internal Medicine 03/09/25 documented as of this encounter
--- OUTSIDE RECORDS SUMMARY | 2025-06-13 18:52 | XMS_ITS | Clinical Summary ---
Author Organization [facility] Address [address] [facility] [place] [address] Care Team Providers Care Secondary English Teacher Name Role Phone Pcp, No Primary Care Provider [phone] Allergies No known active allergies Medications ASPIRIN/ACETAMIN OPHEN/CAFFEINE (EXCEDRIN MIGRAINE ORAL) take by mouth. Active trimethoprim-remigio ymyxin (POLYTRIM) 0.1-10,000 %-unit/mL ophthalmic solution place 2 drops in both eyes 4 times daily. For 5 days 10 mL 0 04/06/2014 Active Active Problems No known active problems Social History Tobacco Use Types Packs/Day Years Used Date Smoking Tobacco: Never Assessed Comments Unknown Sex and Gender Information Value Date Recorded Sex Assigned at Not on file Legal Sex Female 4:29 PM EDT Gender Identity Not on file Sexual Orientation Not on file Last Filed Vital Signs Vital Sign Reading Time Taken Comments Blood Pressure 132/91 04/06/2014 4:33 PM EDT Pulse 93 04/06/2014 4:33 PM EDT Temperature 38.1 C (100.5 F) 04/06/2014 4:33 PM EDT Respiratory Rate 16 04/06/2014 4:33 PM EDT Oxygen Saturation 100% 04/06/2014 4:33 PM EDT Inhaled Oxygen Concentration - - Weight 54.2 kg (119 lb 7.8 oz) 04/06/2014 4:33 P M EDT Height - - Body Mass Index - - Plan of Treatment Health Maintenance Due Date Last Done Comments MMR Vaccine (1 of 1 - Standa rd series) 1993 DTaP/Tdap/Td Vaccine (1 - Tdap) 1999 Varicella Vaccine (1 of 2 - 13+ 2-dose series) 2005 Hepatitis B Vaccine (1 of 3 - 19+ 3-dose series) 2011 HPV Vaccine (1 - 3-dose SCDM series) 2019 COVID-19 Vaccine ( - 2023-2 5 season) 2024 Influenza Vaccine (#1) 2025 HIB Vaccine Aged Out No longer eligi ble based on patient's age to complete this topic Hepatitis A Vaccine Aged Out No longe r eligible based on patient's age to complete this topic IPV Vaccine Aged Out No longer eligi ble based on patient's age to complete this topic Meningococcal ACWY Vaccine Aged Out N o longer eligible based on patient's age to complete this topic Meningococcal B Vaccine Aged Out No l onger eligible based on patient's age to complete this topic Pneumococcal Vaccine Aged Out No long er eligible based on patient's age to complete this topic RSV, Nirsevimab Immunization Aged Out No longer eligible based on patient's age to complete this topic Rotavirus Vaccine Aged Out No longer eligible based on patient's age to complete this topic Insurance [place] Care Teams Secondary English Teacher Relationship Specialty Start Date End Date Pcp, No [place] [address] PCP - General 04/06/14
--- OUTSIDE RECORDS SUMMARY | 2025-06-13 18:52 | XMS_ITS | Encounter Summary ---
Author Organization [facility] Address [address] [place] [address] Phone Care Team Providers Care Geriatric Assistant Name Role Phone Unavailable Primary Care Provider Unavailabl e Encounter Details Date Type Department Care Team (Late st Contact Info) Description 06/04/[address] [place] [address] Nando Barnhart, RN Social History Tobacco Use Types Packs/Day Years Used Date Smoking Tobacco: Never Assessed Comments No Sex and Gender Information Value Date Recorded Sex Assigned at Not on file Legal Sex Female 10:27 AM EST Gender Identity Not on file Sexual Orientation Not on file documented as of this encounter Miscellaneous Notes * Telephone Encounter - Nando Barnhart RN - 06/04/2025 4:01 PM EDT Amira called me back. She stated she is currently in the process of getting [place] Medicaid. She isfinishing up that process today. She declined rescheduling surgery at this time, and wanted to waituntil Sunday, to see if insurance is processed by then. She verbalized understanding. All questions answered. documented in this encounter Plan of Treatment Upcoming Encounters Date Type Department Care Team (Late st Contact Info) Description 07/22/2025 3:20 PM EDT Office Visit [facility] [address] [place] [address] Gilbert Oliveira, DO [address] [id number] documented as of this encounter Visit Diagnoses Not on filedocumented in this encounter
--- OUTSIDE RECORDS SUMMARY | 2025-06-13 18:52 | XMS_ITS | Encounter Summary ---
Author Organization [facility] Address [address] [place] [address] Phone Care Team Providers Care Zinc Chloride Operator Name Role Phone Unavailable Primary Care Provider Unavailabl e Encounter Details Date Type Department Care Team (Late st Contact Info) Description 06/10/2025 Prep for Procedure [facility] [address] [facility] [place] [address] [place] [address] [facility] [address] [place], [place] [id number] Social History Tobacco Use Types Packs/Day Years [...] Author No Risk Indicated 06/11/2025 12:05 PM Willie Stone RN * [place] Suicide Severity Rating Scale (Screener/Recent Self-Report) Question Answer Date of Assessment Author 1. Wish to be (Past 1 Month) No 025 12:05 PM Willie Stone RN 2. Non-Specific Active Suici lela Thoughts (Past 1 Month) No 06/11/2025 12:05 PM Willie Stone RN 6. Suicidal Behavior (Lifetime) No 12:05 PM Willie Stone RN documented as of this encounter Plan of Treatment Upcoming Encounters Date Type Department Care Team (Late st Contact Info) Description 07/22/2025 3:20 PM EDT Office Visit [facility] [address] [facility] [address] [place] [id number] Gilbert Oliveira DO [address] [facility] [address] [place] [address] documented as of this encounter Goals Goal Patient Goal Type Associated Problems Recent Progress Patient-Stated? Author Autogenerat ed Goal Care Plan Autogenerated Problem No Nando Barnhart, RN documented as of this encounter Visit Diagnoses Not on filedocumented in this encounter Additional Health Concerns Active Problems Noted Date Diagnosed Date Autogenerated Problem 06/12/2025 documented as of this encounter
--- OUTSIDE RECORDS SUMMARY | 2025-06-13 18:52 | XMS_ITS | Encounter Summary ---
Author Organization [facility] Address [address] [place] [address] Phone Care Team Providers Care Data Warehouse Analyst Name Role Phone Unavailable Primary Care Provider Unavailabl e Encounter Details Date Type Department Care Team (Late st Contact Info) Description 06/10/2025 Orders Only [address] [place] [address] Nando Barnhart, RN Perianal fistula Social History Tobacco Use Types Packs/Day Years [...] Office Visit [facility] [address] [facility] [address] [place] [phone] Gilbert Oliveira DO [address] [facility] [address] [place] [address] documented as of this encounter Goals Goal Patient Goal Type Associated Problems Recent Progress Patient-Stated? Author Autogenerat ed Goal Care Plan Autogenerated Problem No Nando Barnhart, RN documented as of this encounter Visit Diagnoses Diagnosis Perianal fistula Anal fistula documented in this encounter Additional Health Concerns Active Problems Noted Date Diagnosed Date Autogenerated Problem 06/12/2025 documented as of this encounter
--- OUTSIDE RECORDS SUMMARY | 2025-06-13 18:52 | XMS_ITS | Encounter Summary ---
Author Organization [facility] Address [address] [place] [address] Care Team Providers Care Lithographic Printing Machinist Name Role Phone Cookie Mancini MD Primary Care Provider [phone] Randell Jones PA-C Unavailable [phone] Tali Devlin PA-C Unavailable [phone] Source Comments In the event this information is protected by the Federal Confidentiality of Alcohol and Drug AbusePatient Records regulations: The Federal rules restrict any use of the information to criminally investigate or prosecute any alcohol or drug abuse patient.[facility] Encounter Details Date Type Department Care Team (Late st Contact Info) Description 11/11/2019 Patient Msg Medical Records [address] [place] [address] Provider, [facility] Patient Registration Completed Social History Tobacco Use Types Packs/Day Years Used Date Smoking Tobacco: Every Day Cigarettes 0.3 11 Smokeless Tobacco: Never Alcohol Use Standard Drinks/Week [...] often do you attend chur ch or anabaptism services? Never 08/27/2019 Do you belong to any clubs o r organizations such as voodoo groups, unions, fraternal or athletic groups, or [...] Answer Date Recorded PHQ-2 score 1 08/27/2019 [facility] - Occupational Stress Questionnaire Answer Date [...] on filedocumented in this encounter Care Teams Lithographic Printing Machinist Relationship Specialty [place] [address] [facility] [address] [place] [address] PCP - General Internal Medicine 06/19/19 Randell Jones PA-C [address] [facility] [address] [place] [address] Print Shop Assistant Internal Medicine 09/15/24 03/11/25 Tali Devlin PA-C [address] [facility] [address] [place] [address] Print Shop Assistant Internal Medicine 03/09/25 documented as of this encounter
--- OUTSIDE RECORDS SUMMARY | 2025-06-13 18:52 | XMS_ITS | Clinical Summary ---
Author Organization [facility] Address [address] [place] [address] [place] [address] Care Team Providers Care Programming Specialist Name Role Phone Unavailable Primary Care Provider Unavailabl e Allergies No known active allergies Medications escitalopram 10 MG Tab take 1 tablet by mouth daily.. 30 tablet 1 02/09/20 17 Active human papillomavirus vaccine SuspensionIndicati ons:Need for HPV vaccination 0.5 mL by Intramuscular route Once for 1 dose.. 1 vial 02/09/20 17 Active meloxicam 15 MG Tab take 0.5 tablets by mouth daily.. 30 tablet 02/09/20 17 Active oxyCODONE 5 MG Tab take 1 tablet by mouth every 4 hours as needed.. 20 tablet 03/12/20 17 Active Active Problems Problem Noted Date Diagnosed Date PTSD (post-traumatic stress disorder) 02/08/2017 Severe episode of recurrent major depressive disorder, without psychotic features 02/08/2017 Anxiety 02/08/2017 Immunizations Immunization Administration Dates Next Due Tdap Vaccine 03/11/2017(Deferred: Patient Ref used) Family History Medical History Relation Name Comments Diabetes Maternal Grandfather Diabetes Maternal Grandmother Hypertension Maternal Grandmother Relation Name Status Comments Brother Alive Father Alive Maternal Grandfather Alive Maternal Grandmother Alive Mother Alive Sister Alive Social History Tobacco Use Types Packs/Day Years Used Date Smoking Tobacco: Every Day Cigarettes Smokeless Tobacco: Never Tobacco Cessation:Ready to Q uit: Yes; Counseling Given: Yes Comments:3 cigarettes / day Alcohol Use Standard Drinks/Week Comments Yes 0 (1 standard drink = 0.6 oz pur e alcohol) 2-3 x per week Comments No Sex and Gender Information Value Date Recorded Sex Assigned at Not on file Legal Sex Female 4:36 PM EDT Gender Identity Female Sexual Orientation Not on file Last Filed Vital Signs Vital Sign Reading Time Taken Comments Blood Pressure 147/93 03/12/2017 1:07 PM EDT Pulse 103 03/12/2017 1:07 PM EDT Temperature 36.5 C (97.7 F) 03/12/2017 1:07 PM EDT Respiratory Rate 16 03/12/2017 1:07 PM EDT Oxygen Saturation 99% 03/12/2017 1:07 PM EDT Inhaled Oxygen Concentration - - Weight 60.2 kg (132 lb 11.2 oz) 02/08/2017 1:28 PM EDT Height 152.4 cm (5') 03/12/2017 1:06 PM EDT Body Mass Index 24.8 02/08/2017 1:28 PM EDT Plan of Treatment Health Maintenance Due Date Last Done Comments HEPATITIS C VIRUS SCREENING 1992 HEP B VACCINE (1 of 3 - 19+ 3-dose series) 2011 PAP SMEAR 2013 HPV VACCINE (1 - 3-dose SCDM series) 2019 TETANUS 05/27/2025 05/27/2015 COVID-19 VACCINE ( - 2023- season) 2025 INFLUENZA VACCINE (#1) 2025 TDAP (ADULT) Completed 05/27/2015, 05/27/2015 (Previously completed) HIV SCREENING DISCUSSION Addressed 017 (Declined) Overridden with the intention of not completing the topic PNEUMOCOCCAL VACCINE SERIES Aged Out No longer eligible based on patient's age to complete this topic
--- OUTSIDE RECORDS SUMMARY | 2025-06-13 18:52 | XMS_ITS | Clinical Summary ---
Author Organization [facility] Address [address] [place] [address] Care Team Providers Care Supervisor Sintering Plant Name Role Phone Cookie Mancini MD Primary Care Provider Tali Devlin PA-C Unavailable [phone] Allergies Active Allergy Reactions Criticality Noted Date Comments Bee Sting Swelling,Anaphylaxis High 08/27/2019 Medications * This document contains information received from the source organization and may not represent a complete record from that organization. Calcipotriene 0.005 % soln Apply 1 application to affected area once daily. 3 04/23/20 19 Active albuterol HFA (PROAIR HFA) 90 mcg/actuation inhalerIndication s:Exercise-induce d asthma (HCC) Take as directed: 2 puffs before exercise 1 Inhaler 2 08/27/20 19 Active EPINEPHrine (EPIPEN) 0.3 mg/0.3 mL auto-injectorIndi cations:Allergy to bee sting Inject 0.3 mL intramuscularly as needed. 2 Each 1 08/27/20 19 Active nicotine (NICODERM) 14 mg/24 hrIndications:Smo ker Apply 1 Patch as directed every 24 hours. 42 Patch 11/05/19 20 Active nicotine (NICODERM) 7 mg/24 hrIndications:Smo ker Apply 1 Patch as directed every 24 hours for 14 days. 14 Patch 11/05/19 20 Active docusate sodium (COLACE) 100 mg capsule Take 1 capsule by mouth twice daily as needed for Constipation. 30 capsule 11/27/19 20 Active ondansetron orally disintegrating (ZOFRAN ODT) 8 mg disintegrating tablet Take 1 tablet by mouth every 8 hours as needed for Nausea/Vomiting. 6 tablet 11/27/19 Active sertraline (ZOLOFT) 100 mg tabletIndications :Depression, unspecified depression type Take 2 tablets by mouth once daily. 60 tablet 1 05/04/20 Active buPROPion XL (WELLBUTRIN XL) 150 mg 24 hr tablet Take 1 tablet by mouth once daily. 30 tablet 1 05/04/20 Active Active Problems Problem Noted Date Diagnosed Date Macromastia 08/25/2019 Immunizations Immunization Administration Dates Next Due tetanus diphtheria pertussis (Tdap) vaccine, age 7+ yr (ADACEL, BOOSTRIX) 05/27/2015 Family History Medical History Relation Comments Diabetes Maternal Grandmother Diabetes Maternal Uncle melanoma Maternal Uncle Relation Status Comments Brother Alive Father Alive Maternal Grandfather Maternal Grandmother Alive Maternal Uncle Alive Mother Alive Paternal Grandfather Paternal Grandmother Alive Sister 1 Alive Sister 2 Alive Sister 3 Alive Sister 4 Alive Social History Tobacco Use Types Packs/Day Years Used Date Smoking Tobacco: Former Cigarettes 0.3 11 0 10/12/2008 - 10/12/2019 Smokeless Tobacco: Never Tobacco Cessation:Ready to Q uit: Yes; Counseling Given: Yes Alcohol Use Standard Drinks/Week Comments Yes 0 [...] Never 08/27/2019 How often do you attend [facility] or [facility] services? Never 08/27/2019 Do you belong to any clubs o r organizations such as cheondoism groups, unions, fraternal or athletic groups, or [...] Answer Date Recorded PHQ-2 score 1 08/27/2019 [facility] of Occupat ional Health - Occupational Stress [...] things needed for daily living? No 08/27/2019 Area Deprivation Index Answer Date Ricky rded National Score (1-100), lower number is lower ri sk 49 02/18/2025 State Score (1-10), lower number is lower risk 3 02/18/2025 Data from: https://www.neighborhoodatlas.medicine.[facility].edu/. Last address used for calculation [id number] 02/18/2025 Education Answer Date Recorded What is the [...] file Not on file Not on file Last Filed Vital Signs Vital Sign Reading Time Taken Comments Blood Pressure 148/98 02/17/2025 5:59 PM EDT Pulse 101 02/17/2025 5:59 PM EDT Temperature 37 C (98.6 F) 02/17/2025 5:59 PM EDT Respiratory Rate 17 02/17/2025 5:59 PM EDT Oxygen Saturation 100% 02/17/2025 5:59 PM EDT Inhaled Oxygen Concentration - - Weight 57.3 kg (126 lb 4.8 oz) 11/27/2019 6:53 A M EST Height 154.9 cm (5' 0.98 ) 11/27/2019 6:53 AM ES T Body Mass Index 23.88 11/27/2019 6:53 AM EST Plan of Treatment Health Maintenance Due Date Last Done Comments Anxiety Screening 2010 Depression Screening 2010 HIV Screening 2010 Hepatitis C Screening 2010 Hepatitis B Vaccine (1 of 3 - 19+ 3-dose series) 10/17 HPV Vaccine (2 - 3-dose series) 03/08/2017 7 Cervical Cancer Screening 07/02/2022 07/02/2019 DTaP,Tdap,Td Vaccine (2 - Td or Tdap) 05/27/2025 Influenza Vaccine (#1) 2025 Procedures Procedure Name Priority Date/Time Associated Diagnosis Comments PAP FLUID CERVICAL SCREENING Routine 07/02/2019 11:00 AM EDT Well woman exam with routine gynecological exam from Last 3 Months or Most Recently Relevant to Health Maintenance Results * PAP FLUID CERVICAL SCREENING (07/02/2019 11:00 AM EDT) Flexo Press Operator Specimen originated from [facility] Specimen #: [id number] Submitting Physician: NADIA RANGEL CNM SPECIMEN SUBMITTED A: CERVICAL, SCREENING, FLUID FINAL DIAGNOSIS A. CERVICAL, SCREENING, FLUID Satisfactory for interpretation. Limited cellularity. Negative for intraepithelial lesion or malignancy. This specimen has been analyzed by the ThinPrep Imaging System, an automated imaging and review system, which assists the laboratory in evaluating cells on ThinPrep Pap tests. Following automated imaging, selected whiteside from every slide are reviewed by a transformer inspector. NANY Nichols(ASCP) (Electronic Signature) CLINICAL DATA ROUTINE EXAM, HPV Testing: Yes, Reflex HPV for ASCUS Date of Last Menstrual Period: 06/26/2019 Additional Testing: Reflex HPV testing for ASCUS STAINS A: CERVICAL, SCREENING, FLUID THIN PREP DISINTEGRATOR FEEDER Patricio Coates M.D., Crown Ironer Date of Report: 07/06/2019 Date of Procedure: 07/02/2019 Date of Receipt: 07/03/2019 Submitted by: NADIA RANGEL CNM Location: [facility] Diagnostic interpretation performed at [facility], [address] [place] [address]. CLIA Number: [id number] The Pap Smear is a screening test for cervical cancer. False negative results occur with all screening tests, emphasizing the need for rescreening at recommended intervals, and clinical correlation. COPATHPLUS Specimen from uterine cervix (specimen) CERVICAL / Unknown 07/02/2019 11:00 AM EDT 07/03/2019 1:39 PM EDT Nadia Wynn) [facility] CYTOLOGY Final Result COPATHPLUS [address] [place] [address] from Last 3 Months or Most Recently Relevant to Health Maintenance Care Teams Supervisor Sintering Plant Relationship Specialty [place] [address] [address] [place] [address] PCP - General Internal Medicine 06/19/19 Tali Devlin PA-C [address] [place] [address] Legislative Advocate Internal Medicine 03/09/25
--- OUTSIDE RECORDS SUMMARY | 2025-06-13 18:52 | XMS_ITS | Clinical Summary ---
Author Organization [facility] Address [address] [place] [address] Care Team Providers Care Applications Trainer Name Role Phone No, Physician Primary Care Provider Unavailabl e Allergies No known active allergies Medications No known medications Active Problems Problem Noted Date Diagnosed Date Sore throat 12/27/2016 Assessment & Plan (12/27/2016 6:06 PM EDT): centor criteria of 4 POC rapid strep POSITIVE No throat culture indicated -rx PCN VK 500mg BID x 10 days per guidelines. Goodrx coupon provided as pt without insurance -rx zofran 4mg ODT for nausea if needed. Can also try celine phillip and small bits of food/drink if cannot afford -OTC throat lozengers -salt water gargles -discussed pt being contagious first 24 hours of ATB- provided work note for today and tomorrow -OTC ibu/tylenol for fevers, pain -enc soft food diet, increase fluids as MM dry. Patient keeping water down in exam room. Patellofemoral joint pain 02/16/2015 Knee effusion 01/26/2015 Immunizations Immunization Administration Dates Next Due Tdap 05/27/2015 Social History Tobacco Use Types Packs/Day Years Used Date Smoking Tobacco: Every Day Cigarettes Smokeless Tobacco: Never Tobacco Cessation:Ready to Q uit: Yes; Counseling Given: Yes Comments:3 cig per day Alcohol Use Standard Drinks/Week Comments Yes 0 (1 standard drink = 0.6 oz pur e alcohol) occasional Comments No Sex and Gender Information Value Date Recorded Sex Assigned at Not on file Legal Sex Female 3:53 PM EDT Gender Identity Not on file Sexual Orientation Not on file Last Filed Vital Signs Vital Sign Reading Time Taken Comments Blood Pressure 120/89 02/12/2018 3:03 AM EDT Pulse 81 02/12/2018 3:03 AM EDT Temperature 36.7 C (98 F) 02/12/2018 12:12 AM EDT Respiratory Rate 16 02/12/2018 12:12 AM EDT Oxygen Saturation 98% 02/12/2018 3:03 AM EDT Inhaled Oxygen Concentration - - Weight 56.3 kg (124 lb 1.6 oz) 02/12/2018 12:04 AM EDT Height 154.9 cm (5' 1 ) 08/25/2017 4:09 PM EST Body Mass Index 23.45 08/25/2017 4:09 PM EST Plan of Treatment Health Maintenance Due Date Last Done Comments Wellness Visit 1995 Depression Screening/Follow- Up (PHQ-2/9) 2004 HIV Screening 2007 Hepatitis C Screening 2010 Pap Smear 2013 Cervical Cancer Screening 2022 HPV/Cotest 2022 Tetanus: Every 10yrs 05/27/2025 05/27/2015 COVID-19 Vaccine (1 - 2023-2 5 season) 2025 Influenza Vaccine (#1) 2025 Pneumococcal Vaccine: Ped or At-Risk Aged Out No longer eligible b ased on patient's age to complete this topic Insurance [employer] Care Teams Applications Trainer Relationship Specialty Start Date End Date No, Physician [facility] PCP - General 02/11/18
--- OUTSIDE RECORDS SUMMARY | 2025-06-13 18:52 | XMS_ITS | Patient Health Record ---
Author Organization [facility] Address [address] [facility] [place] [address] Care Team Providers Care Organ Pipe Finisher Name Role Phone SoRima emerye Primary Care Provider AartiLarry rendony Unavailable [phone] Reason For Referral No Information Problems Problem Type SNOMED Code ICD Code Onset Dates Problem Status W/U Status Risk Notes Problem Anxiety (12287964) Anxiety (F41.9) 02/09/20 17 Active confirmed Problem Allergic rhinitis (92465601) Allergic rhinitis (J30.9) 06/24/20 21 Active confirmed Problem Anemia (358832980) Anemia (D64.9) 10/17/19 25 Active confirmed Problem Posttraumatic stress disorder (34803337) PTSD (post-traumatic stress disorder) (F43.10) 02/09/20 17 Active confirmed Problem Blood chemistry abnormal (689091612) Elevated brain natriuretic peptide (BNP) level (R79.89) 10/17/19 25 Active confirmed Problem Severe recurrent major depression without psychotic features (67018330) Severe episode of recurrent major depressive disorder, without psychotic features (F33.2) 02/09/20 17 Active confirmed Problem Hyperchloremia (41407617) Hyperchloremia (E87.8) 10/17/19 25 Active confirmed Problem Perianal fistula (48624700) Perianal fistula (K60.30) 05/12/20 25 Active confirmed Plan Of Treatment No Information
--- OUTSIDE RECORDS SUMMARY | 2025-06-13 18:52 | XMS_ITS | Encounter Summary ---
Author Organization [facility] Address [address] [place] [address] Phone Care Team Providers Care Water Main Pipe Layer Name Role Phone Unavailable Primary Care Provider Unavailabl e Encounter Details Date Type Department Care Team (Late st Contact Info) Description 06/04/2025 Telephone [facility] [place] [address] [address] [place] [address] Nando Barnhart, RN Social History Tobacco Use Types Packs/Day Years Used Date Smoking Tobacco: Never Assessed Comments No Sex and Gender Information Value Date Recorded Sex Assigned at Not on file Legal Sex Female 10:27 AM EST Gender Identity Not on file Sexual Orientation Not on file documented as of this encounter Miscellaneous Notes * Telephone Encounter - Nando Barnhart RN - 06/04/2025 8:43 AM EDT I attempted to call Amira again in regards to insurance conflicts with upcoming surgery. I calledher Mother Domi, listed in her contacts. I spoke to her and requested she have Amira call our office back as soon as possible. She verbalized understanding and stated she will contact Amira. documented in this encounter Plan of Treatment Upcoming Encounters Date Type Department Care Team (Late st Contact Info) Description 07/22/2025 3:20 PM EDT Office Visit [facility] [address] [place] [address] Gilbert Oliveira, DO [address] [address] documented as of this encounter Visit Diagnoses Not on filedocumented in this encounter
--- OUTSIDE RECORDS SUMMARY | 2025-06-13 18:52 | XMS_ITS | Encounter Summary ---
Author Organization [facility] Address [address] [place] [address] Phone Care Team Providers Care Health And Safety Trainer Name Role Phone Unavailable Primary Care Provider Unavailabl e Encounter Details Date Type Department Care Team (Latest Contact Info) Description 06/11/2025 Travel Social History Tobacco Use Types Packs/Day Years [...] 12:05 PM EDT Willie Lerner RN * [place] Suicide Severity Rating Scale (Screener/Recent Self-Report) Question Answer Date of Assessment Author 1. Wish to be (Past 1 Month) No 025 12:05 PM EDT Willie Lerner RN 2. Non-Specific Active Suici lela Thoughts (Past 1 Month) No 06/11/2025 12:05 PM EDT Willie Lerner RN 6. Suicidal Behavior (Lifetime) No 12:05 PM EDT Willie Lerner RN documented as of this encounter Plan of Treatment Upcoming Encounters Date Type Department Care Team (Late st Contact Info) Description 07/22/2025 3:20 PM EDT Office Visit [facility] [address] [facility] [address] [place] [id number] Gilbert Oliveira DO [address] [address] documented as of this encounter Goals Goal [...]
--- OUTSIDE RECORDS SUMMARY | 2025-06-13 18:52 | XMS_ITS | Encounter Summary ---
Author Organization [facility] Address [address] [place] [address] Phone Care Team Providers Care Golf Course Mechanic Name Role Phone Unavailable Primary Care Provider Unavailabl e Encounter Details Date Type Department Care Team (Late st Contact Info) Description 06/04/2025 Telephone [facility] [address] [facility] [address] [place] [address] Nando Barnhart, RN Social History [...] Encounter - Nando Barnhart RN - 06/04/2025 11:42 AM EDT I attempted again to call both Amira and her partner Vanessa, to discuss upcoming surgery insurance conflicts. I left a voicemail requesting a call back as soon as possible. documented in this encounter Plan of Treatment Upcoming Encounters Date Type Department Care Team (Late st Contact Info) Description 07/22/2025 3:20 PM EDT Office Visit [facility] [address] [facility] [address] [place] [id number] Gilbert Oliveira DO [address] [place] [address] documented as of this encounter Visit Diagnoses Not on filedocumented in this encounter
--- OUTSIDE RECORDS SUMMARY | 2025-06-13 18:52 | XMS_ITS | Encounter Summary ---
Author Organization [facility] Address [address] [place] [address] Phone Care Team Providers Care Record Press Supervisor Name Role Phone Unavailable Primary Care Provider Unavailabl e Encounter Details Date Type Department Care Team (Late st Contact Info) Description 06/02/[address] [place] [address] Nando Barnhart, RN Social History [...] Telephone Encounter - Nando Barnhart RN - 06/02/2025 2:19 PM EDT I attempted to call Amira twice today in regards to lack of insurance, with upcoming surgery withDr. Samuel 06/15. I detailed in the message if no answer is received by Sunday, procedure will be cancelled. documented in this encounter Plan of Treatment Upcoming Encounters Date Type Department Care Team (Late st Contact Info) Description 07/22/2025 3:20 PM EDT Office Visit [facility] [address] [place] [address] Gilbert Oliveira DO [address] [place] [address] documented as of this encounter Visit Diagnoses Not on filedocumented in this encounter
--- OUTSIDE RECORDS SUMMARY | 2025-06-13 18:52 | XMS_ITS | Encounter Summary ---
Author Organization [facility] Address [address] [place] [address] Phone Care Team Providers Care Bank Representative Name Role Phone Unavailable Primary Care Provider Unavailabl e Encounter Details Date Type Department Care Team (Late st Contact Info) Description 06/09/[address] [place] [address] Nando Barnhart, RN Social History [...] Telephone Encounter - Nando Barnhart RN - 06/09/2025 3:59 PM EDT With no response from Amira today. I called her one last time to let her know surgery will be cancelled at this time, since we do not have a response. I encouraged her to call back with any questions or concerns, or when she is ready to be rescheduled. documented in this encounter Plan of Treatment Upcoming Encounters Date Type Department Care Team (Late st Contact Info) Description 07/22/2025 3:20 PM EDT Office Visit [facility] [address] [place] [address] Gilbert Oliveira DO [address] [address] documented as of this encounter Visit Diagnoses Not on filedocumented in this encounter
--- OUTSIDE RECORDS SUMMARY | 2025-06-13 18:52 | XMS_ITS | Encounter Summary ---
Author Organization [facility] Address [address] [place] [address] Phone Care Team Providers Care Meter Maker Name Role Phone Unavailable Primary Care Provider Unavailabl e Encounter Details Date Type Department Care Team (Late st Contact Info) Description 06/09/[address] [place] [address] Nando Barnhart, RN Social History [...] Encounter - Nando Barnhart RN - 06/09/2025 2:26 PM EDT I called Nancy and left a voicemail urgently requesting a call back from Amira to discuss upcoming procedure. I reiterated the urgency of needing a response by today. documented in this encounter Plan of Treatment Upcoming Encounters Date Type Department Care Team (Late st Contact Info) Description 07/22/2025 3:20 PM EDT Office Visit [facility] [address] [facility] [address] [place] [phone] Gilbert Oliveira DO [address] [place], [place] [id number] documented as of this encounter Visit Diagnoses Not on filedocumented in this encounter
--- OUTSIDE RECORDS SUMMARY | 2025-06-13 18:52 | XMS_ITS | Encounter Summary ---
Author Organization [facility] Address [address] [place] [address] Phone Care Team Providers Care High [employer] Vice Principal Name Role Phone Unavailable Primary Care Provider Unavailabl e Encounter Details Date Type Department Care Team (Late st Contact Info) Description 06/10/[address] [place] [address] Nando Barnhart, RN Social History [...] Telephone Encounter - Nando Barnhart RN - 06/10/2025 1:48 PM EDT Amira called back and stated insurance has been approved. She will present with insurance information tomorrow. She was put back on OR schedule with Dr. Samuel. She will be NPO at midnight tonight. She verbalized understanding. All questions answered. documented in this encounter Plan of Treatment Upcoming Encounters Date Type Department Care Team (Late st Contact Info) Description 07/22/2025 3:20 PM EDT Office Visit [facility] [address] [place] [address] Gilbert Oliveira, DO [address] [place] [address] documented as of this encounter Goals Goal [...]
--- OUTSIDE RECORDS SUMMARY | 2025-06-13 18:52 | XMS_ITS | Clinical Summary ---
Author Organization [facility] Address [address] [place] [address] Phone Care Team Providers Care Buhr Mill Operator Name Role Phone Unavailable Primary Care Provider Unavailabl e Allergies No known active allergies Medications amphetamine-dext roamphetamine (Adderall) 30 mg tablet Take 1 tablet (30 mg) by mouth. Active FLUoxetine (PROzac) 40 mg capsule Take by mouth. 10/11/2024 Active lamoTRIgine (LaMICtal) 150 mg tablet Take 1 tablet (150 mg) by mouth early in the morning.. 01/15/2025 Active oxyCODONE-acetam inophen (Percocet) 5-325 mg tabletIndication s:Perianal fistula Take 1 tablet by mouth every 6 hours if needed for severe pain (7 - 10) for up to 2 days. 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 Encounters Date Type Department Care Team Description 06/11/2025 12:59 PM EDT Anesthesia Event [facility] [place] [id number] [place] [address] [place] [phone] Ramon Barrett MD Kelley, Christine, [place] 06/11/2025 12:55 PM EDT - 06/11/2025 2:10 PM EDT Surgery [facility] [place] [id number] [place] [address] [place] [address] Elías Samuel MD Exam under anesthesia, possible seton insertion, possible fistulotomy [16282 (CPT )] 06/11/2025 11:17 AM EDT - 06/11/2025 3:29 PM EDT Hospital Encounter [facility] [place] [id number] [place], [place] [address], [place] [address] Elías Samuel MD Perianal fistula (Primary Dx) Discharge Disposition: Home 06/11/2025 Travel 06/10/[address] [place] [address] Nando Barnhart, RN 06/10/2025 Orders Only [address] [place] [address] Nando Barnhart, RN Perianal fistula 06/10/2025 Prep for [address] [facility] GENERAL SURGERY VIRTUAL [address] [place] [address] [place] [address] Elías Samuel MD 06/09/[address] [place] [address] Nando Barnhart, RN 06/09/[address] [place] [address] Nando Barnhart, RN 06/09/[address] [place] [address] Nando Barnhart, RN 06/04/[address] [place] [address] Nando Barnhart, RN 06/04/2025 Telephone [facility] [address] [place] [address] Nando Barnhart, RN 06/04/2025 Telephone [facility] [address] [place] [address] Nando Barnhart, RN 06/02/[address] [place] [address] Nando Barnhart, ANNA 05/28/[address] [place] [address] Nando Barnhart, ANNA 05/12/2025 2:00 PM EDT Office Visit [address] [place] [phone] Elías Samuel MD Perianal fistula 05/10/2025 Travel 03/26/2025 Orders Only [facility] Building [address] [facility] [address] [place] [address] Lalito Corral MD PhD Anal fistula (Primary Dx) 03/25/2025 10:09 PM EDT - 03/26/2025 4:44 AM EDT Emergency [facility] Emergency Medicine [address] [place] [address] Cesar Fisher MD Martella, Anthony T, MD Anal fistula (Primary Dx) Discharge Disposition: Home 03/25/2025 Travel 03/24/2025 Travel from Last 3 Months Family History Medical History Relation Name Comments Arthritis Father Flynn Marrero Asthma Father Flynn Marrero Arthritis Maternal Grandmother Rilla Mobberly Diabetes Maternal Grandmother Rilla Mobberly Hypertension Maternal Grandmother Rilla Mobberly Depression Mother Domi Ortiz s Cancer Mother's Brother Aaron mobberly Diabetes Mother's Brother Aaron mobberly Cancer Mother's Sister 1 Waneta Mobberly Stroke Mother's Sister 2 Sultana Movberly Arthritis Paternal Grandmother Monica Mobberly Blood clot Sister 1 Yesika Marrero Drug abuse Sister 1 Yesika Marrero Depression Sister 2 Leilani Duke Diabetes Sister 2 Leilani Duke Relation Name Status Comments Father Flynn Marrero Alive Maternal Grandmother Rilla Mobberly Alive Mother Domi Ortiz s Alive Mother's Brother Aaron mobberly Alive Mother's Sister 1 Waneta Mobberly Alive Mother's Sister 2 Sultana Movberly Alive Paternal Grandmother Monica Mobberly Alive Sister 1 Yesika Marrero Alive Sister 2 Leilani Duke Alive Social History Tobacco Use Types Packs/Day [...] Mass Index 25.51 06/11/2025 12:02 PM EDT Plan of Treatment Upcoming Encounters Date Type Department Care Team (Late st Contact Info) Description 07/22/2025 3:20 PM EDT Office Visit [facility] [address] [id number] Gilbert Oliveira DO [address] [facility] [address] [place] [address] Health Maintenance Due Date Last Done Comments HIV Screening 1992 Lipid Panel 1992 Yearly Adult Physical 1992 MMR Vaccines (1 of 1 - Standard series) 1993 Hepatitis C Screening 2010 Hepatitis A Vaccines (1 of 2 - Risk 2-dose series) 2011 Hepatitis B Vaccines (1 of 3 - 19+ 3-dose series) 2011 Pneumococcal Vaccine: Pediatrics and At-Risk Adult Patients (1 of 2 - PCV) 2011 Cervical Cancer Screening 2013 HPV/Cotest 2013 Pap Smear 2013 HPV Vaccines (1 - 3-dose standard series) 2019 DTaP/Tdap/Td Vaccines (2 - T d or Tdap) 05/27/2025 05/27/2015 COVID-19 Vaccine (1 - 2023-2 5 season) 2025 Influenza Vaccine (#1) 2025 Diabetes Screening 03/25/2026 03/25/2025, 02/17/2025 Zoster Vaccines (1 of 2) 2042 HIB Vaccines Aged Out No longer eligi ble based on patient's age to complete this topic IPV Vaccines Aged Out No longer eligi ble based on patient's age to complete this topic Meningococcal Vaccine Aged Out No nicol felipe eligible based on patient's age to complete this topic Rotavirus Vaccines Aged Out No longer eligible based on patient's age to complete this topic Goals Goal Patient Goal Type Associated Problems Recent Progress Patient-Stated? Author Autogenerat ed Goal Care Plan Autogenerated Problem No Nando Barnhart, customs import specialist Procedure Name Priority Date/Time Associated Diagnosis Comments PULSE OXIMETRY, CONTINUOUS Routine 06/11/2025 1:45 PM EDT CA AN ELECTIVE SUPRAGLOTTIC AIRWAY Routine 06/11/2025 1:07 PM EDT CA ANRCT XM SURG REQ ANES GENERAL SPI/EDRL DX 06/11/2025 12:44 PM EDT Perianal fistula HCG, URINE, QUALITATIVE STAT 06/11/2025 11:49 AM EDT PULSE OXIMETRY, SPOT Routine 06/11/2025 11:[address] ABDOMEN PELVIS W IV CONTRAST STAT 03/26/2025 1:21 AM EDT COMPREHENSIVE METABOLIC PANEL STAT 03/25/2025 7:28 PM EDT CBC WITH AUTO DIFFERENTIAL STAT 03/25/2025 7:28 PM EDT from Last 3 Months Results * CA AN ELECTIVE SUPRAGLOTTIC AIRWAY (06/11/2025 1:07 PM EDT) Davida Levy CAA - 06/11/2025 1:07 PM EDT [place] [...] Barrett MD ANESTHESIA ORDERABLES Final R esult * hCG, Urine, Qualitative (06/11/2025 11:49 AM EDT) HCG, Urine NEGATIVE NEGATIVE 06/11/2025 11:54 AM EDT [facility] Urine Urine specimen / Unknown 06/11/2025 11:49 AM EDT 06/11/2025 11:47 AM EDT Elías Samuel MD LAB URINE ORDERABLES Final Resu lt [facility] [id number] * CT abdomen pelvis w IV contrast (03/26/2025 1:21 AM EDT) Anatomical Region Laterality Modality Abdominal, Body Computed Tomogra phy 03/26/2025 1:52 AM EDT 03/26/2025 1:52 AM EDT Impressions 03/26/2025 1:51 AM EDT Redemonstrated serpiginous soft tissue extending from the rectum to the medial left gluteal fold similar to prior imaging and again compatible with an anal fissure. Left inguinal lymph node possibly reactive. And otherwise no acute abdominal or pelvic abnormality. MACRO: None Signed by: Ivania Jackson 03/26/2025 1:51 AM Dictation workstation: [id number] Narrative 03/26/2025 1:51 AM EDT Interpreted By: Ivania Jackson, STUDY: CT ABDOMEN PELVIS W IV CONTRAST; 03/26/2025 1:21 am INDICATION: Signs/Symptoms:hx of anal fistula, new RLQ pain. COMPARISON: 02/17/2025 ACCESSION NUMBER(S): [id number] ORDERING CLINICIAN: CESAR FISHER TECHNIQUE: Axial CT images of the abdomen and pelvis with coronal and sagittal reconstructed images obtained after intravenous administration of contrast FINDINGS: LOWER CHEST: Bibasilar interstitial opacities. BONES: No acute osseous abnormality. ABDOMINAL WALL: Small fat containing umbilical hernia. Left inguinal lymph node measuring up to 12 mm. Hree demonstrated a linear soft tissue extending from the left rectum through the left ischial anal fossa up to the medial left gluteal fold similar to prior imaging. No discrete subcutaneous fat collection, subcutaneous air or fluid identified. ABDOMEN: LIVER: For focal fat along the falciform ligament. Punctate subcentimeter low-attenuation focus in the right hepatic lobe, possibly a cyst. BILE DUCTS: Normal caliber. GALLBLADDER: No calcified gallstones. No wall thickening. PANCREAS: Within normal limits. SPLEEN: Within normal limits. ADRENALS: Within normal limits. KIDNEYS and URETERS: Symmetric renal enhancement. No hydronephrosis or perinephric fluid collection. Few subcentimeter low-attenuation renal foci, too small to characterize however likely cysts. VESSELS: No aortic aneurysm. RETROPERITONEUM: No pathologically enlarged retroperitoneal lymph nodes. PELVIS: REPRODUCTIVE ORGANS: No pelvic masses. BLADDER: Within normal limits. BOWEL: No dilated bowel. Normal appendix. PERITONEUM: No ascites or free air, no fluid collection. Procedure Note Ivania Jackson, DO - 03/26/2025 Interpreted By: Ivania Jackson, STUDY: CT ABDOMEN PELVIS W IV CONTRAST; 03/26/2025 1:21 am INDICATION: Signs/Symptoms:hx of anal fistula, new RLQ pain. COMPARISON: 02/17/2025 ACCESSION NUMBER(S): [id number] ORDERING CLINICIAN: CESAR FISHER TECHNIQUE: Axial CT images of the abdomen and pelvis with coronal and sagittal reconstructed images obtained after intravenous administration of contrast FINDINGS: LOWER CHEST: Bibasilar interstitial opacities. BONES: No acute osseous abnormality. ABDOMINAL WALL: Small fat containing umbilical hernia. Left inguinal lymph node measuring up to 12 mm. Hree demonstrated a linear soft tissue extending from the left rectum through the left ischial anal fossa up to the medial left gluteal fold similar to prior imaging. No discrete subcutaneous fat collection, subcutaneous air or fluid identified. ABDOMEN: LIVER: For focal fat along the falciform ligament. Punctate subcentimeter low-attenuation focus in the right hepatic lobe, possibly a cyst. BILE DUCTS: Normal caliber. GALLBLADDER: No calcified gallstones. No wall thickening. PANCREAS: Within normal limits. SPLEEN: Within normal limits. ADRENALS: Within normal limits. KIDNEYS and URETERS: Symmetric renal enhancement. No hydronephrosis or perinephric fluid collection. Few subcentimeter low-attenuation renal foci, too small to characterize however likely cysts. VESSELS: No aortic aneurysm. RETROPERITONEUM: No pathologically enlarged retroperitoneal lymph nodes. PELVIS: REPRODUCTIVE ORGANS: No pelvic masses. BLADDER: Within normal limits. BOWEL: No dilated bowel. Normal appendix. PERITONEUM: No ascites or free air, no fluid collection. IMPRESSION: Redemonstrated serpiginous soft tissue extending from the rectum to the medial left gluteal fold similar to prior imaging and again compatible with an anal fissure. Left inguinal lymph node possibly reactive. And otherwise no acute abdominal or pelvic abnormality. MACRO: None Signed by: Ivania Jackson 03/26/2025 1:51 AM Dictation workstation: [id number] Cesar Fisher MD IMG CT PROCEDURES Final Result * (ABNORMAL) CBC with Differential (03/25/2025 7:28 PM EDT) WBC 6.8 4.4 - 11.3 x10*3/uL LAB HEMATOLOGY METHOD 03/25/2025 8:10 PM EDT [facility] nRBC 0.0 0.0 - 0.0 /100 WBCs LAB HEMATOLOGY METHOD 03/25/2025 8:10 PM EDT [facility] RBC 3.67(L) 4.00 - 5.20 x10*6/uL LAB HEMATOLOGY METHOD 03/25/2025 8:10 PM EDT [facility] Hemoglobin 12.6 12.0 - 16.0 g/dL LAB HEMATOLOGY METHOD 03/25/2025 8:10 PM EDT [facility] Hematocrit 35.3(L) 36.0 - 46.0 % LAB HEMATOLOGY METHOD 03/25/2025 8:10 PM EDT [facility] MCV 96 80 - 100 fL LAB HEMATOLOGY METHOD 03/25/2025 8:10 PM EDT [facility] MCH 34.3(H) 26.0 - 34.0 pg LAB HEMATOLOGY METHOD 03/25/2025 8:10 PM EDT [facility] MCHC 35.7 32.0 - 36.0 g/dL LAB HEMATOLOGY METHOD 03/25/2025 8:10 PM EDT [facility] RDW 12.4 11.5 - 14.5 % LAB HEMATOLOGY METHOD 03/25/2025 8:10 PM EDT [facility] Platelets 277 150 - 450 x10*3/uL LAB HEMATOLOGY METHOD 03/25/2025 8:10 PM EDT [facility] Neutrophils % 66.2 40.0 - 80.0 % LAB HEMATOLOGY METHOD 03/25/2025 8:10 PM EDT [facility] Immature Granulocytes %, Automated 0.4 0.0 - 0.9 % LAB HEMATOLOGY METHOD 03/25/2025 8:10 PM EDT [facility] Comment:Immature Granulocyte Count (IG) includes promyelocytes, myelocytes and metamyelocytes but does not include bands. Percent differential counts (%) should be interpreted in the context of the absolute cell counts (cells/UL). Lymphocytes % 23.6 13.0 - 44.0 % LAB HEMATOLOGY METHOD 03/25/2025 8:10 PM EDT [facility] Monocytes % 6.4 2.0 - 10.0 % LAB HEMATOLOGY METHOD 03/25/2025 8:10 PM EDT [facility] Eosinophils % 3.0 0.0 - 6.0 % LAB HEMATOLOGY METHOD 03/25/2025 8:10 PM EDT [facility] Basophils % 0.4 0.0 - 2.0 % LAB HEMATOLOGY METHOD 03/25/2025 8:10 PM EDT [facility] Neutrophils Absolute 4.48 1.20 - 7.70 x10*3/uL LAB HEMATOLOGY METHOD 03/25/2025 8:10 PM EDT [facility] Comment:Percent differential counts (%) should be interpreted in the context of the absolute cell counts (cells/uL). Immature Granulocytes Absolute, Automated 0.03 0.00 - 0.70 x10*3/uL LAB HEMATOLOGY METHOD 03/25/2025 8:10 PM EDT [facility] Lymphocytes Absolute 1.60 1.20 - 4.80 x10*3/uL LAB HEMATOLOGY METHOD 03/25/2025 8:10 PM EDT [facility] Monocytes Absolute 0.43 0.10 - 1.00 x10*3/uL LAB HEMATOLOGY METHOD 03/25/2025 8:10 PM EDT [facility] Eosinophils Absolute 0.20 0.00 - 0.70 x10*3/uL LAB HEMATOLOGY METHOD 03/25/2025 8:10 PM EDT [facility] Basophils Absolute 0.03 0.00 - 0.10 x10*3/uL LAB HEMATOLOGY METHOD 03/25/2025 8:10 PM EDT [facility] Blood Venous blood specimen / Unknown Venipuncture / Unknown 03/25/2025 7:28 PM EDT 03/25/2025 8:03 PM EDT us Cesar Fisher MD LAB BLOOD ORDERABLES Final Res ult [facility] [id number] [place] [address] [place] [address] * (ABNORMAL) Comprehensive Metabolic Panel (03/25/2025 7:28 PM EDT) [facility] Glucose 101(H) 74 - 99 mg/dL LAB CHEMISTRY METHOD 03/25/2025 8:26 PM EDT [facility] Sodium 141 136 - 145 mmol/L LAB CHEMISTRY METHOD 03/25/2025 8:26 PM EDT [facility] Potassium 3.7 3.5 - 5.3 mmol/L LAB CHEMISTRY METHOD 03/25/2025 8:26 PM EDT [facility] Chloride 106 98 - 107 mmol/L LAB CHEMISTRY METHOD 03/25/2025 8:26 PM EDT [facility] Bicarbonate 27 21 - 32 mmol/L LAB CHEMISTRY METHOD 03/25/2025 8:26 PM EDT [facility] Anion Gap 12 10 - 20 mmol/L LAB CHEMISTRY METHOD 03/25/2025 8:26 PM EDT [facility] Urea Nitrogen 14 6 - 23 mg/dL LAB CHEMISTRY METHOD 03/25/2025 8:26 PM EDT [facility] Creatinine 0.72 0.50 - 1.05 mg/dL LAB CHEMISTRY METHOD 03/25/2025 8:26 PM EDT [facility] eGFR >90 >60 mL/min/1. 73m*2 LAB CHEMISTRY METHOD 03/25/2025 8:26 PM EDT [facility] Comment: Calculations of estimated GFR are performed using the 2020 CKD-EPI Study Refit equation without the race variable for the IDMS-Traceable creatinine methods. https://jasn.asnjournals.org/content//ASN.5694855581 Calcium 9.2 8.6 - 10.6 mg/dL LAB CHEMISTRY METHOD 03/25/2025 8:26 PM EDT [facility] Albumin 4.3 3.4 - 5.0 g/dL LAB CHEMISTRY METHOD 03/25/2025 8:26 PM EDT [facility] Alkaline Phosphatase 73 33 - 110 U/L LAB CHEMISTRY METHOD 03/25/2025 8:26 PM EDT [facility] Total Protein 7.6 6.4 - 8.2 g/dL LAB CHEMISTRY METHOD 03/25/2025 8:26 PM EDT [facility] AST 17 9 - 39 U/L LAB CHEMISTRY METHOD 03/25/2025 8:26 PM EDT [facility] Bilirubin, Total 0.3 0.0 - 1.2 mg/dL LAB CHEMISTRY METHOD 03/25/2025 8:26 PM EDT [facility] ALT 19 7 - 45 U/L LAB CHEMISTRY METHOD 03/25/2025 8:26 PM EDT [facility] Comment:Patients treated wit h Sulfasalazine may generate falsely decreased results for ALT. Blood Venous blood specimen / Unknown Venipuncture / Unknown 03/25/2025 7:28 PM EDT 03/25/2025 8:03 PM EDT us Cesar Fisher MD LAB BLOOD ORDERABLES Final Res ult [facility] [id number] [place] [id number] from Last 3 Months Additional Health Concerns Active Problems Noted Date Diagnosed Date Autogenerated Problem 06/12/2025 Insurance MEDICAID MEDICAID Advance Directives For more information, please contact: [phone] (Available ) * Full Code (Latest Code Status on File) Date Activated Date Inactivated Comments 06/11/2025 11:41 AM Question Answer Comments Plan of Care: Code Status Discussion Not Compl eted Decision Maker: Provider Rationale: Patient condition does not warra nt discussion
--- OUTSIDE RECORDS SUMMARY | 2025-06-13 18:52 | XMS_ITS | Clinical Summary ---
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 One in AM and one in afternoon Max Daily Amount: 60 mg Active clonazePAM (KLONOPIN) 0.5 MG tablet Take 1 tablet by mouth as needed for Anxiety. Active Active Problems Problem Noted Date Diagnosed Date Cellulitis of buttock 10/22/2024 Abscess of gluteal cleft 10/22/2024 Cellulitis of skin 10/18/2024 Pelvic abscess in female 2024 Abscess, gluteal, left 2024 Hyperchloremia 2024 Anemia 2024 Elevated brain natriuretic peptide (BNP) level 0 2024 Social History Tobacco Use Types Packs/Day Years Used Date Smoking Tobacco: Every Day Cigarettes Tobacco Cessation:Ready to Q uit: Not Asked; Counseling Given: Not Answered [facility] Utilities Answer Date Recorded In the past 12 months has th e [employer], gas, oil, or water [employer] threatened to shut off services in your home? Patient declined 2024 Hunger Vital Sign Answer Date Recorded Within the past 12 months, y ou worried that your food would run out before you got the money to buy more. Patient declined Within the past 12 months, t he food you bought just didn't last and you didn't have money to get more. Patient declined 07/2025 PRAPARE - Transportation Answer Date Re corded In the past 12 months, has l ack of transportation kept you from medical appointments or from getting medications? Patient declined 2024 In the past 12 months, has l ack of transportation kept you from meetings, work, or from getting things needed for daily living? Patient declined 2024 Housing Stability Vital Sign Answer Zeferino e Recorded In the last 12 months, was t here a time when you were not able to pay the mortgage or rent on time? Patient declined 10/17/19 25 In the past 12 months, how m any times have you moved where you were living? 0 2024 At any time in the past 12 m [facility], were you homeless or living in a residential (including now)? Patient declined 2024 Food Insecurity Answer Date Recorded Within the past 12 months, y ou worried that your food would run out before you got the money to buy more. 98 2024 Within the past 12 months, t he food you bought just didn't last and you didn't have money to get more. 98 2024 Interpersonal Safety Domain Source: IP Abuse Scr eening Answer Date Recorded Physical abuse Denies 2024 Verbal abuse Denies 2024 Emotional abuse Denies 2024 Financial abuse Denies 2024 Sexual abuse Denies 2024 Comments Unknown Sex and Gender Information Value Date Recorded Sex Assigned at Not on file Legal Sex Female 11:08 PM EST Gender Identity Not on file Sexual Orientation Not on file Last Filed Vital Signs Vital Sign Reading Time Taken Comments Blood Pressure 108/77 10/20/2024 8:34 AM EST Pulse 79 10/20/2024 8:34 AM EST Temperature 36.7 C (98.1 F) 10/20/2024 8:34 AM EST Respiratory Rate 16 10/20/2024 8:34 AM EST Oxygen Saturation 97% 10/20/2024 8:34 AM EST Inhaled Oxygen Concentration - - Weight 65.7 kg (144 lb 13.5 oz) 10/19/2024 6:00 AM EST Height 154.9 cm (5' 1 ) 2024 3:45 AM EST Body Mass Index 27.37 2024 3:45 AM EST Plan of Treatment Health Maintenance Due Date Last Done Comments Depression Screen 2004 Varicella vaccine (1 of 2 - 13+ 2-dose series) 2005 HIV screen 2007 Hepatitis C screen 2010 DTaP/Tdap/Td vaccine (1 - Tdap) 2011 Hepatitis B vaccine (1 of 3 - 19+ 3-dose series) 2011 Pneumococcal 0-49 years Vacc ine (1 of 2 - PCV) 2011 Pap smear 2013 Cervical cancer screen 2022 HPV (without or with Pap) 2022 COVID-19 Vaccine ( - 2023-2 5 season) 2024 Flu vaccine (#1) 05/08/2025 HPV vaccine (No Doses Required) Completed Hepatitis A vaccine Aged Out No longe r eligible based on patient's age to complete this topic Hib vaccine Aged Out No longer eligi ble based on patient's age to complete this topic Meningococcal (ACWY) vaccine Aged Out No longer eligible based on patient's age to complete this topic Meningococcal B vaccine Aged Out No l onger eligible based on patient's age to complete this topic Polio vaccine Aged Out No longer elig ible based on patient's age to complete this topic Advance Directives * Full Code (Latest Code Status on File) Date Activated Date Inactivated Comments 2024 4:07 AM 10/20/2024 3:27 PM
--- OUTSIDE RECORDS SUMMARY | 2025-06-13 18:53 | XMS_ITS | CCD ---
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 [facility] ([facility]) [address] [place] [address] Bilirubin [Mass/Vol] 0.3 mg/dL Normal 0.0-1.2 [facility] Comment on above: Order Comment: Plasm a Serum Separator Performed By: #### 2 4323-8 #### TEODORO Benavides ([id number]) [facility] ([facility]) [address] [place] [address] Calcium [Mass/Vol] 9.2 mg/dL Normal 8.6-10.6 [facility] Comment on above: Order Comment: Plasm a Serum Separator Performed By: #### 2 4323-8 #### TEODORO Benavides ([id number]) [facility] ([facility]) [address] [place] [address] Chloride [Moles/Vol] 106 mmol/L Normal 98-107 [facility] Comment on above: Order Comment: Plasm a Serum Separator Performed By: #### 2 4323-8 #### TEODORO Benavides ([id number]) [facility] ([facility]) [address] [place] [address] CO2 [Moles/Vol] 27 mmol/L Normal 21-32 [facility] Comment on above: Order Comment: Plasm a Serum Separator Performed By: #### 2 4323-8 #### TEODORO Benavides ([id number]) [facility] ([facility]) [address] [place] [address] Creatinine [Mass/Vol] 0.72 mg/dL Normal 0.50-1.05 [facility] Comment on above: Order Comment: Plasm a Serum Separator Performed By: #### 2 4323-8 #### TEODORO Benavides ([id number]) [facility] ([facility]) [address] [place] [address] GFR/1.73 sq M.predicted MDRD (S/P/Bld) [Vol rate/Area] mL/min/{1.73_m2} Normal >60 [facility] Comment on above: Order Comment: Plasm a Serum Separator Result Comment: Calc ulations of estimated GFR are performed using the 2020 CKD-EPI Study Refit equation without the race variable for the IDMS-Traceable creatinine methods. https://jasn.asnjournals.org/content//ASN.74517325 88 Performed By: #### 2 4323-8 #### TEODORO Benavides ([id number]) [facility] ([facility]) [address] [place] [address] Glucose [Mass/Vol] 101 mg/dL High 74-99 [facility] Comment on above: Order Comment: Plasm a Serum Separator Performed By: #### 2 4323-8 #### TEODORO Benavides ([id number]) [facility] ([facility]) [address] [place] [address] Potassium [Moles/Vol] 3.7 mmol/L Normal 3.5-5.3 [facility] Comment on above: Order Comment: Plasm a Serum Separator Performed By: #### 2 4323-8 #### TEODORO Benavides ([id number]) [facility] ([facility]) [address] [place] [address] Protein [Mass/Vol] 7.6 g/dL Normal 6.4-8.2 [facility] Comment on above: Order Comment: Plasm a Serum Separator Performed By: #### 2 4323-8 #### TEODORO Benavides ([id number]) [facility] ([facility]) [address] [place] [address] Sodium [Moles/Vol] 141 mmol/L Normal 136-145 [facility] Comment on above: Order Comment: Plasm a Serum Separator Performed By: #### 2 4323-8 #### TEODORO Benavides ([id number]) [facility] ([facility]) [address] [place] [address] Urea nitrogen [Mass/Vol] 14 mg/dL Normal 6-23 [facility] Comment on above: Order Comment: Plasm a Serum Separator Performed By: #### 2 4323-8 #### TEODORO Benavides ([id number]) [facility] ([facility]) [address] [place] [address] Basic metabolic 2000 panelon 02-17-2025 Anion gap [Moles/Vol] 12 mmol/L Normal 8-15 [facility] Comment on above: Order Comment: Speci men Type: BLOOD SPECIMEN Ordering Facility: [facility] Address: [address] [place] [address] Performed By: #### 2 4321-2 #### [facility] CLIA [id number] [address] [place], [place] [address] [address] [place] Calcium [Mass/Vol] 9.5 mg/dL Normal 8.5-10.2 [facility] Comment on above: Order Comment: Speci men Type: BLOOD SPECIMEN Ordering Facility: [facility] Address: [address] [place] [address] Performed By: #### 2 4321-2 #### [facility] CLIA [id number] [address] [place] [address] [place] Chloride [Moles/Vol] 105 mmol/L Normal 98-107 [facility] Comment on above: Order Comment: Speci men Type: BLOOD SPECIMEN Ordering Facility: [facility] Address: [address] [place] [address] Performed By: #### 2 4321-2 #### [facility] CLIA [id number] [address] [place] [address] [place] CO2 [Moles/Vol] 23 mmol/L Normal 22-30 [facility] Comment on above: Order Comment: Speci men Type: BLOOD SPECIMEN Ordering Facility: [facility] Address: [address] [place] [address] Performed By: #### 2 4321-2 #### [facility] CLIA [id number] [address] [place] [address] [place] Creatinine [Mass/Vol] 0.65 mg/dL Normal 0.58-0.96 [facility] Comment on above: Order Comment: Speci men Type: BLOOD SPECIMEN Ordering Facility: [facility] Address: [address] [place] [address] Performed By: #### 2 4321-2 #### [facility] CLIA [id number] [address] [place] [address] [place] Creatinine and Glomerular filtration rate.predicted panel (S/P/Bld) 120 mL/min/1.73m??? Normal >=60 [facility] Comment on above: Order Comment: Speci men Type: BLOOD SPECIMEN Ordering Facility: [facility] Address: [address] [place] [address] Result Comment: Bryson mated Glomerular Filtration Rate (eGFR) is calculated using the 2020 CKD-EPI creatinine equation. This equation utilizes serum creatinine, sex, and age as parameters. The creatinine assay has traceable calibration to isotope dilution-mass spectrometry. Refer to KDIGO guidelines for clinical interpretation. In patients with unstable renal function, e.g. those with acute kidney injury, the eGFR may not accurately reflect actual GFR. Performed By: #### 2 4321-2 #### [facility] CLIA [id number] [address] [place] [address] [place] Glucose [Mass/Vol] 106 mg/dL High 74-99 [facility] Comment on above: Order Comment: Luis A alfaro Type: BLOOD SPECIMEN Ordering Facility: [facility] Address: [address] [place] [address] Result Comment: The [place] Diabetes Association (ADA) provides guidance for cutoff [...] Standards of Medical Care in Diabetes 2016, [place] Diabetes Association. Diabetes Care. 2016.39(Suppl 1). Performed By: #### 2 4321-2 #### [facility] CLIA [id number] [address] [place] [address] [place] Potassium [Moles/Vol] 3.8 mmol/L Normal 3.7-5.1 [facility] Comment on above: Order Comment: Luis A alfaro Type: BLOOD SPECIMEN Ordering Facility: [facility] Address: [address] [place] [address] Performed By: #### 2 4321-2 #### [facility] CLIA [id number] [address] [place] [address] [place] Sodium [Moles/Vol] 140 mmol/L Normal 136-144 [facility] Comment on above: Order Comment: Speci men Type: BLOOD SPECIMEN Ordering Facility: [facility] Address: [address] [place] [address] Performed By: #### 2 4321-2 #### [facility] IA [id number] [address] [place] [address] [place] Urea nitrogen [Mass/Vol] 13 mg/dL Normal 7-21 [facility] Comment on above: Order Comment: Speci men Type: BLOOD SPECIMEN Ordering Facility: [facility] Address: [address] [place] [address] Performed By: #### 2 4321-2 #### [facility] IA [id number] [address] [place] [address] [place] CBC W Auto Differential pane l (Bld)on 02-17-2025 Basophils (Bld) [#/Vol] 0.04 x10*3/uL Normal 0.00-0.10 [facility] Comment on above: Performed By: #### 5 7021-8 #### TEODORO TAO L ([id number]) [facility] ([facility]) [address] [place] [address] Basophils/100 WBC (Bld) 0.6 % Normal 0.0-2.0 [facility] Comment on above: Performed By: #### 5 7021-8 #### TEODORO DIOPMOTZER L ([id number]) [facility] ([facility]) [address] [place] [address] Eosinophils (Bld) [#/Vol] 0.16 x10*3/uL Normal 0.00-0.70 [facility] Comment on above: Performed By: #### 5 7021-8 #### TEODORO DIOPMOTZER L ([id number]) [facility] ([facility]) [address] [place] [address] Eosinophils/100 WBC (Bld) 2.2 % Normal 0.0-6.0 [facility] Comment on above: Performed By: #### 5 7021-8 #### TEODORO Benavides ([id number]) [facility] ([facility]) [address] [place] [address] 20965 Erythrocyte distribution width (RBC) [Ratio] 12.5 % Normal 11.5-14.5 [facility] Comment on above: Performed By: #### 5 7021-8 #### TEODORO Benavides ([id number]) [facility] ([facility]) [address] [place] [address] 11383 Hematocrit (Bld) [Volume fraction] 36.3 % Normal 36.0-46.0 [facility] Comment on above: Performed By: #### 5 7021-8 #### TEODORO Benavides ([id number]) [facility] ([facility]) [address] [place] [address] Hemoglobin (Bld) [Mass/Vol] 12.7 g/dL Normal 12.0-16.0 [facility] Comment on above: Performed By: #### 5 7021-8 #### TEODORO Benavides ([id number]) [facility] ([facility]) [address] [place] [address] Immature granulocytes (Bld) [#/Vol] 0.02 x10*3/uL Normal 0.00-0.70 [facility] Comment on above: Performed By: #### 5 7021-8 #### TEODORO Benavides ([id number]) [facility] ([facility]) [address] [place] [address] Immature granulocytes/100 WBC (Bld) 0.3 % Normal 0.0-0.9 [facility] Comment on above: Result Comment: Cecilia ture Granulocyte Count (IG) includes promyelocytes, myelocytes and metamyelocytes but does not include bands. Percent differential counts (%) should be interpreted in the context of the absolute cell counts (cells/UL). Performed By: #### 5 7021-8 #### TEOODRO Benavides ([id number]) [facility] ([facility]) [address] [place] [address] Lymphocytes (Bld) [#/Vol] 1.85 x10*3/uL Normal 1.20-4.80 [facility] Comment on above: Performed By: #### 5 7021-8 #### TEODORO Benavides ([id number]) [facility] ([facility]) [address] [place] [address]126 Lymphocytes/100 WBC (Bld) 25.8 % Normal 13.0-44.0 [facility] Comment on above: Performed By: #### 5 7021-8 #### TEODORO Benavides ([id number]) [facility] ([facility]) [address] [place] [address] 92938 MCH (RBC) [Entitic mass] 32.8 pg Normal 26.0-34.0 [facility] Comment on above: Performed By: #### 5 7021-8 #### TEODORO Benavides ([id number]) [facility] ([facility]) [address] [place] [address] 39169 MCHC (RBC) [Mass/Vol] 35.0 g/dL Normal 32.0-36.0 [facility] Comment on above: Performed By: #### 5 7021-8 #### TEODORO Benavides ([id number]) [facility] ([facility]) [address] [place] [address] 92493 MCV (RBC) [Entitic vol] 94 fL Normal 80-100 [facility] Comment on above: Performed By: #### 5 7021-8 #### TEODORO Benavides ([id number]) [facility] ([facility]) [address] [place] [address] 22884 Monocytes (Bld) [#/Vol] 0.34 x10*3/uL Normal 0.10-1.00 [facility] Comment on above: Performed By: #### 5 7021-8 #### TEODORO Benavides ([id number]) [facility] ([facility]) [address] [place] [address]706 Monocytes/100 WBC (Bld) 4.7 % Normal 2.0-10.0 [facility] Comment on above: Performed By: #### 5 7021-8 #### TEODORO Benavides ([id number]) [facility] ([facility]) [address] [place] [address] Neutrophils (Bld) [#/Vol] 4.75 x10*3/uL Normal 1.20-7.70 [facility] Comment on above: Result Comment: Perc ent differential counts (%) should be interpreted in the context of the absolute cell counts (cells/uL). Performed By: #### 5 7021-8 #### TEODORO Benavides ([id number]) [facility] ([facility]) [address] [place] [address]39 Neutrophils/100 WBC (Bld) 66.4 % Normal 40.0-80.0 [facility] Comment on above: Performed By: #### 5 7021-8 #### TEODORO Benavides ([id number]) [facility] ([facility]) [address] [place] [address] Nucleated RBC/100 WBC (Bld) [Ratio] 0.0 /100 WBCs Normal 0.0-0.0 [facility] Comment on above: Performed By: #### 5 7021-8 #### TEODORO Benavides ([id number]) [facility] ([facility]) [address] [place] [address] Platelets (Bld) [#/Vol] 309 x10*3/uL Normal 150-450 [facility] Comment on above: Performed By: #### 5 7021-8 #### TEODORO Benavides ([id number]) [facility] ([facility]) [address] [place] [address] RBC (Bld) [#/Vol] 3.87 x10*6/uL Low 4.00-5.20 [facility] Comment on above: Performed By: #### 5 7021-8 #### TEODORO Benavides ([id number]) [facility] ([facility]) [address] [place] [address] WBC (Bld) [#/Vol] 7.2 x10*3/uL Normal 4.4-11.3 [facility] Comment on above: Performed By: #### 5 7021-8 #### TEODORO Benavides ([id number]) [facility] ([facility]) [address] [place] [address] Basophils (Bld) [#/Vol] 0.04 10*3/uL Normal <0.11 [facility] Comment on above: Order Comment: Speci men Type: BLOOD SPECIMEN Ordering Facility: [facility] Address: [address] [place] [address] Performed By: #### 5 7021-8 #### [facility] CLIA [id number] [address] [place] [address] [place] Basophils/100 WBC (Bld) 0.6 % Normal [facility] Comment on above: Order Comment: Speci men Type: BLOOD SPECIMEN Ordering Facility: [facility] Address: [address] [place] [address] Performed By: #### 5 7021-8 #### [facility] CLIA [id number] [address] [place] [address] [place] Differential cell count method Nom (Bld) Auto Normal [facility] Comment on above: Order Comment: Speci men Type: BLOOD SPECIMEN Ordering Facility: [facility] Address: [address] [place] [address] Performed By: #### 5 7021-8 #### [facility] CLIA [id number] [address] [place] [address] [place] Eosinophils (Bld) [#/Vol] 0.16 10*3/uL Normal <0.46 [facility] Comment on above: Order Comment: Speci men Type: BLOOD SPECIMEN Ordering Facility: [facility] Address: [address] [place] [address] Performed By: #### 5 7021-8 #### [facility] CLIA [id number] [address] [place] [address] [place] Eosinophils/100 WBC (Bld) 2.3 % Normal [facility] Comment on above: Order Comment: Speci men Type: BLOOD SPECIMEN Ordering Facility: [facility] Address: [address] [place] [address] Performed By: #### 5 7021-8 #### [facility] CLIA [id number] [address] [place] [address] [place] Erythrocyte distribution width (RBC) [Ratio] 12.3 % Normal 11.5-15.0 [facility] Comment on above: Order Comment: Speci men Type: BLOOD SPECIMEN Ordering Facility: [facility] Address: [address] [place] [address] Performed By: #### 5 7021-8 #### [facility] CLIA [id number] [address] [place] [address] [place] Hematocrit (Bld) [Volume fraction] 39.2 % Normal 36.0-46.0 [facility] Comment on above: Order Comment: Speci men Type: BLOOD SPECIMEN Ordering Facility: [facility] Address: [address] [place] [address] Performed By: #### 5 7021-8 #### [facility] CLIA [id number] [address] [place] [address] [place] Hemoglobin (Bld) [Mass/Vol] 13.6 g/dL Normal 11.5-15.5 [facility] Comment on above: Order Comment: Speci men Type: BLOOD SPECIMEN Ordering Facility: [facility] Address: [address] [place] [address] Performed By: #### 5 7021-8 #### [facility] CLIA [id number] [address] [place] [address] [place] Immature granulocytes (Bld) [#/Vol] 10*3/uL Normal <0.10 [facility] Comment on above: Order Comment: Speci men Type: BLOOD SPECIMEN Ordering Facility: [facility] Address: [address] [place] [address] Performed By: #### 5 7021-8 #### [facility] CLIA [id number] [address] [place] [address] [place] Immature granulocytes/100 WBC (Bld) 0.3 % Normal [facility] Comment on above: Order Comment: Speci men Type: BLOOD SPECIMEN Ordering Facility: [facility] Address: [address] [place] [address] Performed By: #### 5 7021-8 #### [facility] CLIA [id number] [address] [place] [address] [place] Lymphocytes (Bld) [#/Vol] 1.74 10*3/uL Normal 1.00-4.00 [facility] Comment on above: Order Comment: Speci men Type: BLOOD SPECIMEN Ordering Facility: [facility] Address: [address] [place] [address] Performed By: #### 5 7021-8 #### [facility] CLIA [id number] [address] [place] [address] [place] Lymphocytes/100 WBC (Bld) 25.3 % Normal [facility] Comment on above: Order Comment: Speci men Type: BLOOD SPECIMEN Ordering Facility: [facility] Address: [address] [place] [address] Performed By: #### 5 7021-8 #### [facility] CLIA [id number] [address] [place] [address] [place] MCH (RBC) [Entitic mass] 33.4 pg Normal 26.0-34.0 [facility] Comment on above: Order Comment: Speci men Type: BLOOD SPECIMEN Ordering Facility: [facility] Address: [address] [place] [address] Performed By: #### 5 7021-8 #### [facility] CLIA [id number] [address] [place] [address] [place] MCHC (RBC) [Mass/Vol] 34.7 g/dL Normal 30.5-36.0 [facility] Comment on above: Order Comment: Speci men Type: BLOOD SPECIMEN Ordering Facility: [facility] Address: [address] [place] [address] Performed By: #### 5 7021-8 #### [facility] CLIA [id number] [address] [place] [address] [place] MCV (RBC) [Entitic vol] 96.3 fL Normal 80.0-100.0 [facility] Comment on above: Order Comment: Speci men Type: BLOOD SPECIMEN Ordering Facility: [facility] Address: [address] [place] [address] Performed By: #### 5 7021-8 #### [facility] CLIA [id number] [address] [place] [address] [place] Monocytes (Bld) [#/Vol] 0.38 10*3/uL Normal <0.87 [facility] Comment on above: Order Comment: Speci men Type: BLOOD SPECIMEN Ordering Facility: [facility] Address: [address] [place] [address] Performed By: #### 5 7021-8 #### [facility] CLIA [id number] [address] [place] [address] [place] Monocytes/100 WBC (Bld) 5.5 % Normal [facility] Comment on above: Order Comment: Speci men Type: BLOOD SPECIMEN Ordering Facility: [facility] Address: [address] [place] [address] Performed By: #### 5 7021-8 #### [facility] CLIA [id number] [address] [place] [address] [place] Neutrophils (Bld) [#/Vol] 4.55 10*3/uL Normal 1.45-7.50 [facility] Comment on above: Order Comment: Speci men Type: BLOOD SPECIMEN Ordering Facility: [facility] Address: [address] [place] [address] Performed By: #### 5 7021-8 #### [facility] CLIA [id number] [address] [place] [address] [place] Neutrophils/100 WBC (Bld) 66.0 % Normal [facility] Comment on above: Order Comment: Speci men Type: BLOOD SPECIMEN Ordering Facility: [facility] Address: [address] [place] [address] Performed By: #### 5 7021-8 #### [facility] CLIA [id number] [address] [place] [address] [place] Nucleated RBC (Bld) [#/Vol] 10*3/uL Normal <0.01 [facility] Comment on above: Order Comment: Speci men Type: BLOOD SPECIMEN Ordering Facility: [facility] Address: [address] [place] [address] Performed By: #### 5 7021-8 #### [facility] CLIA [id number] [address] [place] [address] [place] Nucleated RBC/100 WBC (Bld) [Ratio] 0.0 /100 WBC Normal [facility] Comment on above: Order Comment: Speci men Type: BLOOD SPECIMEN Ordering Facility: [facility] Address: [address] [place] [address] Performed By: #### 5 7021-8 #### [facility] CLIA [id number] [address] [place] [address] [place] Platelet mean volume (Bld) [Entitic vol] 9.0 fL Normal 9.0-12.7 [facility] Comment on above: Order Comment: Speci men Type: BLOOD SPECIMEN Ordering Facility: [facility] Address: [address] [place] [address] Performed By: #### 5 7021-8 #### [facility] CLIA [id number] [address] [place] [address] [place] Platelets (Bld) [#/Vol] 330 10*3/uL Normal 150-400 [facility] Comment on above: Order Comment: Speci men Type: BLOOD SPECIMEN Ordering Facility: [facility] Address: [address] [place] [address] Performed By: #### 5 7021-8 #### [facility] CLIA [id number] [address] [place] [address] [place] RBC (Bld) [#/Vol] 4.07 10*6/uL Normal 3.90-5.20 [facility] Comment on above: Order Comment: Speci men Type: BLOOD SPECIMEN Ordering Facility: [facility] Address: [address] [place] [address] Performed By: #### 5 7021-8 #### [facility] CLIA [id number] [address] [place] [address] [place] WBC (Bld) [#/Vol] 6.89 10*3/uL Normal 3.70-11.00 [facility] Comment on above: Order Comment: Speci men Type: BLOOD SPECIMEN Ordering Facility: [facility] Address: [address] [place] [address] Performed By: #### 5 7021-8 #### [facility] CLIA [id number] [address] [place] [address] [place] ABDOMEN PELVIS W IV CONTR Manohar 02-17-2025 CT ABDOMEN PELVIS W IV CONTRAST Interpreted By: Nikita Valdez and Kamau Nyokabi STUDY: CT ABDOMEN PELVIS W IV CONTRAST; 02/17/2025 10:07 pm INDICATION: Signs/Symptoms:left gluteal abscess. COMPARISON: None. ACCESSION NUMBER(S): [id number] ORDERING CLINICIAN: ROLLY REBECCA TECHNIQUE: Contiguous axial images of the abdomen and pelvis were obtained after the intravenous administration of 75 mL Omnipaque 350 contrast. Coronal and sagittal reformatted images were reconstructed from the axial data. FINDINGS: LOWER CHEST: Mild dependent ground-glass opacities favoring atelectasis. No focal consolidation, pleural effusion, or pneumothorax. No pulmonary nodules in the lung bases. LIVER: Liver is normal in size. Subcentimeter circumscribed hypodense lesion within the left hepatic lobe which is too small to characterize and likely represent simple hepatic cyst (series 201, image 36). No suspicious liver lesion. BILE DUCTS: No significant intrahepatic or extrahepatic dilatation. GALLBLADDER: No significant abnormality. PANCREAS: No significant abnormality. SPLEEN: No significant abnormality. Small accessory splenule noted. ADRENALS: No significant abnormality. KIDNEYS, URETERS, BLADDER: Bilateral kidneys are normal in size and enhance symmetrically. Circumscribed subcentimeter hypodense lesion within the interpolar left kidney measuring 0.5cm likely representing simple renal cyst (series 201, image 85). No hydronephrosis. No nephrolithiasis. Bladder is within normal limits. REPRODUCTIVE ORGANS: The uterus is present and within normal limits. Cylindrical air density in the vaginal canal is consistent with the presence of a tampon. GI: Stomach is within normal limits. Small and large bowel are normal in caliber without evidence of obstruction or inflammatory changes. Mild colonic stool burden. Normal appendix. VESSELS: No significant abnormality. The portal veins and IVC are patent. PERITONEUM/RETROPERIT ONEUM: No ascites, free air, or fluid collection. LYMPH NODES: No enlarged lymph nodes. ABDOMINAL WALL/SOFT TISSUES: Fat containing umbilical hernia. There is a curved tubular enhancing structure that extends from roughly the 2-3 o'clock position of the anal sphincter inferiorly and medially in the ischiorectal and medial left gluteal subcutaneous fat to the inferomedial aspect of the intergluteal cleft, compatible with anal fistula (series 201, images 142-162). No focal fluid collection to suggest abscess. OSSEOUS STRUCTURES: No acute osseous abnormality. IMPRESSION: 1. There is a curved tubular enhancing structure that extends from roughly the 2-3 o'clock position of the anal sphincter inferiorly and medially in the ischiorectal and medial left gluteal subcutaneous fat to the inferomedial aspect of the intergluteal cleft, compatible with anal fistula (series 201, images 142-162). No focal fluid collection to suggest abscess. 2. No acute abnormality within the abdomen or pelvis. 3. Left renal cyst and hepatic cyst. I personally reviewed the images/study and I agree with certified residential medication aide Dr. Keri Woodard findings as stated. This study was interpreted at [place], [place] MACRO: None Signed by: Nikita Valdez 02/17/2025 11:13 PM Dictation workstation: [id number] Normal [facility] Comprehensive metabolic 2000 panelon 02-17-2025 Albumin BCP dye [Mass/Vol] 4.3 g/dL Normal 3.4-5.0 [facility] Comment on above: Performed By: #### 2 4323-8 #### TEODORO Benavides ([id number]) [facility] ([facility]) [address] [place] [address] ALP [Catalytic activity/Vol] 105 U/L Normal 33-110 [facility] Comment on above: Performed By: #### 2 4323-8 #### TEODORO Benavides ([id number]) [facility] ([facility]) [address] [place] [address] 63426 ALT With P-5'-P [Catalytic activity/Vol] 37 U/L Normal 7-45 [facility] Comment on above: Result Comment: Kari ents treated with Sulfasalazine may generate falsely decreased results for ALT. Performed By: #### 2 4323-8 #### TEODORO Benavides ([id number]) [facility] ([facility]) [address] [place] [address] Anion gap [Moles/Vol] 12 mmol/L Normal 10-20 [facility] Comment on above: Performed By: #### 2 4323-8 #### TEODORO Benavides ([id number]) [facility] ([facility]) [address] [place] [address] 01218 AST With P-5'-P [Catalytic activity/Vol] 20 U/L Normal 9-39 [facility] Comment on above: Performed By: #### 2 4323-8 #### TEODORO TAO L ([id number]) [facility] ([facility]) [address] [place] [address] Bilirubin [Mass/Vol] 0.3 mg/dL Normal 0.0-1.2 [facility] Comment on above: Performed By: #### 2 4323-8 #### TEODORO Benavides ([id number]) [facility] ([facility]) [address] [place] [address] Calcium [Mass/Vol] 9.1 mg/dL Normal 8.6-10.6 [facility] Comment on above: Performed By: #### 2 4323-8 #### TEODORO Benavides ([id number]) [facility] ([facility]) [address] [place] [address] Chloride [Moles/Vol] 107 mmol/L Normal 98-107 [facility] Comment on above: Performed By: #### 2 4323-8 #### TEODORO Benavides ([id number]) [facility] ([facility]) [id number] [place] [address] CO2 [Moles/Vol] 27 mmol/L Normal 21-32 [facility] Comment on above: Performed By: #### 2 4323-8 #### TEODORO Benavides ([id number]) [facility] ([facility]) [address] [place] [address] Creatinine [Mass/Vol] 0.68 mg/dL Normal 0.50-1.05 [facility] Comment on above: Performed By: #### 2 4323-8 #### TEODORO Benavides ([id number]) [facility] ([facility]) [address] [place] [address] GFR/1.73 sq M.predicted MDRD (S/P/Bld) [Vol rate/Area] mL/min/{1.73_m2} Normal >60 [facility] Comment on above: Result Comment: Calc ulations of estimated GFR are performed using the 2020 CKD-EPI Study Refit equation without the race variable for the IDMS-Traceable creatinine methods. https://jasn.asnjournals.org/content/early/ASN.20716214 88 Performed By: #### 2 4323-8 #### TEODORO HERNANDESER L ([id number]) [facility] ([facility]) [address] [place] [address] Glucose [Mass/Vol] 90 mg/dL Normal 74-99 [facility] Comment on above: Performed By: #### 2 4323-8 #### TEODORO TAO L ([id number]) [facility] ([facility]) [address] [place] [address] Potassium [Moles/Vol] 4.1 mmol/L Normal 3.5-5.3 [facility] Comment on above: Performed By: #### 2 4323-8 #### TEODORO TAO L ([id number]) [facility] ([facility]) [address] [place] [address]44 Protein [Mass/Vol] 7.3 g/dL Normal 6.4-8.2 [facility] Comment on above: Performed By: #### 2 4323-8 #### TEODORO HERNANDESER L ([id number]) [facility] ([facility]) [address] [place] [address] Sodium [Moles/Vol] 142 mmol/L Normal 136-145 [facility] Comment on above: Performed By: #### 2 4323-8 #### TEODORO DIOPMOTZER L ([id number]) [facility] ([facility]) [address] [place] [address]1772 Urea nitrogen [Mass/Vol] 14 mg/dL Normal 6-23 [facility] Comment on above: Performed By: #### 2 4323-8 #### TEODORO GARZATZER L ([id number]) [facility] ([facility]) [address] [place] [address] ED NOTEon 02-17-2025 ED NOTE HNO ID: [id number] Author: SARAH SWAIN RN Service: Emergency Medicine Author Type: Registered Nurse Type: ED Notes Filed: 02/17/2025 18:39 Note Text: Pt asked for IV to be taken out at this time. Pt left ER in stable condition. Normal [facility] ED Triage Noteon 02-17-2025 ED Triage Note HNO ID: [id number] Author: JOSEPH VENEGAS MD Service: Emergency Medicine Author Type: Physician Type: ED Triage Notes Filed: 02/17/2025 18:02 Note Text: ED TRIAGE PROVIDER NOTE Patient Name: Amira Nagy Service Date: 02/17/25 BRIEF HPI: This is a 34 year old female who presents to the ED with: Nonhealing L buttock fistula tract x5 months, presenting for a second opinion for management. Actively draining, occasionally bloody. No abdominal pain or fevers. Lives in [place], but is in [place] to help manage her parents' home after they . Unable to obtain outpatient appointments in [place]. BRIEF EXAM: NAD Awake and Alert Non labored breathing Genital exam deferred until patient can be undressed INITIAL WORKUP AND DECISION MAKING: Orders Placed This Encounter BASIC METABOLIC PNL CBC + DIFF URINE HCG (ED POC) SIGNATURE: Joseph Venegas MD Normal [facility] Basic Metab w/rfx MGon 10-20 Anion gap [Moles/Vol] 9 mmol/L Normal 9-16 [facility] Comment on above: Performed By: #### C DEIDRE, BMPX #### [facility] [address] [place] [address] Rodeo Clown: Larry Ashton MD Calcium [Mass/Vol] 9.1 mg/dL Normal 8.6-10.4 [facility] Comment on above: Performed By: #### C BC, BMPX #### [facility] [address] [place] [address] Rodeo Clown: Larry Ashton MD Chloride [Moles/Vol] 107 mmol/L Normal 98-107 [facility] Comment on above: Performed By: #### C BC, BMPX #### [facility] [address] [place], [place] [id number] Rodeo Clown: Larry Ashton MD CO2 [Moles/Vol] 23 mmol/L Normal 20-31 [facility] Comment on above: Performed By: #### C BC, BMPX #### [facility] [address] [place] [address] Rodeo Clown: Larry Ashton MD Creatinine [Mass/Vol] 0.8 mg/dL Normal 0.6-0.9 [facility] Comment on above: Performed By: #### C BC, BMPX #### [address] [address] Rodeo Clown: Larry Ashton MD GFR/1.73 sq M.predicted among non-blacks MDRD (S/P/Bld) [Vol rate/Area] mL/min/{1.73_m2} Normal >60 [facility] Comment on above: Result Comment: [...] Performed By: #### C BC, BMPX #### [address] [address] Rodeo Clown: Larry Ashton MD Glucose [Mass/Vol] 103 mg/dL High 74-99 [facility] Comment on above: Performed By: #### C BC, BMPX #### [facility] [address] [place] [address] Rodeo Clown: Larry Ashton MD Potassium [Moles/Vol] 3.8 mmol/L Normal 3.7-5.3 [facility] Comment on above: Performed By: #### C BC, BMPX #### [facility] [address] [place] [address] Rodeo Clown: Larry Ashton MD Sodium [Moles/Vol] 139 mmol/L Normal 136-145 [facility] Comment on above: Performed By: #### C BC, BMPX #### [facility] [address] [place], [place] [id number] Rodeo Clown: Larry Ashton MD Urea nitrogen [Mass/Vol] 8 mg/dL Normal 6-20 [facility] Comment on above: Performed By: #### C BC, BMPX #### [facility] [address] [place], [place] [id number] Rodeo Clown: Larry Ashton MD Basic Metabolic Panel w/ Ref michael to MGon 10-20-2024 Anion gap [Moles/Vol] 9 mmol/L 9 - 16 mmol/L [facility] Calcium [Mass/Vol] 9.1 mg/dL 8.6 - 10. 4 mg/dL [facility] Chloride [Moles/Vol] 107 mmol/L 98 - 107 mmol/L [facility] CO2 [Moles/Vol] 23 mmol/L 20 - 31 mmol/L [facility] Creatinine [Mass/Vol] 0.8 mg/dL 0.6 - 0.9 mg/dL [facility] Antonio Ruiz Rate - PINF [facility] Comment on above: These results are not [...] 103 mg/dL High 74 - 99 mg/dL [facility] Interpretation and review of laboratory results Abnormal [facility] Potassium [Moles/Vol] 3.8 mmol/L 3.7 - 5.3 mmol/L [facility] Sodium [Moles/Vol] 139 mmol/L 136 - 145 mmol/L [facility] Urea nitrogen [Mass/Vol] 8 mg/dL 6 - 20 mg/dL [facility] CBC with Auto Differentialon 10-20-2024 Basophils (Bld) [#/Vol] 0.04 10*3/uL [facility] Basophils/100 WBC (Bld) 1 % 0 - 2 % [facility] Eosinophils (Bld) [#/Vol] 0.48 10*3/uL High [facility] Eosinophils/100 WBC (Bld) 6 % High 1 - 4 % [facility] Erythrocyte distribution width (RBC) [Ratio] 11.5 % Low 11.8 - 14.4 % [facility] Hematocrit (Bld) [Volume fraction] 36.2 % Low 36.3 - 47.1 % [facility] Hemoglobin (Bld) [Mass/Vol] 12.2 g/dL 11.9 - 15.1 g/dL [facility] Immature granulocytes (Bld) [#/Vol] 0.08 10*3/uL [facility] Immature granulocytes/100 WBC (Bld) 1 % High 0 [facility] Interpretation and review of laboratory results Abnormal [facility] Lymphocytes/100 WBC (Bld) 25 % 24 - 43 % [facility] Lymphocytes/100 WBC (Bld) 2.21 % [facility] MCH (RBC) [Entitic mass] 35.0 pg High 25.2 - 33.5 pg [facility] MCHC (RBC) [Mass/Vol] 33.7 g/dL 28.4 - 34.8 g/dL [facility] MCV (RBC) [Entitic vol] 103.7 fL High 82.6 - 102.9 fL [facility] Monocytes/100 WBC (Bld) 8 % 3 - 12 % [facility] Monocytes/100 WBC (Bld) 0.66 % [facility] Neutrophils/100 WBC (Bld) 59 % 36 - 65 % [facility] Nucleated RBC/100 WBC (Bld) [Ratio] 0.0 % 0.0 per 100 WBC [facility] Platelet mean volume (Bld) [Entitic vol] 9.1 fL 8.1 - 13.5 fL [facility] Platelets (Bld) [#/Vol] 433 10*3/uL [facility] RBC (Bld) [#/Vol] 3.49 10*6/uL Low 3.95 - 5.1 1 m/uL [facility] RBC (Bld) [#/Vol] MACROCYTOSIS PRESENT [facility] Segmented neutrophils/100 WBC (Bld) 5.31 % [facility] WBC other (Bld) [#/Vol] 8.8 [facility] CBC with Diffon 10-20-2024 Abs. Basophil 0.04 k/uL Normal 0.00-0.20 [facility] Comment on above: Performed By: #### U INDIA UAX #### [facility] [address] [place] [address] Rodeo Clown: Larry Ashton MD Abs.Imm.Granulocyte 0.08 k/uL Normal 0.00-0.30 [facility] Comment on above: Performed By: #### U TRAVONO, UAX #### [facility] [address] [place] [address] Rodeo Clown: Larry Ashton MD Abs.Neutrophil (Seg) 5.31 k/uL Normal 1.50-8.10 [facility] Comment on above: Performed By: #### U INDIA, UAX #### [facility] [address] [place] [address] Rodeo Clown: Larry Ashton MD Basophils/100 WBC (Bld) 1 % Normal 0-2 [facility] Comment on above: Performed By: #### U TRAVONO, UAX #### [facility] [address] [place] [address] Rodeo Clown: Larry Ashton MD Eosinophils (Bld) [#/Vol] 0.48 10*3/uL High 0.00-0.44 [facility] Comment on above: Performed By: #### U TRAVONO, UAX #### [facility] [address] [place] [address] Rodeo Clown: Larry Ashton MD Eosinophils/100 WBC (Bld) 6 % High 1-4 [facility] Comment on above: Performed By: #### U MICAO, UAX #### [facility] [address] [place] [address] Rodeo Clown: Larry Ashton MD Erythrocyte distribution width (RBC) [Ratio] 11.5 % Low 11.8-14.4 [facility] Comment on above: Performed By: #### U MICAO, UAX #### [facility] [address] [place] [address] Rodeo Clown: Larry Ashton MD Hematocrit (Bld) [Volume fraction] 36.2 % Low 36.3-47.1 [facility] Comment on above: Performed By: #### U MICAO, UAX #### [address] [address] Rodeo Clown: Larry Ashton MD Hemoglobin (Bld) [Mass/Vol] 12.2 g/dL Normal 11.9-15.1 [facility] Comment on above: Performed By: #### U MICAO, UAX #### [facility] [address] [place] [address] Rodeo Clown: Larry Ashton MD Immature granulocytes/100 WBC (Bld) 1 % High 0 [facility] Comment on above: Performed By: #### U MICAO, UAX #### [facility] [address] [place] [address] Rodeo Clown: Larry Ashton MD Lymphocytes (Bld) [#/Vol] 2.21 10*3/uL Normal 1.10-3.70 [facility] Comment on above: Performed By: #### U MICAO, UAX #### [facility] [address] [place] [address] Rodeo Clown: Larry Ashton MD Lymphocytes/100 WBC (Bld) 25 % Normal 24-43 [facility] Comment on above: Performed By: #### U INDIA, UAX #### [address] [address] Rodeo Clown: Larry Ashton MD MCH (RBC) [Entitic mass] 35.0 pg High 25.2-33.5 [facility] Comment on above: Performed By: #### U TRAVONO, UAX #### [address] [address] Rodeo Clown: Larry Ashton MD MCHC (RBC) [Mass/Vol] 33.7 g/dL Normal 28.4-34.8 [facility] Comment on above: Performed By: #### U INDIA, UAX #### [address] [address] Rodeo Clown: Larry Ashton MD MCV (RBC) [Entitic vol] 103.7 fL High 82.6-102.9 [facility] Comment on above: Performed By: #### U INDIA, UAX #### [address] [address] Rodeo Clown: Larry Ashton MD Monocytes (Bld) [#/Vol] 0.66 10*3/uL Normal 0.10-1.20 [facility] Comment on above: Performed By: #### U INDIA, UAX #### [address] [address] Rodeo Clown: Larry Ashton MD Monocytes/100 WBC (Bld) 8 % Normal 3-12 [facility] Comment on above: Performed By: #### U INDIA, UAX #### [address] [address] Rodeo Clown: Larry Ashton MD Neutrophil (Seg) 59 % Normal 36-65 [facility] Comment on above: Performed By: #### U INDIA UAX #### [address] [address] Rodeo Clown: Larry Ashton MD NRBC Automated 0.0 per 100 WBC Normal 0.0 [facility] Comment on above: Performed By: #### U INDIA UAX #### [address] [address] Rodeo Clown: Larry Ashton MD Platelet mean volume (Bld) [Entitic vol] 9.1 fL Normal 8.1-13.5 [facility] Comment on above: Performed By: #### Srini OSBORNE UAX #### [address] [address] Rodeo Clown: Larry Ashton MD Platelets (Bld) [#/Vol] 433 10*3/uL Normal 138-453 [facility] Comment on above: Performed By: #### Srini OSBORNE UAX #### [address] [address] Rodeo Clown: Larry Ashton MD RBC (Bld) [#/Vol] 3.49 10*6/uL Low 3.95-5.11 [facility] Comment on above: Performed By: #### Srini OSBORNE UAX #### [address] [address] Rodeo Clown: Larry Ashton MD RBC morphology finding Nom (Bld) MACROCYTOSIS PRESENT Normal [facility] Comment on above: Performed By: #### U INDIA UAX #### [address] [address] Rodeo Clown: Larry Ashton MD WBC (Bld) [#/Vol] 8.8 10*3/uL Normal 3.5-11.3 [facility] Comment on above: Performed By: #### U MICAO, UAX #### [facility] [address] [place] [address] Rodeo Clown: Larry Ashton MD Basic Metab w/rfx MGon 10-19 Anion gap [Moles/Vol] 12 mmol/L Normal 9-16 [facility] Comment on above: Performed By: #### U TRAVONO, UAX #### [facility] [address] [place] [address] Rodeo Clown: Larry Ashton MD Calcium [Mass/Vol] 8.7 mg/dL Normal 8.6-10.4 [facility] Comment on above: Performed By: #### U TRAVONO, UAX #### [address] [address] Rodeo Clown: Larry Ashton MD Chloride [Moles/Vol] 106 mmol/L Normal 98-107 [facility] Comment on above: Performed By: #### U TRAVONO, UAX #### [facility] [address] [place] [address] Rodeo Clown: Larry Ashton MD CO2 [Moles/Vol] 21 mmol/L Normal 20-31 [facility] Comment on above: Performed By: #### U TRAVONO, UAX #### [facility] [address] [place] [address] Rodeo Clown: Larry Ashton MD Creatinine [Mass/Vol] 0.7 mg/dL Normal 0.6-0.9 [facility] Comment on above: Performed By: #### U MICAO, UAX #### [facility] [address] [place] [address] Rodeo Clown: Larry Ashton MD GFR/1.73 sq M.predicted among non-blacks MDRD (S/P/Bld) [Vol rate/Area] mL/min/{1.73_m2} Normal >60 [facility] Comment on above: Result Comment: [...] renal tubular secretion. Performed By: #### U INDIA UAX #### [facility] [address] [place] [address] Rodeo Clown: Larry Ashton MD Glucose [Mass/Vol] 87 mg/dL Normal 74-99 [facility] Comment on above: Performed By: #### Srini OSBORNE UAX #### [facility] [address] [place] [address] Rodeo Clown: Larry Ashton MD Potassium [Moles/Vol] 4.0 mmol/L Normal 3.7-5.3 [facility] Comment on above: Performed By: #### Srini OSBORNE UAX #### [facility] [address] [place] [address] Rodeo Clown: Larry Ashton MD Sodium [Moles/Vol] 139 mmol/L Normal 136-145 [facility] Comment on above: Performed By: #### Srini OSBORNE UAX #### [facility] [address] [place] [address] Rodeo Clown: Larry Ashton MD Urea nitrogen [Mass/Vol] 8 mg/dL Normal 6-20 [facility] Comment on above: Performed By: #### U INDIA UAX #### [facility] [address] [place] [address] Rodeo Clown: Larry Ashton MD Basic Metabolic Panel w/ Ref michael to MGon 10-19-2024 Anion gap [Moles/Vol] 12 mmol/L 9 - 16 mmol/L [facility] Calcium [Mass/Vol] 8.7 mg/dL 8.6 - 10. 4 mg/dL [facility] Chloride [Moles/Vol] 106 mmol/L 98 - 107 mmol/L [facility] CO2 [Moles/Vol] 21 mmol/L 20 - 31 mmol/L [facility] Creatinine [Mass/Vol] 0.7 mg/dL 0.6 - 0.9 mg/dL [facility] EstLuis Antonio Rate - PINF [facility] Comment on above: These results are not [...] [Mass/Vol] 87 mg/dL 74 - 99 mg/dL [facility] Potassium [Moles/Vol] 4.0 mmol/L 3.7 - 5.3 mmol/L [facility] Sodium [Moles/Vol] 139 mmol/L 136 - 145 mmol/L [facility] Urea nitrogen [Mass/Vol] 8 mg/dL 6 - 20 mg/dL [facility] CBC with Auto Differentialon 10-19-2024 Basophils (Bld) [#/Vol] 0.06 10*3/uL [facility] Basophils/100 WBC (Bld) 1 % 0 - 2 % [facility] Eosinophils (Bld) [#/Vol] 0.47 10*3/uL High [facility] Eosinophils/100 WBC (Bld) 6 % High 1 - 4 % [facility] Erythrocyte distribution width (RBC) [Ratio] 11.4 % Low 11.8 - 14.4 % [facility] Hematocrit (Bld) [Volume fraction] 34.4 % Low 36.3 - 47.1 % [facility] Hemoglobin (Bld) [Mass/Vol] 11.3 g/dL Low 11.9 - 15.1 g/dL [facility] Immature granulocytes (Bld) [#/Vol] 0.08 10*3/uL [facility] Immature granulocytes/100 WBC (Bld) 1 % High 0 [facility] Interpretation and review of laboratory results Abnormal [facility] Lymphocytes/100 WBC (Bld) 28 % 24 - 43 % [facility] Lymphocytes/100 WBC (Bld) 2.19 % [facility] MCH (RBC) [Entitic mass] 35.0 pg High 25.2 - 33.5 pg [facility] MCHC (RBC) [Mass/Vol] 32.8 g/dL 28.4 - 34.8 g/dL [facility] MCV (RBC) [Entitic vol] 106.5 fL High 82.6 - 102.9 fL [facility] Monocytes/100 WBC (Bld) 8 % 3 - 12 % [facility] Monocytes/100 WBC (Bld) 0.67 % [facility] Neutrophils/100 WBC (Bld) 56 % 36 - 65 % [facility] Nucleated RBC/100 WBC (Bld) [Ratio] 0.0 % 0.0 per 100 WBC [facility] Platelet mean volume (Bld) [Entitic vol] 9.9 fL 8.1 - 13.5 fL [facility] Platelets (Bld) [#/Vol] 366 10*3/uL [facility] RBC (Bld) [#/Vol] 3.23 10*6/uL Low 3.95 - 5.1 1 m/uL [facility] RBC (Bld) [#/Vol] MACROCYTOSIS PRESENT [facility] Segmented neutrophils/100 WBC (Bld) 4.48 % [facility] WBC other (Bld) [#/Vol] 8.0 [facility] CBC with Diffon 10-19-2024 Abs. Basophil 0.06 k/uL Normal 0.00-0.20 [facility] Comment on above: Performed By: #### U ELAINE OSBORNE #### [facility] [address] [place] [address] Rodeo Clown: Larry Ashton MD Abs.Imm.Granulocyte 0.08 k/uL Normal 0.00-0.30 [facility] Comment on above: Performed By: #### U INDIA UAX #### [address] [address] Rodeo Clown: Larry Ashton MD Abs.Neutrophil (Seg) 4.48 k/uL Normal 1.50-8.10 [facility] Comment on above: Performed By: #### U INDIA UAX #### [address] [address] Rodeo Clown: Larry Ashton MD Basophils/100 WBC (Bld) 1 % Normal 0-2 [facility] Comment on above: Performed By: #### Srini OSBORNE UAX #### [address] [address] Rode[employer] Clown: Larry Ashton MD Eosinophils (Bld) [#/Vol] 0.47 10*3/uL High 0.00-0.44 [facility] Comment on above: Performed By: #### Srini OSBORNE UAX #### [address] [address] Rodeo Clown: Larry Ashton MD Eosinophils/100 WBC (Bld) 6 % High 1-4 [facility] Comment on above: Performed By: #### U INDIA UAX #### [address] [address] Rodeo Clown: Larry Ashton MD Erythrocyte distribution width (RBC) [Ratio] 11.4 % Low 11.8-14.4 [facility] Comment on above: Performed By: #### Srini OSBORNE UAX #### [address] [address] Rodeo Clown: Larry Ashton MD Hematocrit (Bld) [Volume fraction] 34.4 % Low 36.3-47.1 [facility] Comment on above: Performed By: #### Srini OSBORNE UAX #### [facility] [address] [place] [address] Rodeo Clown: Larry Ashton MD Hemoglobin (Bld) [Mass/Vol] 11.3 g/dL Low 11.9-15.1 [facility] Comment on above: Performed By: #### U INDIA UAX #### [facility] [address] [place] [address] Rodeo Clown: Larry Ashton MD Immature granulocytes/100 WBC (Bld) 1 % High 0 [facility] Comment on above: Performed By: #### Srini OSBORNE UAX #### [address] [address] Rodeo Clown: Larry Ashton MD Lymphocytes (Bld) [#/Vol] 2.19 10*3/uL Normal 1.10-3.70 [facility] Comment on above: Performed By: #### Srini OSBORNE UAX #### [address] [address] Rodeo Clown: Larry Ashton MD Lymphocytes/100 WBC (Bld) 28 % Normal 24-43 [facility] Comment on above: Performed By: #### Srini OSBORNE UAX #### [address] [address] Rode[employer] Clown: Larry Ashton MD MCH (RBC) [Entitic mass] 35.0 pg High 25.2-33.5 [facility] Comment on above: Performed By: #### U INDIA UAX #### [facility] [address] [place] [address] Rode[employer] Clown: Larry Ashton MD MCHC (RBC) [Mass/Vol] 32.8 g/dL Normal 28.4-34.8 [facility] Comment on above: Performed By: #### U INDIA, UAX #### [address] [address] Rodeo Clown: Larry Ashton MD MCV (RBC) [Entitic vol] 106.5 fL High 82.6-102.9 [facility] Comment on above: Performed By: #### U INDIA UAX #### [place] [address] [employer] Clown: Larry Ashton MD Monocytes (Bld) [#/Vol] 0.67 10*3/uL Normal 0.10-1.20 [facility] Comment on above: Performed By: #### U INDIA UAX #### [place] [address] [employer] Clown: Larry Ashton MD Monocytes/100 WBC (Bld) 8 % Normal 3-12 [facility] Comment on above: Performed By: #### U INDIA UAX #### [place] [address] [employer] Clown: Larry Ashton MD Neutrophil (Seg) 56 % Normal 36-65 [facility] Comment on above: Performed By: #### U INDIA UAX #### [place] [address] [employer] Clown: Larry Ashton MD NRBC Automated 0.0 per 100 WBC Normal 0.0 [facility] Comment on above: Performed By: #### U INDIA UAX #### [address] [address] Rodeo Clown: Larry Ashton MD Platelet mean volume (Bld) [Entitic vol] 9.9 fL Normal 8.1-13.5 [facility] Comment on above: Performed By: #### U INDIA UAX #### [facility] [address] [place] [address] Rodeo Clown: Larry Ashton MD Platelets (Bld) [#/Vol] 366 10*3/uL Normal 138-453 [facility] Comment on above: Performed By: #### U MICAO, UAX #### [facility] [address] [place] [address] Rodeo Clown: Larry Ashton MD RBC (Bld) [#/Vol] 3.23 10*6/uL Low 3.95-5.11 [facility] Comment on above: Performed By: #### U MICAO, UAX #### [facility] [address] [place] [address] Rodeo Clown: Larry Ashton MD RBC morphology finding Nom (Bld) MACROCYTOSIS PRESENT Normal [facility] Comment on above: Performed By: #### U MICAO, UAX #### [facility] [address] [place] [address] Rodeo Clown: Larry Ashton MD WBC (Bld) [#/Vol] 8.0 10*3/uL Normal 3.5-11.3 [facility] Comment on above: Performed By: #### U MICAO, UAX #### [facility] [address] [place] [address] Rode[employer] Clown: Larry Ashton MD Cult,Urineon 10-19-2024 Cult,Urine Specimen Description .URINE Culture NO GROWTH Report Status FINAL 10/19/2024 Normal [facility] Comment on above: Performed By: #### C BC, BMPX #### [address] [address] Rodeo Clown: Larry Ashton MD Culture, Urineon 10-19-2024 Microorganism identified Cx Nom (Unsp spec) NO GROWTH [facility] Specimen Description .URINE Bon [facility] Basic Metab w/rfx MGon 10-18 Anion gap [Moles/Vol] 12 mmol/L Normal 9-16 [facility] Comment on above: Performed By: #### C BC, BMPX #### [facility] [place] [address] Rodeo Clown: Larry Ashton MD Calcium [Mass/Vol] 8.8 mg/dL Normal 8.6-10.4 [facility] Comment on above: Performed By: #### C BC, BMPX #### [facility] [address] [place] [address] Rode[employer] Clown: Larry Ashton MD Chloride [Moles/Vol] 104 mmol/L Normal 98-107 [facility] Comment on above: Performed By: #### C BC, BMPX #### [facility] [address] [place] [address] Rodeo Clown: Larry Ashton MD CO2 [Moles/Vol] 22 mmol/L Normal 20-31 [facility] Comment on above: Performed By: #### C BC, BMPX #### [facility] [place] [address] Rodeo Clown: Larry Ashton MD Creatinine [Mass/Vol] 0.6 mg/dL Normal 0.6-0.9 [facility] Comment on above: Performed By: #### C BC, BMPX #### [facility] [address] [place] [address] R[employer] Clown: Larry Ashton MD GFR/1.73 sq M.predicted among non-blacks MDRD (S/P/Bld) [Vol rate/Area] mL/min/{1.73_m2} Normal >60 [facility] Comment on above: Result Comment: [...] Performed By: #### C BC, BMPX #### [facility] [address] [place] [address] Rode[employer] Clown: Larry Ashton MD Glucose [Mass/Vol] 98 mg/dL Normal 74-99 [facility] Comment on above: Performed By: #### C BC, BMPX #### [facility] [address] [place] [address] Rode[employer] Clown: Larry Ashton MD Potassium [Moles/Vol] 4.3 mmol/L Normal 3.7-5.3 [facility] Comment on above: Result Comment: Spec imen hemolysis has exceeded the interference as defined by Michael. Value may be falsely increased. Suggest recollection if clinically indicated. Performed By: #### C BC, BMPX #### [employer] [address] [place] [address] Rode[employer] Clown: Larry Ashton MD Sodium [Moles/Vol] 138 mmol/L Normal 136-145 [facility] Comment on above: Performed By: #### C BC, BMPX #### [facility] [address] [place] [address] Rode[employer] Clown: Larry Ashton MD Urea nitrogen [Mass/Vol] 7 mg/dL Normal 6-20 [facility] Comment on above: Performed By: #### C BC, BMPX #### [facility] [address] [place] [address] Rode[employer] Clown: Larry Ashton MD Basic Metabolic Panel w/ Ref michael to MGon 10-18-2024 Anion gap [Moles/Vol] 12 mmol/L 9 - 16 mmol/L [facility] Calcium [Mass/Vol] 8.8 mg/dL 8.6 - 10. 4 mg/dL [facility] Chloride [Moles/Vol] 104 mmol/L 98 - 107 mmol/L [facility] CO2 [Moles/Vol] 22 mmol/L 20 - 31 mmol/L [facility] Creatinine [Mass/Vol] 0.6 mg/dL 0.6 - 0.9 mg/dL [facility] Luis Antonio Armas - [facility] Comment on above: These results are not [...] [Mass/Vol] 98 mg/dL 74 - 99 mg/dL [facility] Potassium [Moles/Vol] 4.3 mmol/L 3.7 - 5.3 mmol/L [facility] Comment on above: Specimen hemolysis h as exceeded the interference as defined by Michael. Value may be falsely increased. Suggest recollection if clinically indicated. Sodium [Moles/Vol] 138 mmol/L 136 - 145 mmol/L [facility] Urea nitrogen [Mass/Vol] 7 mg/dL 6 - 20 mg/dL [facility] CBC with Auto Differentialon 10-18-2024 Basophils (Bld) [#/Vol] 0.05 10*3/uL [facility] Basophils/100 WBC (Bld) 1 % 0 - 2 % [facility] Eosinophils (Bld) [#/Vol] 0.39 10*3/uL [facility] Eosinophils/100 WBC (Bld) 5 % High 1 - 4 % [facility] Erythrocyte distribution width (RBC) [Ratio] 11.4 % Low 11.8 - 14.4 % [facility] Hematocrit (Bld) [Volume fraction] 33.6 % Low 36.3 - 47.1 % [facility] Hemoglobin (Bld) [Mass/Vol] 11.7 g/dL Low 11.9 - 15.1 g/dL [facility] Immature granulocytes (Bld) [#/Vol] 0.08 10*3/uL [facility] Immature granulocytes/100 WBC (Bld) 1 % High 0 [facility] Interpretation and review of laboratory results Abnormal [facility] Lymphocytes/100 WBC (Bld) 20 % Low 24 - 43 % [facility] Lymphocytes/100 WBC (Bld) 1.64 % [facility] MCH (RBC) [Entitic mass] 34.9 pg High 25.2 - 33.5 pg [facility] MCHC (RBC) [Mass/Vol] 34.8 g/dL 28.4 - 34.8 g/dL [facility] MCV (RBC) [Entitic vol] 100.3 fL 82.6 - 102.9 fL [facility] Monocytes/100 WBC (Bld) 6 % 3 - 12 % [facility] Monocytes/100 WBC (Bld) 0.48 % [facility] Neutrophils/100 WBC (Bld) 68 % High 36 - 65 % [facility] Nucleated RBC/100 WBC (Bld) [Ratio] 0.0 % 0.0 per 100 WBC [facility] Platelet, Fluorescence Platelet clumps present, count appears adequate. [facility] Platelets (Bld) [#/Vol] See Reflexed IPF Result [facility] RBC (Bld) [#/Vol] 3.35 10*6/uL Low 3.95 - 5.1 1 m/uL [facility] Segmented neutrophils/100 WBC (Bld) 5.46 % [facility] WBC other (Bld) [#/Vol] 8.1 [facility] CBC with Diffon 10-18-2024 Platelet, Fluoresc. Platelet clumps present, count appears adequate. Normal 138-453 [facility] Comment on above: Performed By: #### C VICENTA JIANG #### [employer] [facility] [place], [place] [id number] [employer] Clown: Larry Ashton MD Abs. Basophil 0.05 k/uL Normal 0.00-0.20 [facility] Comment on above: Performed By: #### C HALLE JIANGX #### [facility] [place] [address] Rode[employer] Clown: Larry Ashton MD Abs.Imm.Granulocyte 0.08 k/uL Normal 0.00-0.30 [facility] Comment on above: Performed By: #### C BC, BMPX #### [facility] [address] [place] [address] Rode[employer] Clown: Larry Ashton MD Abs.Neutrophil (Seg) 5.46 k/uL Normal 1.50-8.10 [facility] Comment on above: Performed By: #### C BC, BMPX #### [facility] [address] [place] [address] Rode[employer] Clown: Larry Ashton MD Basophils/100 WBC (Bld) 1 % Normal 0-2 [facility] Comment on above: Performed By: #### C BC, BMPX #### [facility] [address] [place] [address] Rode[employer] Clown: Larry Ashton MD Eosinophils (Bld) [#/Vol] 0.39 10*3/uL Normal 0.00-0.44 [facility] Comment on above: Performed By: #### C BC, BMPX #### [facility] [address] [place] [address] Rode[employer] Clown: Larry Ashton MD Eosinophils/100 WBC (Bld) 5 % High 1-4 [facility] Comment on above: Performed By: #### C BC, BMPX #### [facility] [address] [place] [address] Rode[employer] Clown: Larry Ashton MD Erythrocyte distribution width (RBC) [Ratio] 11.4 % Low 11.8-14.4 [facility] Comment on above: Performed By: #### C BC, BMPX #### [facility] [address] [place] [address] Rode[employer] Clown: Larry Ashton MD Hematocrit (Bld) [Volume fraction] 33.6 % Low 36.3-47.1 [facility] Comment on above: Performed By: #### C BC, BMPX #### [facility] [address] [place] [address] Rode[employer] Clown: Larry Ashton MD Hemoglobin (Bld) [Mass/Vol] 11.7 g/dL Low 11.9-15.1 [facility] Comment on above: Performed By: #### C BC, BMPX #### [address] [address] [employer] Clown: Larry Ashton MD Immature granulocytes/100 WBC (Bld) 1 % High 0 [facility] Comment on above: Performed By: #### C BC, BMPX #### [address] [address] [employer] Clown: Larry Ashton MD Lymphocytes (Bld) [#/Vol] 1.64 10*3/uL Normal 1.10-3.70 [facility] Comment on above: Performed By: #### C BC, BMPX #### [facility] [address] [place] [address] Rode[employer] Clown: Larry Ashton MD Lymphocytes/100 WBC (Bld) 20 % Low 24-43 [facility] Comment on above: Performed By: #### C BC, BMPX #### [facility] [address] [place] [address] Rode[employer] Clown: Larry Ashton MD MCH (RBC) [Entitic mass] 34.9 pg High 25.2-33.5 [facility] Comment on above: Performed By: #### C BC, BMPX #### [facility] [address] [place] [address] Rode[employer] Clown: Larry Ashton MD MCHC (RBC) [Mass/Vol] 34.8 g/dL Normal 28.4-34.8 [facility] Comment on above: Performed By: #### C BC, BMPX #### [facility] [address] [place] [address] Rode[employer] Clown: Larry Ashton MD MCV (RBC) [Entitic vol] 100.3 fL Normal 82.6-102.9 [facility] Comment on above: Performed By: #### C BC, BMPX #### [facility] [address] [place] [address] Rode[employer] Clown: Larry Ashton MD Monocytes (Bld) [#/Vol] 0.48 10*3/uL Normal 0.10-1.20 [facility] Comment on above: Performed By: #### C BC, BMPX #### [facility] [address] [place] [address] Rode[employer] Clown: Larry Ashton MD Monocytes/100 WBC (Bld) 6 % Normal 3-12 [facility] Comment on above: Performed By: #### C BC, BMPX #### [facility] [address] [place] [address] Rode[employer] Clown: Larry Ashton MD Neutrophil (Seg) 68 % High 36-65 [facility] Comment on above: Performed By: #### C BC, BMPX #### [facility] [address] [place] [address] Rode[employer] Clown: Larry Ashton MD NRBC Automated 0.0 per 100 WBC Normal 0.0 [facility] Comment on above: Performed By: #### C BC, BMPX #### [facility] [address] [place] [address] Rodeo Clown: Larry Ashton MD Platelet Count See Reflexed IPF Result Normal 138-453 [facility] Comment on above: Performed By: #### C BC, BMPX #### [employer] [address] [place] [address] Rode[employer] Clown: Larry Ashton MD RBC (Bld) [#/Vol] 3.35 10*6/uL Low 3.95-5.11 [facility] Comment on above: Performed By: #### C BC, BMPX #### [employer] [address] [place] [address] Rode[employer] Clown: Larry Ashton MD WBC (Bld) [#/Vol] 8.1 10*3/uL Normal 3.5-11.3 [facility] Comment on above: Performed By: #### C BC, BMPX #### [employer] [address] [place] [address] Rodeo Clown: Larry Ashton MD CT ABDOMEN PELVIS WO [...] Riya Aguero MD 10/18/24 Final result Normal [facility] CT Abdomen and Pelvis WO con traston 10-18-2024 1. Subcutaneous fre a with mild skin thickening in the left gluteal region and extending inferiorly along the perineum and left gluteal cleft. No drainable fluid collection or soft tissue gas. Findings are suggestive of cellulitis in the appropriate clinical setting. 2. Mildly enlarged left inguinal lymph nodes likely reactive. 3. Punctate nonobstructing left renal calculus. [facility] RIS CONSOLIDATED EXAMINATION: CT OF THE ABDOMEN AND [...] soft tissue gas. No acute osseous abnormality. [facility] Riya Cavazos MD - 10/18/2024 EXAMINATION: CT OF THE [...] reactive. 3. Punctate nonobstructing left renal calculus. [facility] CT Abdomen and Pelvis WO con trastOrdered By: Riya Aguero on 10-18-2024 [facility] Work Phone: MRSA DNA Probe, Nasalon 10-08 MRSA, DNA, Nasal Negative NEGATIVE [facility] Comment on above: NEGATIVE: MRSA DNA n ot detected by nucleic acid amplification. Results should be used as an adjunct to nosocomial control efforts to identify patients needing enhanced precautions. The test is not intended to identify patients with staphylococcal infections. Results should not be used to guide or monitor treatment for MRSA infections. Specimen Description .NASAL SWAB [facility] MRSA, DNA, Nasalon MRSA, DNA, Nasal Negative Normal NEG [facility] Comment on above: Result Comment: NEGA TIVE: MRSA DNA not detected by nucleic acid amplification. Results should be used as an adjunct to nosocomial control efforts to identify patients needing enhanced precautions. The test is not intended to identify patients with staphylococcal infections. Results should not be used to guide or monitor treatment for MRSA infections. Performed By: #### C BC, BMPX #### [employer] [address] [place] [phone] Rode[employer] Clown: Larry Ashton MD Magnesiumon 10-18-2024 Magnesium [Mass/Vol] 2.3 mg/dL 1.6 - 2.6 mg/dL [facility] Magnesium [Mass/Vol] 2.3 mg/dL Normal 1.6-2.6 [facility] Comment on above: Performed By: #### C BC, BMPX #### [facility] [address] [place] [address] R[employer] Clown: Larry Ashton MD Microscopic Urinalysison Bacteria LM Ql (Urine sed) FEW Abnormal None [facility] Epithelial cells LM.HPF (Urine sed) [#/Area] 10 TO 20 [facility] Interpretation and review of laboratory results Abnormal [facility] RBC LM.HPF (Urine sed) [#/Area] 5 TO 10 [facility] WBC LM.HPF (Urine sed) [#/Area] 10 TO 20 [facility] No Panel Informationon 10-18 [facility] UA w/Reflex Cultureon 2024 Bilirubin, SemiQt,Ur Negative Normal NEG [facility] Comment on above: Performed By: #### U MICAO, UAX #### [facility] [address] [place] [address] R[employer] Clown: Larry Ashton MD Blood, Urine Negative Normal NEG [facility] Comment on above: Performed By: #### U MICAO, UAX #### [facility] [address] [place] [address] R[employer] Clown: Larry Ashton MD Clarity (U) 2+ Abnormal CLEAR [facility] Comment on above: Performed By: #### U MICAO, UAX #### [facility] [address] [place] [address] R[employer] Clown: Larry Ashton MD Color (U) Yellow Normal YEL [facility] Comment on above: Performed By: #### U MICAO, UAX #### [facility] [address] [place] [address] Rode[employer] Clown: Larry Ashton MD Glucose Ql (U) Negative Normal NEG [facility] Comment on above: Performed By: #### U MICAO, UAX #### [facility] [address] [place] [address] Rode[employer] Clown: Larry Ashton MD Ketones Ql (U) Negative Normal NEG [facility] Comment on above: Performed By: #### U MICAO, UAX #### [facility] [address] [place] [address] Rode[employer] Clown: Larry Ashton MD Leukocyte esterase Test strip Ql (U) TRACE Abnormal NEG [facility] Comment on above: Performed By: #### U MICAO, UAX #### [facility] [address] [place] [address] R[employer] Clown: Larry Ashton MD Nitrite,Ur Negative Normal NEG [facility] Comment on above: Performed By: #### U MICAO, UAX #### [facility] [address] [place] [address] Rode[employer] Clown: Larry Ashton MD PH,Ur 7.5 Normal 5.0-8.0 [facility] Comment on above: Performed By: #### U MICAO, UAX #### [facility] [address] [place] [address] Rode[employer] Clown: Larry Ashton MD Protein Ql (U) Negative Normal NEG [facility] Comment on above: Performed By: #### U MICAO, UAX #### [facility] [address] [place] [address] R[employer] Clown: Larry Ashton MD Spec. [place],Ur 1.015 Normal 1.005-1.030 [facility] Comment on above: Performed By: #### U TRAVONO, UAX #### [facility] [address] [place] [address] R[employer] Clown: Larry Ashton MD Urobilinogen,Ur Normal Normal 0.0-1.0 [facility] Comment on above: Performed By: #### U MICAO, UAX #### [facility] [address] [place] [address] [employer] Clown: Larry Ashton MD Urinalysis with Reflex to Cu ltureon 10-18-2024 Bilirubin Ql (U) Negative NEGATIVE [facility] Clarity (U) 2+ Abnormal Clear [facility] [employer] Color (U) Yellow Yellow [facility] [employer] Glucose Test strip (U) [Mass/Vol] Negative NEGATIVE mg/dL [facility] [employer] Hemoglobin Auto test strip Ql (U) Negative NEGATIVE [facility] List[facility] Interpretation and review of laboratory results Abnormal Bon [facility] Ketones (U) [Mass/Vol] Negative NEGATIVE mg/dL [facility] Leukocyte esterase Test strip Ql (U) TRACE Abnormal NEGATIVE [facility] Nitrite Ql (U) Negative NEGATIVE [facility] pH (U) 7.5 [pH] 5.0 - 8.0 [facility] Protein (U) [Mass/Vol] Negative NEGATIVE mg/dL [facility] Specific gravity (U) [Rel density] 1.015 1.005 - 1.030 [facility] Urobilinogen Qn (U) Normal 0.0 - 1. 0 EU/dL [facility] Urinalysis,Microon 5 Bacteria FEW Abnormal NONE [facility] Comment on above: Performed By: #### U MICAO, UAX #### [facility] [address] [place] [address] [phone] [employer] Clown: Larry Ashton MD Epithelial cells LM Ql (Urine sed) 10 TO 20 Normal 0-5 [facility] Comment on above: Performed By: #### U MICAO, UAX #### [facility] [address] [place] [address] [phone] [employer] Clown: Larry Ashton MD Urine RBC's 5 TO 10 Normal 0-2 [facility] Comment on above: Performed By: #### U MICAO, UAX #### [facility] [address] [place] [address] [phone] Rodeo Clown: Larry Ashton MD Urine WBC's 10 TO 20 Normal 0-5 [facility] Comment on above: Performed By: #### U MICAO, UAX #### [facility] [address] [place] [address] [phone] Rodeo Clown: Larry Ashton MD Basic Metab w/rfx MGon 10-17 Anion gap [Moles/Vol] 8 mmol/L Low 9-16 [facility] Comment on above: Performed By: #### P T, CK, CDP, TSHX, TROPI, LIVP, BNP, LACTIC, GEORGINA, BMPX #### [address] [phone] Rodeo Clown: Larry Ashton MD Calcium [Mass/Vol] 8.4 mg/dL Low 8.6-10.4 [facility] Comment on above: Performed By: #### P T, CK, CDP, TSHX, TROPI, LIVP, BNP, LACTIC, GEORGINA, BMPX #### [address] [phone] Rodeo Clown: Larry Ashton MD Chloride [Moles/Vol] 108 mmol/L High 98-107 [facility] Comment on above: Performed By: #### P T, CK, CDP, TSHX, TROPI, LIVP, BNP, LACTIC, GEORGINA, BMPX #### [address] [phone] Rodeo Clown: Larry Ashton MD CO2 [Moles/Vol] 26 mmol/L Normal 20-31 [facility] Comment on above: Performed By: #### P T, CK, CDP, TSHX, TROPI, LIVP, BNP, LACTIC, GEORGINA, BMPX #### [facility] [address] [place] [address] [phone] Rodeo Clown: Larry Ashton MD Creatinine [Mass/Vol] 0.6 mg/dL Normal 0.6-0.9 [facility] Comment on above: Performed By: #### P T, CK, CDP, TSHX, TROPI, LIVP, BNP, LACTIC, GEORGINA, BMPX #### [address] [phone] Rodeo Clown: Larry Ashton MD GFR/1.73 sq M.predicted among non-blacks MDRD (S/P/Bld) [Vol rate/Area] mL/min/{1.73_m2} Normal >60 [facility] Comment on above: Result Comment: [...] TROPI, LIVP, BNP, LACTIC, GEORGINA, BMPX #### [address] [id number] Rodeo Clown: Larry Ashton MD Glucose [Mass/Vol] 95 mg/dL Normal 74-99 [facility] Comment on above: Performed By: #### P T, CK, CDP, TSHX, TROPI, LIVP, BNP, LACTIC, GEORGINA, BMPX #### [address] [phone] Rodeo Clown: Larry Ashton MD Potassium [Moles/Vol] 3.9 mmol/L Normal 3.7-5.3 [facility] Comment on above: Performed By: #### P T, CK, CDP, TSHX, TROPI, LIVP, BNP, LACTIC, GEORGINA, BMPX #### [address] [phone] Rodeo Clown: Larry Ashton MD Sodium [Moles/Vol] 142 mmol/L Normal 136-145 [facility] Comment on above: Performed By: #### P T, CK, CDP, TSHX, TROPI, LIVP, BNP, LACTIC, GEORGINA, BMPX #### [address] [phone] Rodeo Clown: Larry Ashton MD Urea nitrogen [Mass/Vol] 8 mg/dL Normal 6-20 [facility] Comment on above: Performed By: #### P T, CK, CDP, TSHX, TROPI, LIVP, BNP, LACTIC, GEORGINA, BMPX #### [facility] [address] [place] [address] [phone] Rodeo Clown: Larry Ashton MD Anion gap [Moles/Vol] 7 mmol/L Low 9-16 [facility] Comment on above: Performed By: #### C BC, BMPX #### [facility] [address] [place] [address] 02019 Rodeo Clown: Larry Ashton MD Calcium [Mass/Vol] 8.6 mg/dL Normal 8.6-10.4 [facility] Comment on above: Performed By: #### C BC, BMPX #### [facility] [address] [place] [address] 03544 Rodeo Clown: Larry Ashton MD Chloride [Moles/Vol] 106 mmol/L Normal 98-107 [facility] Comment on above: Performed By: #### C BC, BMPX #### [facility] [address] [place] [address] [phone] Rodeo Clown: Larry Ashton MD CO2 [Moles/Vol] 27 mmol/L Normal 20-31 [facility] Comment on above: Performed By: #### C BC, BMPX #### [facility] [address] [place] [address] 68482 Rodeo Clown: Larry Ashton MD Creatinine [Mass/Vol] 0.6 mg/dL Normal 0.6-0.9 [facility] Comment on above: Performed By: #### C BC, BMPX #### [facility] [address] [place] [address] [phone] Rodeo Clown: Larry Ashton MD GFR/1.73 sq M.predicted among non-blacks MDRD (S/P/Bld) [Vol rate/Area] mL/min/{1.73_m2} Normal >60 [facility] Comment on above: Result Comment: These results are not intended for use in patients <18 years of age. eGFR results are calculated without a race factor using the 2021 CKD-EPI equation. Careful clinical correlation is recommended, particularly when comparing to results calculated using previous equations. The CKD-EPI equation is less accurate in patients with extremes of muscle mass, extra-renal metabolism of creatine, excessive creatine ingestion, or following therapy that affects renal tubular secretion. Performed By: #### C DEIDRE, BMPX #### [facility] [address] [place] [address] [phone] Rodeo Clown: Larry Ashton MD Glucose [Mass/Vol] 103 mg/dL High 74-99 [facility] Comment on above: Performed By: #### C BC, BMPX #### [facility] [address] [place] [address] 53073 Rodeo Clown: Larry Ashton MD Potassium [Moles/Vol] 3.9 mmol/L Normal 3.7-5.3 [facility] Comment on above: Performed By: #### C DEIDRE, BMPX #### [facility] [address] [place] [address] 14011 Rodeo Clown: Larry Ashton MD Sodium [Moles/Vol] 140 mmol/L Normal 136-145 [facility] Comment on above: Performed By: #### C DEIDRE, BMPX #### [facility] [address] [place] [address] 74965 Rodeo Clown: Larry Ashton MD Urea nitrogen [Mass/Vol] 8 mg/dL Normal 6-20 [facility] Comment on above: Performed By: #### C DEIDRE, BMPX #### [employer] [facility] [address] [place] [address] 12713 Rodeo Clown: Larry Ashton MD Basic Metabolic Panel w/ Ref michael to MGon 2024 Anion gap [Moles/Vol] 8 mmol/L Low 9 - 16 mmol/L [facility] Calcium [Mass/Vol] 8.4 mg/dL Low 8.6 - 10. 4 mg/dL [facility] Chloride [Moles/Vol] 108 mmol/L High 98 - 107 mmol/L [facility] CO2 [Moles/Vol] 26 mmol/L 20 - 31 mmol/L [facility] Creatinine [Mass/Vol] 0.6 mg/dL 0.6 - 0.9 mg/dL [facility] Est, Gloteresa Coont Rate - PINF [facility] Comment on above: These results are not [...] [Mass/Vol] 95 mg/dL 74 - 99 mg/dL [facility] Potassium [Moles/Vol] 3.9 mmol/L 3.7 - 5.3 mmol/L [facility] Sodium [Moles/Vol] 142 mmol/L 136 - 145 mmol/L [facility] Urea nitrogen [Mass/Vol] 8 mg/dL 6 - 20 mg/dL [facility] Anion gap [Moles/Vol] 7 mmol/L Low 9 - 16 mmol/L [facility] Calcium [Mass/Vol] 8.6 mg/dL 8.6 - 10. 4 mg/dL [facility] Chloride [Moles/Vol] 106 mmol/L 98 - 107 mmol/L [facility] CO2 [Moles/Vol] 27 mmol/L 20 - 31 mmol/L [facility] Creatinine [Mass/Vol] 0.6 mg/dL 0.6 - 0.9 mg/dL [facility] Est, Glom Filt Rate - PINF [facility] Comment on above: These results are not [...] 103 mg/dL High 74 - 99 mg/dL [facility] Interpretation and review of laboratory results Abnormal [facility] Potassium [Moles/Vol] 3.9 mmol/L 3.7 - 5.3 mmol/L [facility] Sodium [Moles/Vol] 140 mmol/L 136 - 145 mmol/L [facility] Urea nitrogen [Mass/Vol] 8 mg/dL 6 - 20 mg/dL [facility] Brain Natri. Peptideon 10-17 Natriuretic peptide B (Bld) [Mass/Vol] 471 pg/mL High 0-125 [facility] Comment on above: Performed By: #### P T, CK, CDP, TSHX, TROPI, LIVP, BNP, LACTIC, GEORGINA, BMPX #### [facility] [address] [phone] Rodeo Clown: Larry Ashton MD Brain Natriuretic Peptideon 2024 Natriuretic peptide B (Bld) [Mass/Vol] 471 pg/mL High 0 - 125 pg/mL [facility] CBCon 2024 Erythrocyte distribution width (RBC) [Ratio] 11.3 % Low 11.8 - 14.4 % [facility] Hematocrit (Bld) [Volume fraction] 31.9 % Low 36.3 - 47.1 % [facility] Hemoglobin (Bld) [Mass/Vol] 10.8 g/dL Low 11.9 - 15.1 g/dL [facility] Interpretation and review of laboratory results Abnormal [facility] MCH (RBC) [Entitic mass] 34.6 pg High 25.2 - 33.5 pg [facility] MCHC (RBC) [Mass/Vol] 33.9 g/dL 28.4 - 34.8 g/dL [facility] MCV (RBC) [Entitic vol] 102.2 fL 82.6 - 102.9 fL [facility] Nucleated RBC/100 WBC (Bld) [Ratio] 0.0 % 0.0 per 100 WBC [facility] Platelet mean volume (Bld) [Entitic vol] 8.9 fL 8.1 - 13.5 fL [facility] Platelets (Bld) [#/Vol] 365 10*3/uL [facility] RBC (Bld) [#/Vol] 3.12 10*6/uL Low 3.95 - 5.1 1 m/uL [facility] WBC other (Bld) [#/Vol] 8.3 [facility] Erythrocyte distribution width (RBC) [Ratio] 11.3 % Low 11.8-14.4 [facility] Comment on above: Performed By: #### C BC, BMPX #### [facility] [address] [place] [phone] Rode[employer] Clown: Larry Ashton MD Hematocrit (Bld) [Volume fraction] 31.9 % Low 36.3-47.1 [facility] Comment on above: Performed By: #### C BC, BMPX #### [facility] [address] [place] [address] 32666 Rodeo Clown: Larry Ashton MD Hemoglobin (Bld) [Mass/Vol] 10.8 g/dL Low 11.9-15.1 [facility] Comment on above: Performed By: #### C BC, BMPX #### [facility] [address] [place] [address] 39368 Rode[employer] Clown: Larry Ashton MD MCH (RBC) [Entitic mass] 34.6 pg High 25.2-33.5 [facility] Comment on above: Performed By: #### C BC, BMPX #### [facility] [address] [place] [address] Rodeo Clown: Larry Ashton MD MCHC (RBC) [Mass/Vol] 33.9 g/dL Normal 28.4-34.8 [facility] Comment on above: Performed By: #### C BC, BMPX #### [facility] [address] [place] [address] 09543 Rodeo Clown: Larry Ashton MD MCV (RBC) [Entitic vol] 102.2 fL Normal 82.6-102.9 [facility] Comment on above: Performed By: #### C BC, BMPX #### [address] [address] Rodeo Clown: Larry Ashton MD NRBC Automated 0.0 per 100 WBC Normal 0.0 [facility] Comment on above: Performed By: #### C BC, BMPX #### [facility] [address] [place] [address] 37541 Rodeo Clown: Larry Ashton MD Platelet mean volume (Bld) [Entitic vol] 8.9 fL Normal 8.1-13.5 [facility] Comment on above: Performed By: #### C BC, BMPX #### [address] [address] Rodeo Clown: Larry Ashton MD Platelets (Bld) [#/Vol] 365 10*3/uL Normal 138-453 [facility] Comment on above: Performed By: #### C DEIDRE, BMPX #### [address] [address] Rodeo Clown: Larry Ashton MD RBC (Bld) [#/Vol] 3.12 10*6/uL Low 3.95-5.11 [facility] Comment on above: Performed By: #### C BC, BMPX #### [address] [address] Rodeo Clown: Larry Ashton MD WBC (Bld) [#/Vol] 8.3 10*3/uL Normal 3.5-11.3 [facility] Comment on above: Performed By: #### C BC, BMPX #### [address] [address] Rodeo Clown: Larry Ashton MD CBC with Auto Differentialon 2024 Basophils (Bld) [#/Vol] 0.05 10*3/uL [facility] Basophils/100 WBC (Bld) 1 % 0 - 2 % [facility] Eosinophils (Bld) [#/Vol] 0.43 10*3/uL [facility] Eosinophils/100 WBC (Bld) 5 % High 1 - 4 % [facility] Erythrocyte distribution width (RBC) [Ratio] 11.3 % Low 11.8 - 14.4 % [facility] Hematocrit (Bld) [Volume fraction] 31.6 % Low 36.3 - 47.1 % [facility] Hemoglobin (Bld) [Mass/Vol] 10.7 g/dL Low 11.9 - 15.1 g/dL [facility] Immature granulocytes (Bld) [#/Vol] 0.06 10*3/uL [facility] Immature granulocytes/100 WBC (Bld) 1 % High 0 [facility] Interpretation and review of laboratory results Abnormal [facility] Lymphocytes/100 WBC (Bld) 25 % 24 - 43 % [facility] Lymphocytes/100 WBC (Bld) 2.04 % [facility] MCH (RBC) [Entitic mass] 34.7 pg High 25.2 - 33.5 pg [facility] MCHC (RBC) [Mass/Vol] 33.9 g/dL 28.4 - 34.8 g/dL [facility] MCV (RBC) [Entitic vol] 102.6 fL 82.6 - 102.9 fL [facility] Monocytes/100 WBC (Bld) 8 % 3 - 12 % [facility] Monocytes/100 WBC (Bld) 0.69 % [facility] Neutrophils/100 WBC (Bld) 60 % 36 - 65 % [facility] Nucleated RBC/100 WBC (Bld) [Ratio] 0.0 % 0.0 per 100 WBC [facility] Platelet mean volume (Bld) [Entitic vol] 9.0 fL 8.1 - 13.5 fL [facility] Platelets (Bld) [#/Vol] 378 10*3/uL [facility] RBC (Bld) [#/Vol] 3.08 10*6/uL Low 3.95 - 5.1 1 m/uL [facility] Segmented neutrophils/100 WBC (Bld) 5.04 % [facility] WBC other (Bld) [#/Vol] 8.3 [facility] CBC with Diffon 2024 Abs. Basophil 0.05 k/uL Normal 0.00-0.20 [facility] Comment on above: Performed By: #### P T, CK, CDP, TSHX, TROPI, LIVP, BNP, LACTIC, GEORGINA, BMPX #### [place] [address] R[employer] Clown: Larry Ashton MD Abs.Imm.Granulocyte 0.06 k/uL Normal 0.00-0.30 [facility] Comment on above: Performed By: #### P T, CK, CDP, TSHX, TROPI, LIVP, BNP, LACTIC, GEORGINA, BMPX #### [facility] [address] [place] [address] Rodeo Clown: Larry Ashton MD Abs.Neutrophil (Seg) 5.04 k/uL Normal 1.50-8.10 [facility] Comment on above: Performed By: #### P T, CK, CDP, TSHX, TROPI, LIVP, BNP, LACTIC, GEORGINA, BMPX #### [facility] [address] [place] [address] Rode[employer] Clown: Larry Ashton MD Basophils/100 WBC (Bld) 1 % Normal 0-2 [facility] Comment on above: Performed By: #### P T, CK, CDP, TSHX, TROPI, LIVP, BNP, LACTIC, GEORGINA, BMPX #### [facility] [address] [place] [address] 78007 Rode[employer] Clown: Larry Ashton MD Eosinophils (Bld) [#/Vol] 0.43 10*3/uL Normal 0.00-0.44 [facility] Comment on above: Performed By: #### P T, CK, CDP, TSHX, TROPI, LIVP, BNP, LACTIC, GEORGINA, BMPX #### [place] [address] Rode[employer] Clown: Larry Ashton MD Eosinophils/100 WBC (Bld) 5 % High 1-4 [facility] Comment on above: Performed By: #### P T, CK, CDP, TSHX, TROPI, LIVP, BNP, LACTIC, GEORGINA, BMPX #### [place] [phone] Rode[employer] Clown: Larry Ashton MD Erythrocyte distribution width (RBC) [Ratio] 11.3 % Low 11.8-14.4 [facility] Comment on above: Performed By: #### P T, CK, CDP, TSHX, TROPI, LIVP, BNP, LACTIC, GEORGINA, BMPX #### [place] [address] Rode[employer] Clown: Larry Ashton MD Hematocrit (Bld) [Volume fraction] 31.6 % Low 36.3-47.1 [facility] Comment on above: Performed By: #### P T, CK, CDP, TSHX, TROPI, LIVP, BNP, LACTIC, GEORGINA, BMPX #### [place] [address] Rode[employer] Clown: Larry Ashton MD Hemoglobin (Bld) [Mass/Vol] 10.7 g/dL Low 11.9-15.1 [facility] Comment on above: Performed By: #### P T, CK, CDP, TSHX, TROPI, LIVP, BNP, LACTIC, GEORGINA, BMPX #### [address] [phone] Rodeo Clown: Larry Ashton MD Immature granulocytes/100 WBC (Bld) 1 % High 0 [facility] Comment on above: Performed By: #### P T, CK, CDP, TSHX, TROPI, LIVP, BNP, LACTIC, GEORGINA, BMPX #### [address] [phone] Rodeo Clown: Larry Ashton MD Lymphocytes (Bld) [#/Vol] 2.04 10*3/uL Normal 1.10-3.70 [facility] Comment on above: Performed By: #### P T, CK, CDP, TSHX, TROPI, LIVP, BNP, LACTIC, GEORGINA, BMPX #### [address] [phone] Rodeo Clown: Larry Ashton MD Lymphocytes/100 WBC (Bld) 25 % Normal 24-43 [facility] Comment on above: Performed By: #### P T, CK, CDP, TSHX, TROPI, LIVP, BNP, LACTIC, GEORGINA, BMPX #### [place] [address] Rode[employer] Clown: Larry Ashton MD MCH (RBC) [Entitic mass] 34.7 pg High 25.2-33.5 [facility] Comment on above: Performed By: #### P T, CK, CDP, TSHX, TROPI, LIVP, BNP, LACTIC, GEORGINA, BMPX #### [place] [address] Rode[employer] Clown: Larry Ashton MD MCHC (RBC) [Mass/Vol] 33.9 g/dL Normal 28.4-34.8 [facility] Comment on above: Performed By: #### P T, CK, CDP, TSHX, TROPI, LIVP, BNP, LACTIC, GEORGINA, BMPX #### [address] [phone] Rodeo Clown: Larry Ashton MD MCV (RBC) [Entitic vol] 102.6 fL Normal 82.6-102.9 [facility] Comment on above: Performed By: #### P T, CK, CDP, TSHX, TROPI, LIVP, BNP, LACTIC, GEORGINA, BMPX #### [place] [address] Rode[employer] Clown: Larry Ashton MD Monocytes (Bld) [#/Vol] 0.69 10*3/uL Normal 0.10-1.20 [facility] Comment on above: Performed By: #### P T, CK, CDP, TSHX, TROPI, LIVP, BNP, LACTIC, GEORGINA, BMPX #### [place] [address] Rode[employer] Clown: Larry Ashton MD Monocytes/100 WBC (Bld) 8 % Normal 3-12 [facility]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 06-11-2025 12:02-0400 Body mass index (BMI) [Ratio] 25.51 kg/m2 Meggan Samuel MD Work Phone: [facility] 06-11-2025 12:02-0400 Body weight 61.24 kg Meggan Samuel MD Work Phone: [facility] 05-12-2025 14:32-0400 Body height 154.9 cm Meggan Samuel MD Work Phone: [facility] 05-12-2025 14:32-0400 Body mass index (BMI) [Ratio] 26.26 kg/m2 Meggan Samuel MD Work Phone: [facility] 05-12-2025 14:32-0400 Body weight 63.05 kg Meggan Samuel MD Work Phone: [facility] 05-12-2025 14:32-0400 Diastolic blood pressure 81 mm[Hg] Meggan Samuel MD Work Phone: [facility] 05-12-2025 14:32-0400 Heart rate 89 /min Meggan Samuel MD Work Phone: [facility] 05-12-2025 14:32-0400 Systolic blood pressure 125 mm[Hg] Meggan Samuel MD Work Phone: [facility] 03-26-2025 04:01-0400 Body temperature 98.2 [degF] Cesar Fisher MD Work Phone: [facility] 03-26-2025 04:01-0400 Diastolic blood pressure 106 mm[Hg] Cesar Fisher MD Work Phone: [facility] 03-26-2025 04:01-0400 Heart rate 66 /min Cesar Fisher MD Work Phone: [facility] 03-26-2025 04:01-0400 Respiratory rate 16 /min Cesar Fisher MD Work Phone: [facility] 03-26-2025 04:01-0400 SaO2% (BldA) [Mass fraction] 96 % Cesar Fisher MD Work Phone: [facility] 03-26-2025 04:01-0400 Systolic blood pressure 141 mm[Hg] Cesar Fisher MD Work Phone: [facility] 03-25-2025 18:45-0400 Body height 154.9 cm Cesar Fisher MD Work Phone: [facility] 03-25-2025 18:45-0400 Body mass index (BMI) [Ratio] 27.21 kg/m2 Cesar Fisher MD Work Phone: [facility] 03-25-2025 18:45-0400 Body weight 65.32 kg Cesar Fisher MD Work Phone: [facility] 10-20-2024 08:34-0500 Body temperature 98.1 [degF] Hayden Macdonald DO Work Phone: [employer] 10-20-2024 08:34-0500 Diastolic blood pressure 77 mm[Hg] Hayden Macdonald Work Phone: [employer] 10-20-2024 08:34-0500 Heart rate 79 /min Hayden Torres LEONG Work Phone: [employer] 10-20-2024 08:34-0500 Respiratory rate 16 /min Hayden Macdonald DO Work Phone: [employer] 10-20-2024 08:34-0500 SaO2% (BldA) [Mass fraction] 97 % Hayden Macdonald DO Work Phone: [employer] 10-20-2024 08:34-0500 Systolic blood pressure 108 mm[Hg] Hayden Macdonald DO Work Phone: [employer] 10-19-2024 06:00-0500 Body mass index (BMI) [Ratio] 27.37 kg/m2 Hayden Macdonald DO Work Phone: [facility] 10-19-2024 06:00-0500 Body weight 65.7 kg Hayden Macdonald DO Work Phone: [facility] 2024 03:45-0500 Body height 154.9 cm Hayden Macdonald DO Work Phone: [facility] 02-12-2018 03:03-0400 BP Diastolic 89 mm[Hg] [facility] 02-12-2018 03:03-0400 BP Systolic 120 mm[Hg] [facility] 02-12-2018 03:03-0400 Pulse (Heart Rate) 81 /min Vishal [facility] 02-12-2018 03:03-0400 Pulse Oximetry 98 % Vishal [facility] 02-12-2018 00:12-0400 Body Temperature 98.01 [degF] [facility] 02-12-2018 00:12-0400 Respiratory Rate 16 /min Vishal [facility] 02-12-2018 00:04-0400 BMI (Body Mass Index) 23.45 kg/m2 [facility] 02-12-2018 00:04-0400 Weight 56.29 kg [facility] 08-25-2017 16:09-0500 BMI (Body Mass Index) 24.56 kg/m2 [facility] Work Phone: 08-25-2017 16:09-0500 Body Temperature 98.1 [degF] Gustavo Camargo [facility] Work Phone: 08-25-2017 16:09-0500 BP Diastolic 94 mm[Hg] Gustavo Camargo [facility] Work Phone: 08-25-2017 16:09-0500 BP Systolic 146 mm[Hg] Gustavo Camargo [facility] Work Phone: 08-25-2017 16:09-0500 Height 154.9 cm [facility] [facility] Work Phone: 08-25-2017 16:09-0500 Pulse (Heart Rate) 80 /min Gustavo Camargo [facility] Work Phone: 08-25-2017 16:09-0500 Pulse Oximetry 97 % [facility] Work Phone: 08-25-2017 16:09-0500 Respiratory Rate 16 /min [facility] Work Phone: 08-25-2017 16:09-0500 Weight 58.97 kg [facility] Work Phone: Encounters Encounter Date Encounter Type Care Provider Facility Start: 06-11-2025 End: 06-11-2025 ambulatory [facility] Start: 06-11-2025 End: 06-11-2025 Subsequent hospital visit by physician Meggan Samuel MD Work Phone: [facility] [place] Comment on above: Perianal fistula (Pr imary Dx) Start: 05-29-2025 ambulatory [facility] Start: 05-12-2025 End: 05-12-2025 ambulatory [facility] Start: 05-12-2025 End: 05-12-2025 Office outpatient new 30 minutes Meggan Samuel MD Work Phone: [facility] Comment on above: Perianal fistula Start: 03-25-2025 End: 03-26-2025 Emergency department patient visit Cesar Fisher MD Work Phone: [facility] Comment on above: Anal fistula (Primar y Dx) Start: 02-17-2025 End: 02-18-2025 [facility] Start: 02-17-2025 End: 02-17-2025 Emergency department patient visit COOKIE BURTON Facility:[facility] Start: 2024 End: 2024 Subsequent hospital visit by physician Hadyen Macdonald DO Work Phone: [facility] Start: 2024 End: 10-20-2024 Evaluation and management of inpatient Hayden Macdonald DO Work Phone: [facility] Comment on above: Abscess, gluteal, le ft (Primary Dx) Start: 03-28-2019 End: 03-28-2019 Patient encounter procedure Natalie Parks [facility] Start: 01-30-2019 End: 01-31-2019 Emergency department patient visit [facility] Start: 12-12-2018 Emergency department visit moderate severity MARISOL TAMMY [facility] Start: 12-12-2018 End: 12-12-2018 Patient encounter procedure MARISOL RUST Facility:[id number] Start: 02-12-2018 End: 02-12-2018 Emergency department patient visit PHYSICIAN [facility] Start: 02-12-2018 End: 02-12-2018 Emergency department patient visit Vishal Alva Work Phone: [facility] Start: 08-25-2017 End: 08-25-2017 Emergency department patient visit PHYSICIAN JAY [facility] Start: 08-25-2017 End: 08-25-2017 Emergency department patient visit Gustavo Camargo Work Phone: [facility] Start: 12-27-2016 End: 03-27-2017 Ambulatory ANDREY NAVA [facility] Ambul atory Procedures Date Procedure Procedure Detail Performing Clinician Start: 06-11-2025 PULSE OXIMETRY, CONTINUOUS Ramon Brarett MD Work Phone: Start: 06-11-2025 Urine test visual color cmprsn meths Meggan Samuel MD Work Phone: Start: 06-11-2025 PULSE OXIMETRY, SPOT Mi markell Samuel MD Work Phone: Start: 03-26-2025 Ct abdomen & pelvis w/contrast material Blanquita Forrest MD Work Phone: Start: 03-25-2025 Comprehensive metabo lic panel Cesar Fisher MD Work Phone: Start: 10-20-2024 BASIC METABOLIC PANE L W/ REFLEX TO MG FOR LOW K Tommy Janay Jagarlamudi MD Work Phone: Start: 10-20-2024 Blood count [...] TO MG FOR LOW K Chloé Somers INTERNET TECHNOLOGY MANAGER - EQUINE PHARMACOLOGY TECHNICIAN Work Phone: Start: 2024 End: 2024 Creatine [...] Treatment Date Care Activity Detail Author Start: 2042 Zoster Vaccines (1 of 2) Zoste r Vaccines (1 of 2) [facility] Start: 03-25-2026 Diabetes mellitus screening Diabetes Screening [facility] Start: 07-22-2025 End: 07-22-2025 Patient encounter procedure 07/22/2025 3:20 PM EDT Office Visit [facility] [address] [place] [id number] Gustavo Oliveira DO [address] [place], [place] [id number] [facility] Start: 06-11-2025 Subsequent hospital visit by physician 06/11/2025 Hospital Encounter [facility] [place] [address] [place] [address] Meggan [place] [id number] [place] [address] [address], [facility] [address] [place], [place] [id number] [facility] [place] Start: 06-08-2025 COVID-19 Vaccine ( season) COVID-19 Vaccine ( season) [facility] Start: 06-08-2025 Influenza vaccination [facility] Start: 05-27-2025 DTaP/Tdap/Td Vaccine s (2 - Td or Tdap) DTaP/Tdap/Td Vaccines (2 - Td or Tdap) [facility] Start: 05-27-2025 Tetanus vaccination TETANUS EVERY 10 YR [facility] Work Phone: Start: 06-08-2024 COVID-19 Vaccine ( season) COVID-19 Vaccine ( season) [facility] Start: 06-08-2024 COVID-19 Vaccine ( season) COVID-19 Vaccine ( season) [facility] Start: 05-08-2024 Influenza vaccination Flu vaccine (# 1) [facility] Start: 2022 Screening for malign ant neoplasm of cervix [facility] Start: 2019 HPV Vaccines (1 - 3- dose standard series) HPV Vaccines (1 - 3-dose standard series) [facility] Start: 06-08-2019 Influenza vaccination INFLUENZ A VACCINE (Season Ended) [facility] Start: 06-08-2018 Influenza vaccination SEQUENTI AL INFLUENZA VACCINE (Season Ended) [facility] Start: 02-08-2018 GONORRHEA SCREEN GONORRHEA SCREEN [facility] Start: 02-08-2018 Screening for Chlamy anay trachomatis CHLAMYDIA SCREEN [facility] Start: 06-08-2017 Influenza vaccination SEQUENTI AL INFLUENZA VACCINE (#1) [facility] Work Phone: Start: 03-08-2017 Vaccination for edis n papillomavirus HPV VACCINE ADOL (2 - Female 3-dose series) [facility] Start: 2013 Screening for malign ant neoplasm of cervix [facility] Start: 2011 DTaP/Tdap/Td vaccine (1 - Tdap) DTaP/Tdap/Td vaccine (1 - Tdap) [facility] Start: 2011 Hepatitis A Vaccines (1 of 2 - Risk 2-dose series) Hepatitis A Vaccines (1 of 2 - Risk 2-dose series) [facility] Start: 2011 Hepatitis B vaccine (1 of 3 - 19+ 3-dose series) Hepatitis B vaccine (1 of 3 - 19+ 3-dose series) [facility] Start: 2011 Hepatitis B Vaccines (1 of 3 - 19+ 3-dose series) Hepatitis B Vaccines (1 of 3 - 19+ 3-dose series) [facility] Start: 2011 Pneumococcal Vaccine : Pediatrics and At-Risk Adult Patients (1 of 2 - PCV) Pneumococcal Vaccine: Pediatrics and At-Risk Adult Patients (1 of 2 - PCV) [facility] Start: 2010 Hepatitis C screening B on [facility] Start: 2010 Tetanus vaccination TETANUS [facility] Start: 2007 HIV screening HIV screen [facility] Start: 2005 Varicella vaccination Varicell a Vaccines (1 of 2 - 13+ 2-dose series) [facility] Start: 2005 Varicella vaccine (1 of 2 - 13+ 2-dose series) Varicella vaccine (1 of 2 - 13+ 2-dose series) [facility] Start: 2004 Depression Screen Depression Screen [facility] Start: 2003 Vaccination for edis n papillomavirus HPV VACCINES (1 of 3 - Female 3 Dose Series) [facility] Work Phone: Start: 1998 Pneumococcal 0-64 ye ars Vaccine (1 of 2 - PCV) Pneumococcal 0-64 years Vaccine (1 of 2 - PCV) [facility] Start: 1993 MMR Vaccines (1 of 1 - Standard series) MMR Vaccines (1 of 1 - Standard series) [facility] Start: 1992 HIV screening HIV Screening [facility] Start: 1992 Lipid panel Lipid Panel [facility] Start: 1992 Screening for malign ant neoplasm of cervix PAP SMEAR [facility] Work Phone: Start: 1992 Yearly Adult Physical Yearly Adult P hysical [facility] Anrct xm surg req an es general spi/edrl dx EXAM UNDER ANESTHESIA, ANORECTAL Perianal fistula [facility] End: 02-12-2018 Bacteria aerobode culture Urine Aerobic Culture Routine Once for 1 Occurrences starting 02/12/2018 until 02/12/2018 [facility] Bacteria aerobode culture Urine Aerobic Culture Routine 02/12/2018 3:03 AM EDT [facility] End: 06-11-2025 Choriogonadotropin ( test) [Presence] in Urine POCT , urine Point of Care Testing Routine Once (Lab) for 1 Occurrences starting 06/11/2025 until 06/11/2025 [facility] Service Area Work Phone: Comment on above: Once (Lab) for 1 Occ urrences starting 06/11/2025 until 06/11/2025 Culture, Blood 2 Culture, Blood 2 Microbiology STAT 2024 4:06 PM EST [employer] End: 06-11-2025 Incentive spirometry Instruct Incentive spirometry Instruct Respiratory Care Routine Once for 1 Occurrences starting 06/11/2025 until 06/11/2025 [facility] Service Area Work Phone: Comment on above: Once for 1 Occurrenc es starting 06/11/2025 until 06/11/2025 Intermittent pulse oximetry Puls e Oximetry Spot Check Respiratory Care Routine As Needed until discontinued starting 2024 [employer] Comment on above: As Needed until disc ontinued starting 2024 End: 2024 MRSA DNA Probe, Nasal MRSA DNA Probe, Nasal Microbiology Routine One Time for 1 Occurrences starting 2024 until 2024 [employer] Work Phone: Comment on above: One Time for 1 Occur rences starting 2024 until 2024 Oxygen therapy [[facility] Data Set] Initiate Oxygen Therapy Protocol Respiratory Care Routine As Needed until discontinued starting 2024 [employer] Work Phone: Comment on above: As Needed until disc ontinued starting 2024 End: 2024 Urinalysis with Reflex to Culture Urinalysis with Reflex to Culture Lab Routine One Time for 1 Occurrences starting 2024 until 2024 [employer] Comment on above: One Time for 1 Occur rences starting 2024 until 2024 Immunizations Immunization Date Immunization Notes Care Provider Omaira bates 02-08-2017 HPV, unspecified formulation Natalie Parks [facility] 05-27-2015 tetanus toxoid, reduced diphtheria toxoid, and acellular pertussis vaccine, adsorbed; Translations: [TDAP] Gustavo Camargo [facility] Work Phone: NEGATED: Highlighted row has not occurred!03-11-2017 tetanus toxoid, reduced diphtheria toxoid, and acellular pertussis vaccine, adsorbed Natalie Holdenlane [facility] Comment on above: Deferred: Patient Re fused Payers Date Payer Category Payer Medicaid MEDICAID [id number] 2023 Medicaid - Out of [facility] MEDICAID HMO [facility] [id number] 2023 Medicaid [id number] 2015 Medicaid [id number] 1990 Unknown [id number] 1992 Unknown [id number] 1992 Unknown [id number] 1992 Unknown [id number] 1992 Unknown [id number] 1992 Unknown [id number] Social History Date Type Detail Facility Start: 02-12-2018 End: 2024 Tobacco smoking status NHIS Current every day smoker [employer] Work Phone: History of tobacco use Cigarette Smoker [facility] [employer] Work Phone: Start: 02-12-2018 End: 2024 Cigarettes smoked current (pack per day) - Reported [facility] Start: 1990 Sex Assigned At Not on file [facility] [employer] Work Phone: Start: 02-08-2017 Tobacco Comment 3 cigarettes / day [facility] Start: 02-08-2017 Alcohol Comment 2-3 x per week [facility] Start: 2024 [facility] [employer] Start: 09-02-2022 Has the [employer], [employer], or [employer] threatened to shut off services in your home in past 12Mo Patient declined [employer] Tobacco smoking stat us AZIS Tobacco smoking consumption unknown [facility] Work Phone: Goals Date Patient Goal Desired Activity /State Personal health goal Personal health goal Functional Status Date Assessment Result Facility 06-11-2025 [facility] - suicide s everity rating scale screener - recent [C-SSRS] [facility] Work Phone: 03-25-2025 [employer] - suicide s everity rating scale screener - recent [C-SSRS] [facility] Work Phone: Clinical Notes 10-20-2024 to 06-11-2025 Discharge InstructionsOp Note - Meggan Samuel MD - 06/11/2025 1:17 PM EDTOp Note - Meggan Samuel MD - 06/11/2025 1:17 PM EDTMashleigh Samuel MD - 06/11/2025 12:39 PM EDTDischarge Instructions Note Date & Type Note Facility 06-11-2025 Hospital Discharg e instructions Meggan Samuel MD - 06/11/2025 1:48 PM EDT [...] previous diet. FOLLOW-UP: Please call office at [phone] to schedule follow-up appointment for 3-4 weeks from date of surgery. documented in this encounter [facility] Work Phone: 06-11-2025 Miscellaneous Notes Exam under anesthesia, possible seton insertion, possible fistulotomy Operative Note Date: 06/11/2025 OR Location: [facility] OR Name: Amira Nagy, : 1990, Age: 34 y.o., , Sex: female Diagnosis Pre-op Diagnosis * Perianal fistula [K60.30] Post-op Diagnosis * Perianal fistula [K60.30] Procedures Exam under anesthesia, anorectal Fistulotomy Surgeons * Meggan Samuel - Primary Resident/Fellow/Other Machine Operations Supervisor: Surgeons and Role: * No surgeons found with a matching role * Staff: General Expeditor: Aerodynamics Engineer: Tony Arauzub Person: Emeli Arauzub Person: Bridger Anesthesia Staff: Anesthesiologist: Ramon Barrett [...] * Tourniquet Times: Implants: Findings: Left anterior ctzxzrw-[id number]-[id number] Indications: Amira Nagy is an 34 y.o. female who is [...] of general anesthesia, patient was placed in lithotomy position with the yellow-fin stirrups. Bilateral arms were abducted and gently fixed to arm boards. The perianal region was prepped with Hibiclens solution and patient draped in the usual sterile fashion. Time out was performed, once again confirming correct patient and correct procedure. Following completion of perioperative antibiotics, a perianal exam was [...] of skin at the scar site in left anterior perianal space. Gentle probing was indicative of a linear tract extending to the distal left anterior anal canal. The internal os could not be identified initially and decision was thus made to inject a few ml of hydrogen peroxide [...] hemodynamically stable. Condition: stable Task Performed by WATER RESOURCES PROJECT MANAGER or General Expeditor: Patient positioning, skin prep. Additional Details: N/A Attending Attestation: I was present and scrubbed for the entire procedure. Meggan Samuel documented in this encounter [facility] Work Phone: 06-11-2025 Surgery Surgical operation note Exam under anesthesia, possible seton insertion, possible fistulotomy Operative Note Date: 06/11/2025 OR Location: [facility] OR Name: Amira Nagy, : 1990, Age: 34 y.o., , Sex: female Diagnosis Pre-op Diagnosis * Perianal fistula [K60.30] Post-op Diagnosis * Perianal fistula [K60.30] Procedures Exam under anesthesia, anorectal Fistulotomy Surgeons * Meggan Samuel - Primary Resident/Fellow/Other Machine Operations Supervisor: Surgeons and Role: * No surgeons found with a matching role * Staff: General Expeditor: Aerodynamics Engineer: Tony Scrub Person: Emeli Arauzub Person: Bridger Anesthesia Staff: Anesthesiologist: Ramon Barrett [...] * Tourniquet Times: Implants: Findings: Left anterior oeflfmc-dr-amb Indications: Amira Nagy is an 34 y.o. female who is [...] of general anesthesia, patient was placed in lithotomy position with the yellow-fin stirrups. Bilateral arms were abducted and gently fixed to arm boards. The perianal region was prepped with Hibiclens solution and patient draped in the usual sterile fashion. Time out was performed, once again confirming correct patient and correct procedure. Following completion of perioperative antibiotics, a perianal exam was [...] of skin at the scar site in left anterior perianal space. Gentle probing was indicative of a linear tract extending to the distal left anterior anal canal. The internal os could not be identified initially and decision was thus made to inject a few ml of hydrogen peroxide [...] hemodynamically stable. Condition: stable Task Performed by WATER RESOURCES PROJECT MANAGER or General Expeditor: Patient positioning, skin prep. Additional Details: N/A Attending Attestation: I was present and scrubbed for the entire procedure. Meggan Samuel [facility] Work Phone: 06-11-2025 Attending History and physical note H&P reviewed. The patient was examined and there are no changes to the H&P. Source Note - Meggan Samuel MD - 05/12/2025 2:00 PM EDT CONNOR Nagy is a 34 y.o. female who first underwent I&D of left gluteal abscess 10/18/24 at [facility] with Dr. Dani Vang. Drainage from wound area persisted, which led to a second I&D at [facility] with ACS. She was recommended to follow up outpatient with [facility] for evaluation of possible fistula. Increase in blood drainage led to [facility] ED visit 03/25/25. She was again recommended to follow up with [facility] outpatient. She presents today to discuss possible anal fistula. Patient reports gluteal cyst developed 09/2024. She underwent an I&D 10/2024. Developed drainage from wound. She experiences purulent drainage daily. She has cycles of swelling, pain, then spontaneous drainage. Uses guaze pads daily. She recently moved from [place], delaying her care. Maternal Uncle hx of [...] Exam Vitals reviewed. Exam conducted with a snowblower mechanic present. Constitutional: General: She is not in [...] sinus, no active drainage, no significant surrounding erythema/edema/induration/fluct uance. Musculoskeletal: General: No swelling or deformity. Cervical [...] for 06/11/2025 - Lithotomy position in OR Meggan Samuel MD 05/12/2025 8:52 PM [1] No past medical history on file. [2] No past surgical history on file. [3] No Known Allergies [4] No current outpatient medications on file prior to visit. No current facility-administered medications on file prior to visit. [facility] Work Phone: 06-11-2025 History and physical note H&P reviewed. The patient was examined and there are no changes to the H&P. Source Note - Meggan Samuel MD - 05/12/2025 2:00 PM EDT CONNOR Nagy is a 34 y.o. female who first underwent I&D of left gluteal abscess 10/18/24 at [facility] with Dr. Dani Vang. Drainage from wound area persisted, which led to a second I&D at [facility] with ACS. She was recommended to follow up outpatient with [facility] for evaluation of possible fistula. Increase in blood drainage led to [facility] ED visit 03/25/25. She was again recommended to follow up with [facility] outpatient. She presents today to discuss possible anal fistula. Patient reports gluteal cyst developed 09/2024. She underwent an I&D 10/2024. Developed drainage from wound. She experiences purulent drainage daily. She has cycles of swelling, pain, then spontaneous drainage. Uses guaze pads daily. She recently moved from [place], delaying her care. Maternal Uncle hx of [...] Exam Vitals reviewed. Exam conducted with a snowblower mechanic present. Constitutional: General: She is not in [...] sinus, no active drainage, no significant surrounding erythema/edema/induration/fluct uance. Musculoskeletal: General: No swelling or deformity. Cervical [...] for 06/11/2025 - Lithotomy position in OR Meggan Samuel MD 05/12/2025 8:52 PM [1] No past medical history on file. [2] No past surgical history on file. [3] No Known Allergies [4] No current outpatient medications on file prior to visit. No current facility-administered medications on file prior to visit. documented in this encounter [facility] Work Phone: 05-12-2025 History of Presen t illness Narrative CONNOR Nagy is a 34 y.o. female who first underwent I&D of left gluteal abscess 10/18/24 at [facility] with Dr. Dani Vang. Drainage from wound area persisted, which led to a second I&D at [facility] with ACS. She was recommended to follow up outpatient with [facility] for evaluation of possible fistula. Increase in blood drainage led to [facility] ED visit 03/25/25. She was again recommended to follow up with [facility] outpatient. She presents today to discuss possible anal fistula. Patient reports gluteal cyst developed 09/2024. She underwent an I&D 10/2024. Developed drainage from wound. She experiences purulent drainage daily. She has cycles of swelling, pain, then spontaneous drainage. Uses guaze pads daily. She recently moved from [place], delaying her care. Maternal Uncle hx of [...] Exam Vitals reviewed. Exam conducted with a snowblower mechanic present. Constitutional: General: She is not in [...] sinus, no active drainage, no significant surrounding erythema/edema/induration/fluct uance. Musculoskeletal: General: No swelling or deformity. Cervical [...] for 06/11/2025 - Lithotomy position in OR Meggan Samuel MD 05/12/2025 8:52 PM [1] No past medical history on file. [2] No past surgical history on file. [3] No Known Allergies [4] No current outpatient medications on file prior to visit. No current facility-administered medications on file prior to visit. documented in this encounter [facility] Work Phone: 03-26-2025 Hospital Discharg e stanton Forrest MD - 03/26/2025 4:31 AM EDT We recommend that you follow-up with your colorectal surgery team outpatient. We are also giving a referral for gastroenterology given the there is concern for unknown etiology of this anal fistula. Recommend that you take Tylenol ibuprofen for the pain. Please return to emergency room if you have any new or worsening symptoms. Please follow-up with your primary care provider. documented in this encounter [facility] Work Phone: 03-25-2025 Emergency department Triage note Pt returns to the ED with c/o rectal pain, bleeding, diarrhea, and itching x2 days. Hx of anal fistula- symptoms have been intermittent x6 months. Denies constipation, denies abdominal pain [facility] Work Phone: 03-25-2025 Emergency department Note Pt returns to the ED with c/o rectal pain, bleeding, diarrhea, and itching x2 days. Hx of anal fistula- symptoms have been intermittent x6 months. Denies constipation, denies abdominal pain documented in this encounter [facility] Work Phone: 10-20-2024 History of Presen t illness Narrative CLINICAL PHARMACY NOTE: MEDS TO BEDS Total # of Prescriptions Filled: 3 The following medications were delivered to the patient: [place] 5.325mg Augmentin 875-125mg Fluconazole 150mg Additional Documentation: delivered to patient in room 329 10/20 at 11:36am. Co-pay $14.98 clover. Images from the original note were not included. [facility] Office: [phone] Reno Bee DO, Fernando Clay DO, Allyssa Gregory DO, Roland Ferrer DO, Candace Cisneros MD, Shannon Chandra MD, Aura Newton MD, Margaux Orellana MD, Earnest Hudson MD, Lea Pressley MD, Tuan Zayas MD, Stevo Wright DO, Ortiz Johnston MD, Mynor Cohen MD, Meggan Bee DO, Leonor Feldman MD, Hayden Macdonald DO, Kavitha Rosa MD, Loli Lopez MD, Tamara Dent MD, Thalia Joyce MD, Tommy Mazariegos MD, Liliana Antunez MD, Reno Edwards MD, Marlene Kaba MD, Ciro Jeffries MD, Sonia Breaux MD, Alvino Gamez DO, Christiano Jaquez MD, Stevo Dao MD, Ezequiel Dao MD, Rhonda Valadez, EQUINE PHARMACOLOGY TECHNICIAN, Norma Moraes, EQUINE PHARMACOLOGY TECHNICIAN, Alvino Chan, EQUINE PHARMACOLOGY TECHNICIAN, Arlene Jerome, CONTRERAS, Pili Casarez, EQUINE PHARMACOLOGY TECHNICIAN, Chapis Cameron, EQUINE PHARMACOLOGY TECHNICIAN, Chloé Somers, EQUINE PHARMACOLOGY TECHNICIAN, Madina Rodriguez, EQUINE PHARMACOLOGY TECHNICIAN, YESSICA LuiC, YESSICA CollierC, Faviola Granados, SHABANA, Himanshu Moreno, SHABANA, Ita Gerber, SHABANA, Monica Lackey, EQUINE PHARMACOLOGY TECHNICIAN, Karlene Lerner CNP, Smita Cardona CNP, Dodie Wilder CNP [facility] IN-PATIENT SERVICE [facility] Progress Note 10/20/2024 12:49 PM Name: Amira Nagy Acct: [id number] Room: [facility]02 Day: 3 Admit Date: 2024 3:28 AM [...] to the touch. She went to [facility] where she was told that she has a large abscess. ED physician felt that she would benefit from incision and drainage. Case was discussed with our hospitalist and patient was transferred to our service. She states that while she was in the emergency department in [place] and during the transfer large amount of [...] 1608 10/18/24 0515 10/19/24 0526 10/20/24 0821 WBC 8.3 8.3 8.1 8.0 8.8 [...] Recent Labs 10/17/24 1606 10/17/24 1608 10/18/24 0510/19/24 0526 10/20/24 0821 NA 142 < > [...] , PHART , PH , POCPCO2 , MMJ4FRG , PCO2 , POCPO2 , PO2ART , PO2 , POCHCO3 , LIZ2OLF , HCO3 , NBEA , PBEA , BEART , BE , THGBART , THB , CNX8UDN , GCVY2QSP , C7TMYDNW , O2SAT , FIO2 Lab Results Component [...] from the original note were not included. [facility] Office: [phone] Reno Bee DO, Fernando Clay DO, Allyssa Gregory DO, Roland Ferrer DO, Candace Cisneros MD, Shannon Chandra MD, Aura Newton MD, Margaux Orellana MD, Earnest Hudson MD, Lea Pressley MD, Fer Hayes DO, Tuan Zayas MD, Stevo Wright DO, Ortiz Johnston MD, Mynor Cohen MD, Meggan Bee DO, Leonor Feldman MD, Christiano Jaquez MD, Hayden Macdonald DO, Kavitha Rosa MD, Loli Lopez MD, Tamara Dent MD, Thalia Joyce MD, Gustavo Mckeon DO, Augustus Portillo MD, Rhonda Valadez, SHABANA, Norma Moraes CNP, Karlene Lerner CNP, Alvino Chan CNP, Arlene Jerome DNP, Pili Casarez CNP, Chapis Cameron CNP, Mali Garcia CNP, Chloé Somers EQUINE PHARMACOLOGY TECHNICIAN, Madina Rodriguez EQUINE PHARMACOLOGY TECHNICIAN, YESSICA OgdenC, Maribel Coker, KAYLA, Jeanine Muñoz CNP, Smita Cardona, EQUINE PHARMACOLOGY TECHNICIAN [facility] IN-PATIENT SERVICE [facility] Progress Note 10/19/2024 1:37 PM Name: Amira Nagy Acct: [id number] Room: 0329/0329-02 Day: 2 Admit Date: 2024 3:28 AM [...] to the touch. She went to [facility] where she was told that she has a large abscess. ED physician felt that she would benefit from incision and drainage. Case was discussed with our hospitalist and patient was transferred to our service. She states that while she was in the emergency department in [place] and during the transfer large amount of [...] ending 10/19/24 1337 Labs: Hematology: Recent Labs 10/17/24160510/17/24160710/18/2451410/19/24 0526 WBC 8.3 8.3 8.1 8.0 RBC 3.08* 3.12* 3.35* 3.23* HGB 10.7* 10.8* 11.7* 11.3* HCT 31.6* 31.9* 33.6* 34.4* MCV 102.6 102.2 100.3 106.5* MCH 34.7* 34.6* 34.9* 35.0* MCHC 33.9 33.9 34.8 32.8 RDW 11.3* 11.3* 11.4* 11.4* PLT 378 365 See Reflexed IPF Result 366 MPV 9.0 8.9 -- 9.9 INR 1.1 -- -- -- Chemistry: Recent Labs 10/17/24 16010/17/24 16010/18/24 0515 10/19/24 0526 NA 142 140 138 [...] , PHART , PH , POCPCO2 , VRR6GKX , PCO2 , POCPO2 , PO2ART , PO2 , POCHCO3 , KDA2JAA , HCO3 , NBEA , PBEA , BEART , BE , THGBART , THB , AMK5CBP , OKTJ4QLS , Q8LIBPZK , O2SAT , FIO2 Lab Results Component [...] from the original note were not included. [facility] Office: [phone] Reno Bee DO, Fernando Clay DO, Allyssa Gregory DO, Roland Ferrer DO, Candace Cisneros MD, Shannon Chandra MD, Aura Newton MD, Margaux Orellana MD, Earnest Hudson MD, Lea Pressley MD, Fer Hayes DO, Tuan Zayas MD, Stevo Wright DO, Ortiz Johnston MD, Mynor Cohen MD, Meggan Bee DO, Leonor Feldman MD, Christiano Jaquez MD, Hayden Macdonald, DO, Kavitha Rosa MD, Loli Lopez MD, Tamara Dent MD, Thalia Joyce MD, Gustavo Mckeon DO, Augustus Portillo MD, Rhonda Valadez, EQUINE PHARMACOLOGY TECHNICIAN, Norma Moraes, EQUINE PHARMACOLOGY TECHNICIAN, Karlene Lerner, EQUINE PHARMACOLOGY TECHNICIAN, Alvino Chan, EQUINE PHARMACOLOGY TECHNICIAN, Arlene Jerome, [facility], Pili Casarez, EQUINE PHARMACOLOGY TECHNICIAN, Chapis Cameron, EQUINE PHARMACOLOGY TECHNICIAN, Mali Garcia, EQUINE PHARMACOLOGY TECHNICIAN, Chloé Somers, EQUINE PHARMACOLOGY TECHNICIAN, Madina Rodriguez, EQUINE PHARMACOLOGY TECHNICIAN, Edson Driver PA-C, Maribel Coker, LOCK TENDER, Jeanine Muñoz CNP, Smita Cardona CNP [facility] IN-PATIENT SERVICE [facility] Progress Note 10/18/2024 6:45 PM Name: Amira Nagy Acct: [id number] Room: [address] [place], [place] [address] Day: 1 Admit Date: 2024 3:28 [...] to the touch. She went to [facility] where she was told that she has a large abscess. ED physician felt that she would benefit from incision and drainage. Case was discussed with our hospitalist and patient was transferred to our service. She states that while she was in the emergency department in [place] and during the transfer large amount of [...] data in the 24 hours ending 10/18/24 1845 Labs: Hematology: Recent Labs 10/17/24 1606 10/17/24 1608 10/18/24 0515 WBC 8.3 8.3 8.1 RBC 3.08* 3.12* 3.35* HGB 10.7* 10.8* 11.7* HCT 31.6* 31.9* 33.6* MCV 102.6 102.2 100.3 MCH 34.7* 34.6* 34.9* MCHC 33.9 33.9 34.8 RDW 11.3* 11.3* 11.4* PLT 378 365 See Reflexed IPF Result MPV 9.0 8.9 -- INR 1.1 -- -- Chemistry: Recent Labs 10/17/24 1606 10/17/24 1608 10/18/24 0515 NA 142 140 138 K 3.9 [...] , PHART , PH , POCPCO2 , UOF2SNA , PCO2 , POCPO2 , PO2ART , PO2 , POCHCO3 , JID6FLO , HCO3 , NBEA , PBEA , BEART , BE , THGBART , THB , VIP7LAM , BBKB3BOH , Z2ZWPOKC , O2SAT , FIO2 Lab Results Component [...] from the original note were not included. [facility] Occupational Therapy Not Seen Note DATE: 10/18/2024 [...] Zosyn and vancomycin for Infection Control Recommendations: [place] precautions Discharge Planning: Estimated Length of IV [...] revealed abscesses. She was then transferred to [facility] for further evaluation ID service asked to [...] found for: COVID19 No results for input(s): VANCOTROUGH in the last 72 hours. Imaging Studies: [...] EST Cultures: Culture and Sensitivities: Recent Labs 10/17/24 160 SPECDESC .BLOOD SPECIAL L AC 5ML CULTURE NO GROWTH 12 HOURS Procedure Component Value Units Date/Time Culture, Blood 2 [[id number]] Collected: 10/17/24 1606 Order Status: Completed Specimen: Blood Updated: 10/18/24 0523 Specimen Description .BLOOD Special Requests L AC 5ML Culture NO GROWTH 12 HOURS Culture, Blood 1 [[id number]] Collected: 10/17/24 1515 Order Status: Canceled Specimen: Blood MRSA DNA Probe, Nasal [[id number]] Order Status: Sent Specimen: Left Nare from Nares MRSA DNA Probe, Nasal [[id number]] Collected: 10/17/24 1141 Order Status: Completed Specimen: Nasal Updated: 10/17/241514 Specimen Description .NASAL SWAB MRSA, DNA, Nasal PENDING Medications: sodium chloride flush 5-40 mL IntraVENous 2 times per day vancomycin 1,000 mg IntraVENous Q12H amphetamine-dextroamphetamine 30 mg Oral BID FLUoxetine 60 mg Oral Daily lamoTRIgine 100 mg Oral Daily piperacillin-tazobactam 3,375 mg IntraVENous Q8H [facility] Nohemi Rios MD [employer] OFFICE: Thank you for allowing us to [...] original note were not included. Occupational Therapy [facility] Occupational Therapy Not Seen Note DATE: 2024 NAME: Amira Nagy : 1990 Patient not seen this date for Occupational Therapy due to: Patient is not appropriate for active participation in OT evaluation/treatment at this time d/t patient admit early this a.m management of Pelvic abscess, limited notes, will f/u next day when further plan has been established. documented in this encounter [facility] 10-20-2024 Hospital course Narrative Images from the original note were not included. [facility] Office: [phone] Reno Bee DO, Fernando Clay DO, Allyssa Gregory DO, Roland Ferrer DO, Candace Cisneros MD, Shannon Chandra MD, Aura Newton MD, Margaux Orellana MD, Earnest Hudson MD, Lea Pressley MD, Tuan Zayas MD, Stevo Wright DO, Ortiz Johnston MD, Mynor Cohen MD, Meggan Bee DO, Leonor Feldman MD, Hayden Macdonald DO, Kavitha Rosa MD, Loli Lopez MD, Tamara Dent MD, Thalia Joyce MD, Tommy Mazariegos MD, Liliana Antunez MD, Reno Edwards MD, Marlene Kaba MD, Ciro Jeffries MD, Sonia Breaux MD, Alvino Gamez DO, Christiano Jaquez MD, Stevo Dao MD, Ezequiel Dao MD, Rhonda Valadez CNP, Norma Moraes CNP, Alvino Chan CNP, Arlene Jerome DNP, Pili Casarez CNP, Chapis Cameron CNP, Chloé Somers CNP, Madina Rodriguez CNP, Lizeth Horan PA-C, Earline Carlos PA-C, Faviola Granados CNP, Himanshu Moreno CNP, Ita Gerber CNP, Monica Lackey CNP, Karlene Lerner CNP, Smita Cardoan CNP, Dodie Wilder CNP [facility] IN-PATIENT SERVICE [facility] Discharge Summary Patient ID: Amira Nagy : 1990 ACCOUNT: [id number] Patient's PCP: No primary care provider on [...] Your Medications [facility] [place], [place] - [address] [place] [address] - P [phone] - F [phone] [place] [id number] amoxicillin-clavulanate 875-125 MG per tablet HYDROcodone-acetaminophen 5-325 [...] this patient's care. 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 Hyperchloremia Electrolyte and fluid disorders not elsewhere classified Anemia Anemia, unspecified Elevated brain natriuretic peptide (BNP) level Other nonspecific findings on examination of blood Cellulitis of skin [facility]* Diagnosis Anal fistula- Primary documented in this encounter [facility] Work Phone: Evaluation note* Diagnosis Perianal fistula Anal fistula Perianal fistula- Primary Anal fistula documented in this encounter [facility] Work Phone: Evaluation note* Diagnosis Perianal fistula- Primary Anal fistula Perianal fistula Anal fistula documented in this encounter [facility] Work Phone: Reason for visit Narrative* Consultation (Routine) - Authorized Specialty Diagnoses / Procedures Referred By Kat t Referred To Contact Colon and Rectal Surgery / General Surgery Diagnoses Anal fistula Mayra Corral MD PhD [address] [facility] [place] [address] [place] [address] Phone: tel: fax: [place] [address] [place] [address] Phone: tel: fax: Referral ID Status Reason Start Date Expiration Date Visits Requested Visits Authorized [id number] Authorized Specialty Services Required 03/26/2025 03/26/2026 1 1 [facility] Work Phone: Reason for visit Narrative* Auth/Cert Specialty Diagnoses / Procedures Referred By Kat dempsey Referred To Contact Diagnoses Perianal fistula Perianal fistula [K60.30] Procedures ID ANRCT XM SURG REQ ANES GENERAL SPI/EDRL DX Exam under anesthesia, possible seton insertion, [place] [address] [place] [address] Phone: tel: fax: [facility] [place] [address] [place] [address] fax: Referral ID Status Reason Start Date Expiration Date Visits Re quested Visits Authorized [id number] 1 1 [facility] Work Phone: Discharge Instructions * Tong Castillo PA-C - [...] Passing out. After you call 911, the circular head saw operator may tell you to chew 1 [...] Log into your personal health record on [email or web address] and enter A848 in the Education box to learn more about Fainting: Care Instructions. Current as of: August 27, 2017 Content Version: 11.20056008-0921 [employer]. Care instructions adapted under license by your healthcare professional. If you have questions about a medical condition or this instruction, always ask your healthcare professional. [employer] disclaims any warranty or liability for your [...] Log into your personal health record on [email or web address] and enter [email or web address] in the Education box to learn more about Cough: Care Instructions. Current as of: September 12, 2017 Content Version: [id number] [employer]confinder. Care instructions adapted under license by your healthcare professional. If you have questions about a medical condition or this instruction, always ask your healthcare professional. [employer] disclaims any warranty or liability for your use of this information. in this encounter* Cookie Hightower CNP - 08/25/2017 Formatting of this note may be different from the original. [facility] [address] [place] [address] Emergency, Walk-In Sliding fee scale. First come, first seen basis. Sunday, Sunday, , Sunday - 8:30 a.m. - 1:30 p.m. Sunday - 9:30 a.m. - 1:30 p.m. [facility] [address] [place] [phone] Fillings, exams, cleanings, extractions (no wisdom teeth), front root canals. Sliding fee scale based on income. Bring 2 current pay stubs, current electric, gas, or phone bill with picture ID. By appointmentonly. Call 8 a.m. Sunday, , and Sunday for emergencies. [facility] [address] [place] [address] Fillings, exams, cleanings, extractions (no wisdom teeth), front root canals. Sliding fee scale basedon income. Bring 2 current pay stubs, current electric, gas, or phone bill with picture ID. By appointment only. Emergency appointments available. [facility] [address] [place] [phone] Extractions only. $10 donation per extraction requested. First come, first seen on Sunday nights. Doors open at 5 p.m. [facility] [address] [address] [address] [place] [address] Dental exams, fillings, extractions, and cleanings. Call onidays to make an appointment for a later date. [facility] Sliding fee scale. Call for application. Please follow-up with a dental clinic of your choice. The following attachments cannot be sent through Care Everywhere. * TOOTH AND GUM PAIN (INDIAN) in this encounter Assessments Diagnosis Syncope, unspecified [...] Activated Date Inactivated Comments 2024 4:07 AM Date Activated Date Inactivated Comments 06/11/2025 11:41 AM Question Answer Comments Plan of Care: Code Status Discussion Not Compl eted Decision Maker: Provider Rationale: Patient condition does not warra nt discussion Instructions * Patient Instructions* CharlyCrowen - 03/28/2019 2:45 PM EDT Outreach letter [...] different from the original. ED PROVIDER NOTE [facility] EMERGENCY DEPARTMENT NAME: Amira Nagy AGE: 27 y.o. : 1990 VISIT DATE: 02/12/2018 CSN: [id number] PCP: Physician No No chief complaint on file. History provided by: Patient 27-year-old female, smoker, without significant past medical history, presents for evaluation of cough and syncope. The patient states for the past 2- 1/2 months she has had a productive cough of yellow sputum. Denies other cold-like symptoms. Denies fevers, chills, sick contacts. Has not tried anything muwl-eta-iuyqvwn for her symptoms. The patient is also [...] normal. Is resting comfortably on the cot instrumentation manager for evaluation. Past Medical History: Diagnosis [...] CBC low red blood cell count 3.96. Oogbf-fz-pmmg urine is negative. Urinalysis and urine drug [...] her referral information to follow-up with the [place] transition of care clinic. She continues to [...] Productive cough PRODUCTIVE COUGH Follow-up Information 1. [facility] Emergency Department. Specialty: Emergency Medicine Why: As needed, If symptoms worsen [address] [facility] [address] 2. [facility]. Specialty: Transition of Care Why: for hospital follow up [address] [facility] [address] [facility] [address] Contact information for after-discharge care Follow-up [...] the patient. I discussed the patient with TILLER WORKER/PA. I agree with the TILLER WORKER/PA treatment plan. I agree with the TILLER WORKER/PA plan of care. I agree with the TILLER WORKER/PA dispo as documented. 26-year-old female presents emergency [...] different from the original. ED PROVIDER NOTE [facility] EMERGENCY DEPARTMENT NAME: Amira Nagy AGE: 26 y.o. : 1990 VISIT DATE: 08/25/2017 CSN: [id number] PCP: Physician No Chief Complaint Patient presents [...] Patient states that she has been taking hpwn-hny-ugqtvxw medicines and managing her pain but without [...] and provide her a short prescription for [place] as well as free dental clinics. Patient [...] but occasionally words are mis-transcribed.) Cookie Hightower, EQUINE PHARMACOLOGY TECHNICIAN 08/25/17 65[address] [facility]. Pt reports she almost passed out twice today d/t dental pain. Pt reports she has been dealing with this for almost a year. Pt states i have to have something in my system or the pain is so bad I pass out. in this encounter INFORMATION SOURCE (unrecogn ized section and content) DATE CREATED AUTHOR 03/27/2018 [facility] DATE CREATED AUTHOR AUTHOR'S ORGANIZ ATION 04/02/2018 [facility] DATE CREATED AUTHOR AUTHOR'S ORGANIZ ATION 04/03/2018 [facility] DATE CREATED AUTHOR AUTHOR'S ORGANIZ ATION 12/18/2018 [facility] DATE CREATED AUTHOR AUTHOR'S ORGANIZ ATION 02/02/2019 [facility] DATE CREATED AUTHOR AUTHOR'S ORGANIZ ATION 03/07/2019 [facility] DATE CREATED AUTHOR AUTHOR'S ORGANIZ ATION 06/04/2019 [facility] DATE CREATED AUTHOR AUTHOR'S ORGANIZ ATION 08/25/2019 [facility] DATE CREATED AUTHOR AUTHOR'S ORGANIZ ATION 10/22/2024 [facility] DATE CREATED AUTHOR AUTHOR'S ORGANIZ ATION 02/19/2025 [facility] DATE CREATED AUTHOR AUTHOR'S ORGANIZ ATION 06/11/2025 [facility] DATE CREATED AUTHOR AUTHOR'S ORGANIZ ATION 06/12/2025 [facility] DATE CREATED AUTHOR AUTHOR'S ORGANIZ ATION 06/12/2025 [facility] Ordered Prescriptions (unrec ognized section and [...] RN)2150 (Given - Provider: Valdemar King RN) 07 (Given - Provider: Helena Parrish RN)2024 (Given - Provider: Abdi Liu RN) 0843 (Given - Provider: Gloria Haver, RN)2100 (Due) FLUoxetine (PROZAC) capsule 60 mg 60 mg, Oral, DAILY, First dose on Sun10/17/24 at 1615, Until Discontinued 0848 (Given - Provider: Anjelica Fairbanks RN) 0726 (Given - Provider: Helena Parrish RN) 0843 (Given - Provider: Gloria Desai, RN) lamoTRIgine (LAMICTAL) tablet 100 mg 100 mg, Oral, DAILY, First dose on Sun10/17/24 at 1615, Until Discontinued 0848 (Given - Provider: Anjelica Fairbanks RN) 0726 (Given - Provider: Helena Parrish, ANNA) 0844 (Given - Provider: Gloria Desai, RN) lidocaine PF 1 % injection 10 mL 10 mL, IntraDERmal, ONCE, 1 dose, On Sun10/18/24 at 1815, Please leave at bedside 1815 (Due) piperacillin-tazobactam (ZOSYN) 3,375 mg in sodium chloride 0.9 % 50 mL IVPB (mini-bag) (CANCELED) 3,375 mg, IntraVENous, EVERY 8 HOURS, First dose on Sun10/17/24 at 2100, Until Discontinued, Antimicrobial 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 0127 (Stopped - Provider: Rosibel Villar RN)0533 (New Bag - Provider: Rosibel Villar RN)0933 (Stopped - Provider: Anjelica Fairbanks RN)1527 (New Bag - Provider: Anjelica Fairbanks RN)1930 (Stopped - Provider: Valdemar King RN)2152 (New Bag - Provider: Valdemar King RN) 0152 (Stopped - Provider: Valdemar King RN)0503 (New Bag - Provider: Valdemar King RN)0903 (Stopped - Provider: Helena Parrish, ANNA)1459 (New Bag - Provider: Helena Parrish, ANNA)1922 (Stopped - Provider: Abdi Liu RN)2145 (New [...] Anjelica Fairbanks RN - Reason: IV Fluid Infusing)215 (Not Given - Provider: Valdemar King RN - Reason: IV Fluid Infusing) 0727 (Not Given - Provider: Helena Parrish RN - Reason: IV Fluid Infusing)212 (Not Given - Provider: Abdi Liu RN - Reason: IV Fluid Infusing) 0848 (Given - Provider: Gloria Desai RN)2100 (Due) vancomycin (VANCOCIN) 1,000 mg in sodium chloride 0.9 % 250 mL IVPB (Qkpo2Ndr) (CANCELED) 1,000 mg (15.2 mg/kg), IntraVENous, at 250 mL/hr, Administer over 60 Minutes, EVERY 12 HOURS, First dose on Sun10/17/24 at 1430, For 7 days, Use 20mm (Blue) Peko8Cvo Adapter Preparation instructions: Attach medication vial to one 20mm (Blue) [id number] adapter. Bob fluid bag with adapter, mix, and administer per order. 0251 (New Bag - Provider: Rosibel Villar RN)0351 (Stopped - Provider: Rosibel Villar RN)1356 (New Bag - Provider: Anjelica Fairbanks RN)1456 (Stopped - Provider: Anjelica Fairbanks RN) 0236 (New Bag - Provider: Valdemar King RN)0338 (Stopped - Provider: Valdemar King RN)2027 (New Bag - Provider: Abdi Liu RN)213 (Stopped - Provider: Abdi Liu RN) 021 (New Bag - Provider: Abdi Liu RN)0321 (Stopped - Provider: Abdi Liu RN) PRN [...] Rosibel Villar RN)0853 (Given - Provider: Anjelica Fairbanks RN)1732 (Given - Provider: Anjelica Fairbanks RN) 0003 (Given - Provider: Valdemar King RN)0727 (Given - Provider: Helena Parrish RN) 0518 (Given - Provider: Abdi Liu RN) [...] patients with CrCl less than 30 mL/min. Scheduled Medication Order 03/24/2025 03/25/2025 03/26/2025 HYDROmorphone (Dilaudid) injection 0.5 mg (COMPLETED) 0.5 mg, intravenous, Once, On Itzel 03/26/25 at 0405, For 1 dose 0402 (Given - Provid er: Leobardo Hernandez RN) iohexol (OMNIPaque) 350 mg iodine/mL solution 75 mL (COMPLETED) 75 mL, intravenous, Once in imaging, Starting on Itzel 03/26/25 at 0115, For 1 dose 0116 (Given - Provid er: Debbie Zhu) morphine injection 4 mg (COMPLETED) 4 mg, intravenous, Once, On Sun03/25/25 at 2235, For 1 dose 2302 (Given - Provider: Miller Blackwell RN) Scheduled Medication Order 06/09/2025 06/10/2025 06/11/2025 ceFAZolin [...] (New Bag - Prov ider: Willie Lerner RN) lactated Ringer's infusion 100 mL/hr, intravenous, Continuous, Starting on Itzel 06/11/25 at 1415, For 1 day, Recovery (only) 1348 (Continued from OR - Provider: Marietta Bui RN) PRN Medication Order 06/09/2025 06/10/2025 06/11/2025 albuterol 2.5 mg /3 mL (0.083 %) nebulizer solution 2.5 mg 2.5 mg, nebulization, Every 20 min PRN, wheezing, Starting on Itzel 06/11/25 at 1345, For 3 doses, Recovery (only) BUPivacaine-EPINEPHrine (Marcaine w/EPI) 0.5 %-1:200,000 injection (CANCELED) As needed, Starting on Itzel 06/11/25 at 1336, Intraprocedure 1336 (Given - Provid er: Meggan Samuel MD) diphenhydrAMINE (BENADryl) injection 12.5 mg [...] 1345, For 3 doses, Recovery (only) HYDROcodone-acetaminophen ([place]) 5-325 mg per tablet 1 tablet 1 [...] 1338, Intraprocedure 1338 (Given - Provid er: Meggan Samuel MD) HYDROmorphone (Dilaudid) injection 0.5 mg [...] 1338, Intraprocedure 1338 (Given - Provid er: Meggan Samuel MD) Reason for Visit (unrecogniz ed section and content) Reason Comments Rectal Pain Rectal Bleeding FOR RECORDS PERTAINING TO PATIENTS WHO ARE [...] BE BASED ON THE PRIMARY CLINICAL RECORDS. [facility]. provides no warranty or guarantee of the accuracy or completeness of information in this document.
== END 2025-06-13 18:51 | disposition home or self-care (01) ==
LOC: ER 18:50
PROVIDERS: Emergency Provider Student in an Organized Health Care Education/Training Program
DX: H65.192 Other acute nonsuppurative otitis media, left ear (principal); Z87.891 Personal history of nicotine dependence; Z59.89 Other problems related to housing and economic circumstances
CPT/HCPCS: 99283